=== PATIENT | male | born 1945 | race Caucasian/White ===

== ENCOUNTER 2016-09-23 19:53 | Inpatient (IN) | payer MEDICARE ==
[2016-09-23] MEDS ORDERED: ACETAMINOPHEN TAB 500 MG TAB PO STA (20:22)
[2016-09-23] MEDS ORDERED: IBUPROFEN 600 MG TAB PO STA (20:22)
--- NOTE | 2016-09-23 20:28 | ED ---
General Adult HPI - General Source: patient, family, RN notes reviewed Mode of arrival: wheelchair Limitations: no limitations <Deacon Velazquez - Last Filed: 09/23/16 20:58> <Deacon Gunn - Last Filed: 09/23/16 22:36> - General Chief complaint: Shortness of Breath Stated complaint: Difficulty breathing Time Seen by Provider: 09/23/16 20:00 - History of Present Illness Initial comments: This is a 71-year-old male who presents to the emergency department complaining of shortness of breath and feeling hot. Patient states she has a past medical history significant for COPD. Patient states about 11:00 today started feeling more sleepy took some Tylenol and since that time he's been short of breath and the shortness of breath getting worse. Patient states he is not coughing anymore than normal. Patient denies any chest pain patient denies any palpitations. Patient denies headache patient denies any numbness weakness. Patient denies any sore throat or ear pain. Patient denies any neck stiffness. Patient denies abdominal pain patient denies nausea vomiting or diarrhea. Patient denies any dysuria hematuria urinary frequency. (Deacon Velazquez) - Related Data Home Medications Medication Instructions Recorded Confirmed Albuterol Inhaler [Ventolin Hfa 2 puff INHALATION RT-QID PRN 09/23/16 09/23/16 Inhaler] Budesonide [Pulmicort] 0.5 mg INHALATION RT-BID 09/23/16 09/23/16 Cholecalciferol [Vitamin D3] 400 unit PO DAILY 09/23/16 09/23/16 Ipratropium-Albuterol Nebulize 3 ml INHALATION RT-QID 09/23/16 09/23/16 [Duoneb 0.5 mg-3 mg/3 ml Soln] Losartan [Cozaar] 25 mg PO DAILY 09/23/16 09/23/16 Pravastatin Sodium [Pravachol] 40 mg PO DAILY 09/23/16 09/23/16 Tamsulosin HCl [Flomax] 0.4 mg PO HS 09/23/16 09/23/16 Allergies Allergy/AdvReac Type Severity Reaction Status Date / Time No Known Allergies Allergy Verified 09/23/16 21:07 Review of Systems ROS Other: All systems not noted in ROS Statement are negative. <Deacon Velazquez - Last Filed: 09/23/16 20:58> ROS Other: All systems not noted in ROS Statement are negative. <Deacon Gunn - Last Filed: 09/23/16 22:36> ROS Statement: Those systems with pertinent positive or pertinent negative responses have been documented in the HPI. Past Medical History Past Medical History: COPD, Hypertension History of Any Multi-Drug Resistant Organisms: None Reported Past Surgical History: Hernia Repair Past Psychological History: No Psychological Hx Reported Smoking Status: Former smoker Past Alcohol Use History: None Reported Past Drug Use History: None Reported <Deacon Velazquez - Last Filed: 09/23/16 20:58> General Exam Limitations: no limitations <Deacon Velazquez - Last Filed: 09/23/16 20:58> General appearance: alert, in no apparent distress, anxious, in distress, cachectic Head exam: Present: atraumatic, normocephalic, normal inspection Eye exam: Present: normal appearance, PERRL, EOMI. Absent: scleral icterus, conjunctival injection, periorbital swelling ENT exam: Present: normal exam, mucous membranes moist Neck exam: Present: normal inspection. Absent: tenderness, meningismus, lymphadenopathy Respiratory exam: Present: respiratory distress, wheezes, accessory muscle use, decreased breath sounds, prolonged expiratory. Absent: rales, rhonchi, stridor Cardiovascular Exam: Present: normal rhythm, tachycardia, normal heart sounds. Absent: systolic murmur, diastolic murmur, rubs, gallop, clicks GI/Abdominal exam: Present: soft, normal bowel sounds. Absent: distended, tenderness, guarding, rebound, rigid Extremities exam: Present: normal inspection, full ROM, normal capillary refill. Absent: tenderness, pedal edema, joint swelling, calf tenderness Back exam: Present: normal inspection Neurological exam: Present: alert, oriented X3, CN II-XII intact Psychiatric exam: Present: normal affect, normal mood Skin exam: Present: warm, dry, intact, normal color. Absent: rash <Deacon Gunn - Last Filed: 09/23/16 22:36> - General Exam Comments Initial Comments: GENERAL: Patient is well-developed and well-nourished. Patient is nontoxic and well- hydrated and is in mild distress ENT: Neck is soft and supple. No significant lymphadenopathy is noted. Oropharynx is clear. Moist mucous membranes. Neck has full range of motion without eliciting any pain. EYES: The sclera were anicteric and conjunctiva were pink and moist. Extraocular movements were intact and pupils were equal round and reactive to light. Eyelids were unremarkable. PULMONARY: Unlabored respirations. Good breath sounds bilaterally. Patient has some extra wheezes CARDIOVASCULAR: There is a regular rate and rhythm without any murmurs gallops or rubs. Femoral pulses are equal bilaterally ABDOMEN: Soft and nontender with normal bowel sounds. No palpable organomegaly was noted. There is no palpable pulsatile mass. SKIN: Skin is clear with no lesions or rashes and otherwise unremarkable. NEUROLOGIC: Patient is alert and oriented x3. Cranial nerves II through XII are grossly intact. Motor and sensory are also intact. Normal speech, volume and content. Symmetrical smile. MUSCULOSKELETAL: Normal extremities with adequate strength and full range of motion. No lower extremity swelling or edema. No calf tenderness. LYMPHATICS: No significant lymphadenopathy is noted PSYCHIATRIC: Normal psychiatric evaluation. Normal interpersonal interactions appears functionally intact in deals appropriately with others. No signs of depression. No signs of anxiety. (Deacon Velazquez) Course <Deacon Velazquez - Last Filed: 09/23/16 20:58> <Deacon Gunn - Last Filed: 09/23/16 22:36> Vital Signs 09/23/16 09/23/16 09/23/16 19:58 20:21 20:22 Temperature 98.7 F 101.0 F H Pulse Rate 139 H 141 H Respiratory 26 H 30 H 30 H Rate Blood Pressure 140/88 135/87 O2 Sat by Pulse 89 L 91 L Oximetry 09/23/16 09/23/16 21:06 22:00 Temperature 99.4 F Pulse Rate 121 H Respiratory 28 H 26 H Rate Blood Pressure 125/79 O2 Sat by Pulse 93 L 91 L Oximetry - Reevaluation(s) Reevaluation #1: 09/23/16 22:35 Patient was significant shortness of breath, we put on prolonged breathing treatment (Deacon Gunn) Medical Decision Making - Lab Data Result diagrams: 09/23/16 20:14 09/23/16 20:14 <Deacon Velazquez - Last Filed: 09/23/16 20:58> - Lab Data Result diagrams: 09/23/16 20:14 09/23/16 20:14 - Radiology Data Radiology results: report reviewed (Chest x-ray is positive for pneumonia), image reviewed <Deacon Gunn - Last Filed: 09/23/16 22:36> - Medical Decision Making EKG shows sinus tachycardia with an occasional PAC rates 140 beats a minute AK interval is 120 QRS is 122 QT interval is 298 QTC is 454. There is no ST segment elevation or depression. Dr. Gunn will be taking over the care of this patient at 9 PM (Deacon Velazquez) 71 male the ER for evaluation of severe shortness of breath fever cough and congestion patient suffering from pneumonia, pop, K by COPD exacerbation and hypoxia, patient given for fever control. Treatments and IV antibiotics. ( Deacon Gunn) - Lab Data Lab Results 09/23/16 09/23/16 09/23/16 Range/Units 20:14 20:14 20:14 WBC 26.1 H* (3.8-10.6) k/uL RBC 4.98 (4.30-5.90) m/uL Hgb 15.8 (13.0-17.5) gm/dL Hct 46.2 (39.0-53.0) % MCV 92.8 (80.0-100.0) fL MCH 31.8 (25.0-35.0) pg MCHC 34.3 (31.0-37.0) g/dL RDW 12.2 (11.5-15.5) % Plt Count 289 (150-450) k/uL Neutrophils % 91 % Lymphocytes % 3 % Monocytes % 5 % Eosinophils % 0 % Basophils % 0 % Neutrophils # 23.8 H (1.3-7.7) k/uL Lymphocytes # 0.8 L (1.0-4.8) k/uL Monocytes # 1.2 H (0-1.0) k/uL Eosinophils # 0.0 (0-0.7) k/uL Basophils # 0.1 (0-0.2) k/uL PT (9.0-12.0) sec INR (<1.1) APTT (22.0-30.0) sec Sodium 131 L (137-145) mmol/L Potassium 4.6 (3.5-5.1) mmol/L Chloride 96 L (98-107) mmol/L Carbon Dioxide 23 (22-30) mmol/L Anion Gap 12 mmol/L BUN 15 (9-20) mg/dL Creatinine 0.78 (0.66-1.25) mg/dL Est GFR (MDRD) Af Amer >60 (>60 ml/min/1.73 sqM) Est GFR (MDRD) Non-Af >60 (>60 ml/min/1.73 sqM) Glucose 125 H (74-99) mg/dL Plasma Lactic Acid Radu (0.7-2.0) mmol/L Calcium 10.4 H (8.4-10.2) mg/dL Total Bilirubin 0.9 (0.2-1.3) mg/dL AST 20 (17-59) U/L ALT 23 (21-72) U/L Alkaline Phosphatase 113 (38-126) U/L Total Creatine Kinase 74 (55-170) U/L CK-MB (CK-2) 1.9 (0.0-2.4) ng/mL CK-MB (CK-2) Rel Index 2.6 Troponin I <0.012 (0.000-0.034) ng/mL Total Protein 7.8 (6.3-8.2) g/dL Albumin 4.5 (3.5-5.0) g/dL Cortisol 25 ug/dL Urine Color Urine Appearance (Clear) Urine pH (5.0-8.0) Ur Specific [place] (1.001-1.035) Urine Protein (Negative) Urine Glucose (UA) (Negative) Urine Ketones (Negative) Urine Blood (Negative) Urine Nitrite (Negative) Urine Bilirubin (Negative) Urine Urobilinogen (<2.0) mg/dL Ur Leukocyte Esterase (Negative) 09/23/16 09/23/16 09/23/16 Range/Units 20:14 20:14 21:00 WBC (3.8-10.6) k/uL RBC (4.30-5.90) m/uL Hgb (13.0-17.5) gm/dL Hct (39.0-53.0) % MCV (80.0-100.0) fL MCH (25.0-35.0) pg MCHC (31.0-37.0) g/dL RDW (11.5-15.5) % Plt Count (150-450) k/uL Neutrophils % % Lymphocytes % % Monocytes % % Eosinophils % % Basophils % % Neutrophils # (1.3-7.7) k/uL Lymphocytes # (1.0-4.8) k/uL Monocytes # (0-1.0) k/uL Eosinophils # (0-0.7) k/uL Basophils # (0-0.2) k/uL PT 10.7 (9.0-12.0) sec INR 1.1 (<1.1) APTT 27.0 (22.0-30.0) sec Sodium (137-145) mmol/L Potassium (3.5-5.1) mmol/L Chloride (98-107) mmol/L Carbon Dioxide (22-30) mmol/L Anion Gap mmol/L BUN (9-20) mg/dL Creatinine (0.66-1.25) mg/dL Est GFR (MDRD) Af Amer (>60 ml/min/1.73 sqM) Est GFR (MDRD) Non-Af (>60 ml/min/1.73 sqM) Glucose (74-99) mg/dL Plasma Lactic Acid Radu 1.4 (0.7-2.0) mmol/L Calcium (8.4-10.2) mg/dL Total Bilirubin (0.2-1.3) mg/dL AST (17-59) U/L ALT (21-72) U/L Alkaline Phosphatase (38-126) U/L Total Creatine Kinase (55-170) U/L CK-MB (CK-2) (0.0-2.4) ng/mL CK-MB (CK-2) Rel Index Troponin I (0.000-0.034) ng/mL Total Protein (6.3-8.2) g/dL Albumin (3.5-5.0) g/dL Cortisol ug/dL Urine Color Yellow Urine Appearance Clear (Clear) Urine pH 7.0 (5.0-8.0) Ur Specific [place] 1.015 (1.001-1.035) Urine Protein Trace H (Negative) Urine Glucose (UA) Negative (Negative) Urine Ketones 1+ H (Negative) Urine Blood Negative (Negative) Urine Nitrite Negative (Negative) Urine Bilirubin Negative (Negative) Urine Urobilinogen <2.0 (<2.0) mg/dL Ur Leukocyte Esterase Negative (Negative) Critical Care Time Critical Care Time: Yes Total Critical Care Time: 31 <Deacon Gunn - Last Filed: 09/23/16 22:36> Disposition <Deacon Velazquez - Last Filed: 09/23/16 20:58> <Deacon Gunn - Last Filed: 09/23/16 22:36> Clinical Impression: Community acquired pneumonia, Acute exacerbation of chronic obstructive airways disease, Sepsis, Hypoxia Disposition: ADMITTED IP TO THIS HOSP Condition: Serious Referrals: Ronn Aaron MD [Primary Care Provider] - 1-2 days
[2016-09-23 20:41] LABS: Basophils # (A) 0.1 k/uL (0-0.2); Basophils % (A) 0 %; CHCM 34.6; Eosinophils % (A) 0 %; HCT 46.2 % (39.0-53.0); HDW 2.18; HGB 15.8 gm/dL (13.0-17.5); Luc # (Auto) 0.19; Luc % (Auto) 1; Lymphocytes # (A) 0.8 k/uL (1.0-4.8); Lymphocytes % (A) 3 %; MCH 31.8 pg (25.0-35.0); MCHC 34.3 g/dL (31.0-37.0); MCV 92.8 fL (80.0-100.0); Mean Platelet Volume 6.6; Monocytes # (A) 1.2 k/uL (0-1.0); Monocytes % (A) 5 %; Neutrophils # (A) 23.8 k/uL (1.3-7.7); Neutrophils % (A) 91 %; RBC 4.98 m/uL (4.30-5.90); RDW 12.2 % (11.5-15.5); WBC (Perox) 25.85
[2016-09-23 20:45] LABS: INR 1.1 (<1.1); Prothrombin Time 10.7 sec (9.0-12.0)
[2016-09-23 20:47] LABS: ALT 23 U/L (21-72); AST 20 U/L (17-59); Alkaline Phosphatase 113 U/L (38-126); Anion Gap 12 mmol/L; Blood Urea Nitrogen 15 mg/dL (9-20); Calcium 10.4 mg/dL (8.4-10.2); Carbon Dioxide 23 mmol/L (22-30); Chloride 96 mmol/L (98-107); Glucose 125 mg/dL (74-99); Non-African American GFR(MDRD) >60 (>60 ml/min/1.73 sqM); Potassium 4.6 mmol/L (3.5-5.1); Sodium 131 mmol/L (137-145); Total Bilirubin 0.9 mg/dL (0.2-1.3); Total Protein 7.8 g/dL (6.3-8.2)
[2016-09-23 20:49] LABS: Creatine Kinase 74 U/L (55-170); WBC 26.1 k/uL (3.8-10.6)
[2016-09-23] MEDS: SODIUM CHLORIDE 0.9% 500 ML IV SCH ×2 (20:58→22:15)
[2016-09-23 21:02] LABS: Creatine Kinase MB 1.9 ng/mL (0.0-2.4); Troponin I <0.012 ng/mL (0.000-0.034)
--- NOTE | 2016-09-23 21:04 | XR ---
EXAMINATION TYPE: XR chest 2V DATE OF EXAM: 09/23/2016 8:50 PM COMPARISON: May 19, 2012 HISTORY: Fever TECHNIQUE: Frontal and lateral views of the chest are obtained. FINDINGS: There is redemonstration of prominent hyperinflation and emphysematous changes, with scatt ered ill-defined opacities - some of which appear coalescent. The pattern can correlate with a clinic al diagnosis of developing multifocal bronchopneumonia. There is no pulmonary edema. The pleural spaces are negative. Cardiac silhouette is normal in size. Bones and soft tissues are negative. IMPRESSION: RADIOGRAPHIC FINDINGS SUGGEST DEVELOPING MULTIFOCAL BRONCHOPNEUMONIA.
[2016-09-23 21:15] LABS: Appearance,Urine Clear (Clear); Bilirubin,Urine Negative (Negative); Glucose,Urine (UA) Negative (Negative); Ketones,Urine 1+ (Negative); Leukocyte Esterase,Urine Negative (Negative); Nitrite,Urine Negative (Negative); Protein,Urine Trace (Negative); Specific Gravity,Urine 1.015 (1.001-1.035); UA Billing (MACRO vs. MICRO) CHEM; Urobilinogen,Urine <2.0 mg/dL (<2.0)
[2016-09-23] MEDS ORDERED: LEVOFLOXACIN 750MG-D5W PMX 750 MG in DEXTROSE/WATER 1 150ML.BAG IVPB STA (21:23)
[2016-09-23] MEDS ORDERED: IPRATROPIUM 0.5 MG/2.5 ML NEBU INHALATION STA (22:32)
[2016-09-23] MEDS ORDERED: SODIUM CHLORIDE 0.9% 1,000 ML IV STA (22:32)
[2016-09-23] MEDS ORDERED: SODIUM CHLORIDE 0.9% 2,000 ML IV STA (22:32)
[2016-09-23] MEDS ORDERED: methylPREDNISolone SOD SUCCI 125 MG/2 ML VIAL IV STA (22:32)
[2016-09-23] MEDS ORDERED: KETOROLAC 30 MG/ML 1 ML VIAL IVP STA (22:32)
[2016-09-23] MEDS ORDERED: ACETAMINOPHEN IV (For NPO) 1,000 MG in EMPTY BAG 1 BAG IVPB STA (22:32)
[2016-09-23] MEDS ORDERED: ALBUTEROL NEB (CONC) 2.5 MG/0.5 ML INHALATION STA ×2 (22:32→22:43)
[2016-09-23] MEDS ORDERED: SODIUM CHLORIDE 0.9% 500 ML IV STA (22:32)
[2016-09-23] MEDS ORDERED: MORPHINE SULFATE 4 MG/ML SYRINGE IVP PRN (22:33)
[2016-09-23] MEDS ORDERED: MORPHINE SULFATE 2 MG/ML SYRINGE IVP ONE (22:33)
[2016-09-23] MEDS ORDERED: PNEUMONIA PROTOCOL UTILIZED 1 EACH MISC PO PRN (22:36)
[2016-09-23] MEDS ORDERED: IPRATROPIUM-ALBUTEROL 3 ML NEB INHALATION STA (22:44)
[2016-09-24] MEDS ORDERED: IPRATROPIUM-ALBUTEROL 3 ML NEB INHALATION PRN (00:46)
[2016-09-24 01:05] VITALS: BMI 21.7
[2016-09-24] MEDS: SODIUM CHLORIDE 0.9% 1,000 ML IV SCH ×3 (02:02→18:25)
[2016-09-24] MEDS: ACETAMINOPHEN IV (For NPO) 1,000 MG in EMPTY BAG 1 BAG IVPB SCH ×4 (02:19→18:20)
[2016-09-24] MEDS: ALPRAZolam 0.25 MG TAB PO PRN ×3 (03:11→22:06)
[2016-09-24 03:29] LABS: Creatine Kinase 102 U/L (55-170)
[2016-09-24 03:42] LABS: Troponin I <0.012 ng/mL (0.000-0.034)
[2016-09-24 03:46] LABS: Creatine Kinase MB 3.1 ng/mL (0.0-2.4)
[2016-09-24] MEDS: methylPREDNISolone SOD SUCCI 125 MG/2 ML VIAL IV SCH ×3 (06:01→18:24)
[2016-09-24 08:00] LABS: Glucose,Whole Blood 127 mg/dL (75-99)
[2016-09-24] MEDS: INSULIN LISPRO (humaLOG) 300 UNIT/3 ML VIAL SQ SCH ×4 (08:00→20:55)
[2016-09-24] MEDS: IPRATROPIUM-ALBUTEROL 3 ML NEB INHALATION SCH ×4 (08:31→20:28)
[2016-09-24 08:37] LABS: Troponin I 0.013 ng/mL (0.000-0.034)
[2016-09-24 08:43] LABS: Creatine Kinase MB 5.5 ng/mL (0.0-2.4)
[2016-09-24 08:57] LABS: Hemoglobin A1C 5.5 % (4.2-6.1)
--- NOTE | 2016-09-24 10:11 | P.CNPUL ---
History of Present Illness Consult date: 09/24/16 Requesting physician: Evelio Brown Reason for consult: pneumonia Chief complaint: shortness of breath History of present illness: This is a 71-year-old male patient being evaluated and examined today on the fifth floor. The patient came into the emergency room complaining of shortness of breath, cough, congestion and feeling hot. The patient did have a 101 fever , and was noted to have sinus tachycardia.. This patient is known to have a significant history of COPD. Patient was then admitted for pneumonia, acute exacerbation of COPD, sepsis, and hypoxia. This patient does wear home oxygen, 3 L via nasal cannula. Upon examination the patient is resting up in bed he feels slightly better than yesterday he is currently afebrile, he continues to be short of breath and is bringing up some brown marinelli sputum. Review of Systems A 14 point review of systems was completed and is otherwise unremarkable, noncontributory unless stated in the HPI Past Medical History Past Medical History: COPD, Hyperlipidemia, Hypertension, Pneumonia, Prostate Disorder History of Any Multi-Drug Resistant Organisms: None Reported Past Surgical History: Hernia Repair Additional Past Surgical History / Comment(s): Colonoscopy - clear 2015 Past Anesthesia/Blood Transfusion Reactions: No Reported Reaction Past Psychological History: No Psychological Hx Reported Smoking Status: Former smoker Past Alcohol Use History: None Reported Past Drug Use History: None Reported - Past Family History Mother Family Medical History: Myocardial Infarction ([place]), Supraventricular Tachycardia (SVT) Additional Family Medical History / Comment(s): Lived to Father Family Medical History: Cancer Additional Family Medical History / Comment(s): Lung CA Medications and Allergies Home Medications Medication Instructions Recorded Confirmed Type Albuterol Inhaler [Ventolin Hfa 2 puff INHALATION RT-QID PRN 09/23/16 09/23/16 History Inhaler] Budesonide [Pulmicort] 0.5 mg INHALATION RT-BID 09/23/16 09/23/16 History Cholecalciferol [Vitamin D3] 400 unit PO DAILY 09/23/16 09/23/16 History Ipratropium-Albuterol Nebulize 3 ml INHALATION RT-QID 09/23/16 09/23/16 History [Duoneb 0.5 mg-3 mg/3 ml Soln] Losartan [Cozaar] 25 mg PO DAILY 09/23/16 09/23/16 History Pravastatin Sodium [Pravachol] 40 mg PO DAILY 09/23/16 09/23/16 History Tamsulosin HCl [Flomax] 0.4 mg PO HS 09/23/16 09/23/16 History Allergies Allergy/AdvReac Type Severity Reaction Status Date / Time No Known Allergies Allergy Verified 09/23/16 21:07 Physical Exam Vitals: Vital Signs Temp Pulse Pulse Resp BP BP Pulse Ox 09/24/16 08:44 100 09/24/16 08:31 104 H 09/24/16 08:00 108 H 22 09/24/16 07:45 97.7 F 108 H 22 163/92 93 L 09/24/16 04:01 115 H 20 09/24/16 02:00 117 H 38 H 92 L 09/24/16 01:01 98.1 F 115 H 20 157/94 92 L 09/24/16 00:40 98.1 F 115 H 26 H 157/94 92 L 09/24/16 00:00 99.0 F 116 H 28 H 122/75 91 L 09/23/16 23:00 128 H 09/23/16 22:49 119 H Intake and Output 09/23/16 09/24/16 09/24/16 22:59 06:59 14:59 Intake Total 1000 120 Balance 1000 120 Intake: Amount of Fluid Infused ( 1000 ml) Oral 120 Other: Voiding Method Toilet Urinal # Voids 1 1 # Bowel Movements 1 Weight 61.235 kg 61.235 kg Patient Weight 09/25/16 06:59 Weight 61.235 kg GENERAL EXAM: Alert, active, comfortable in no apparent distress. HEAD: Normocephalic. EYES: Normal reaction of pupils, equal size. NOSE: Clear with pink turbinates. THROAT: No erythema or exudates. NECK: No masses, no JVD. CHEST: No chest wall deformity. LUNGS: Poor air entry bilaterally with no crackles, wheeze, rhonchi or dullness. CVS: S1 and S2 normal with no audible mumurs, regular rhythm. ABDOMEN: No hepatosplenomegaly, normal bowel sounds, no guarding or rigidity. EXTREMITIES: No edema noted, pedal pulses palpable. SKIN: No rashes CENTRAL NERVOUS SYSTEM: No focal deficits, tone is normal in all 4 extremities. Results - Laboratory Findings CBC and BMP: 09/23/16 20:14 03/28/17 20:14 PT/INR, D-dimer PT 10.7 sec (9.0-12.0) 09/23/16 20:14 INR 1.1 (<1.1) 09/23/16 20:14 Abnormal lab findings: Abnormal Labs 09/24/16 09/24/16 09/24/16 02:46 07:36 07:58 POC Glucose (mg/dL) 127 H CK-MB (CK-2) 3.1 H* 5.5 H* - Diagnostic Findings Chest x-ray: report reviewed, image reviewed Assessment and Plan Plan: Assessment Acute exacerbation of COPD Probable community-acquired pneumonia versus mass, as seen on x-ray Sepsis Acute on chronic hypoxic respiratory failure Hypertension Plan Medications have been reviewed and will be continued. We will add budesonide to his nebulizer treatments. We also will order a CT of the chest without contrast, for probable community-acquired pneumonia versus mass. Continue with supportive care, oxygen, and pulmonary hygiene. We will continue monitoring labs and results and adjust treatment as necessary. I performed an examination of the patient and discussed their management with the nurse practitioner. I have reviewed the nurse practitioner's note and agree with the documented findings and plan of care.
[2016-09-24] MEDS: ENOXAPARIN 40 MG/0.4 ML SYRINGE SQ SCH (10:35)
[2016-09-24 12:05] LABS: Glucose,Whole Blood 144 mg/dL (75-99)
[2016-09-24 12:18] LABS: Basophils # (A) 0.1 k/uL (0-0.2); Basophils % (A) 0 %; CH 31.6; Eosinophils % (A) 0 %; HCT 43.7 % (39.0-53.0); HDW 2.14; HGB 14.4 gm/dL (13.0-17.5); Luc # (Auto) 0.11; Luc % (Auto) 0; Lymphocytes # (A) 0.6 k/uL (1.0-4.8); Lymphocytes % (A) 3 %; MCH 31.5 pg (25.0-35.0); MCHC 32.9 g/dL (31.0-37.0); MCV 95.9 fL (80.0-100.0); Mean Platelet Volume 8.1; Monocytes # (A) 0.7 k/uL (0-1.0); Monocytes % (A) 3 %; Neutrophils % (A) 94 %; RBC 4.56 m/uL (4.30-5.90); RDW 12.2 % (11.5-15.5); WBC 24.5 k/uL (3.8-10.6); WBC (Perox) 24.55
--- NOTE | 2016-09-24 12:37 | XR ---
EXAMINATION TYPE: XR chest 2V DATE OF EXAM: 09/24/2016 10:07 AM COMPARISON: 09/23/2016 HISTORY: Shortness of breath TECHNIQUE: Frontal and lateral views of the chest are obtained. FINDINGS: Scattered senescent parenchymal changes noted. Hyperinflation compatible with COPD. Superimposed emph ysematous changes. No evidence for infiltrate. No evidence for atelectasis. Heart size is stable. Mediastinal structures are stable and grossly unremarkable. No evidence for hilar prominence. Degenerative changes dorsal spine. IMPRESSION: 1. No evidence for acute pulmonary disease.
--- NOTE | 2016-09-24 12:58 | CT ---
EXAMINATION TYPE: CT chest wo con DATE OF EXAM: 09/24/2016 10:29 AM COMPARISON: Prior chest CT 19 May 2012, chest x-ray 23 September 2016 and 24 September 2016 HISTORY: Pneumonia, shortness of breath CT DLP: 390 mGycm Automated exposure control for dose reduction was used. FINDINGS: Helical acquisition through the chest. No contrast. There is a hiatal hernia. Lack of contrast could compromise sensitivity. Bronchograms, increased density within the medial aspect of the right middle lobe and lingula is agai n noted and may represent scar rather than airspace disease. Extensive emphysematous changes are agai n noted. No endobronchial lesion, pleural or pericardial effusion. There are coronary artery calcific ations. Bronchial wall thickening is present. IMPRESSION: STABLE AREAS OF CONSOLIDATION ARE PRESENT ANTERIORLY IN THE RIGHT MIDDLE LOBE AND [place] AND MAY REP RESENT SCAR RATHER THAN AIRSPACE DISEASE. CORRELATE FOR CHRONIC BRONCHITIS, THERE ARE EXTENSIVE ADVAN VIVIAN EMPHYSEMATOUS CHANGES. CORONARY ARTERY DISEASE.
[2016-09-24 16:46] LABS: Glucose,Whole Blood 161 mg/dL (75-99)
[2016-09-24] MEDS: TAMSULOSIN 0.4 MG CAP.ER.24H PO SCH (20:12)
[2016-09-24] MEDS: BUDESONIDE 1 MG/2 ML NEBU INHALATION SCH (20:28)
[2016-09-24 20:37] LABS: Glucose,Whole Blood 156 mg/dL (75-99)
[2016-09-24] MEDS ORDERED: LEVOFLOXACIN 750MG-D5W PMX 750 MG in DEXTROSE/WATER 1 150ML.BAG IVPB SCH (23:00)
[2016-09-25] MEDS: methylPREDNISolone SOD SUCCI 125 MG/2 ML VIAL IV SCH ×3 (01:04→11:32)
[2016-09-25] MEDS: IPRATROPIUM-ALBUTEROL 3 ML NEB INHALATION SCH ×4 (07:13→20:25)
[2016-09-25] MEDS: BUDESONIDE 1 MG/2 ML NEBU INHALATION SCH ×2 (07:14→20:25)
[2016-09-25] MEDS: ENOXAPARIN 40 MG/0.4 ML SYRINGE SQ SCH (07:34)
[2016-09-25] MEDS: PRAVASTATIN SODIUM 40 MG TAB PO SCH (07:34)
[2016-09-25] MEDS: FAMOTIDINE 20 MG TAB PO SCH (07:34)
[2016-09-25] MEDS: CHOLECALCIFEROL 400 UNIT TAB PO SCH (07:35)
[2016-09-25] MEDS: LOSARTAN 25 MG TAB PO SCH (07:35)
[2016-09-25] MEDS: ALPRAZolam 0.25 MG TAB PO PRN ×2 (07:41→22:06)
[2016-09-25 07:59] LABS: Glucose,Whole Blood 135 mg/dL (75-99)
[2016-09-25] MEDS: INSULIN LISPRO (humaLOG) 300 UNIT/3 ML VIAL SQ SCH ×4 (08:01→21:23)
[2016-09-25 08:40] LABS: Basophils % (A) 0 %; CH 31.6; CHCM 33.4; Eosinophils % (A) 0 %; HCT 43.6 % (39.0-53.0); HDW 2.23; HGB 14.3 gm/dL (13.0-17.5); Luc # (Auto) 0.09; Luc % (Auto) 1; Lymphocytes # (A) 0.9 k/uL (1.0-4.8); Lymphocytes % (A) 5 %; MCH 31.1 pg (25.0-35.0); MCHC 32.8 g/dL (31.0-37.0); MCV 94.9 fL (80.0-100.0); Mean Platelet Volume 6.7; Monocytes # (A) 0.4 k/uL (0-1.0); Monocytes % (A) 2 %; Neutrophils # (A) 16.5 k/uL (1.3-7.7); Neutrophils % (A) 92 %; RBC 4.59 m/uL (4.30-5.90); RDW 12.2 % (11.5-15.5); WBC 17.9 k/uL (3.8-10.6); WBC (Perox) 17.91
[2016-09-25 08:57] LABS: ALT 24 U/L (21-72); AST 29 U/L (17-59); Alkaline Phosphatase 87 U/L (38-126); Anion Gap 11 mmol/L; Blood Urea Nitrogen 20 mg/dL (9-20); Calcium 9.5 mg/dL (8.4-10.2); Carbon Dioxide 24 mmol/L (22-30); Chloride 102 mmol/L (98-107); Glucose 129 mg/dL (74-99); Non-African American GFR(MDRD) >60 (>60 ml/min/1.73 sqM); Potassium 4.4 mmol/L (3.5-5.1); Sodium 137 mmol/L (137-145); Total Bilirubin 0.6 mg/dL (0.2-1.3)
--- NOTE | 2016-09-25 11:03 | P.PN ---
Subjective this is a 71-year-old male patient being evaluated and examined today on the fifth floor. Patient came into the emergency room complaining of shortness of breath, cough, congestion and feeling hot. The patient did have a 101 fever, and was admitted to have sinus tachycardia. This patient is known to have a significant history of COPD. Patient was then admitted for pneumonia acute exacerbation of COPD, sepsis, and hypoxia. This patient does wear home oxygen, 3 L via nasal cannula. the patient did undergo a CT of the chest yesterday which showed stable areas of consolidation anteriorly and there are right middle lobe and may represent scar rather than airspace disease, also showed chronic bronchitis and extensive advanced emphysema, as well as coronary artery disease. Upon examination the patient is resting up in bed stating he feels slightly better than yesterday. Currently he is afebrile, he does continue to have some shortness of breath with exertion and ambulation. He denies any sputum production today. Objective - Vital Signs Vital signs: Vital Signs Temp 98.0 F 09/24/16 21:30 Pulse 115 H 09/25/16 08:00 Resp 18 09/25/16 08:00 BP 111/81 09/25/16 07:00 Pulse Ox 96 09/25/16 07:00 Intake & Output 09/24/16 09/25/16 09/25/16 18:59 06:59 18:59 Intake Total 120 250 Balance 120 250 Weight 61.235 kg 61.235 kg Intake: IV 150 Levofloxacin 750Mg-D5w 150 Pmx 750 mg In Dextrose/ Water 1 150ml.bag @ 100 mls/hr IVPB Q24H [facility] Rx#: [id number] Oral 120 100 Other: Voiding Method Toilet Toilet Toilet Urinal Urinal Urinal # Voids 2 2 1 # Bowel Movements 1 - Exam GENERAL EXAM: Alert, active, comfortable in no apparent distress. HEAD: Normocephalic. EYES: Normal reaction of pupils, equal size. NOSE: Clear with pink turbinates. THROAT: No erythema or exudates. NECK: No masses, no JVD. CHEST: No chest wall deformity. LUNGS: Poor air entry bilaterally with no crackles wheezes rhonchi or dullness.. CVS: S1 and S2 normal with no audible mumurs, regular rhythm. ABDOMEN: No hepatosplenomegaly, normal bowel sounds, no guarding or rigidity. EXTREMITIES: No edema noted, pedal pulses palpable. SKIN: No rashes CENTRAL NERVOUS SYSTEM: No focal deficits, tone is normal in all 4 extremities. - Labs CBC & Chem 7: 09/25/16 07:45 09/25/16 07:45 Labs: Abnormal Lab Results - Last 24 Hours (Table) 09/24/16 09/24/16 09/24/16 Range/Units 02:46 11:50 16:36 WBC 24.5 H (3.8-10.6) k/uL Neutrophils # 23.0 H (1.3-7.7) k/uL Lymphocytes # 0.6 L (1.0-4.8) k/uL Glucose (74-99) mg/dL POC Glucose (mg/dL) 144 H 161 H (75-99) mg/dL 09/24/16 09/25/16 09/25/16 Range/Units 20:35 07:45 07:45 WBC 17.9 H (3.8-10.6) k/uL Neutrophils # 16.5 H (1.3-7.7) k/uL Lymphocytes # 0.9 L (1.0-4.8) k/uL Glucose 129 H (74-99) mg/dL POC Glucose (mg/dL) 156 H (75-99) mg/dL 09/25/16 Range/Units 07:55 WBC (3.8-10.6) k/uL Neutrophils # (1.3-7.7) k/uL Lymphocytes # (1.0-4.8) k/uL Glucose (74-99) mg/dL POC Glucose (mg/dL) 135 H (75-99) mg/dL Assessment and Plan Plan: Assessment Acute exacerbation of COPD Probable community-acquired pneumonia versus mass, as seen on x-ray Sepsis Acute on chronic hypoxic respiratory failure Hypertension Plan Medications have been reviewed and will be continued. Continue with supportive care, oxygen, and pulmonary hygiene. We will continue monitoring labs and results and adjust treatment as necessary. I performed an examination of the patient and discussed their management with the nurse practitioner. I have reviewed the nurse practitioner's note and agree with the documented findings and plan of care.
[2016-09-25] MEDS ORDERED: guaiFENesin-Coden 100-10MG/5ML 10 ML CUP PO PRN (11:10)
[2016-09-25 11:53] LABS: Glucose,Whole Blood 187 mg/dL (75-99)
[2016-09-25 16:23] VITALS: TEMP 97.5
[2016-09-25 17:34] LABS: Glucose,Whole Blood 130 mg/dL (75-99)
[2016-09-25] MEDS ORDERED: methylPREDNISolone SOD SUCCI 40 MG/ML 1 ML VIAL IV SCH (18:00)
[2016-09-25 20:29] LABS: Glucose,Whole Blood 197 mg/dL (75-99)
[2016-09-25] MEDS: TAMSULOSIN 0.4 MG CAP.ER.24H PO SCH (21:24)
[2016-09-25 22:15] VITALS: RESP 20
[2016-09-25] MEDS ORDERED: LEVOFLOXACIN 750 MG TAB PO SCH (23:00)
[2016-09-26] MEDS: FAMOTIDINE 20 MG TAB PO SCH (07:13)
[2016-09-26] MEDS: ENOXAPARIN 40 MG/0.4 ML SYRINGE SQ SCH (07:13)
[2016-09-26] MEDS: CHOLECALCIFEROL 400 UNIT TAB PO SCH (07:14)
[2016-09-26] MEDS: PRAVASTATIN SODIUM 40 MG TAB PO SCH (07:14)
[2016-09-26] MEDS: LOSARTAN 25 MG TAB PO SCH (07:14)
[2016-09-26 07:26] LABS: Glucose,Whole Blood 108 mg/dL (75-99)
[2016-09-26] MEDS: BUDESONIDE 1 MG/2 ML NEBU INHALATION SCH (07:28)
[2016-09-26] MEDS: IPRATROPIUM-ALBUTEROL 3 ML NEB INHALATION SCH ×2 (07:28→11:18)
[2016-09-26 07:39] VITALS: BP 167/107
[2016-09-26] MEDS: INSULIN LISPRO (humaLOG) 300 UNIT/3 ML VIAL SQ SCH ×2 (07:52→12:39)
[2016-09-26] MEDS ORDERED: predniSONE 20 MG TAB PO SCH (09:00)
[2016-09-26 11:42] VITALS: PULSE 102
[2016-09-26 11:53] LABS: Glucose,Whole Blood 103 mg/dL (75-99)
--- NOTE | 2016-09-26 15:11 | P.HPIM ---
History of Present Illness H&P Date: 09/24/16 Chief Complaint: Acute respiratory failure, COPD exacerbation, multifocal pneumonia, hyperte 71-year-old male one of Dr. Ronn Aaron's patient with past medical history of COPD, hypertension, BPH, recurrent pneumonia who was in the hospital apparently back in 2011 with episode of pneumonia and COPD excessive patient along with respiratory failure was treated and done well has quit smoking since then. Patient was doing well till 48 hours. 2 hospitalization when developed to have fever or chills cough productive duct floor him along with significant shortness of breath tighter wheezy not been able to ambulate and walk become more nauseous has been sick to stomach not feeling well overall. Patient ended up coming to the emergency department at [facility] where was seen and evaluated was hypoxic his temperature was 102 chest x- ray revealed multilobular pneumonia patient was having inspiratory expiratory wheezes was diagnosed with COPD exacerbation respiratory failure and multi low blood pneumonia. Patient was started on gram-negative coverage steroid updraft treatment will consult pulmonary patient was admitted to the hospital for the above problem. Review of Systems Constitutional: Reports anorexia, Reports fatigue, Reports lethargy, Reports night sweats, Reports weakness, Reports weight gain, Denies as per HPI, Denies chills, Denies chronic headaches, Denies chronic pain, Denies daytime sleepiness , Denies fever, Denies malaise, Denies poor appetite, Denies sweats, Denies weight loss Eyes: bilateral as per HPI Ears: bilateral: decreased hearing Ears, nose, mouth and throat: Reports ant. neck pain, Reports nasal congestion, Reports sinus pain, Reports sinus pressure, Denies as per HPI, Denies bleeding gums, Denies dental pain, Denies dysphagia, Denies epistaxis, Denies headache, Denies hoarseness, Denies mouth pain, Denies nasal discharge, Denies neck fullness/pressure, Denies neck lump, Denies nose pain, Denies odynophagia, Denies post-nasal drip, Denies swelling in mouth, Denies swelling in throat, Denies sore throat, Denies vertigo, Denies voice changes Breasts: bilateral: as per HPI Cardiovascular: Reports chest pain, Reports claudication, Reports dyspnea on exertion, Reports edema, Reports high blood pressure, Reports irregular heart beat, Reports leg edema, Reports lightheadedness, Reports orthopnea, Reports paroxysmal nocturnal dyspnea, Reports shortness of breath, Denies as per HPI, Denies decreased exercise tolerance, Denies palpitations, Denies phlebitis, Denies rapid heart beat, Denies syncope Respiratory: Reports congestion, Reports cough, Reports dyspnea, Reports respiratory infections, Denies as per HPI, Denies cough with sputum, Denies excessive sputum, Denies hemoptysis, Denies home oxygen, Denies pain, Denies pain on inspiration, Denies pleurisy, Denies sleep apnea, Denies snoring, Denies wheezing Gastrointestinal: Reports abdominal pain, Reports bloating, Reports dyspepsia, Reports early satiety, Reports indigestion, Reports nausea, Denies as per HPI, Denies belching, Denies BRBPR, Denies change in bowel habits, Denies coffee ground emesis, Denies constipation, Denies diarrhea, Denies excessive gas, Denies heartburn, Denies hematemesis, Denies hematochezia, Denies jaundice, Denies lactose intolerance, Denies loss of appetite, Denies melena, Denies vomiting Genitourinary: Reports nocturia, Reports polyuria, Reports urinary frequency, Denies as per HPI, Denies decreased libido, Denies difficulties fathering child , Denies discharge, Denies dysuria, Denies erectile dysfunction, Denies flank pain, Denies genital pain, Denies genital sores, Denies hematuria, Denies impotence, Denies incontinence, Denies kidney stones, Denies testicular lump, Denies testicular pain, Denies urinary hesitancy, Denies urinary retention Musculoskeletal: Reports arm numbness/tingling, Reports atrophy, Reports low back pain, Reports myalgias, Reports neck pain, Reports neck stiffness, Denies as per HPI, Denies fractures, Denies frequent falls, Denies gait dysfunction, Denies hot joints, Denies leg numbness/tingling, Denies limitation of motion, Denies loss of height, Denies morning stiffness, Denies muscle cramps, Denies muscle weakness, Denies prior amputations, Denies redness of joints, Denies shooting arm pain, Denies shooting leg pain Musculoskeletal: bilateral: ankle pain Integumentary: Reports pruritus, Reports rash, Reports sores, Denies as per HPI , Denies acne, Denies boils, Denies brittle nails, Denies change in hair/nails, Denies color changes, Denies darkening of skin, Denies depigmentation, Denies dryness, Denies foot/leg ulcers, Denies growths, Denies hirsutism, Denies lesions, Denies onychomycosis, Denies striae, Denies unusual bruising, Denies wounds Neurological: Reports gait dysfunction, Reports paresthesias, Denies as per HPI , Denies aphasia, Denies ataxia, Denies balance difficulties, Denies burning pain, Denies change in mentation, Denies change in smell/taste, Denies change in speech, Denies confusion, Denies convulsions, Denies double vision, Denies head injury, Denies headaches, Denies hearing difficulties, Denies lack of coordination, Denies loss of vision, Denies memory loss, Denies migraines, Denies motor disturbance, Denies numbness, Denies paralysis, Denies seizures, Denies sensory deficit, Denies spasticity, Denies syncope, Denies tic, Denies tingling, Denies transient paralysis, Denies tremors, Denies vertigo, Denies weakness, Denies visual changes Psychiatric: Denies as per HPI, Denies anhedonia, Denies anxiety, Denies anxiety attacks, Denies change in appetite, Denies change in libido, Denies change in sleep habits, Denies confusion, Denies depression, Denies difficulty concentrating, Denies disorientation, Denies hallucinations, Denies hopelessness , Denies hypersomnia, Denies insomnia, Denies irritability, Denies memory loss, Denies mood swings, Denies paranoia, Denies sadness/tearfulness, Denies sleep disturbances, Denies suicidal ideation Endocrine: Reports cold intolerance, Reports fatigue, Denies as per HPI, Denies deepening of the voice, Denies excessive sweating, Denies excessive thirst, Denies flushing, Denies heat intolerance, Denies high blood sugars, Denies increase in ring/shoe/hat size, Denies low blood sugars, Denies nocturia, Denies palpitations, Denies polydipsia, Denies polyphagia, Denies polyuria, Denies proptosis, Denies recent glucocorticoid use, Denies thyroid mass, Denies weight change Hematologic/Lymphatic: Reports easy bleeding, Denies as per HPI, Denies easy bruising, Denies lymphadenopathy, Denies lymphedema, Denies thrombophilia Allergic/Immunologic: Denies as per HPI, Denies allergic rhinitis, Denies anaphylaxis, Denies angioedema, Denies gluten intolerance, Denies persistent infections, Denies seasonal allergies, Denies urticaria, Denies wheezing Past Medical History Past Medical History: COPD, Hyperlipidemia, Hypertension, Pneumonia, Prostate Disorder History of Any Multi-Drug Resistant Organisms: None Reported Past Surgical History: Hernia Repair Additional Past Surgical History / Comment(s): Colonoscopy - clear 2016 Past Anesthesia/Blood Transfusion Reactions: No Reported Reaction Past Psychological History: No Psychological Hx Reported Smoking Status: Former smoker Past Alcohol Use History: None Reported Past Drug Use History: None Reported - Past Family History Mother Family Medical History: Myocardial Infarction (ND), Supraventricular Tachycardia (SVT) Additional Family Medical History / Comment(s): Lived to Father Family Medical History: Cancer Additional Family Medical History / Comment(s): Lung CA Medications and Allergies Home Medications Medication Instructions Recorded Confirmed Type Albuterol Inhaler [Ventolin Hfa 2 puff INHALATION RT-QID PRN 09/23/16 09/23/16 History Inhaler] Budesonide [Pulmicort] 0.5 mg INHALATION RT-BID 09/23/16 09/23/16 History Cholecalciferol [Vitamin D3] 400 unit PO DAILY 09/23/16 09/23/16 History Ipratropium-Albuterol Nebulize 3 ml INHALATION RT-QID 09/23/16 09/23/16 History [Duoneb 0.5 mg-3 mg/3 ml Soln] Losartan [Cozaar] 25 mg PO DAILY 09/23/16 09/23/16 History Pravastatin Sodium [Pravachol] 40 mg PO DAILY 09/23/16 09/23/16 History Tamsulosin HCl [Flomax] 0.4 mg PO HS 09/23/16 09/23/16 History Allergies Allergy/AdvReac Type Severity Reaction Status Date / Time No Known Allergies Allergy Verified 09/23/16 21:07 Physical Exam Vitals: Vital Signs Temp Pulse Pulse Resp BP BP Pulse Ox 09/24/16 11:59 108 H 09/24/16 11:49 108 H 09/24/16 08:44 100 09/24/16 08:31 104 H 09/24/16 08:00 108 H 22 09/24/16 07:45 97.7 F 108 H 22 163/92 93 L 09/24/16 04:01 115 H 20 09/24/16 02:00 117 H 38 H 92 L 09/24/16 01:01 98.1 F 115 H 20 157/94 92 L 09/24/16 00:40 98.1 F 115 H 26 H 157/94 92 L 09/24/16 00:00 99.0 F 116 H 28 H 122/75 91 L 09/23/16 23:00 128 H 09/23/16 22:49 119 H Intake and Output 09/23/16 09/24/16 09/24/16 22:59 06:59 14:59 Intake Total 1000 120 Balance 1000 120 Intake: Amount of Fluid Infused ( 1000 ml) Oral 120 Other: Voiding Method Toilet Urinal # Voids 1 1 # Bowel Movements 1 Weight 61.235 kg 61.235 kg Patient Weight 09/25/16 06:59 Weight 61.235 kg - Constitutional General appearance: no average body habitus, cooperative, no disheveled, no mild distress, no morbidly obese, no acute distress, no obese, no severe distress, thin - EENT Eyes: no abnormal pupil, anicteric sclerae, no disc margins sharp, no edentulous , no EOMI, no PERRLA, no fundus normal, no photophobia, no dentition normal, no poor dentition, no ptosis, no scleral icterus, normal appearance ENT: hard of hearing, no hearing grossly normal, no NA/AT, no normal oropharynx , no other, no pharyngeal erythema, no thrush, no tonsillar exudates, no tonsillar swelling Ears: bilateral: normal - Neck Neck: no lymphadenopathy, normal ROM, no other, no rigidity, no stridor, no thyromegaly Carotids: bilateral: upstroke normal Thyroid: bilateral: normal size - Respiratory Respiratory: bilateral: diminished, dullness, rales, rhonchi, wheezing, prolonged expiration, prolonged inspiration - Cardiovascular Rhythm: regular Heart sounds: normal: S1, S2 Abnormal Heart Sounds: systolic murmur, S3 Gallop - Gastrointestinal General gastrointestinal: no absent bowel sounds, decreased bowel sounds, distended, hepatomegaly, no hyperactive bowel sounds, no normal bowel sounds, no organomegaly, no rigid, scaphoid, soft, splenomegaly, no tenderness, no umbilical hernia, no ventral hernia - Integumentary Integumentary: no calor, no cellulitis, no cyanotic, no decreased turgor, no flushed, no jaundiced, normal, no normal turgor, pale, no rash, no ulcer - Neurologic Neurologic: CNII-XII intact - Musculoskeletal Musculoskeletal: gait normal, generalized weakness, strength equal bilaterally, no right sided weakness, no left sided weakness - Psychiatric Psychiatric: A&O x's 3, appropriate affect, no intact judgment & insight Results CBC & Chem 7: 09/25/16 07:45 09/25/16 07:45 Labs: Abnormal Lab Results - Last 24 Hours (Table) 09/24/16 09/24/16 09/24/16 Range/Units 02:46 02:46 07:36 WBC 24.5 H (3.8-10.6) k/uL Neutrophils # 23.0 H (1.3-7.7) k/uL Lymphocytes # 0.6 L (1.0-4.8) k/uL POC Glucose (mg/dL) (75-99) mg/dL CK-MB (CK-2) 3.1 H* 5.5 H* (0.0-2.4) ng/mL 09/24/16 09/24/16 Range/Units 07:58 11:50 WBC (3.8-10.6) k/uL Neutrophils # (1.3-7.7) k/uL Lymphocytes # (1.0-4.8) k/uL POC Glucose (mg/dL) 127 H 144 H (75-99) mg/dL CK-MB (CK-2) (0.0-2.4) ng/mL Thrombosis Risk Factor Assmnt - DVT/VTE Prophylaxis DVT/VTE Prophylaxis: Pharmacologic Prophylaxis ordered, Mechanical Prophylaxis ordered - Choose All That Apply Any of the Below Risk Factors Present?: Yes Each Factor Represents 1 point: Abnormal pulmonary function (COPD) Other Risk Factors: Yes Each Risk Factor Represents 2 Points: Age 61-74 years Other congenital or acquired thrombophilia - If yes, enter type in comment: No Thrombosis Risk Factor Assessment Total Risk Factor Score: 3 Thrombosis Risk Factor Assessment Level: Moderate Risk Assessment and Plan Plan: 1 acute respiratory failure: Combination of COPD exacerbation along with multilobular pneumonia, treated underlying disease continue O2 on consult pulmonary. 2 COPD excessive patient: Patient will be on Solu-Medrol 60 mg IV every 6 hours along with Pulmicort and DuoNeb continue O2 try to keep his pulse ox above 92%. 3 multilobular pneumonia the possibility of atypical is very high consult pulmonary patient was started on Levaquin which will be covered for gram- negative as well. Patient might require to be on azithromycin for better coverage for atypical pneumonitis. 4 hypertension: Patient is on losartan 25 g a day continue medication. 5 hyperlipidemia: Continue patient on Pravachol 40 mg daily. 6 hyperglycemia: Steroid-induced continue patient on Accu-Chek with sliding scales coverage for now. 7 severe leukocytosis: Most likely from the severity of pneumonia and this is an infection related continue antibiotic current treatment repeat CBC in the next 24 hours. 8 GERD/GI prophylaxis: Patient will be on Pepcid 20 mg daily. 9 DVT prophylaxis: Patient will be on Lovenox 40 mg subcutaneous daily. CODE STATUS: Full code. Expectation from this admission: Patient be in the hospital for more than 2 nights.
--- NOTE | 2016-09-26 15:57 | P.PN ---
Subjective 71-year-old male one of Dr. Ronn Aaron's patient with past medical history of COPD, hypertension, BPH, recurrent pneumonia who was in the hospital apparently back in 2011 with episode of pneumonia and COPD excessive patient along with respiratory failure was treated and done well has quit smoking since then. Patient was doing well till 48 hours. 2 hospitalization when developed to have fever or chills cough productive duct floor him along with significant shortness of breath tighter wheezy not been able to ambulate and walk become more nauseous has been sick to stomach not feeling well overall. Patient ended up coming to the emergency department at [facility] where was seen and evaluated was hypoxic his temperature was 102 chest x- ray revealed multilobular pneumonia patient was having inspiratory expiratory wheezes was diagnosed with COPD exacerbation respiratory failure and multi low blood pneumonia. Patient was started on gram-negative coverage steroid updraft treatment will consult pulmonary patient was admitted to the hospital for the above problem. 09/25: Patient is followed by pulmonary medicine, Dr. Koenig. He is currently on Solu-Medrol 60 mg IV every 6 hours which will be decreased to 40 mg every 8 hours and start prednisone tomorrow. Anticipate possible discharge by tomorrow or Thursday. Patient has been seen by Dr. Koenig from pulmonary medicine. Objective - Vital Signs Vital signs: Vital Signs Temp 98.0 F 09/24/16 21:30 Pulse 96 09/25/16 11:44 Resp 18 09/25/16 08:00 BP 111/81 09/25/16 07:00 Pulse Ox 96 09/25/16 07:00 Intake & Output 09/24/16 09/25/16 09/25/16 18:59 06:59 18:59 Intake Total 120 250 Balance 120 250 Weight 61.235 kg 61.235 kg Intake: IV 150 Levofloxacin 750Mg-D5w 150 Pmx 750 mg In Dextrose/ Water 1 150ml.bag @ 100 mls/hr IVPB Q24H [facility] Rx#: [id number] Oral 120 100 Other: Voiding Method Toilet Toilet Toilet Urinal Urinal Urinal # Voids 2 2 1 # Bowel Movements 1 - Exam General appearance: no average body habitus, cooperative, no disheveled, no mild distress, no morbidly obese, no acute distress, no obese, no severe distress, thin - EENT Eyes: no abnormal pupil, anicteric sclerae, no disc margins sharp, no edentulous , no EOMI, no PERRLA, no fundus normal, no photophobia, no dentition normal, no poor dentition, no ptosis, no scleral icterus, normal appearance ENT: hard of hearing, no hearing grossly normal, no NA/AT, no normal oropharynx , no other, no pharyngeal erythema, no thrush, no tonsillar exudates, no tonsillar swelling Ears: bilateral: normal - Neck Neck: no lymphadenopathy, normal ROM, no other, no rigidity, no stridor, no thyromegaly Carotids: bilateral: upstroke normal Thyroid: bilateral: normal size - Respiratory Respiratory: bilateral: diminished, dullness, rales, rhonchi, wheezing, prolonged expiration, prolonged inspiration - Cardiovascular Rhythm: regular Heart sounds: normal: S1, S2 Abnormal Heart Sounds: systolic murmur, S3 Gallop - Gastrointestinal General gastrointestinal: no absent bowel sounds, decreased bowel sounds, distended, hepatomegaly, no hyperactive bowel sounds, no normal bowel sounds, no organomegaly, no rigid, scaphoid, soft, splenomegaly, no tenderness, no umbilical hernia, no ventral hernia - Integumentary Integumentary: no calor, no cellulitis, no cyanotic, no decreased turgor, no flushed, no jaundiced, normal, no normal turgor, pale, no rash, no ulcer - Neurologic Neurologic: CNII-XII intact - Musculoskeletal Musculoskeletal: gait normal, generalized weakness, strength equal bilaterally, no right sided weakness, no left sided weakness - Psychiatric Psychiatric: A&O x's 3, appropriate affect, no intact judgment & insight - Labs CBC & Chem 7: 09/25/16 07:45 09/25/16 07:45 Labs: Abnormal Lab Results - Last 24 Hours (Table) 09/24/16 09/24/16 09/25/16 Range/Units 16:36 20:35 07:45 WBC 17.9 H (3.8-10.6) k/uL Neutrophils # 16.5 H (1.3-7.7) k/uL Lymphocytes # 0.9 L (1.0-4.8) k/uL Glucose (74-99) mg/dL POC Glucose (mg/dL) 161 H 156 H (75-99) mg/dL 09/25/16 09/25/16 09/25/16 Range/Units 07:45 07:55 11:47 WBC (3.8-10.6) k/uL Neutrophils # (1.3-7.7) k/uL Lymphocytes # (1.0-4.8) k/uL Glucose 129 H (74-99) mg/dL POC Glucose (mg/dL) 135 H 187 H (75-99) mg/dL Assessment and Plan Plan: 1 acute hypoxic respiratory failure: Combination of COPD exacerbation along with multilobular pneumonia, treated underlying disease continue O2 on consult pulmonary. 2 COPD exacerbation: Patient will be on Solu-Medrol 40 mg IV every 8 hours and changed to prednisone tomorrow along with Pulmicort and DuoNeb continue O2 try to keep his pulse ox above 92%. 3 multilobular pneumonia the possibility of atypical is very high consult pulmonary patient was started on Levaquin which will be covered for gram- negative as well. Patient might require to be on azithromycin for better coverage for atypical pneumonitis. 4 hypertension: Patient is on losartan 25 g a day continue medication. 5 hyperlipidemia: Continue patient on Pravachol 40 mg daily. 6 hyperglycemia: Steroid-induced continue patient on Accu-Chek with sliding scales coverage for now. 7 severe leukocytosis: Most likely from the severity of pneumonia and this is an infection related continue antibiotic current treatment repeat CBC in the next 24 hours. 8 GERD/GI prophylaxis: Patient will be on Pepcid 20 mg daily. 9 DVT prophylaxis: Patient will be on Lovenox 40 mg subcutaneous daily. 10 chronic hypoxic respiratory failure with home O2 dependence. CODE STATUS: Full code. Discharge plan: Home in the next 24 hours Impression and plan of care have been directed as dictated by the signing physician. Denise Dupont nurse practitioner acting as scribe for signing physician. Time with Patient: Greater than 30
--- NOTE | 2016-09-26 15:59 | P.DS ---
Providers Date of admission: 09/23/16 22:36 Expected date of discharge: 09/26/16 Attending physician: Evelio Brown Primary care physician: Ronn Aaron 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 Patient was doing well till 48 hours. 2 hospitalization when developed to have fever or chills cough productive duct floor him along with significant shortness of breath tighter wheezy not been able to ambulate and walk become more nauseous has been sick to stomach not feeling well overall. Patient ended up coming to the emergency department at [facility] where was seen and evaluated was hypoxic his temperature was 102 chest x- ray revealed multilobular pneumonia patient was having inspiratory expiratory wheezes was diagnosed with COPD exacerbation respiratory failure and multi low blood pneumonia. Patient was started on gram-negative coverage steroid updraft treatment will consult pulmonary patient was admitted to the hospital for the above problem. 09/25: Patient is followed by pulmonary medicine, Dr. Koenig. He is currently on Solu-Medrol 60 mg IV every 6 hours which will be decreased to 40 mg every 8 hours and start prednisone tomorrow. Anticipate possible discharge by tomorrow or Thursday. Patient has been seen by Dr. Koenig from pulmonary medicine. 09/26: Patient's respiratory status continues to improve and he is anxious to be discharged home. Patient denies any chest pain. Patient will be discharged home today in stable condition. Discharge diagnoses: 1 acute hypoxic respiratory failure: Combination of COPD exacerbation along with multilobular possible gram-negative pneumonia 2 COPD exacerbation 3 multilobular pneumonia the possibility of gram-negative pneumonia 4 hypertension 5 hyperlipidemia 6 hyperglycemia 7 severe leukocytosis 8 GERD 9 chronic hypoxic respiratory failure with home O2 dependence. Discharge plan: Home Impression and plan of care have been directed as dictated by the signing physician. Denise Dupont nurse practitioner acting as scribe for signing physician. Cc: Dr. Ronn Aaron Patient Condition at Discharge: Good Plan - Discharge Summary New Discharge Prescriptions: Levofloxacin [Levaquin] 750 mg PO DAILY #7 tab predniSONE 0 mg PO DIRECTED #100 tab Discharge Medication List Albuterol Inhaler [Ventolin Hfa Inhaler] 2 puff INHALATION RT-QID PRN 09/23/16 [ History] Budesonide [Pulmicort] 0.5 mg INHALATION RT-BID 09/23/16 [History] Cholecalciferol [Vitamin D3] 400 unit PO DAILY 09/23/16 [History] Ipratropium-Albuterol Nebulize [Duoneb 0.5 mg-3 mg/3 ml Soln] 3 ml INHALATION RT -QID 09/23/16 [History] Losartan [Cozaar] 25 mg PO DAILY 09/23/16 [History] Pravastatin Sodium [Pravachol] 40 mg PO DAILY 09/23/16 [History] Tamsulosin HCl [Flomax] 0.4 mg PO HS 09/23/16 [History] Levofloxacin [Levaquin] 750 mg PO DAILY #7 tab 09/26/16 [Rx] predniSONE 0 mg PO DIRECTED #100 tab 09/26/16 [Rx] Follow up Appointment(s)/Referral(s): Tevin Koenig MD [STAFF PHYSICIAN] - 10/02/16 10:30 am Ronn Aaron MD [Primary Care Provider] - 10/03/16 1:30 pm Patient Instructions/Handouts: Viral Pneumonia (DC), Tunneled Central Lines in Adult (GEN), COPD (Chronic Obstructive Pulmonary Disease) (DC), Sepsis (GEN), Hypoxia (GEN) Discharge Disposition: HOME SELF-CARE
--- NOTE | 2016-09-29 21:44 | CDI ---
In responding to this query, please exercise your independent professional judgment. The [facility] Coding Staff and Clinical Documentation Specialists appreciate your assistance in clarifying documentation, maintaining compliance with coding guidelines, accurately documenting patients condition and capturing severity of illness. The fact that a question is asked does not imply that any particular answer is desired or expected. Communication forms are a method of clarifying documentation and are not made part of the Legal Health Record. Thank you in advance for your clarification. Last Revision, April 2015 Devang Pal [address] [place] [address] Documentation Clarification Form Date: 09/29/2016 9:35:00 PM From: Janis Alyson Phone: Admit Date: 09/23/2016 10:36:00 PM Patient Name: Sonyn Morley Visit Number: [id number] Discharge Date: Dr. Denise Dupont Diagnosis and location in medical record: Sepsis is documented in the ED note, consult note and consult progress note. Patient history/risk factors: Patient was admitted with pneumonia and exacerbation of COPD. Lab findings: WBC 26.1 on admit, lactic acid 1.4 Vital Signs: T. 101.0 on day of admit, P 139, R 26, BP 140/88 Treatment: IV and PO Levofloxacin Consults: Acute exacerbation of COPD, Probable community acquired pneumonia versus mass as seen on x-ray, Sepsis, Acute on chronic hypoxic respiratory failure, hypertension In your professional opinion, can you please clarify was Sepsis Ruled In or Ruled Out? Other Unable to determine Please document in your progress notes and discharge summary in order to capture severity of illness and risk of mortality. Include clinical findings that support your diagnosis. FYI: Press F11 to launch patient chart. Place X here if this finding has no clinical significance, is not applicable or if you are not able to provide any additional documentation. BUCKD
== END 2016-09-26 13:50 | disposition home or self-care (01) | DRG 871 ==
LOC: EC 19:53 → 5MS5E 22:36
PROVIDERS: ADMIT Internal Medicine Geriatric Medicine; ATTEND Internal Medicine Geriatric Medicine
DX: A41.9 Sepsis, unspecified organism (principal); J15.6 Pneumonia due to other Gram-negative bacteria; J96.21 Acute and chronic respiratory failure with hypoxia; J44.0 Chronic obstructive pulmonary disease with (acute) lower respiratory infection; J44.1 Chronic obstructive pulmonary disease with (acute) exacerbation; E78.5 Hyperlipidemia, unspecified; I10 Essential (primary) hypertension; K21.9 Gastro-esophageal reflux disease without esophagitis; N40.0 Benign prostatic hyperplasia without lower urinary tract symptoms; T38.0X5A Adverse effect of glucocorticoids and synthetic analogues, initial encounter; R73.9 Hyperglycemia, unspecified; Z79.899 Other long term (current) drug therapy; Z87.01 Personal history of pneumonia (recurrent); Z87.891 Personal history of nicotine dependence; Z99.81 Dependence on supplemental oxygen; Z82.49 Family history of ischemic heart disease and other diseases of the circulatory system
CPT/HCPCS: 36415; 71020; 71250; 80053; 81003; 82533; 82550; 82553; 83036; 83605; 84484; 85025; 85610; 85730; 87040; 87070; 87086; 87205; 87502; 93005; 94640; 96361; 96365; 96375; 99291

== ENCOUNTER → 2016-10-21 | Outpatient (CLI) | payer MEDICARE ==
--- NOTE | 2016-10-21 10:45 | XR ---
EXAMINATION TYPE: XR chest 2V DATE OF EXAM: 10/21/2016 10:25 AM COMPARISON: 09/24/2016 TECHNIQUE: PA and lateral views submitted. HISTORY: Follow-up pneumonia FINDINGS: Hyperinflation compatible COPD. Multilevel hypertrophic and degenerative disc disease with mild wedge deformity midthoracic spine. Ectasia of the aorta and diffuse osteopenia noted. Persistent density along the left lung base. Linear changes at the right lung base also noted. IMPRESSION: 1. Persistent basilar consolidation greater on the left. Believe majority of this represents fat atte nuation likely secondary to a prominent pericardial fat pad or diaphragmatic hernia. Linear changes i n the right are most typical of atelectasis or scar.
== END | disposition home or self-care (01) ==
LOC: RADXRMAIN 10:11
PROVIDERS: ATTEND Internal Medicine Sleep Medicine
DX: J18.1 Lobar pneumonia, unspecified organism (principal); R91.8 Other nonspecific abnormal finding of lung field
CPT/HCPCS: 71020

== ENCOUNTER 2016-12-30 10:17 | Inpatient (IN) | payer MEDICARE ==
[2016-12-30] MEDS ORDERED: ALBUTEROL NEBULIZED 2.5 MG/3 ML INHALATION STA (10:35)
[2016-12-30] MEDS ORDERED: methylPREDNISolone SOD SUCCI 125 MG/2 ML VIAL IV STA (10:35)
--- NOTE | 2016-12-30 10:37 | ED ---
General Adult HPI - General Chief complaint: Shortness of Breath Stated complaint: Difficulty Breathing Time Seen by Provider: 12/30/16 10:20 Source: EMS, RN notes reviewed Mode of arrival: EMS Limitations: no limitations - History of Present Illness Initial comments: This is a 71-year-old male who has a past medical history significant for COPD. Patient states he comes in today because his morning he woke up he was having difficulty breathing he took a few breathing treatments it did not improve at all in fact he thought he was getting worse he decided to come the emergency department. Patient denies any recent fever or chills. Patient states he has not had a cough recently. Patient states he still in antibiotic from about a week ago when his doctor diagnosed with bronchitis. Patient denies any chest pain or palpitations. Patient denies any headache patient denies numbness weakness. Patient denies lightheadedness dizziness or nursing blood cell. Patient denies any abdominal pain patient denies nausea vomiting or diarrhea. Patient denies any leg swelling or calf tenderness. - Related Data Home Medications Medication Instructions Recorded Confirmed Albuterol Inhaler [Ventolin Hfa 2 puff INHALATION RT-QID PRN 09/23/16 12/30/16 Inhaler] Budesonide [Pulmicort] 0.5 mg INHALATION RT-BID 09/23/16 12/30/16 Cholecalciferol [Vitamin D3] 400 unit PO DAILY 09/23/16 12/30/16 Ipratropium-Albuterol Nebulize 3 ml INHALATION RT-QID 09/23/16 12/30/16 [Duoneb 0.5 mg-3 mg/3 ml Soln] Losartan [Cozaar] 25 mg PO DAILY 09/23/16 12/30/16 Pravastatin Sodium [Pravachol] 40 mg PO DAILY 09/23/16 12/30/16 Tamsulosin HCl [Flomax] 0.4 mg PO HS 09/23/16 12/30/16 Cefuroxime Axetil [Ceftin] 500 mg PO BID 12/30/16 12/30/16 Allergies Allergy/AdvReac Type Severity Reaction Status Date / Time No Known Allergies Allergy Verified 12/30/16 11:13 Review of Systems ROS Statement: Those systems with pertinent positive or pertinent negative responses have been documented in the HPI. ROS Other: All systems not noted in ROS Statement are negative. Past Medical History Past Medical History: COPD, Hyperlipidemia, Hypertension, Pneumonia, Prostate Disorder History of Any Multi-Drug Resistant Organisms: None Reported Past Surgical History: Hernia Repair Additional Past Surgical History / Comment(s): Colonoscopy - clear 2015 Past Anesthesia/Blood Transfusion Reactions: No Reported Reaction Past Psychological History: No Psychological Hx Reported Smoking Status: Former smoker Past Alcohol Use History: None Reported Past Drug Use History: None Reported - Past Family History Mother Family Medical History: Myocardial Infarction ([place]), Supraventricular Tachycardia (SVT) Additional Family Medical History / Comment(s): Lived to 87 Father Family Medical History: Cancer Additional Family Medical History / Comment(s): Lung [place] General Exam - General Exam Comments Initial Comments: GENERAL: Patient is well-developed and well-nourished. Patient is nontoxic and well- hydrated and is in moderate distress. ENT: Neck is soft and supple. No significant lymphadenopathy is noted. Oropharynx is clear. Moist mucous membranes. Neck has full range of motion without eliciting any pain. EYES: The sclera were anicteric and conjunctiva were pink and moist. Extraocular movements were intact and pupils were equal round and reactive to light. Eyelids were unremarkable. PULMONARY: Patient has diminished breath sounds throughout.. CARDIOVASCULAR: There is a regular rate and rhythm without any murmurs gallops or rubs. ABDOMEN: Soft and nontender with normal bowel sounds. No palpable organomegaly was noted. There is no palpable pulsatile mass. SKIN: Skin is clear with no lesions or rashes and otherwise unremarkable. NEUROLOGIC: Patient is alert and oriented x3. Cranial nerves II through XII are grossly intact. Motor and sensory are also intact. Normal speech, volume and content. Symmetrical smile. MUSCULOSKELETAL: Normal extremities with adequate strength and full range of motion. No lower extremity swelling or edema. No calf tenderness. LYMPHATICS: No significant lymphadenopathy is noted PSYCHIATRIC: Normal psychiatric evaluation. Normal interpersonal interactions appears functionally intact in deals appropriately with others. No signs of depression. No signs of anxiety. Limitations: no limitations Course Vital Signs 12/30/16 12/30/16 12/30/16 10:21 10:45 10:51 Temperature 97.1 F L Pulse Rate 107 H 108 H Respiratory 32 H 32 H Rate Blood Pressure 141/87 O2 Sat by Pulse 96 Oximetry 12/30/16 12/30/16 12/30/16 11:00 11:08 11:33 Temperature Pulse Rate 108 H 112 H 114 H Respiratory 18 Rate Blood Pressure 142/78 O2 Sat by Pulse 98 Oximetry 12/30/16 12/30/16 11:45 12:00 Temperature Pulse Rate 116 H 108 H Respiratory 20 Rate Blood Pressure 106/70 O2 Sat by Pulse 95 Oximetry Medical Decision Making - Medical Decision Making EKG shows sinus tachycardia at 106 bpm FL interval is 152 QRS is 114 QT interval 360 QTC is 476. Patient's EKG shows a right bundle branch block. There is no ST segment elevation or depression noted. Chest x-ray shows no acute abnormality. Patient received 3 continuous breathing treatments and steroids I went in and sent to the patient after which she was moving air a little bit better and didn' t feel a little bit better however he was still very tachycardic and was not moving air well at this time though improved. I admitted the patient I spoke with Dr. Torrez she was in agreement to admit the patient I continue steroids in the front and continued breathing treatments on the floor. - Lab Data Result diagrams: 12/30/16 10:43 12/30/16 10:43 Lab Results 12/30/16 12/30/16 12/30/16 Range/Units 10:43 10:43 10:43 WBC 9.8 (3.8-10.6) k/uL RBC 4.56 (4.30-5.90) m/uL Hgb 15.0 (13.0-17.5) gm/dL Hct 42.5 (39.0-53.0) % MCV 93.2 (80.0-100.0) fL MCH 32.9 (25.0-35.0) pg MCHC 35.3 (31.0-37.0) g/dL RDW 13.5 (11.5-15.5) % Plt Count 325 (150-450) k/uL Neutrophils % 69 % Lymphocytes % 19 % Monocytes % 6 % Eosinophils % 2 % Basophils % 1 % Neutrophils # 6.8 (1.3-7.7) k/uL Lymphocytes # 1.9 (1.0-4.8) k/uL Monocytes # 0.6 (0-1.0) k/uL Eosinophils # 0.2 (0-0.7) k/uL Basophils # 0.0 (0-0.2) k/uL PT (9.0-12.0) sec INR (<1.1) APTT (22.0-30.0) sec Sodium 133 L (137-145) mmol/L Potassium 5.3 H (3.5-5.1) mmol/L Chloride 103 (98-107) mmol/L Carbon Dioxide 21 L (22-30) mmol/L Anion Gap 9 mmol/L BUN 13 (9-20) mg/dL Creatinine 0.63 L (0.66-1.25) mg/dL Est GFR (MDRD) Af Amer >60 (>60 ml/min/1.73 sqM) Est GFR (MDRD) Non-Af >60 (>60 ml/min/1.73 sqM) Glucose 95 (74-99) mg/dL Calcium 8.7 (8.4-10.2) mg/dL Magnesium 1.9 (1.6-2.3) mg/dL Total Bilirubin 0.9 (0.2-1.3) mg/dL AST 27 (17-59) U/L ALT 20 L (21-72) U/L Alkaline Phosphatase 62 (38-126) U/L Total Creatine Kinase 56 (55-170) U/L CK-MB (CK-2) 1.8 (0.0-2.4) ng/mL CK-MB (CK-2) Rel Index 3.2 Troponin I <0.012 (0.000-0.034) ng/mL Total Protein 6.2 L (6.3-8.2) g/dL Albumin 3.6 (3.5-5.0) g/dL 12/30/16 Range/Units 10:43 WBC (3.8-10.6) k/uL RBC (4.30-5.90) m/uL Hgb (13.0-17.5) gm/dL Hct (39.0-53.0) % MCV (80.0-100.0) fL MCH (25.0-35.0) pg MCHC (31.0-37.0) g/dL RDW (11.5-15.5) % Plt Count (150-450) k/uL Neutrophils % % Lymphocytes % % Monocytes % % Eosinophils % % Basophils % % Neutrophils # (1.3-7.7) k/uL Lymphocytes # (1.0-4.8) k/uL Monocytes # (0-1.0) k/uL Eosinophils # (0-0.7) k/uL Basophils # (0-0.2) k/uL PT 11.2 (9.0-12.0) sec INR 1.1 (<1.1) APTT 24.5 (22.0-30.0) sec Sodium (137-145) mmol/L Potassium (3.5-5.1) mmol/L Chloride (98-107) mmol/L Carbon Dioxide (22-30) mmol/L Anion Gap mmol/L BUN (9-20) mg/dL Creatinine (0.66-1.25) mg/dL Est GFR (MDRD) Af Amer (>60 ml/min/1.73 sqM) Est GFR (MDRD) Non-Af (>60 ml/min/1.73 sqM) Glucose (74-99) mg/dL Calcium (8.4-10.2) mg/dL Magnesium (1.6-2.3) mg/dL Total Bilirubin (0.2-1.3) mg/dL AST (17-59) U/L ALT (21-72) U/L Alkaline Phosphatase (38-126) U/L Total Creatine Kinase (55-170) U/L CK-MB (CK-2) (0.0-2.4) ng/mL CK-MB (CK-2) Rel Index Troponin I (0.000-0.034) ng/mL Total Protein (6.3-8.2) g/dL Albumin (3.5-5.0) g/dL Critical Care Time Critical Care Time: Yes Total Critical Care Time: 35 Disposition Clinical Impression: Acute exacerbation of chronic obstructive airways disease Disposition: ADMITTED IP TO THIS HOSP Referrals: Ronn Aaron MD [Primary Care Provider] - 1-2 days Time of Disposition: 12:21
[2016-12-30 10:55] LABS: Basophils % (A) 1 %; CHCM 35.6; Eosinophils # (A) 0.2 k/uL (0-0.7); Eosinophils % (A) 2 %; HCT 42.5 % (39.0-53.0); HDW 2.91; Luc # (Auto) 0.23; Luc % (Auto) 2; Lymphocytes # (A) 1.9 k/uL (1.0-4.8); Lymphocytes % (A) 19 %; MCH 32.9 pg (25.0-35.0); MCHC 35.3 g/dL (31.0-37.0); MCV 93.2 fL (80.0-100.0); Mean Platelet Volume 7.4; Monocytes # (A) 0.6 k/uL (0-1.0); Monocytes % (A) 6 %; Neutrophils # (A) 6.8 k/uL (1.3-7.7); Neutrophils % (A) 69 %; RBC 4.56 m/uL (4.30-5.90); RDW 13.5 % (11.5-15.5); WBC 9.8 k/uL (3.8-10.6); WBC (Perox) 9.32
[2016-12-30 11:04] LABS: INR 1.1 (<1.1); Partial Thromboplastin Time 24.5 sec (22.0-30.0); Prothrombin Time 11.2 sec (9.0-12.0)
[2016-12-30 11:05] LABS: Anion Gap 9 mmol/L; Calcium 8.7 mg/dL (8.4-10.2); Carbon Dioxide 21 mmol/L (22-30); Chloride 103 mmol/L (98-107); Glucose 95 mg/dL (74-99); Non-African American GFR(MDRD) >60 (>60 ml/min/1.73 sqM); Sodium 133 mmol/L (137-145); Total Bilirubin 0.9 mg/dL (0.2-1.3)
[2016-12-30 11:06] LABS: ALT 20 U/L (21-72); AST 27 U/L (17-59); Alkaline Phosphatase 62 U/L (38-126); Blood Urea Nitrogen 13 mg/dL (9-20); Magnesium 1.9 mg/dL (1.6-2.3); Potassium 5.3 mmol/L (3.5-5.1); Total Protein 6.2 g/dL (6.3-8.2)
[2016-12-30 11:23] LABS: Creatine Kinase 56 U/L (55-170)
[2016-12-30 11:35] LABS: Creatine Kinase MB 1.8 ng/mL (0.0-2.4); Troponin I <0.012 ng/mL (0.000-0.034)
--- NOTE | 2016-12-30 12:00 | XR ---
EXAMINATION TYPE: XR chest 2V DATE OF EXAM: 12/30/2016 COMPARISON: 10/21/2016 HISTORY: Short of breath TECHNIQUE: Frontal and lateral views of the chest are obtained. FINDINGS: There is no heart failure nor confluent pneumonic infiltrate. Heart size is normal. There are chest leads. There is mild pulmonary hyperinflation. There is 25% anterior wedging of T7 vertebra . IMPRESSION: COPD. No active cardiopulmonary disease. No change.
[2016-12-30] MEDS ORDERED: ALBUTEROL NEBULIZED 2.5 MG/3 ML INHALATION PRN (14:02)
[2016-12-30] MEDS: IPRATROPIUM-ALBUTEROL 3 ML NEB INHALATION SCH ×3 (15:32→23:10)
[2016-12-30 17:09] LABS: Glucose,Whole Blood 146 mg/dL (75-99)
[2016-12-30] MEDS: methylPREDNISolone SOD SUCCI 125 MG/2 ML VIAL IV SCH ×2 (17:10→23:12)
[2016-12-30] MEDS: INSULIN LISPRO (humaLOG) 300 UNIT/3 ML VIAL SQ SCH ×2 (17:33→21:20)
[2016-12-30] MEDS: BUDESONIDE 0.5 MG/2 ML NEBU INHALATION SCH (19:29)
[2016-12-30 21:19] LABS: Glucose,Whole Blood 161 mg/dL (75-99)
[2016-12-30] MEDS: PRAVASTATIN SODIUM 40 MG TAB PO SCH ×2 (21:19→21:24)
[2016-12-30] MEDS: TAMSULOSIN 0.4 MG CAP.ER.24H PO SCH (21:19)
[2016-12-30] MEDS: CEFUROXIME 250 MG TAB PO SCH (21:19)
[2016-12-30] MEDS: ALPRAZolam 0.25 MG TAB PO PRN (21:22)
[2016-12-31] MEDS: IPRATROPIUM-ALBUTEROL 3 ML NEB INHALATION SCH ×5 (03:03→19:38)
[2016-12-31] MEDS: methylPREDNISolone SOD SUCCI 125 MG/2 ML VIAL IV SCH ×4 (05:45→23:30)
[2016-12-31 06:57] LABS: Glucose,Whole Blood 140 mg/dL (75-99)
[2016-12-31] MEDS: CEFUROXIME 250 MG TAB PO SCH (07:43)
[2016-12-31] MEDS: INSULIN LISPRO (humaLOG) 300 UNIT/3 ML VIAL SQ SCH ×4 (07:43→21:15)
[2016-12-31] MEDS: LOSARTAN 25 MG TAB PO SCH (07:43)
[2016-12-31] MEDS: CHOLECALCIFEROL 400 UNIT TAB PO SCH (07:43)
[2016-12-31] MEDS: PRAVASTATIN SODIUM 40 MG TAB PO SCH (07:44)
[2016-12-31] MEDS: BUDESONIDE 0.5 MG/2 ML NEBU INHALATION SCH ×2 (07:53→19:38)
[2016-12-31] MEDS: ALPRAZolam 0.25 MG TAB PO PRN ×3 (08:57→23:30)
[2016-12-31] MEDS ORDERED: ACETAMINOPHEN TAB 325 MG TAB PO PRN (10:04)
[2016-12-31] MEDS: LEVOFLOXACIN 500 MG TAB PO SCH (11:07)
--- NOTE | 2016-12-31 11:15 | P.CNPUL ---
History of Present Illness Consult date: 12/31/16 Requesting physician: Monika Torrez Reason for consult: COPD Chief complaint: Shortness of breath History of present illness: This is a pleasant 71-year-old male being seen, examined and evaluated today on the fourth floor. This patient is well-known to our services. This patient originally had hernia repair surgery approximately 1-[address] Garduno. After having surgery the patient stated he started to have some shortness of breath with exertion and therefore went to his primary physician. Patient was given a 5 day steroid burst along with antibiotics. Patient states that after the steroids were completed his shortness of breath came back progressively worse therefore he came into the hospital. After being evaluated and treated in the emergency room the patient was subsequently hospitalized for acute exacerbation of COPD. Upon examination the patient's resting up in bed on 3 L of oxygen, the patient does use oxygen at home as well. Home oxygen is for 3LPM at night and PRN. Chest x-ray has been reviewed and shows COPD. Patient states his breathing has improved in the last 24 hours after being put back on steroids and [id number] breathing treatments. Patient has an occasional dry cough. Sputum culture has been obtained. Review of Systems 14 point review of systems was completed and is negative other than what's noted in the HPI. Past Medical History Past Medical History: COPD, Hyperlipidemia, Hypertension, Pneumonia, Prostate Disorder History of Any Multi-Drug Resistant Organisms: None Reported Past Surgical History: Hernia Repair Additional Past Surgical History / Comment(s): Colonoscopy - clear 2015 Past Anesthesia/Blood Transfusion Reactions: No Reported Reaction Past Psychological History: No Psychological Hx Reported Smoking Status: Former smoker Past Alcohol Use History: None Reported Past Drug Use History: None Reported - Past Family History Mother Family Medical History: Myocardial Infarction ([place]), Supraventricular Tachycardia (SVT) Additional Family Medical History / Comment(s): Lived to 87 Father Family Medical History: Cancer Additional Family Medical History / Comment(s): Lung CA Brother(s) Additional Family Medical History / Comment(s): Patient has 1 brother that at age 57 from lung cancer. He has one half brother that has thyroid problems and hepatitis C. Sister(s) Additional Family Medical History / Comment(s): Patient has 2 full sisters and one half-sister with no major medical problems. Patient has 1 son with no major medical problems. Patient has one daughter that is being treated for bone infection. Medications and Allergies Home Medications Medication Instructions Recorded Confirmed Type Albuterol Inhaler [Ventolin Hfa 2 puff INHALATION RT-QID PRN 09/23/16 12/30/16 History Inhaler] Budesonide [Pulmicort] 0.5 mg INHALATION RT-BID 09/23/16 12/30/16 History Cholecalciferol [Vitamin D3] 400 unit PO DAILY 09/23/16 12/30/16 History Ipratropium-Albuterol Nebulize 3 ml INHALATION RT-QID 09/23/16 12/30/16 History [Duoneb 0.5 mg-3 mg/3 ml Soln] Losartan [Cozaar] 25 mg PO DAILY 09/23/16 12/30/16 History Pravastatin Sodium [Pravachol] 40 mg PO DAILY 09/23/16 12/30/16 History Tamsulosin HCl [Flomax] 0.4 mg PO HS 09/23/16 12/30/16 History Cefuroxime Axetil [Ceftin] 500 mg PO BID 12/30/16 12/30/16 History Allergies Allergy/AdvReac Type Severity Reaction Status Date / Time No Known Allergies Allergy Verified 12/30/16 11:13 Physical Exam Vitals: Vital Signs Temp Pulse Pulse Pulse Resp BP BP 12/31/16 08:09 108 H 12/31/16 07:53 104 H 12/31/16 07:00 96.5 F L 103 H 20 116/83 12/30/16 23:19 108 H 12/30/16 23:11 92 12/30/16 23:00 96.0 F L 113 H 19 111/73 12/30/16 19:39 118 H 12/30/16 19:31 112 H 12/30/16 15:30 112 H 12/30/16 15:00 96.9 F L 130 H 20 137/75 12/30/16 12:40 97.1 F L 122 H 18 107/63 12/30/16 12:00 108 H 20 106/70 12/30/16 11:45 116 H 12/30/16 11:33 114 H 12/30/16 11:08 112 H Pulse Ox 12/31/16 08:09 12/31/16 07:53 12/31/16 07:00 96 12/30/16 23:19 12/30/16 23:11 12/30/16 23:00 95 12/30/16 19:39 12/30/16 19:31 91 L 12/30/16 15:30 12/30/16 15:00 90 L 12/30/16 12:40 93 L 12/30/16 12:00 95 12/30/16 11:45 12/30/16 11:33 12/30/16 11:08 Intake and Output 12/30/16 12/31/16 12/31/16 22:59 06:59 14:59 Other: Voiding Method Toilet # Voids 1 1 GENERAL EXAM: Alert, active, comfortable in no apparent distress. HEAD: Normocephalic. EYES: Normal reaction of pupils, equal size. NOSE: Clear with pink turbinates. THROAT: No erythema or exudates. NECK: No masses, no JVD. CHEST: No chest wall deformity. Barrel chested LUNGS: Poor air entry bilaterally with no crackles, wheeze, rhonchi or dullness. CVS: S1 and S2 normal with no audible mumurs, regular rhythm. ABDOMEN: No hepatosplenomegaly, normal bowel sounds, no guarding or rigidity. EXTREMITIES: No edema noted, pedal pulses palpable. SKIN: No rashes CENTRAL NERVOUS SYSTEM: No focal deficits, tone is normal in all 4 extremities. Results - Laboratory Findings CBC and BMP: 12/30/16 10:43 12/30/16 10:43 PT/INR, D-dimer PT 11.2 sec (9.0-12.0) 12/30/16 10:43 INR 1.1 (<1.1) 12/30/16 10:43 Abnormal lab findings: Abnormal Labs 12/30/16 12/30/16 12/30/16 10:43 17:08 20:51 Sodium 133 L Potassium 5.3 H Carbon Dioxide 21 L Creatinine 0.63 L POC Glucose (mg/dL) 146 H 161 H ALT 20 L Total Protein 6.2 L 12/31/16 06:50 Sodium Potassium Carbon Dioxide Creatinine POC Glucose (mg/dL) 140 H ALT Total Protein - Diagnostic Findings Chest x-ray: report reviewed, image reviewed Assessment and Plan Plan: Assessment Acute exacerbation of chronic obstructive pulmonary disease Acute on chronic hypoxic respiratory failure Tracheobronchitis Hypertension Recent hernia repair History of Hyperlipidemia Plan Medications have been reviewed and will be continued as ordered. Continue on steroids and antibiotics. Initiate and encourage incentive spirometer. Obtain a sputum culture. Continue with pulmonary hygiene, coughing and deep breathing exercises, and supportive care. Supplemental oxygen to maintain oxygen saturations of 90% or better. Continue nebulizer treatments. GI and DVT prophylaxis. We will continue to monitor labs/results and adjust treatment as necessary. Further recommendations pending. I performed an examination of the patient and discussed their management with the nurse practitioner. I have reviewed the nurse practitioner's note and agree with the documented findings and plan of care.
[2016-12-31 11:53] LABS: Glucose,Whole Blood 140 mg/dL (75-99)
--- NOTE | 2016-12-31 14:58 | P.HPIM ---
History of Present Illness H&P Date: 12/31/16 Chief Complaint: Shortness of breath This is a 71-year-old male patient of Dr. Ronn Aaron and Dr. Koenig with past medical history of COPD, hypertension, BPH, recurrent pneumonia who was in the hospital apparently back in August 2016 with episode of pneumonia and COPD exacerbation with respiratory failure. Patient states that a week and half ago he was having difficulty breathing and saw Dr. Aaron and he was placed on antibiotics with Ceftin and also prednisone 50 mg daily 5 days which she completed on Thursday. He was doing much improved until Thursday and he became more short of breath again. He states he has had some cough with a little green sputum production. He is complaining of wheezing. He is on home O2 at 3 L nasal cannula at night and as needed during the day. He does use portable oxygen to multiple lawn but this is only occasionally. He denies any recent sick contacts. He came into [facility] emergency center for treatment and received a continuous updraft treatment and was subsequently admitted to the [facility] floor and consult with Dr. oKenig requested. Review of Systems All systems: negative Constitutional: Denies chills, Denies fever Eyes: denies blurred vision, denies pain Ears, nose, mouth and throat: Denies headache, Denies sore throat Cardiovascular: Reports shortness of breath, Denies chest pain, Denies edema, Denies leg edema Respiratory: Reports cough, Reports cough with sputum, Reports dyspnea, Reports home oxygen, Reports wheezing, Denies excessive sputum, Denies hemoptysis Gastrointestinal: Denies abdominal pain, Denies diarrhea, Denies nausea, Denies vomiting Musculoskeletal: Denies myalgias Integumentary: Denies pruritus, Denies rash Neurological: Denies numbness, Denies weakness Psychiatric: Denies anxiety, Denies depression Endocrine: Denies fatigue, Denies weight change Past Medical History Past Medical History: COPD, Hyperlipidemia, Hypertension, Pneumonia, Prostate Disorder History of Any Multi-Drug Resistant Organisms: None Reported Past Surgical History: Appendectomy, Hernia Repair Additional Past Surgical History / Comment(s): Colonoscopy - clear 2015, bilateral inguinal hernia repair Past Anesthesia/Blood Transfusion Reactions: No Reported Reaction Past Psychological History: No Psychological Hx Reported Smoking Status: Former smoker Past Alcohol Use History: None Reported Additional Past Alcohol Use History / Comment(s): Patient was a smoker of 2 packs per day for 35 years and then switched to a pipe and spoke for another 35 years. Patient quit 4-5 years ago. He denies any street drug use or alcohol use. Past Drug Use History: None Reported - Past Family History Mother Family Medical History: Myocardial Infarction (NM) Additional Family Medical History / Comment(s): mother at age 87 from myocardial infarction. Father Family Medical History: Cancer Additional Family Medical History / Comment(s): Father at age 64 from lung cancer. Brother(s) Additional Family Medical History / Comment(s): Patient has 1 brother that at age 57 from lung cancer. He has one half brother that has thyroid problems and hepatitis C. Sister(s) Additional Family Medical History / Comment(s): Patient has 2 full sisters and one half-sister with no major medical problems. Patient has 1 son with no major medical problems. Patient has one daughter that is being treated for bone infection. Medications and Allergies Home Medications Medication Instructions Recorded Confirmed Type Albuterol Inhaler [Ventolin Hfa 2 puff INHALATION RT-QID PRN 09/23/16 12/30/16 History Inhaler] Budesonide [Pulmicort] 0.5 mg INHALATION RT-BID 09/23/16 12/30/16 History Cholecalciferol [Vitamin D3] 400 unit PO DAILY 09/23/16 12/30/16 History Ipratropium-Albuterol Nebulize 3 ml INHALATION RT-QID 09/23/16 12/30/16 History [Duoneb 0.5 mg-3 mg/3 ml Soln] Losartan [Cozaar] 25 mg PO DAILY 09/23/16 12/30/16 History Pravastatin Sodium [Pravachol] 40 mg PO DAILY 09/23/16 12/30/16 History Tamsulosin HCl [Flomax] 0.4 mg PO HS 09/23/16 12/30/16 History Cefuroxime Axetil [Ceftin] 500 mg PO BID 12/30/16 12/30/16 History Allergies Allergy/AdvReac Type Severity Reaction Status Date / Time No Known Allergies Allergy Verified 12/30/16 11:13 Physical Exam Vitals: Vital Signs Temp Pulse Pulse Pulse Resp BP BP 12/31/16 08:09 108 H 12/31/16 07:53 104 H 12/31/16 07:00 96.5 F L 103 H 20 116/83 12/30/16 23:19 108 H 12/30/16 23:11 92 12/30/16 23:00 96.0 F L 113 H 19 111/73 12/30/16 19:39 118 H 12/30/16 19:31 112 H 12/30/16 15:30 112 H 12/30/16 15:00 96.9 F L 130 H 20 137/75 12/30/16 12:40 97.1 F L 122 H 18 107/63 12/30/16 12:00 108 H 20 106/70 12/30/16 11:45 116 H 12/30/16 11:33 114 H 12/30/16 11:08 112 H 12/30/16 11:00 108 H 18 142/78 12/30/16 10:51 108 H 12/30/16 10:45 32 H 12/30/16 10:40 12/30/16 10:21 97.1 F L 107 H 32 H 141/87 Pulse Ox 12/31/16 08:09 12/31/16 07:53 12/31/16 07:00 96 12/30/16 23:19 12/30/16 23:11 12/30/16 23:00 95 12/30/16 19:39 12/30/16 19:31 91 L 12/30/16 15:30 12/30/16 15:00 90 L 12/30/16 12:40 93 L 12/30/16 12:00 95 12/30/16 11:45 12/30/16 11:33 12/30/16 11:08 12/30/16 11:00 98 12/30/16 10:51 12/30/16 10:45 12/30/16 10:40 93 L 12/30/16 10:21 96 Intake and Output 12/30/16 12/31/16 12/31/16 22:59 06:59 14:59 Other: Voiding Method Toilet # Voids 1 1 General appearance: no average body habitus, cooperative, no disheveled, no mild distress, no morbidly obese, no acute distress, no obese, no severe distress, thin - EENT Eyes: no abnormal pupil, anicteric sclerae, no disc margins sharp, no edentulous , no EOMI, no PERRLA, no fundus normal, no photophobia, no dentition normal, no poor dentition, no ptosis, no scleral icterus, normal appearance ENT: hard of hearing, no hearing grossly normal, no NA/AT, no normal oropharynx , no other, no pharyngeal erythema, no thrush, no tonsillar exudates, no tonsillar swelling Ears: bilateral: normal - Neck Neck: no lymphadenopathy, normal ROM, no other, no rigidity, no stridor, no thyromegaly Carotids: bilateral: upstroke normal Thyroid: bilateral: normal size - Respiratory Respiratory: bilateral: diminished, dullness, rales, rhonchi, wheezing, prolonged expiration, prolonged inspiration - Cardiovascular Rhythm: regular Heart sounds: normal: S1, S2 Abnormal Heart Sounds: systolic murmur, S3 Gallop - Gastrointestinal General gastrointestinal: no absent bowel sounds, decreased bowel sounds, distended, hepatomegaly, no hyperactive bowel sounds, no normal bowel sounds, no organomegaly, no rigid, scaphoid, soft, splenomegaly, no tenderness, no umbilical hernia, no ventral hernia - Integumentary Integumentary: no calor, no cellulitis, no cyanotic, no decreased turgor, no flushed, no jaundiced, normal, no normal turgor, pale, no rash, no ulcer - Neurologic Neurologic: CNII-XII intact - Musculoskeletal Musculoskeletal: gait normal, generalized weakness, strength equal bilaterally, no right sided weakness, no left sided weakness - Psychiatric Psychiatric: A&O x's 3, appropriate affect, no intact judgment & insight Results CBC & Chem 7: 12/30/16 10:43 12/30/16 10:43 Labs: Abnormal Lab Results - Last 24 Hours (Table) 12/30/16 12/30/16 12/30/16 Range/Units 10:43 17:08 20:51 Sodium 133 L (137-145) mmol/L Potassium 5.3 H (3.5-5.1) mmol/L Carbon Dioxide 21 L (22-30) mmol/L Creatinine 0.63 L (0.66-1.25) mg/dL POC Glucose (mg/dL) 146 H 161 H (75-99) mg/dL ALT 20 L (21-72) U/L Total Protein 6.2 L (6.3-8.2) g/dL 12/31/16 Range/Units 06:50 Sodium (137-145) mmol/L Potassium (3.5-5.1) mmol/L Carbon Dioxide (22-30) mmol/L Creatinine (0.66-1.25) mg/dL POC Glucose (mg/dL) 140 H (75-99) mg/dL ALT (21-72) U/L Total Protein (6.3-8.2) g/dL Thrombosis Risk Factor Assmnt - DVT/VTE Prophylaxis DVT/VTE Prophylaxis: Pharmacologic Prophylaxis ordered - Choose All That Apply Any of the Below Risk Factors Present?: Yes Each Factor Represents 1 point: Abnormal pulmonary function (COPD) Other Risk Factors: Yes Each Risk Factor Represents 2 Points: Age 61-74 years Thrombosis Risk Factor Assessment Total Risk Factor Score: 3 Thrombosis Risk Factor Assessment Level: Moderate Risk Assessment and Plan Plan: 1. Acute respiratory insufficiency secondary to probable gram-negative pneumonia and exacerbation of COPD, failed outpatient treatment. Continue DuoNeb treatments every 4 hours, albuterol 4 times daily as needed, Pulmicort 0.5 milligrams twice daily, Levaquin 500 mg daily, Solu-Medrol 60 mg IV every [address] Koenig. 2. Hypertension. Continue Cozaar 25 mg daily. 3. Hyperlipidemia. Continue pravastatin 40 mg daily. 4. Benign prostatic hypertrophy. Continue Flomax or 0.4 mg at bedtime. 5. Vitamin D deficiency. Continue supplement. 6. Gastric intestinal prophylaxis. Pepcid. 7. DVT prophylaxis. Lovenox subcu. 8. CODE STATUS: No code. Patient will be admitted to the hospital for a minimum of 2 night stay. Discharge plan: Return home Impression and plan of care have been directed as dictated by the signing physician. Denise Dupont nurse practitioner acting as scribe for signing physician.
[2016-12-31 17:06] LABS: Glucose,Whole Blood 110 mg/dL (75-99)
[2016-12-31] MEDS: TAMSULOSIN 0.4 MG CAP.ER.24H PO SCH (20:22)
[2016-12-31 20:54] LABS: Glucose,Whole Blood 134 mg/dL (75-99)
[2016-12-31 23:02] VITALS: RESP 16
[2017-01-01] MEDS: IPRATROPIUM-ALBUTEROL 3 ML NEB INHALATION SCH ×3 (00:15→07:04)
[2017-01-01] MEDS: methylPREDNISolone SOD SUCCI 125 MG/2 ML VIAL IV SCH (06:24)
[2017-01-01] MEDS: BUDESONIDE 0.5 MG/2 ML NEBU INHALATION SCH (07:04)
[2017-01-01 07:11] LABS: Glucose,Whole Blood 136 mg/dL (75-99)
[2017-01-01 07:20] VITALS: BP 110/71; TEMP 96.9
[2017-01-01] MEDS: INSULIN LISPRO (humaLOG) 300 UNIT/3 ML VIAL SQ SCH (07:51)
[2017-01-01] MEDS: CHOLECALCIFEROL 400 UNIT TAB PO SCH (07:53)
[2017-01-01] MEDS: LEVOFLOXACIN 500 MG TAB PO SCH (07:54)
[2017-01-01] MEDS: LOSARTAN 25 MG TAB PO SCH (07:54)
[2017-01-01] MEDS: ALPRAZolam 0.25 MG TAB PO PRN (08:47)
[2017-01-01 08:52] VITALS: PULSE 113
[2017-01-01] MEDS ORDERED: FAMOTIDINE 20 MG TAB PO SCH (09:00)
[2017-01-01] MEDS ORDERED: ENOXAPARIN 40 MG/0.4 ML SYRINGE SQ SCH (09:00)
--- NOTE | 2017-01-01 09:49 | P.PN ---
Subjective This is a pleasant 71-year-old male being seen, examined and evaluated today on the fourth floor. This patient is well-known to our services. This patient originally had hernia repair surgery approximately 1-[address] Garduno. After having surgery the patient stated he started to have some shortness of breath with exertion and therefore went to his primary physician. Patient was given a 5 day steroid burst along with antibiotics. Patient states that after the steroids were completed his shortness of breath came back progressively worse therefore he came into the hospital. After being evaluated and treated in the emergency room the patient was subsequently hospitalized for acute exacerbation of COPD. 01/01/17- Upon examination the patient's resting up in bed on 3 L of oxygen, the patient does use oxygen at home as well. Home oxygen is for 3LPM at night and PRN. Chest x-ray has been reviewed and shows COPD. Patient states his breathing has improved in the last 24 hours after being put back on steroids and [id number] breathing treatments. Patient has an occasional dry cough. Sputum culture has been obtained. 01/02/17-upon examination patient's resting up in bed on 3 L of oxygen. The patient states he is feeling much better today and can breathe easier. Patient states that some of his shortness of breath may extend from underlying anxiety as well. He feels that if he gets his anxiety under control his breathing is much more controlled as well. Patient is ambulating in the room more frequently. Continues to have a dry occasional cough. Sputum cultures pending. Patient states he feels well enough to go home and would like to do so if possible. Objective - Vital Signs Vital signs: Vital Signs Temp 96.9 F L 01/01/17 07:00 Pulse 113 H 01/01/17 08:00 Resp 16 01/01/17 08:00 BP 110/71 01/01/17 07:00 Pulse Ox 91 L 01/01/17 07:07 Intake & Output 12/31/16 01/01/17 01/01/17 18:59 06:59 18:59 Intake Total 600 Balance 600 Intake: Oral 600 Other: Voiding Method Toilet Toilet Toilet # Voids 2 1 # Bowel Movements 1 - Exam GENERAL EXAM: Alert, active, comfortable in no apparent distress. HEAD: Normocephalic. EYES: Normal reaction of pupils, equal size. NOSE: Clear with pink turbinates. THROAT: No erythema or exudates. NECK: No masses, no JVD. CHEST: No chest wall deformity. Barrel chested LUNGS: Poor air entry bilaterally with no crackles, wheeze, rhonchi or dullness. CVS: S1 and S2 normal with no audible mumurs, regular rhythm. ABDOMEN: No hepatosplenomegaly, normal bowel sounds, no guarding or rigidity. EXTREMITIES: No edema noted, pedal pulses palpable. SKIN: No rashes CENTRAL NERVOUS SYSTEM: No focal deficits, tone is normal in all 4 extremities. - Labs CBC & Chem 7: 12/30/16 10:43 12/30/16 10:43 Labs: Abnormal Lab Results - Last 24 Hours (Table) 12/31/16 12/31/16 12/31/16 Range/Units 11:48 16:54 20:52 POC Glucose (mg/dL) 140 H 110 H 134 H (75-99) mg/dL 01/01/17 Range/Units 06:50 POC Glucose (mg/dL) 136 H (75-99) mg/dL Microbiology - Last 24 Hours (Table) 12/31/16 16:50 Gram Stain - Preliminary Sputum 12/30/16 10:43 Blood Culture - Preliminary Blood No Growth after 24 hours Assessment and Plan Plan: Assessment Acute exacerbation of chronic obstructive pulmonary disease Acute on chronic hypoxic respiratory failure Tracheobronchitis Hypertension Recent hernia repair History of Hyperlipidemia Plan Patient could be discharged in the near future from a pulmonary standpoint, patient will follow-up in the outpatient setting upon discharge. Steroids are being tapered down. Medications have been reviewed and will be continued as ordered. Continue on steroids and antibiotics. Continue with Xanax for anxiety. Initiate and encourage incentive spirometer. Obtain a sputum culture. Continue with pulmonary hygiene, coughing and deep breathing exercises , and supportive care. Supplemental oxygen to maintain oxygen saturations of 90 % or better. Continue nebulizer treatments. GI and DVT prophylaxis. We will continue to monitor labs/results and adjust treatment as necessary. Further recommendations pending. I performed an examination of the patient and discussed their management with the nurse practitioner. I have reviewed the nurse practitioner's note and agree with the documented findings and plan of care.
[2017-01-01] MEDS ORDERED: methylPREDNISolone SOD SUCCI 125 MG/2 ML VIAL IV SCH (16:00)
== END 2017-01-01 10:56 | disposition home or self-care (01) | DRG 190 ==
LOC: EC 10:17 → 4MS4W 12:25
PROVIDERS: ADMIT Family Medicine; ATTEND Family Medicine
DX: J44.0 Chronic obstructive pulmonary disease with (acute) lower respiratory infection (principal); J96.21 Acute and chronic respiratory failure with hypoxia; Z99.81 Dependence on supplemental oxygen; J40 Bronchitis, not specified as acute or chronic; J44.1 Chronic obstructive pulmonary disease with (acute) exacerbation; I10 Essential (primary) hypertension; E78.5 Hyperlipidemia, unspecified; E55.9 Vitamin D deficiency, unspecified; N40.0 Benign prostatic hyperplasia without lower urinary tract symptoms; F41.9 Anxiety disorder, unspecified; Z87.891 Personal history of nicotine dependence; Z87.01 Personal history of pneumonia (recurrent); Z79.51 Long term (current) use of inhaled steroids; Z79.899 Other long term (current) drug therapy
CPT/HCPCS: 36415; 71020; 80053; 82550; 82553; 83735; 84484; 85025; 85610; 85730; 87040; 87070; 87205; 93005; 94640; 94644; 94760; 99291

== ENCOUNTER 2017-01-07 13:15 | Inpatient (IN) | payer MEDICARE ==
[2017-01-07] MEDS ORDERED: methylPREDNISolone SOD SUCCI 125 MG/2 ML VIAL IV STA (13:17)
[2017-01-07] MEDS ORDERED: MAGNESIUM SULFATE-D5W PMX 1 GM in DEXTROSE/WATER 1 100ML.BAG IVPB STA (13:17)
[2017-01-07] MEDS ORDERED: SODIUM CHLORIDE 0.9% 1,000 ML IV STA (13:17)
[2017-01-07] MEDS ORDERED: IPRATROPIUM-ALBUTEROL 3 ML NEB INHALATION STA ×3 (13:17→15:29)
--- NOTE | 2017-01-07 13:36 | ED ---
SOB HPI - General Stated Complaint: TIESHA Time Seen by Provider: 01/07/17 13:15 Source: patient, EMS, RN notes reviewed, old records reviewed Mode of arrival: EMS - History of Present Illness Initial Comments: This is a 71-year-old male with a history of known COPD who does use 3 L of oxygen at home at night who started developing shortness of breath yesterday. He states he got really bad this morning he did call EMS and was brought in by EMS for evaluation. He did get an updraft in route with minimal improvement. Denies any chest pain fevers chills sweats or other symptoms. He was recently admitted for the same. He was discharged about a week ago cc and she felt fine until last evening. MD Complaint: shortness of breath - Related Data Home Medications Medication Instructions Recorded Confirmed Albuterol Inhaler [Ventolin Hfa 2 puff INHALATION RT-QID PRN 09/23/16 01/07/17 Inhaler] Budesonide [Pulmicort] 0.5 mg INHALATION RT-BID 09/23/16 01/07/17 Cholecalciferol [Vitamin D3] 400 unit PO DAILY 09/23/16 01/07/17 Ipratropium-Albuterol Nebulize 3 ml INHALATION RT-QID 09/23/16 01/07/17 [Duoneb 0.5 mg-3 mg/3 ml Soln] Losartan [Cozaar] 25 mg PO DAILY 09/23/16 01/07/17 Pravastatin Sodium [Pravachol] 40 mg PO DAILY 09/23/16 01/07/17 Tamsulosin HCl [Flomax] 0.4 mg PO HS 09/23/16 01/07/17 predniSONE See Taper PO DIRECTED 01/07/17 01/07/17 Previous Rx's Medication Instructions Recorded ALPRAZolam [Xanax] 0.25 mg PO BID PRN #30 tab 01/01/17 Levofloxacin [Levaquin] 500 mg PO DAILY #7 tab 01/01/17 Allergies Allergy/AdvReac Type Severity Reaction Status Date / Time No Known Allergies Allergy Verified 12/30/16 11:13 Review of Systems ROS Statement: Those systems with pertinent positive or pertinent negative responses have been documented in the HPI. ROS Other: All systems not noted in ROS Statement are negative. Past Medical History Past Medical History: COPD, Hyperlipidemia, Hypertension, Pneumonia, Prostate Disorder History of Any Multi-Drug Resistant Organisms: None Reported Past Surgical History: Hernia Repair Additional Past Surgical History / Comment(s): Colonoscopy - clear 2016 Past Anesthesia/Blood Transfusion Reactions: No Reported Reaction Past Psychological History: No Psychological Hx Reported Smoking Status: Former smoker Past Alcohol Use History: None Reported Past Drug Use History: None Reported - Past Family History Mother Family Medical History: Myocardial Infarction (SD), Supraventricular Tachycardia (SVT) Additional Family Medical History / Comment(s): Lived to Father Family Medical History: Cancer Additional Family Medical History / Comment(s): Lung CA Brother(s) Additional Family Medical History / Comment(s): Patient has 1 brother that at age 57 from lung cancer. He has one half brother that has thyroid problems and hepatitis C. Sister(s) Additional Family Medical History / Comment(s): Patient has 2 full sisters and one half-sister with no major medical problems. Patient has 1 son with no major medical problems. Patient has one daughter that is being treated for bone infection. General Exam - General Exam Comments Initial Comments: This is a well-developed well-nourished awake alert oriented times 3 male General appearance: alert, anxious, in distress Head exam: Present: atraumatic, normocephalic, normal inspection Eye exam: Present: normal appearance, PERRL, EOMI. Absent: scleral icterus, conjunctival injection, periorbital swelling ENT exam: Present: normal exam, mucous membranes moist Neck exam: Present: normal inspection. Absent: tenderness, meningismus, lymphadenopathy Respiratory exam: Present: wheezes, decreased breath sounds. Absent: respiratory distress, rales, rhonchi, stridor Cardiovascular Exam: Present: normal rhythm, tachycardia, normal heart sounds. Absent: systolic murmur, diastolic murmur, rubs, gallop, clicks GI/Abdominal exam: Present: soft, normal bowel sounds. Absent: distended, tenderness, guarding, rebound, rigid Extremities exam: Present: normal inspection, full ROM, normal capillary refill. Absent: tenderness, pedal edema, joint swelling, calf tenderness Back exam: Present: normal inspection Neurological exam: Present: alert, oriented X3, CN II-XII intact Psychiatric exam: Present: normal affect, normal mood Skin exam: Present: warm, dry, intact, normal color. Absent: rash Course Vital Signs 01/07/17 01/07/17 01/07/17 13:25 13:42 13:47 Temperature 97.3 F L Pulse Rate 111 H 111 H 111 H Respiratory 30 H 30 H Rate Blood Pressure 139/88 144/90 O2 Sat by Pulse 96 99 Oximetry 01/07/17 01/07/17 01/07/17 13:50 15:08 15:19 Temperature Pulse Rate 116 H 112 H 106 H Respiratory 25 H Rate Blood Pressure O2 Sat by Pulse 95 Oximetry 01/07/17 01/07/17 01/07/17 15:28 15:33 15:45 Temperature Pulse Rate 115 H 108 H 105 H Respiratory Rate Blood Pressure O2 Sat by Pulse Oximetry - Reevaluation(s) Reevaluation #1: 01/07/17 15:05 Reevaluation the patient initially was getting improvement but over last 10 or 15 minutes he's gotten more short of breath again. He states he feels about as bad as he did this morning. He repeat DuoNeb has been ordered. Reevaluation #2: 01/07/17 15:55 Patient is feeling some improvement after repeat treatment though he still dyspneic. Medical Decision Making - Medical Decision Making I did discuss the findings with the patient family patient will be admitted he does see Dr. Koenig for pulmonary medicine. - Lab Data Result diagrams: 01/07/17 13:15 01/07/17 13:15 Lab Results 01/07/17 01/07/17 01/07/17 Range/Units 13:15 13:15 13:15 WBC (3.8-10.6) k/uL RBC (4.30-5.90) m/uL Hgb (13.0-17.5) gm/dL Hct (39.0-53.0) % MCV (80.0-100.0) fL MCH (25.0-35.0) pg MCHC (31.0-37.0) g/dL RDW (11.5-15.5) % Plt Count (150-450) k/uL Neutrophils % % Lymphocytes % % Monocytes % % Eosinophils % % Basophils % % Neutrophils # (1.3-7.7) k/uL Lymphocytes # (1.0-4.8) k/uL Monocytes # (0-1.0) k/uL Eosinophils # (0-0.7) k/uL Basophils # (0-0.2) k/uL PT (9.0-12.0) sec INR (<1.1) APTT (22.0-30.0) sec Sodium 132 L (137-145) mmol/L Potassium 5.0 (3.5-5.1) mmol/L Chloride 98 (98-107) mmol/L Carbon Dioxide 24 (22-30) mmol/L Anion Gap 10 mmol/L BUN 19 (9-20) mg/dL Creatinine 0.71 (0.66-1.25) mg/dL Est GFR (MDRD) Af Amer >60 (>60 ml/min/1.73 sqM) Est GFR (MDRD) Non-Af >60 (>60 ml/min/1.73 sqM) Glucose 141 H (74-99) mg/dL Calcium 9.4 (8.4-10.2) mg/dL Magnesium 2.2 (1.6-2.3) mg/dL Total Bilirubin 0.8 (0.2-1.3) mg/dL AST 17 (17-59) U/L ALT 31 (21-72) U/L Alkaline Phosphatase 73 (38-126) U/L Total Creatine Kinase 24 L (55-170) U/L CK-MB (CK-2) 1.5 (0.0-2.4) ng/mL CK-MB (CK-2) Rel Index 6.3 Troponin I <0.012 (0.000-0.034) ng/mL NT-Pro-B Natriuret Pep 50 pg/mL Total Protein 6.5 (6.3-8.2) g/dL Albumin 4.0 (3.5-5.0) g/dL 01/07/17 01/07/17 Range/Units 13:15 13:15 WBC 16.0 H (3.8-10.6) k/uL RBC 4.83 (4.30-5.90) m/uL Hgb 15.9 (13.0-17.5) gm/dL Hct 46.0 (39.0-53.0) % MCV 95.3 (80.0-100.0) fL MCH 33.0 (25.0-35.0) pg MCHC 34.6 (31.0-37.0) g/dL RDW 12.8 (11.5-15.5) % Plt Count 360 (150-450) k/uL Neutrophils % 91 % Lymphocytes % 5 % Monocytes % 3 % Eosinophils % 0 % Basophils % 0 % Neutrophils # 14.5 H (1.3-7.7) k/uL Lymphocytes # 0.9 L (1.0-4.8) k/uL Monocytes # 0.4 (0-1.0) k/uL Eosinophils # 0.1 (0-0.7) k/uL Basophils # 0.0 (0-0.2) k/uL PT 11.1 (9.0-12.0) sec INR 1.1 (<1.1) APTT 24.3 (22.0-30.0) sec Sodium (137-145) mmol/L Potassium (3.5-5.1) mmol/L Chloride (98-107) mmol/L Carbon Dioxide (22-30) mmol/L Anion Gap mmol/L BUN (9-20) mg/dL Creatinine (0.66-1.25) mg/dL Est GFR (MDRD) Af Amer (>60 ml/min/1.73 sqM) Est GFR (MDRD) Non-Af (>60 ml/min/1.73 sqM) Glucose (74-99) mg/dL Calcium (8.4-10.2) mg/dL Magnesium (1.6-2.3) mg/dL Total Bilirubin (0.2-1.3) mg/dL AST (17-59) U/L ALT (21-72) U/L Alkaline Phosphatase (38-126) U/L Total Creatine Kinase (55-170) U/L CK-MB (CK-2) (0.0-2.4) ng/mL CK-MB (CK-2) Rel Index Troponin I (0.000-0.034) ng/mL NT-Pro-B Natriuret Pep pg/mL Total Protein (6.3-8.2) g/dL Albumin (3.5-5.0) g/dL - EKG Data -: EKG Interpreted by Sd EKG shows normal: sinus rhythm (Sinus tachycardia rate of 114 WV interval 146 QRS 122 daily since QTC of 348/479) Librax block) - Radiology Data Radiology results: report reviewed (I did review the imaging and reports no acute findings.), image reviewed Critical Care Time Critical Care Time: Yes Critical Care Time: 33 minutes of critical care time which includes initial presentation with history physical and did also monitoring the EMS run and discussed the case with the paramedics at did bring in the patient initially responded to the call. Review of old charting repeated evaluations the patient response to therapy. Review of labs and x-rays. Discussed with patient family regarding findings admission orders and documentation of the above. Disposition Clinical Impression: Acute exacerbation of chronic obstructive airways disease, Adult respiratory distress syndrome, Failure of outpatient treatment Disposition: ADMITTED IP TO THIS HOSP Condition: Stable Referrals: Ronn Aaron MD [Primary Care Provider] - 1-2 days
[2017-01-07 13:47] LABS: Basophils % (A) 0 %; CH 32.6; CHCM 34.4; Eosinophils # (A) 0.1 k/uL (0-0.7); Eosinophils % (A) 0 %; HDW 2.38; HGB 15.9 gm/dL (13.0-17.5); Luc # (Auto) 0.09; Luc % (Auto) 1; Lymphocytes # (A) 0.9 k/uL (1.0-4.8); Lymphocytes % (A) 5 %; MCHC 34.6 g/dL (31.0-37.0); MCV 95.3 fL (80.0-100.0); Mean Platelet Volume 6.5; Monocytes # (A) 0.4 k/uL (0-1.0); Monocytes % (A) 3 %; Neutrophils # (A) 14.5 k/uL (1.3-7.7); Neutrophils % (A) 91 %; RBC 4.83 m/uL (4.30-5.90); RDW 12.8 % (11.5-15.5); WBC (Perox) 15.83
[2017-01-07 13:52] LABS: INR 1.1 (<1.1); Partial Thromboplastin Time 24.3 sec (22.0-30.0); Prothrombin Time 11.1 sec (9.0-12.0)
[2017-01-07 14:09] LABS: ALT 31 U/L (21-72); AST 17 U/L (17-59); Alkaline Phosphatase 73 U/L (38-126); Anion Gap 10 mmol/L; Blood Urea Nitrogen 19 mg/dL (9-20); Calcium 9.4 mg/dL (8.4-10.2); Carbon Dioxide 24 mmol/L (22-30); Chloride 98 mmol/L (98-107); Glucose 141 mg/dL (74-99); Magnesium 2.2 mg/dL (1.6-2.3); Non-African American GFR(MDRD) >60 (>60 ml/min/1.73 sqM); Sodium 132 mmol/L (137-145); Total Bilirubin 0.8 mg/dL (0.2-1.3); Total Protein 6.5 g/dL (6.3-8.2)
--- NOTE | 2017-01-07 14:11 | XR ---
EXAMINATION TYPE: XR chest 2V DATE OF EXAM: 01/07/2017 COMPARISON: 12/30/2016 TECHNIQUE: PA and lateral views submitted. HISTORY: Shortness of breath FINDINGS: The lungs are clear and there is no pneumothorax, pleural effusion, or focal pneumonia. Use osteope david. Degenerative change spine. Mild endplate deformity midthoracic region. Hyperinflation suggests C OPD IMPRESSION: 1. No acute process. Correlate for diffuse COPD. 2. Prominence of the ascending aorta stable dating back to multiple exams compatible with aneurysmal dilation.
[2017-01-07 14:23] LABS: Creatine Kinase 24 U/L (55-170)
[2017-01-07 14:36] LABS: Creatine Kinase MB 1.5 ng/mL (0.0-2.4); Troponin I <0.012 ng/mL (0.000-0.034)
[2017-01-07] MEDS ORDERED: ALBUTEROL NEBULIZED 2.5 MG/3 ML INHALATION STA (15:29)
[2017-01-07] MEDS: IPRATROPIUM-ALBUTEROL 3 ML NEB INHALATION SCH ×3 (19:30→23:26)
[2017-01-07] MEDS: BUDESONIDE 0.5 MG/2 ML NEBU INHALATION SCH (19:30)
[2017-01-07] MEDS: methylPREDNISolone SOD SUCCI 125 MG/2 ML VIAL IV SCH (20:41)
[2017-01-07 20:50] LABS: Glucose,Whole Blood 134 mg/dL (75-99)
[2017-01-07] MEDS: HEPARIN SODIUM,PORCINE 5,000 UNIT/ML 1 ML VIAL SQ SCH (21:48)
[2017-01-07] MEDS: MONTELUKAST 10 MG TAB PO SCH (21:49)
[2017-01-07] MEDS: TAMSULOSIN 0.4 MG CAP.ER.24H PO SCH (21:49)
[2017-01-07] MEDS: INSULIN LISPRO (humaLOG) 300 UNIT/3 ML VIAL SQ SCH (21:49)
[2017-01-07] MEDS: ALPRAZolam 0.25 MG TAB PO PRN (21:51)
[2017-01-07] MEDS ORDERED: IPRATROPIUM-ALBUTEROL 3 ML NEB INHALATION PRN (23:29)
[2017-01-08] MEDS: methylPREDNISolone SOD SUCCI 125 MG/2 ML VIAL IV SCH ×5 (00:58→23:36)
[2017-01-08] MEDS: BUDESONIDE 0.5 MG/2 ML NEBU INHALATION SCH ×2 (06:44→19:42)
[2017-01-08] MEDS: IPRATROPIUM-ALBUTEROL 3 ML NEB INHALATION SCH ×4 (06:44→19:42)
[2017-01-08] MEDS: INSULIN LISPRO (humaLOG) 300 UNIT/3 ML VIAL SQ SCH ×4 (07:34→21:28)
--- NOTE | 2017-01-08 07:36 | P.HPIM ---
History of Present Illness H&P Date: 01/07/17 Chief Complaint: Acute respiratory failure, COPD exacerbation, severe purulent tracheo 71-year-old male one of Dr. Ronn Aaron's patient was seen Dr. Liberty quesada was known to have history of advanced COPD on home O2 and recurrent pneumonia who was hospitalized recently on 12/30/2016 for COPD exacerbation and significant dyspnea and shortness of breath was placed on steroid updraft treatment along with Pulmicort and treated with IV antibiotic initially and then oral antibiotics has done very well with home on O2 on updraft still on tapering dose of steroid. Patient was feeling well until today when he developed to have severe dyspnea and shortness of breath with cough wheezes and worsening hypoxia symptoms become much worse family ended up calling 911 and brought to the emergency department at [facility] on via EMS he was hypoxic initially finally be coming corrected with 3 L of O2 along with several rounds of updraft treatment. Patient was loaded with Solu- Medrol started back on Levaquin IV his chest x-ray failed to show any infiltrate at the time still showing sign of COPD but shows findings consistent with thoracic aneurysm as well. Review of Systems Constitutional: Reports anorexia, Reports fatigue, Reports lethargy, Reports malaise, Denies as per HPI, Denies chills, Denies chronic headaches, Denies chronic pain, Denies daytime sleepiness, Denies fever, Denies night sweats, Denies poor appetite, Denies sweats, Denies weakness, Denies weight gain Eyes: bilateral as per HPI Ears: bilateral: decreased hearing Ears, nose, mouth and throat: Reports nasal congestion, Reports sinus pressure, Denies as per HPI, Denies ant. neck pain, Denies bleeding gums, Denies dental pain, Denies dysphagia, Denies epistaxis, Denies headache, Denies hoarseness, Denies mouth pain, Denies nasal discharge, Denies neck fullness/pressure, Denies neck lump, Denies nose pain, Denies odynophagia, Denies post-nasal drip, Denies sinus pain, Denies swelling in mouth, Denies swelling in throat, Denies sore throat, Denies vertigo, Denies voice changes Cardiovascular: Reports chest pain, Reports claudication, Reports decreased exercise tolerance, Reports dyspnea on exertion, Reports edema, Reports high blood pressure, Reports irregular heart beat, Reports leg edema, Reports lightheadedness, Reports orthopnea, Reports paroxysmal nocturnal dyspnea, Reports rapid heart beat, Reports shortness of breath, Denies as per HPI, Denies palpitations, Denies phlebitis, Denies syncope Respiratory: Reports congestion, Reports cough, Reports dyspnea, Reports pain, Reports pain on inspiration, Reports wheezing, Denies as per HPI, Denies cough with sputum, Denies excessive sputum, Denies hemoptysis, Denies home oxygen, Denies pleurisy, Denies respiratory infections, Denies sleep apnea, Denies snoring Gastrointestinal: Reports abdominal pain, Reports belching, Reports bloating, Reports dyspepsia, Reports early satiety, Reports heartburn, Reports indigestion , Reports nausea, Denies as per HPI, Denies BRBPR, Denies change in bowel habits , Denies coffee ground emesis, Denies constipation, Denies diarrhea, Denies excessive gas, Denies hematemesis, Denies hematochezia, Denies jaundice, Denies lactose intolerance, Denies loss of appetite, Denies melena, Denies vomiting Genitourinary: Reports dysuria, Reports polyuria, Reports urinary hesitancy, Denies as per HPI, Denies decreased libido, Denies difficulties fathering child , Denies discharge, Denies erectile dysfunction, Denies flank pain, Denies genital pain, Denies genital sores, Denies hematuria, Denies impotence, Denies incontinence, Denies kidney stones, Denies nocturia, Denies testicular lump, Denies testicular pain, Denies urinary frequency, Denies urinary retention Musculoskeletal: Reports loss of height, Reports low back pain, Reports myalgias , Reports neck pain, Reports neck stiffness, Denies as per HPI, Denies arm numbness/tingling, Denies atrophy, Denies fractures, Denies frequent falls, Denies gait dysfunction, Denies hot joints, Denies leg numbness/tingling, Denies limitation of motion, Denies morning stiffness, Denies muscle cramps, Denies muscle weakness, Denies prior amputations, Denies redness of joints, Denies shooting arm pain, Denies shooting leg pain Integumentary: Reports pruritus, Reports rash, Denies as per HPI, Denies acne, Denies boils, Denies brittle nails, Denies change in hair/nails, Denies color changes, Denies darkening of skin, Denies depigmentation, Denies dryness, Denies foot/leg ulcers, Denies growths, Denies hirsutism, Denies lesions, Denies onychomycosis, Denies sores, Denies striae, Denies unusual bruising, Denies wounds Neurological: Reports numbness, Reports paresthesias, Reports tingling, Reports tremors, Reports weakness, Denies as per HPI, Denies aphasia, Denies ataxia, Denies balance difficulties, Denies burning pain, Denies change in mentation, Denies change in smell/taste, Denies change in speech, Denies confusion, Denies convulsions, Denies double vision, Denies gait dysfunction, Denies head injury, Denies headaches, Denies hearing difficulties, Denies lack of coordination, Denies loss of vision, Denies memory loss, Denies migraines, Denies motor disturbance, Denies paralysis, Denies seizures, Denies sensory deficit, Denies spasticity, Denies syncope, Denies tic, Denies transient paralysis, Denies vertigo, Denies visual changes Psychiatric: Reports anhedonia, Reports anxiety, Reports anxiety attacks, Reports depression, Reports difficulty concentrating, Reports mood swings, Denies as per HPI, Denies change in appetite, Denies change in libido, Denies change in sleep habits, Denies confusion, Denies disorientation, Denies hallucinations, Denies hopelessness, Denies hypersomnia, Denies insomnia, Denies irritability, Denies memory loss, Denies paranoia, Denies sadness/ tearfulness, Denies sleep disturbances, Denies suicidal ideation Endocrine: Reports fatigue, Reports nocturia, Reports polyuria, Denies as per HPI, Denies cold intolerance, Denies deepening of the voice, Denies excessive sweating, Denies excessive thirst, Denies flushing, Denies heat intolerance, Denies high blood sugars, Denies increase in ring/shoe/hat size, Denies low blood sugars, Denies palpitations, Denies polydipsia, Denies polyphagia, Denies proptosis, Denies recent glucocorticoid use, Denies thyroid mass, Denies weight change Hematologic/Lymphatic: Reports easy bruising, Denies as per HPI, Denies easy bleeding, Denies lymphadenopathy, Denies lymphedema, Denies thrombophilia Allergic/Immunologic: Denies as per HPI, Denies allergic rhinitis, Denies anaphylaxis, Denies angioedema, Denies gluten intolerance, Denies persistent infections, Denies seasonal allergies, Denies urticaria, Denies wheezing Past Medical History Past Medical History: COPD, Hyperlipidemia, Hypertension, Pneumonia, Prostate Disorder History of Any Multi-Drug Resistant Organisms: None Reported Past Surgical History: Hernia Repair Additional Past Surgical History / Comment(s): Colonoscopy - clear 2015 Past Anesthesia/Blood Transfusion Reactions: No Reported Reaction Past Psychological History: No Psychological Hx Reported Smoking Status: Former smoker Past Alcohol Use History: None Reported Past Drug Use History: None Reported - Past Family History Mother Family Medical History: Myocardial Infarction (OK), Supraventricular Tachycardia (SVT) Additional Family Medical History / Comment(s): Lived to Father Family Medical History: Cancer Additional Family Medical History / Comment(s): Lung CA Brother(s) Additional Family Medical History / Comment(s): Patient has 1 brother that at age 57 from lung cancer. He has one half brother that has thyroid problems and hepatitis C. Sister(s) Additional Family Medical History / Comment(s): Patient has 2 full sisters and one half-sister with no major medical problems. Patient has 1 son with no major medical problems. Patient has one daughter that is being treated for bone infection. Medications and Allergies Home Medications Medication Instructions Recorded Confirmed Type Albuterol Inhaler [Ventolin Hfa 2 puff INHALATION RT-QID PRN 09/23/16 01/07/17 History Inhaler] Budesonide [Pulmicort] 0.5 mg INHALATION RT-BID 09/23/16 01/07/17 History Cholecalciferol [Vitamin D3] 400 unit PO DAILY 09/23/16 01/07/17 History Ipratropium-Albuterol Nebulize 3 ml INHALATION RT-QID 09/23/16 01/07/17 History [Duoneb 0.5 mg-3 mg/3 ml Soln] Losartan [Cozaar] 25 mg PO DAILY 09/23/16 01/07/17 History Pravastatin Sodium [Pravachol] 40 mg PO DAILY 09/23/16 01/07/17 History Tamsulosin HCl [Flomax] 0.4 mg PO HS 09/23/16 01/07/17 History predniSONE See Taper PO DIRECTED 01/07/17 01/07/17 History Allergies Allergy/AdvReac Type Severity Reaction Status Date / Time No Known Allergies Allergy Verified 12/30/16 11:13 Physical Exam Vitals: Vital Signs Temp Pulse Resp BP Pulse Ox 01/07/17 17:36 97 F L 108 H 20 115/84 97 01/07/17 16:27 110 H 22 107/66 94 L 01/07/17 16:00 108 H 20 151/85 96 01/07/17 15:45 105 H 01/07/17 15:33 108 H 01/07/17 15:28 115 H 01/07/17 15:19 106 H 01/07/17 15:08 112 H 25 H 95 01/07/17 14:15 114 H 24 102/65 94 L 01/07/17 13:50 116 H 01/07/17 13:47 111 H 30 H 144/90 99 01/07/17 13:42 111 H 01/07/17 13:25 97.3 F L 111 H 30 H 139/88 96 Intake and Output 01/07/17 01/07/17 01/07/17 06:59 14:59 22:59 Other: Voiding Method Toilet Weight 58.967 kg Patient Weight 01/08/17 06:59 Weight 58.967 kg - Constitutional General appearance: no average body habitus, no cooperative, disheveled, mild distress, no morbidly obese, no no acute distress, no obese, no severe distress , no thin - EENT Eyes: abnormal pupil, no anicteric sclerae, no disc margins sharp, no edentulous , no EOMI, no PERRLA, no fundus normal, no photophobia, no dentition normal, no poor dentition, no ptosis, no scleral icterus, normal appearance ENT: hard of hearing, no hearing grossly normal, no NA/AT, normal oropharynx, no other, no pharyngeal erythema, no thrush, no tonsillar exudates, no tonsillar swelling Ears: bilateral: normal - Neck Neck: normal ROM Carotids: bilateral: upstroke normal Thyroid: bilateral: normal size - Respiratory Respiratory: bilateral: diminished, dullness, rales, rhonchi, wheezing, prolonged expiration, prolonged inspiration - Cardiovascular Rhythm: regular Heart sounds: normal: S1, S2 Abnormal Heart Sounds: systolic murmur, S3 Gallop - Gastrointestinal General gastrointestinal: no absent bowel sounds, no decreased bowel sounds, distended, no hepatomegaly, no hyperactive bowel sounds, normal bowel sounds, no organomegaly, no rigid, no scaphoid, soft, no splenomegaly, no tenderness, no umbilical hernia, no ventral hernia - Integumentary Integumentary: no calor, no cellulitis, no cyanotic, no decreased turgor, no flushed, no jaundiced, normal, no normal turgor, pale, rash, no ulcer - Neurologic Neurologic: CNII-XII intact - Musculoskeletal Musculoskeletal: gait normal, generalized weakness, no strength equal bilaterally, no right sided weakness, no left sided weakness - Psychiatric Psychiatric: A&O x's 3 Results CBC & Chem 7: 01/07/17 13:15 01/07/17 13:15 Labs: Abnormal Lab Results - Last 24 Hours (Table) 01/07/17 01/07/17 01/07/17 Range/Units 13:15 13:15 13:15 WBC 16.0 H (3.8-10.6) k/uL Neutrophils # 14.5 H (1.3-7.7) k/uL Lymphocytes # 0.9 L (1.0-4.8) k/uL Sodium 132 L (137-145) mmol/L Glucose 141 H (74-99) mg/dL Total Creatine Kinase 24 L (55-170) U/L Thrombosis Risk Factor Assmnt - DVT/VTE Prophylaxis DVT/VTE Prophylaxis: Pharmacologic Prophylaxis ordered, Mechanical Prophylaxis ordered - Choose All That Apply Each Risk Factor Represents 2 Points: Age 61-74 years Thrombosis Risk Factor Assessment Total Risk Factor Score: 2 Thrombosis Risk Factor Assessment Level: Low Risk Assessment and Plan Plan: 1 acute respiratory failure: Secondary to COPD exacerbation and severe bronchitis with treat underlying disease continue to watch his O2 level continue to watch patient with chronic status will consult pulmonary. 2 COPD exacerbation: Back on larger dose Solu-Medrol at 60 mg every 6 along with DuoNeb and Pulmicort will add Singulair for now consult Dr. Koenig who is known patient very well. 3 severe purulent tracheal bronchitis: Patient be back on Levaquin 500 mg daily for the next 5-7 days. 4 hypertension: Much better on losartan 25 mg a day. 5 hyperlipidemia: Has been on Pravachol 40 mg daily. 6 BPH: Continue patient on Flomax 0.4 mg daily watch for any urinary retention. 7 thoracic aneurysm: Finding on x-ray might be consistent with aneurysm further testing including echo or chest CT would be recommended. 8 DVT prophylaxis: Patient be on heparin 5000 units subcutaneous twice a day. 9 GERD/GI prophylaxis: Patient will be on pantoprazole 40 mg daily. 10 mild steroid-induced hyperglycemia: Continue patient on Accu-Chek sliding skills coverage. CODE STATUS: Full code. Next Expectation from this admission: Patient in the hospital for more than 2 nights.
[2017-01-08] MEDS: HEPARIN SODIUM,PORCINE 5,000 UNIT/ML 1 ML VIAL SQ SCH ×2 (07:39→21:31)
[2017-01-08 07:40] LABS: Glucose,Whole Blood 114 mg/dL (75-99)
[2017-01-08] MEDS: FAMOTIDINE 20 MG TAB PO SCH (07:40)
[2017-01-08] MEDS: LOSARTAN 25 MG TAB PO SCH (07:40)
[2017-01-08] MEDS: PRAVASTATIN SODIUM 40 MG TAB PO SCH (07:40)
[2017-01-08] MEDS: ALPRAZolam 0.25 MG TAB PO PRN ×2 (08:26→21:30)
[2017-01-08 08:46] LABS: Basophils % (A) 0 %; CH 32.5; CHCM 34.4; Eosinophils % (A) 0 %; HCT 42.7 % (39.0-53.0); HDW 2.35; HGB 14.9 gm/dL (13.0-17.5); Luc # (Auto) 0.03; Luc % (Auto) 0; Lymphocytes # (A) 0.7 k/uL (1.0-4.8); Lymphocytes % (A) 5 %; MCH 33.1 pg (25.0-35.0); MCHC 34.9 g/dL (31.0-37.0); MCV 94.8 fL (80.0-100.0); Mean Platelet Volume 6.7; Monocytes # (A) 0.3 k/uL (0-1.0); Monocytes % (A) 2 %; Neutrophils # (A) 13.2 k/uL (1.3-7.7); Neutrophils % (A) 92 %; RDW 13.2 % (11.5-15.5); WBC 14.4 k/uL (3.8-10.6); WBC (Perox) 13.68
[2017-01-08 08:59] LABS: ALT 21 U/L (21-72); AST 19 U/L (17-59); Alkaline Phosphatase 59 U/L (38-126); Anion Gap 14 mmol/L; Blood Urea Nitrogen 19 mg/dL (9-20); Calcium 9.1 mg/dL (8.4-10.2); Carbon Dioxide 20 mmol/L (22-30); Chloride 99 mmol/L (98-107); Glucose 276 mg/dL (74-99); Non-African American GFR(MDRD) >60 (>60 ml/min/1.73 sqM); Potassium 4.3 mmol/L (3.5-5.1); Sodium 133 mmol/L (137-145); Total Bilirubin 0.7 mg/dL (0.2-1.3); Total Protein 6.3 g/dL (6.3-8.2)
[2017-01-08] MEDS ORDERED: LEVOFLOXACIN 500 MG TAB PO SCH (09:00)
[2017-01-08] MEDS ORDERED: RX INFO: IV CONTRAST WAS GIVEN 1 EACH MISC MISCELLANE PRN (09:02)
[2017-01-08] MEDS: AZITHROMYCIN 500 MG TAB PO SCH (09:21)
--- NOTE | 2017-01-08 10:39 | ECHOF ---
Referral Reason:lvfunction MEASUREMENTS -------- HEIGHT: 165.1 cm WEIGHT: 59.0 kg BP: 141/86 IVSd: 1.0 cm (0.6 - 1.1) LVIDd: 2.8 cm (3.9 - 5.3) LVPWd: 1.0 cm (0.6 - 1.1) IVSs: 1.4 cm LVIDs: 1.1 cm LVPWs: 1.2 cm LAESV Index (A-L): 3.68 ml/m Ao Diam: 3.4 cm (2.0 - 3.7) AV Cusp: 2.2 cm (1.5 - 2.6) MV E Kalpesh: 1.21 m/s MV DecT: 140 ms MV A Kalpesh: 0.00 m/s MV E/A Ratio: 303.56 RAP: 5.00 mmHg RVSP: 8.86 mmHg FINDINGS -------- Sinus rhythm. Resting tachycardia (HR>100bpm). This was a technically adequate study. This was a technically difficult study with suboptimal parasternal views. Patient very short of breath, test was performed in the upright position. Left ventricular wall thickness is normal. Overall left ventricular systolic function is normal with, an EF between 60 - 65 %. The right ventricle is normal in size and function. Normal LA size by volume 22+/-6 ml/m2. The right atrium is normal in size. Aortic valve is trileaflet and is mildly thickened. There is no evidence of aortic regurgitation. There is no evidence of aortic stenosis. The mitral valve leaflets are mildly thickened. There is trace mitral regurgitation. Trace tricuspid regurgitation present. There is no evidence of pulmonary hypertension. The right ventricular systolic pressure, as measured by Doppler, is 8.86mmHg. The pulmonic valve was not well visualized. The aortic root size is normal. Normal inferior vena cava with normal inspiratory collapse consistent with estimated right atrial pressure of 5 mmHg. There is no pericardial effusion. CONCLUSIONS -------- 1. Sinus rhythm. 2. The mitral valve leaflets are mildly thickened. 3. There is trace mitral regurgitation. 4. Trace tricuspid regurgitation present. 5. There is no evidence of pulmonary hypertension. 6. The pulmonic valve was not well visualized. 7. The aortic root size is normal. 8. There is no pericardial effusion. 9. Resting tachycardia (HR>100bpm). 10. This was a technically adequate study. 11. This was a technically difficult study with suboptimal parasternal views. 12. Patient very short of breath, test was performed in the upright position. 13. Left ventricular wall thickness is normal. 14. Overall left ventricular systolic function is normal with, an EF between 60 - 65 %. 15. Normal LA size by volume 22+/-6 ml/m2. 16. Aortic valve is trileaflet and is mildly thickened. MANU[employer]URING [employer]AVER: Salvador Acosta RDCS
--- NOTE | 2017-01-08 10:47 | CT ---
EXAMINATION TYPE: CT chest angio for PE DATE OF EXAM: 01/08/2017 COMPARISON: 09/24/2016 HISTORY: 71-year-old male complains of severe difficulty breathing. TECHNIQUE: Contiguous axial scanning of the chest performed with IV Contrast, patient injected with 1 00 mL of Omnipaque 350. Coronal/sagittal MIP reconstructions performed. CT DLP: 187 mGycm Automated exposure control for dose reduction was used. FINDINGS: The heart is normal size without pericardial effusion. Extensive coronary vessel calcifications are p resent in remarkable for coronary artery disease. There is tortuosity of the thoracic aorta with ectasia of the ascending aorta at 3.7 cm. Mild atheros clerotic arch calcifications with conventional arch vessel branching anatomy. Scattered nonenlarged mediastinal lymph nodes measure up to 8 mm in the left tracheobronchial angle r egion. Diffuse patient breathing motion artifact throughout the lungs this secondarily limits assessment for pulmonary embolus. No convincing pulmonary embolus within the upper and midlungs. Many of the distal lobar, segmental and subsegmental branches of the lower lungs are nondiagnostic due to the degree of motion artifact. Pulmonary emboli here cannot be excluded Moderately advanced centrilobular emphysema. Mild diffuse bronchial wall thickening. No consolidation or pleural effusion. Small hiatal hernia. Bones: Endplate spondylosis mid to lower thoracic spine. Multiple ribs show step offs in the lower th orax. Given the breathing motion, this is felt to be secondary to motion artifact rather than fractur es. Chronic mild anterior wedging midthoracic vertebral body with superior endplate Schmorl's node. IMPRESSION: 1. DEGRADED EXAM THE PATIENT WAS BREATHING THROUGHOUT THE SCAN. NO CONVINCING EVIDENCE FOR PULMONA RY EMBOLUS WITHIN THE UPPER TO MID LUNGS. THE LOWER LUNGS ARE NONDIAGNOSTIC AND PULMONARY EMBOLI IN T HE LOWER LUNGS CANNOT BE EXCLUDED ON THE BASIS OF THIS EXAM. 2. CAD. 3. COPD WITH MODERATE TO ADVANCED EMPHYSEMA.
[2017-01-08] MEDS: CHOLECALCIFEROL 400 UNIT TAB PO SCH (12:00)
[2017-01-08 12:26] LABS: Glucose,Whole Blood 83 mg/dL (75-99)
--- NOTE | 2017-01-08 14:11 | P.PN ---
Subjective 71-year-old male one of Dr. Ronn Aaron's patient was seen Dr. Liberty quesada was known to have history of advanced COPD on home O2 and recurrent pneumonia who was hospitalized recently on 12/30/2016 for COPD exacerbation and significant dyspnea and shortness of breath was placed on steroid updraft treatment along with Pulmicort and treated with IV antibiotic initially and then oral antibiotics has done very well with home on O2 on updraft still on tapering dose of steroid. Patient was feeling well until today when he developed to have severe dyspnea and shortness of breath with cough wheezes and worsening hypoxia symptoms become much worse family ended up calling 911 and brought to the emergency department at [facility] on via EMS he was hypoxic initially finally be coming corrected with 3 L of O2 along with several rounds of updraft treatment. Patient was loaded with Solu- Medrol started back on Levaquin IV his chest x-ray failed to show any infiltrate at the time still showing sign of COPD but shows findings consistent with thoracic aneurysm as well. 01/08: The patient was seen and evaluated today. He still complains of some shortness of breath, wheezing and tightness. CTA was ordered, showed thoracic aortia with ectasia of the ascending aortic at 3.7cm. No evidence for pulmonary emboli for upper to mid lungs, lower lungs could not be excluded based on patient was breathing during the exam. Echocardiogram showed mild mitral and tricuspid regurgitation and an ejection fraction of 60-65%. There was no pulmonary hypertension. His antibiotics were changed from Levaquin to Azithromycin. His WBC improved from 16.0 to 14.4. Will continue with IV Solumedrol and scheduled updrafts. Objective - Vital Signs Vital signs: Vital Signs Temp 96.9 F L 01/08/17 07:00 Pulse 92 01/08/17 11:02 Resp 21 01/08/17 07:00 BP 141/86 01/08/17 07:00 Pulse Ox 95 01/08/17 07:00 Intake & Output 01/07/17 01/08/17 01/08/17 18:59 06:59 18:59 Intake Total 240 Balance 240 Weight 58.967 kg Intake: Oral 240 Other: Voiding Method Toilet Toilet Urinal # Voids 1 # Bowel Movements 0 - Exam - Constitutional General appearance: no average body habitus, no cooperative, disheveled, mild distress, no morbidly obese, no no acute distress, no obese, no severe distress , no thin - EENT Eyes: abnormal pupil, no anicteric sclerae, no disc margins sharp, no edentulous , no EOMI, no PERRLA, no fundus normal, no photophobia, no dentition normal, no poor dentition, no ptosis, no scleral icterus, normal appearance ENT: hard of hearing, no hearing grossly normal, no NA/AT, normal oropharynx, no other, no pharyngeal erythema, no thrush, no tonsillar exudates, no tonsillar swelling Ears: bilateral: normal - Neck Neck: normal ROM Carotids: bilateral: upstroke normal Thyroid: bilateral: normal size - Respiratory Respiratory: bilateral: diminished, dullness, rales, rhonchi, wheezing, prolonged expiration, prolonged inspiration - Cardiovascular Rhythm: regular Heart sounds: normal: S1, S2 Abnormal Heart Sounds: systolic murmur, S3 Gallop - Gastrointestinal General gastrointestinal: no absent bowel sounds, no decreased bowel sounds, distended, no hepatomegaly, no hyperactive bowel sounds, normal bowel sounds, no organomegaly, no rigid, no scaphoid, soft, no splenomegaly, no tenderness, no umbilical hernia, no ventral hernia - Integumentary Integumentary: no calor, no cellulitis, no cyanotic, no decreased turgor, no flushed, no jaundiced, normal, no normal turgor, pale, rash, no ulcer - Neurologic Neurologic: CNII-XII intact - Musculoskeletal Musculoskeletal: gait normal, generalized weakness, no strength equal bilaterally, no right sided weakness, no left sided weakness - Psychiatric Psychiatric: A&O x's 3 - Labs CBC & Chem 7: 01/08/17 08:21 01/08/17 08:21 Labs: Abnormal Lab Results - Last 24 Hours (Table) 01/07/17 01/07/17 01/07/17 Range/Units 13:15 13:15 13:15 WBC 16.0 H (3.8-10.6) k/uL Neutrophils # 14.5 H (1.3-7.7) k/uL Lymphocytes # 0.9 L (1.0-4.8) k/uL Sodium 132 L (137-145) mmol/L Carbon Dioxide (22-30) mmol/L Creatinine (0.66-1.25) mg/dL Glucose 141 H (74-99) mg/dL POC Glucose (mg/dL) (75-99) mg/dL Total Creatine Kinase 24 L (55-170) U/L 01/07/17 01/08/17 01/08/17 Range/Units 20:46 07:17 08:21 WBC 14.4 H (3.8-10.6) k/uL Neutrophils # 13.2 H (1.3-7.7) k/uL Lymphocytes # 0.7 L (1.0-4.8) k/uL Sodium (137-145) mmol/L Carbon Dioxide (22-30) mmol/L Creatinine (0.66-1.25) mg/dL Glucose (74-99) mg/dL POC Glucose (mg/dL) 134 H 114 H (75-99) mg/dL Total Creatine Kinase (55-170) U/L 01/08/17 Range/Units 08:21 WBC (3.8-10.6) k/uL Neutrophils # (1.3-7.7) k/uL Lymphocytes # (1.0-4.8) k/uL Sodium 133 L (137-145) mmol/L Carbon Dioxide 20 L (22-30) mmol/L Creatinine 0.64 L (0.66-1.25) mg/dL Glucose 276 H (74-99) mg/dL POC Glucose (mg/dL) (75-99) mg/dL Total Creatine Kinase (55-170) U/L Assessment and Plan Plan: 1 acute respiratory failure: Secondary to COPD exacerbation and severe bronchitis with treat underlying disease continue to watch his O2 level continue to watch patient with chronic status will consult pulmonary. 2 COPD exacerbation: Back on larger dose Solu-Medrol at 60 mg every 6 along with DuoNeb and Pulmicort will add Singulair for now consult Dr. Koenig who is known patient very well. 3 severe purulent tracheal bronchitis: Switched Levaquin to Azithromycin. 4 hypertension: Much better on losartan 25 mg a day. 5 hyperlipidemia: Has been on Pravachol 40 mg daily. 6 BPH: Continue patient on Flomax 0.4 mg daily watch for any urinary retention. 7 thoracic aneurysm: Finding on x-ray might be consistent with aneurysm further testing including echo or chest CTA, CTA completed, 3.7cm aneurysm noted, Echocardiogram also completed EF 60-65%, no pulmonary hypertension noted. 8 DVT prophylaxis: Patient be on heparin 5000 units subcutaneous twice a day. 9 GERD/GI prophylaxis: Patient will be on pantoprazole 40 mg daily. 10 mild steroid-induced hyperglycemia: Continue patient on Accu-Chek sliding skills coverage. CODE STATUS: Full code. Next The above impression and plan of care have been discussed and directed by signing physician. Cheyenne Chappell nurse practitioner acting as scribe for signing physician.
[2017-01-08 17:29] LABS: Glucose,Whole Blood 120 mg/dL (75-99)
--- NOTE | 2017-01-08 17:38 | P.CNPUL ---
History of Present Illness Consult date: 01/08/17 Requesting physician: Evelio Brown Reason for consult: COPD History of present illness: 71-year-old male patient being seen, exaimend and evauluated today. He is well known to our services. Has an extensive history of advanced COPD on home O2 and recurrent pneumonia who was hospitalized recently on 12/30/2016 for COPD exacerbation and significant dyspnea and shortness of breath was placed on steroid updraft treatment along with Pulmicort and treated with IV antibiotic initially and then oral antibiotics has done very well with home on O2 on updraft still on tapering dose of steroid. Patient was feeling well until yesterday when he developed to have severe dyspnea and shortness of breath with cough wheezes and worsening hypoxia symptoms become much worse family ended up calling 911 and brought to the emergency department at [facility]. Patient was given Solu-Medrol and Levaquin via IV. Chest x-ray failed to show any infiltrate at the time still showing sign of COPD but shows findings consistent with thoracic aneurysm as well. CTA fails to show any PE, however cant exculde lower lobe PE, which is felt unlikely, thoracic aortia with ectasia of the ascending aortic at 3.7cm Echocardiogram showed mild mitral and tricuspid regurgitation and an ejection fraction of 60-65%. Patient has also had a productive cough with white/ yellow sputum. SOB with exertion or extensive conversation. Patient is known to be a slow recovery in regards to pulmonary illness. Review of Systems 14 point review of system was completed and is negative unless stated in HPI Past Medical History Past Medical History: COPD, Hyperlipidemia, Hypertension, Pneumonia, Prostate Disorder Additional Past Medical History / Comment(s): HOME O2 3 LITERS N/C AT NIGHT AND NEEDED. History of Any Multi-Drug Resistant Organisms: None Reported Past Surgical History: Hernia Repair Additional Past Surgical History / Comment(s): Colonoscopy - clear 2016 Past Anesthesia/Blood Transfusion Reactions: No Reported Reaction Past Psychological History: No Psychological Hx Reported Smoking Status: Former smoker Past Alcohol Use History: None Reported Past Drug Use History: None Reported - Past Family History Mother Family Medical History: Myocardial Infarction (NC), Supraventricular Tachycardia (SVT) Additional Family Medical History / Comment(s): Lived to 87 Father Family Medical History: Cancer Additional Family Medical History / Comment(s): Lung CA Brother(s) Additional Family Medical History / Comment(s): Patient has 1 brother that at age 57 from lung cancer. He has one half brother that has thyroid problems and hepatitis C. Sister(s) Additional Family Medical History / Comment(s): Patient has 2 full sisters and one half-sister with no major medical problems. Patient has 1 son with no major medical problems. Patient has one daughter that is being treated for bone infection. Medications and Allergies Home Medications Medication Instructions Recorded Confirmed Type Albuterol Inhaler [Ventolin Hfa 2 puff INHALATION RT-QID PRN 09/23/16 01/07/17 History Inhaler] Budesonide [Pulmicort] 0.5 mg INHALATION RT-BID 09/23/16 01/07/17 History Cholecalciferol [Vitamin D3] 400 unit PO DAILY 09/23/16 01/07/17 History Ipratropium-Albuterol Nebulize 3 ml INHALATION RT-QID 09/23/16 01/07/17 History [Duoneb 0.5 mg-3 mg/3 ml Soln] Losartan [Cozaar] 25 mg PO DAILY 09/23/16 01/07/17 History Pravastatin Sodium [Pravachol] 40 mg PO DAILY 09/23/16 01/07/17 History Tamsulosin HCl [Flomax] 0.4 mg PO HS 09/23/16 01/07/17 History predniSONE See Taper PO DIRECTED 01/07/17 01/07/17 History Allergies Allergy/AdvReac Type Severity Reaction Status Date / Time No Known Allergies Allergy Verified 12/30/16 11:13 Physical Exam Vitals: Vital Signs Temp Pulse Pulse Resp BP BP Pulse Ox 01/08/17 16:09 86 01/08/17 15:57 88 01/08/17 15:00 96.9 F L 110 H 20 126/79 96 01/08/17 11:02 92 01/08/17 10:51 88 01/08/17 07:05 94 01/08/17 07:00 96.9 F L 107 H 21 141/86 95 01/08/17 06:44 92 01/07/17 23:34 88 01/07/17 23:28 84 01/07/17 22:42 97.0 F L 102 H 18 113/75 94 L 01/07/17 19:50 106 H 07/12/17 19:33 106 H 01/07/17 18:21 97.4 F L 109 H 22 129/78 95 01/07/17 17:36 97 F L 108 H 20 115/84 97 Intake and Output 01/08/17 01/08/17 01/08/17 06:59 14:59 22:59 Intake Total 240 Balance 240 Intake: Oral 240 Other: # Voids 1 3 Results - Laboratory Findings CBC and BMP: 01/08/17 08:21 01/08/17 08:21 PT/INR, D-dimer PT 11.1 sec (9.0-12.0) 01/07/17 13:15 INR 1.1 (<1.1) 01/07/17 13:15 Abnormal lab findings: Abnormal Labs 01/07/17 01/07/17 01/07/17 13:15 13:15 13:15 WBC 16.0 H Neutrophils # 14.5 H Lymphocytes # 0.9 L Sodium 132 L Carbon Dioxide Creatinine Glucose 141 H POC Glucose (mg/dL) Total Creatine Kinase 24 L 01/07/17 01/08/17 01/08/17 20:46 07:17 08:21 WBC 14.4 H Neutrophils # 13.2 H Lymphocytes # 0.7 L Sodium Carbon Dioxide Creatinine Glucose POC Glucose (mg/dL) 134 H 114 H Total Creatine Kinase 01/08/17 08:21 WBC Neutrophils # Lymphocytes # Sodium 133 L Carbon Dioxide 20 L Creatinine 0.64 L Glucose 276 H POC Glucose (mg/dL) Total Creatine Kinase - Diagnostic Findings Chest x-ray: report reviewed, image reviewed Assessment and Plan Plan: Assessment Acute on Chronic respiratory failure Acute exacerbation of COPD Purulent tracheal bronchitis Thoracic aneurysm Hypertension Hyperlipidemia BPH GERD Plan Medications have been reviewed and will be continued as ordered. Steroids and ABT as ordered. Continue with nebulizers. We will add mucinex to help with secretions. Initiate and encourage incentive spiromentry. Obtain sputum culture. Supplemental oxygen to maintain oxygen saturations greater than 90%. Continue with pulmonary hygiene, coughing and deep breathing exercises, and supportive care. GI and DVT prophylaxis. We will continue to monitor labs/ results and adjust treatment as necessary. Further recommendations pending. I performed an examination of the patient and discussed their management with the nurse practitioner. I have reviewed the nurse practitioner's note and agree with the documented findings and plan of care.
[2017-01-08] MEDS: MONTELUKAST 10 MG TAB PO SCH (21:30)
[2017-01-08] MEDS: TAMSULOSIN 0.4 MG CAP.ER.24H PO SCH (21:30)
[2017-01-08 21:35] LABS: Glucose,Whole Blood 122 mg/dL (75-99)
[2017-01-08] MEDS: guaiFENesin 600 MG TABLET.ER PO SCH (22:21)
[2017-01-09] MEDS: IPRATROPIUM-ALBUTEROL 3 ML NEB INHALATION SCH ×7 (00:03→23:24)
[2017-01-09] MEDS: methylPREDNISolone SOD SUCCI 125 MG/2 ML VIAL IV SCH ×4 (05:47→23:41)
[2017-01-09] MEDS: BUDESONIDE 0.5 MG/2 ML NEBU INHALATION SCH ×2 (07:11→19:38)
[2017-01-09] MEDS: INSULIN LISPRO (humaLOG) 300 UNIT/3 ML VIAL SQ SCH ×4 (07:28→21:14)
[2017-01-09 07:37] LABS: Glucose,Whole Blood 113 mg/dL (75-99)
[2017-01-09] MEDS: HEPARIN SODIUM,PORCINE 5,000 UNIT/ML 1 ML VIAL SQ SCH ×2 (07:42→21:15)
[2017-01-09] MEDS: AZITHROMYCIN 500 MG TAB PO SCH (07:42)
[2017-01-09] MEDS: guaiFENesin 600 MG TABLET.ER PO SCH ×2 (07:42→21:15)
[2017-01-09] MEDS: FAMOTIDINE 20 MG TAB PO SCH (07:42)
[2017-01-09] MEDS: PRAVASTATIN SODIUM 40 MG TAB PO SCH (07:43)
[2017-01-09] MEDS: LOSARTAN 25 MG TAB PO SCH (07:43)
[2017-01-09 08:04] LABS: Basophils % (A) 0 %; CH 32.3; CHCM 33.9; Eosinophils % (A) 0 %; HCT 47.3 % (39.0-53.0); HDW 2.34; HGB 15.8 gm/dL (13.0-17.5); Luc # (Auto) 0.12; Luc % (Auto) 1; Lymphocytes # (A) 0.9 k/uL (1.0-4.8); Lymphocytes % (A) 4 %; MCH 31.9 pg (25.0-35.0); MCHC 33.4 g/dL (31.0-37.0); MCV 95.6 fL (80.0-100.0); Mean Platelet Volume 6.7; Monocytes # (A) 0.9 k/uL (0-1.0); Monocytes % (A) 4 %; Neutrophils # (A) 18.8 k/uL (1.3-7.7); Neutrophils % (A) 91 %; RBC 4.94 m/uL (4.30-5.90); RDW 12.8 % (11.5-15.5); WBC 20.7 k/uL (3.8-10.6); WBC (Perox) 20.66
[2017-01-09 08:14] LABS: ALT 25 U/L (21-72); AST 23 U/L (17-59); Alkaline Phosphatase 62 U/L (38-126); Anion Gap 12 mmol/L; Blood Urea Nitrogen 25 mg/dL (9-20); Calcium 9.4 mg/dL (8.4-10.2); Carbon Dioxide 26 mmol/L (22-30); Chloride 96 mmol/L (98-107); Glucose 111 mg/dL (74-99); Non-African American GFR(MDRD) >60 (>60 ml/min/1.73 sqM); Potassium 4.8 mmol/L (3.5-5.1); Sodium 134 mmol/L (137-145); Total Bilirubin 0.6 mg/dL (0.2-1.3); Total Protein 6.5 g/dL (6.3-8.2)
[2017-01-09] MEDS: ALPRAZolam 0.25 MG TAB PO PRN ×2 (08:59→21:18)
--- NOTE | 2017-01-09 11:12 | P.PN ---
Subjective 01/08/17- This is a 71-year-old male patient being seen, exaimend and evauluated today. He is well known to our services. Has an extensive history of advanced COPD on home O2 and recurrent pneumonia who was hospitalized recently on 12/30/2016 for COPD exacerbation and significant dyspnea and shortness of breath was placed on steroid updraft treatment along with Pulmicort and treated with IV antibiotic initially and then oral antibiotics has done very well with home on O2 on updraft still on tapering dose of steroid. Patient was feeling well until yesterday when he developed to have severe dyspnea and shortness of breath with cough wheezes and worsening hypoxia symptoms become much worse family ended up calling 911 and brought to the emergency department at [facility]. Patient was given Solu-Medrol and Levaquin via IV. Chest x-ray failed to show any infiltrate at the time still showing sign of COPD but shows findings consistent with thoracic aneurysm as well. CTA fails to show any PE, however cant exculde lower lobe PE, which is felt unlikely, thoracic aortia with ectasia of the ascending aortic at 3.7cm Echocardiogram showed mild mitral and tricuspid regurgitation and an ejection fraction of 60-65%. Patient has also had a productive cough with white/ yellow sputum. SOB with exertion or extensive conversation. Patient is known to be a slow recovery in regards to pulmonary illness. 01/09/17- upon examination today the patient is resting up in bed on 3 L of supplemental oxygen. Patient continues to have a cough that is productive and bringing up yellow sputum. Sputum collection container at bedside and patient is trying to obtain specimen. Patient states he feels his congestion is "breaking up finally". Labs were reviewed and does show an increase in his white count to 20.7. Is currently on Zithromax and ceftriaxone as well as steroids and breathing treatments Mucinex and Singulair. Patient is encouraged to increase activity. Objective - Vital Signs Vital signs: Vital Signs Temp 96.4 F L 01/09/17 07:00 Pulse 108 H 01/09/17 07:26 Resp 18 01/09/17 07:00 BP 133/88 01/09/17 07:00 Pulse Ox 96 01/09/17 07:00 Intake & Output 01/08/17 01/09/17 01/09/17 18:59 06:59 18:59 Other: Voiding Method Toilet Urinal # Voids 3 1 - Exam GENERAL EXAM: Alert, active, comfortable in no apparent distress. HEAD: Normocephalic. EYES: Normal reaction of pupils, equal size. NOSE: Clear with pink turbinates. THROAT: No erythema or exudates. NECK: No masses, no JVD. CHEST: No chest wall deformity. LUNGS: Lungs noted to be tight, with rhonchi and wheezes scattered throughout. bases diminished. CVS: S1 and S2 normal with no audible mumurs, regular rhythm. ABDOMEN: No hepatosplenomegaly, normal bowel sounds, no guarding or rigidity. EXTREMITIES: No edema noted, pedal pulses palpable. SKIN: No rashes CENTRAL NERVOUS SYSTEM: No focal deficits, tone is normal in all 4 extremities. - Labs CBC & Chem 7: 01/09/17 07:35 01/09/17 07:35 Labs: Abnormal Lab Results - Last 24 Hours (Table) 01/08/17 01/08/17 01/09/17 Range/Units 17:02 21:17 07:27 WBC (3.8-10.6) k/uL Neutrophils # (1.3-7.7) k/uL Lymphocytes # (1.0-4.8) k/uL Sodium (137-145) mmol/L Chloride (98-107) mmol/L BUN (9-20) mg/dL Glucose (74-99) mg/dL POC Glucose (mg/dL) 120 H 122 H 113 H (75-99) mg/dL 01/09/17 01/09/17 Range/Units 07:35 07:35 WBC 20.7 H (3.8-10.6) k/uL Neutrophils # 18.8 H (1.3-7.7) k/uL Lymphocytes # 0.9 L (1.0-4.8) k/uL Sodium 134 L (137-145) mmol/L Chloride 96 L (98-107) mmol/L BUN 25 H (9-20) mg/dL Glucose 111 H (74-99) mg/dL POC Glucose (mg/dL) (75-99) mg/dL Assessment and Plan Plan: Assessment Acute on Chronic respiratory failure Acute exacerbation of COPD Purulent tracheal bronchitis Thoracic aneurysm Hypertension Hyperlipidemia BPH GERD Plan Medications have been reviewed and will be continued as ordered. Patient is known to be a slow recovery in regards to pulmonary illness. He will need a longer duration of his Steroids and ABT. Continue with nebulizers. Continue with mucinex to help with secretions. Initiate and encourage incentive spiromentry. Obtain sputum culture. Supplemental oxygen to maintain oxygen saturations greater than 90%. Increase activity as tolerated. Continue with pulmonary hygiene, coughing and deep breathing exercises, and supportive care. GI and DVT prophylaxis. We will continue to monitor labs/results and adjust treatment as necessary. Further recommendations pending. I performed an examination of the patient and discussed their management with the nurse practitioner. I have reviewed the nurse practitioner's note and agree with the documented findings and plan of care.
[2017-01-09 11:20] LABS: Glucose,Whole Blood 89 mg/dL (75-99)
[2017-01-09] MEDS: CHOLECALCIFEROL 400 UNIT TAB PO SCH (12:04)
--- NOTE | 2017-01-09 12:06 | P.PN ---
Subjective 71-year-old male one of Dr. Ronn Aaron's patient was seen Dr. Liberty quesada was known to have history of advanced COPD on home O2 and recurrent pneumonia who was hospitalized recently on 12/30/2016 for COPD exacerbation and significant dyspnea and shortness of breath was placed on steroid updraft treatment along with Pulmicort and treated with IV antibiotic initially and then oral antibiotics has done very well with home on O2 on updraft still on tapering dose of steroid. Patient was feeling well until today when he developed to have severe dyspnea and shortness of breath with cough wheezes and worsening hypoxia symptoms become much worse family ended up calling 911 and brought to the emergency department at [facility] on via EMS he was hypoxic initially finally be coming corrected with 3 L of O2 along with several rounds of updraft treatment. Patient was loaded with Solu- Medrol started back on Levaquin IV his chest x-ray failed to show any infiltrate at the time still showing sign of COPD but shows findings consistent with thoracic aneurysm as well. 01/08: The patient was seen and evaluated today. He still complains of some shortness of breath, wheezing and tightness. CTA was ordered, showed thoracic aortia with ectasia of the ascending aortic at 3.7cm. No evidence for pulmonary emboli for upper to mid lungs, lower lungs could not be excluded based on patient was breathing during the exam. Echocardiogram showed mild mitral and tricuspid regurgitation and an ejection fraction of 60-65%. There was no pulmonary hypertension. His antibiotics were changed from Levaquin to Azithromycin. His WBC improved from 16.0 to 14.4. Will continue with IV Solumedrol and scheduled updrafts. 01/09: Today the patient was evaluated, he was sitting at the bedside with family. He reports his breathing has improved a little since yesterday. His white count is 20.7 today, leukocytosis secondary to his IV steroids. He continues with IV azithromycin and ceftriaxone. Pulmonology consult appreciated. Will continue with IV steroids and schedule updraft treatments. Objective - Vital Signs Vital signs: Vital Signs Temp 96.4 F L 01/09/17 07:00 Pulse 108 H 01/09/17 11:21 Resp 18 01/09/17 07:00 BP 133/88 01/09/17 07:00 Pulse Ox 96 01/09/17 07:00 Intake & Output 01/08/17 01/09/17 01/09/17 18:59 06:59 18:59 Other: Voiding Method Toilet Urinal # Voids 3 1 - Exam - Constitutional General appearance: no average body habitus, no cooperative, disheveled, mild distress, no morbidly obese, no no acute distress, no obese, no severe distress , no thin - EENT Eyes: abnormal pupil, no anicteric sclerae, no disc margins sharp, no edentulous , no EOMI, no PERRLA, no fundus normal, no photophobia, no dentition normal, no poor dentition, no ptosis, no scleral icterus, normal appearance ENT: hard of hearing, no hearing grossly normal, no NA/AT, normal oropharynx, no other, no pharyngeal erythema, no thrush, no tonsillar exudates, no tonsillar swelling Ears: bilateral: normal - Neck Neck: normal ROM Carotids: bilateral: upstroke normal Thyroid: bilateral: normal size - Respiratory Respiratory: bilateral: diminished, dullness, rales, rhonchi, wheezing, prolonged expiration, prolonged inspiration - Cardiovascular Rhythm: regular Heart sounds: normal: S1, S2 Abnormal Heart Sounds: systolic murmur, S3 Gallop - Gastrointestinal General gastrointestinal: no absent bowel sounds, no decreased bowel sounds, distended, no hepatomegaly, no hyperactive bowel sounds, normal bowel sounds, no organomegaly, no rigid, no scaphoid, soft, no splenomegaly, no tenderness, no umbilical hernia, no ventral hernia - Integumentary Integumentary: no calor, no cellulitis, no cyanotic, no decreased turgor, no flushed, no jaundiced, normal, no normal turgor, pale, rash, no ulcer - Neurologic Neurologic: CNII-XII intact - Musculoskeletal Musculoskeletal: gait normal, generalized weakness, no strength equal bilaterally, no right sided weakness, no left sided weakness - Psychiatric Psychiatric: A&O x's 3 - Labs CBC & Chem 7: 01/09/17 07:35 01/09/17 07:35 Labs: Abnormal Lab Results - Last 24 Hours (Table) 01/08/17 01/08/17 01/09/17 Range/Units 17:02 21:17 07:27 WBC (3.8-10.6) k/uL Neutrophils # (1.3-7.7) k/uL Lymphocytes # (1.0-4.8) k/uL Sodium (137-145) mmol/L Chloride (98-107) mmol/L BUN (9-20) mg/dL Glucose (74-99) mg/dL POC Glucose (mg/dL) 120 H 122 H 113 H (75-99) mg/dL 01/09/17 01/09/17 Range/Units 07:35 07:35 WBC 20.7 H (3.8-10.6) k/uL Neutrophils # 18.8 H (1.3-7.7) k/uL Lymphocytes # 0.9 L (1.0-4.8) k/uL Sodium 134 L (137-145) mmol/L Chloride 96 L (98-107) mmol/L BUN 25 H (9-20) mg/dL Glucose 111 H (74-99) mg/dL POC Glucose (mg/dL) (75-99) mg/dL Assessment and Plan Plan: 1 acute respiratory failure: Secondary to COPD exacerbation and severe bronchitis with treat underlying disease continue to watch his O2 level continue to watch patient with chronic status will consult pulmonary. 2 COPD exacerbation: Back on larger dose Solu-Medrol at 60 mg every 6 along with DuoNeb and Pulmicort will add Singulair for now consult Dr. Koenig who is known patient very well. 3 severe purulent tracheal bronchitis: Switched Levaquin to Azithromycin. 4 hypertension: Much better on losartan 25 mg a day. 5 hyperlipidemia: Has been on Pravachol 40 mg daily. 6 BPH: Continue patient on Flomax 0.4 mg daily watch for any urinary retention. 7 thoracic aneurysm: Finding on x-ray might be consistent with aneurysm further testing including echo or chest CTA, CTA completed, 3.7cm aneurysm noted, Echocardiogram also completed EF 60-65%, no pulmonary hypertension noted. 8 DVT prophylaxis: Patient be on heparin 5000 units subcutaneous twice a day. 9 GERD/GI prophylaxis: Patient will be on pantoprazole 40 mg daily. 10 mild steroid-induced hyperglycemia: Continue patient on Accu-Chek sliding skills coverage. CODE STATUS: Full code. Next The above impression and plan of care have been discussed and directed by signing physician. Cheyenne Chappell nurse practitioner acting as scribe for signing physician.
[2017-01-09] MEDS: ACETAMINOPHEN TAB 500 MG TAB PO PRN (16:39)
[2017-01-09 17:25] LABS: Glucose,Whole Blood 91 mg/dL (75-99)
[2017-01-09 20:40] LABS: Glucose,Whole Blood 113 mg/dL (75-99)
[2017-01-09] MEDS: MONTELUKAST 10 MG TAB PO SCH (21:16)
[2017-01-09] MEDS: TAMSULOSIN 0.4 MG CAP.ER.24H PO SCH (21:16)
[2017-01-10] MEDS: IPRATROPIUM-ALBUTEROL 3 ML NEB INHALATION SCH ×6 (03:55→23:32)
[2017-01-10] MEDS: ACETAMINOPHEN TAB 500 MG TAB PO PRN (06:04)
[2017-01-10] MEDS: methylPREDNISolone SOD SUCCI 125 MG/2 ML VIAL IV SCH (06:05)
[2017-01-10 07:22] LABS: Glucose,Whole Blood 110 mg/dL (75-99)
[2017-01-10] MEDS: BUDESONIDE 0.5 MG/2 ML NEBU INHALATION SCH ×2 (07:56→19:52)
[2017-01-10] MEDS: AZITHROMYCIN 500 MG TAB PO SCH (09:13)
[2017-01-10] MEDS: guaiFENesin 600 MG TABLET.ER PO SCH ×2 (09:13→20:57)
[2017-01-10] MEDS: HEPARIN SODIUM,PORCINE 5,000 UNIT/ML 1 ML VIAL SQ SCH ×2 (09:13→20:57)
[2017-01-10] MEDS: ALPRAZolam 0.25 MG TAB PO PRN ×2 (09:13→21:00)
[2017-01-10] MEDS: FAMOTIDINE 20 MG TAB PO SCH (09:14)
[2017-01-10] MEDS: PRAVASTATIN SODIUM 40 MG TAB PO SCH (09:14)
[2017-01-10] MEDS: INSULIN LISPRO (humaLOG) 300 UNIT/3 ML VIAL SQ SCH ×4 (09:14→20:57)
[2017-01-10] MEDS: LOSARTAN 25 MG TAB PO SCH (09:14)
[2017-01-10 12:30] LABS: Glucose,Whole Blood 91 mg/dL (75-99)
[2017-01-10] MEDS: predniSONE 20 MG TAB PO SCH (12:41)
[2017-01-10] MEDS: CHOLECALCIFEROL 400 UNIT TAB PO SCH (13:15)
--- NOTE | 2017-01-10 14:23 | P.PN ---
Subjective Principal diagnosis: Acute respiratory failure, COPD exacerbation, severe bronchitis, hypertension, mild hyperglycemia 71-year-old male one of Dr. Ronn Aaron's patient was seen Dr. Liberty quesada was known to have history of advanced COPD on home O2 and recurrent pneumonia who was hospitalized recently on 12/30/2016 for COPD exacerbation and significant dyspnea and shortness of breath was placed on steroid updraft treatment along with Pulmicort and treated with IV antibiotic initially and then oral antibiotics has done very well with home on O2 on updraft still on tapering dose of steroid. Patient was feeling well until today when he developed to have severe dyspnea and shortness of breath with cough wheezes and worsening hypoxia symptoms become much worse family ended up calling 911 and brought to the emergency department at [facility] on via EMS he was hypoxic initially finally be coming corrected with 3 L of O2 along with several rounds of updraft treatment. Patient was loaded with Solu- Medrol started back on Levaquin IV his chest x-ray failed to show any infiltrate at the time still showing sign of COPD but shows findings consistent with thoracic aneurysm as well. 01/08: The patient was seen and evaluated today. He still complains of some shortness of breath, wheezing and tightness. CTA was ordered, showed thoracic aortia with ectasia of the ascending aortic at 3.7cm. No evidence for pulmonary emboli for upper to mid lungs, lower lungs could not be excluded based on patient was breathing during the exam. Echocardiogram showed mild mitral and tricuspid regurgitation and an ejection fraction of 60-65%. There was no pulmonary hypertension. His antibiotics were changed from Levaquin to Azithromycin. His WBC improved from 16.0 to 14.4. Will continue with IV Solumedrol and scheduled updrafts. 01/09: Today the patient was evaluated, he was sitting at the bedside with family. He reports his breathing has improved a little since yesterday. His white count is 20.7 today, leukocytosis secondary to his IV steroids. He continues with IV azithromycin and ceftriaxone. Pulmonology consult appreciated. Will continue with IV steroids and schedule updraft treatments. 01/10/2017: Patient is feeling much better with switch steroid to oral prednisone started at 60 mg on slower tapering dose. Also patient would have 1 last dose of IV antibiotic which is Rocephin by tomorrow. Objective - Vital Signs Vital signs: Vital Signs Temp 96.1 F L 01/10/17 07:00 Pulse 86 01/10/17 12:47 Resp 20 01/10/17 07:59 BP 136/84 01/10/17 07:00 Pulse Ox 95 01/10/17 07:00 Intake & Output 01/09/17 01/10/17 01/10/17 18:59 06:59 18:59 Other: Voiding Method Toilet Toilet Urinal Urinal # Voids 3 1 - Constitutional General appearance: Present: cooperative, disheveled, no acute distress. Absent : average body habitus, mild distress, morbidly obese, obese, severe distress, thin - EENT Eyes: Present: normal appearance. Absent: abnormal pupil, anicteric sclerae, disc margins sharp, edentulous, EOMI, PERRLA, fundus normal, photophobia, dentition normal, poor dentition, ptosis, scleral icterus ENT: Present: normal oropharynx. Absent: hard of hearing, hearing grossly normal, NA/AT, other, pharyngeal erythema, thrush, tonsillar exudates, tonsillar swelling Ears: bilateral: normal - Neck Neck: Present: normal ROM. Absent: lymphadenopathy, other, rigidity, stridor, thyromegaly Carotids: bilateral: upstroke normal Thyroid: bilateral: normal size - Respiratory Respiratory: bilateral: diminished, dullness, rales, rhonchi, wheezing, prolonged expiration - Cardiovascular Rhythm: regular Heart sounds: normal: S1, S2 Abnormal Heart Sounds: Present: systolic murmur, S3 Gallop - Gastrointestinal General gastrointestinal: Present: decreased bowel sounds, soft. Absent: absent bowel sounds, distended, hepatomegaly, hyperactive bowel sounds, normal bowel sounds, organomegaly, rigid, scaphoid, splenomegaly, tenderness, umbilical hernia, ventral hernia - Integumentary Integumentary: Present: normal, pale, rash. Absent: calor, cellulitis, cyanotic , decreased turgor, flushed, jaundiced, normal turgor, ulcer - Neurologic Neurologic: Present: CNII-XII intact. Absent: focal deficits - Musculoskeletal Musculoskeletal: Present: gait normal, generalized weakness, strength equal bilaterally. Absent: right sided weakness, left sided weakness - Psychiatric Psychiatric: Present: A&O x's 3, appropriate affect. Absent: intact judgment & insight - Labs CBC & Chem 7: 07/14/17 07:35 01/09/17 07:35 Labs: Abnormal Lab Results - Last 24 Hours (Table) 01/09/17 01/10/17 Range/Units 20:38 07:06 POC Glucose (mg/dL) 113 H 110 H (75-99) mg/dL Assessment and Plan Plan: 1 acute respiratory failure: Secondary to COPD exacerbation and severe bronchitis is better so far continue current treatment management patient medication will be changed to oral and prepare of before home tomorrow day after tomorrow. 2 COPD exacerbation: Solu-Medrol will be switched to oral prednisone will continue with DuoNeb and Pulmicort will add Singulair for now consult Dr. Koenig who is known patient very well. 3 severe purulent tracheal bronchitis: Patient be back on Levaquin 500 mg daily for the next 5-7 days. 4 hypertension: Much better on losartan 25 mg a day. 5 hyperlipidemia: Has been on Pravachol 40 mg daily. 6 BPH: Continue patient on Flomax 0.4 mg daily watch for any urinary retention. 7 thoracic aneurysm: Finding on x-ray might be consistent with aneurysm further testing including echo or chest CT would be recommended. 8 DVT prophylaxis: Patient be on heparin 5000 units subcutaneous twice a day. 9 GERD/GI prophylaxis: Patient will be on pantoprazole 40 mg daily. 10 mild steroid-induced hyperglycemia: Continue patient on Accu-Chek sliding skills coverage.
[2017-01-10 17:41] LABS: Glucose,Whole Blood 113 mg/dL (75-99)
--- NOTE | 2017-01-10 18:26 | PN ---
DATE OF SERVICE: 01/10/17 He has been hemodynamically stable. He continues to have shortness of breath but is doing better overall. On physical examination, blood pressure 126/68. Respiratory rate 21. Pulse rate 119. Temperature 96.5. O2 sat on 3 L nasal cannula is 96%. HEENT: Unremarkable. Chest reveals prolonged expiration. No wheeze. Cardiovascular system reveals an S1, S2. Abdomen is soft. There is no pedal edema. Impression at this time is: 1. Asthma with acute exacerbation. 2. Baseline chronic obstructive pulmonary disease. Continue albuterol, ipratropium, budesonide, Pepcid, subcu heparin. Add Singulair to his regimen. Continue him on antibiotics. Prognosis at this time is fair. MTDD
[2017-01-10 20:20] LABS: Glucose,Whole Blood 132 mg/dL (75-99)
[2017-01-10] MEDS: MONTELUKAST 10 MG TAB PO SCH (20:57)
[2017-01-10] MEDS: TAMSULOSIN 0.4 MG CAP.ER.24H PO SCH (20:57)
[2017-01-11] MEDS: IPRATROPIUM-ALBUTEROL 3 ML NEB INHALATION SCH ×6 (04:16→23:20)
--- NOTE | 2017-01-11 07:19 | XR ---
EXAMINATION TYPE: XR chest 1V portable DATE OF EXAM: 01/11/2017 CLINICAL HISTORY: COPD with shortness of breath TECHNIQUE: Single AP portable upright view of the chest is obtained. COMPARISON: Chest x-ray from 4 days earlier. CTA chest from 3 days earlier. FINDINGS: There is background moderate chronic emphysematous change and scattered fibrosis. There is no suspicious new focal airspace opacity, pleural effusion, or pneumothorax seen bilaterally. Cardia c silhouette size is stable and within normal limits with atherosclerotic and slightly ectatic thorac ic aorta. Osseous structures are demineralized. IMPRESSION: Overall stable findings, chronic emphysematous change and fibrosis without suspicious a cute infiltrate seen.
[2017-01-11 07:27] LABS: Glucose,Whole Blood 86 mg/dL (75-99)
[2017-01-11] MEDS: HEPARIN SODIUM,PORCINE 5,000 UNIT/ML 1 ML VIAL SQ SCH ×2 (07:34→20:46)
[2017-01-11] MEDS: INSULIN LISPRO (humaLOG) 300 UNIT/3 ML VIAL SQ SCH ×4 (07:34→21:49)
[2017-01-11] MEDS: guaiFENesin 600 MG TABLET.ER PO SCH ×2 (07:34→20:46)
[2017-01-11] MEDS: predniSONE 20 MG TAB PO SCH (07:35)
[2017-01-11] MEDS: FAMOTIDINE 20 MG TAB PO SCH (07:35)
[2017-01-11] MEDS: LOSARTAN 25 MG TAB PO SCH (07:35)
[2017-01-11] MEDS: PRAVASTATIN SODIUM 40 MG TAB PO SCH (07:35)
[2017-01-11] MEDS: AZITHROMYCIN 500 MG TAB PO SCH (07:36)
[2017-01-11] MEDS: BUDESONIDE 0.5 MG/2 ML NEBU INHALATION SCH ×2 (08:23→19:37)
[2017-01-11] MEDS: ALPRAZolam 0.25 MG TAB PO PRN (09:32)
[2017-01-11 11:40] LABS: Basophils % (A) 0 %; CH 32.9; CHCM 33.8; Eosinophils % (A) 0 %; HCT 48.1 % (39.0-53.0); HDW 2.25; HGB 15.8 gm/dL (13.0-17.5); Luc # (Auto) 0.21; Luc % (Auto) 1; Lymphocytes # (A) 0.8 k/uL (1.0-4.8); Lymphocytes % (A) 3 %; MCHC 32.7 g/dL (31.0-37.0); MCV 97.7 fL (80.0-100.0); Mean Platelet Volume 6.6; Monocytes # (A) 1.7 k/uL (0-1.0); Monocytes % (A) 7 %; Neutrophils # (A) 20.4 k/uL (1.3-7.7); Neutrophils % (A) 88 %; RBC 4.93 m/uL (4.30-5.90); RDW 13.2 % (11.5-15.5); WBC 23.1 k/uL (3.8-10.6)
[2017-01-11 11:53] LABS: ALT 40 U/L (21-72); AST 25 U/L (17-59); Alkaline Phosphatase 66 U/L (38-126); Anion Gap 9 mmol/L; Blood Urea Nitrogen 24 mg/dL (9-20); Calcium 9.2 mg/dL (8.4-10.2); Carbon Dioxide 26 mmol/L (22-30); Chloride 95 mmol/L (98-107); Glucose 80 mg/dL (74-99); Non-African American GFR(MDRD) >60 (>60 ml/min/1.73 sqM); Potassium 5.3 mmol/L (3.5-5.1); Sodium 130 mmol/L (137-145); Total Bilirubin 0.4 mg/dL (0.2-1.3)
[2017-01-11 11:58] LABS: Glucose,Whole Blood 86 mg/dL (75-99)
[2017-01-11 12:05] LABS: Total Protein 6.1 g/dL (6.3-8.2)
[2017-01-11] MEDS: CHOLECALCIFEROL 400 UNIT TAB PO SCH (12:05)
--- NOTE | 2017-01-11 14:15 | P.PN ---
Subjective Principal diagnosis: Acute respiratory failure, COPD exacerbation, severe bronchitis, hypertension, mild hyperglycemia 71-year-old male one of Dr. Ronn Aaron's patient was seen Dr. Liberty quesada was known to have history of advanced COPD on home O2 and recurrent pneumonia who was hospitalized recently on 12/30/2016 for COPD exacerbation and significant dyspnea and shortness of breath was placed on steroid updraft treatment along with Pulmicort and treated with IV antibiotic initially and then oral antibiotics has done very well with home on O2 on updraft still on tapering dose of steroid. Patient was feeling well until today when he developed to have severe dyspnea and shortness of breath with cough wheezes and worsening hypoxia symptoms become much worse family ended up calling 911 and brought to the emergency department at [facility] on via EMS he was hypoxic initially finally be coming corrected with 3 L of O2 along with several rounds of updraft treatment. Patient was loaded with Solu- Medrol started back on Levaquin IV his chest x-ray failed to show any infiltrate at the time still showing sign of COPD but shows findings consistent with thoracic aneurysm as well. 01/08: The patient was seen and evaluated today. He still complains of some shortness of breath, wheezing and tightness. CTA was ordered, showed thoracic aortia with ectasia of the ascending aortic at 3.7cm. No evidence for pulmonary emboli for upper to mid lungs, lower lungs could not be excluded based on patient was breathing during the exam. Echocardiogram showed mild mitral and tricuspid regurgitation and an ejection fraction of 60-65%. There was no pulmonary hypertension. His antibiotics were changed from Levaquin to Azithromycin. His WBC improved from 16.0 to 14.4. Will continue with IV Solumedrol and scheduled updrafts. 01/09: Today the patient was evaluated, he was sitting at the bedside with family. He reports his breathing has improved a little since yesterday. His white count is 20.7 today, leukocytosis secondary to his IV steroids. He continues with IV azithromycin and ceftriaxone. Pulmonology consult appreciated. Will continue with IV steroids and schedule updraft treatments. 01/10/2017: Patient is feeling much better with switch steroid to oral prednisone started at 60 mg on slower tapering dose. Also patient would have 1 last dose of IV antibiotic which is Rocephin by tomorrow. 01/11/2017: Patient is feeling better he is off IV steroid on oral 60 mg prednisone daily he feels little bit tight compared to yesterday still on Rocephin is off IV fluid able to ambulate better. He is agreeable to be discharged tomorrow which will be run by Dr. Koenig finalize medication and prepare for home hopefully. Objective - Vital Signs Vital signs: Vital Signs Temp 96.9 F L 01/11/17 07:00 Pulse 96 01/11/17 12:14 Resp 20 01/11/17 07:00 BP 136/87 01/11/17 07:00 Pulse Ox 96 01/11/17 07:00 Intake & Output 01/10/17 01/11/17 01/11/17 18:59 06:59 18:59 Intake Total 160 Balance 160 Intake: Oral 160 Other: Voiding Method Toilet Toilet Toilet Urinal Urinal Urinal # Voids 3 4 3 - Constitutional General appearance: Present: cooperative, no acute distress. Absent: average body habitus, disheveled, mild distress, morbidly obese, obese, severe distress , thin - EENT Eyes: Present: normal appearance. Absent: abnormal pupil, anicteric sclerae, disc margins sharp, edentulous, EOMI, PERRLA, fundus normal, photophobia, dentition normal, poor dentition, ptosis, scleral icterus ENT: Present: normal oropharynx. Absent: hard of hearing, hearing grossly normal, NA/AT, other, pharyngeal erythema, thrush, tonsillar exudates, tonsillar swelling Ears: bilateral: normal - Neck Neck: Present: normal ROM. Absent: lymphadenopathy, other, rigidity, stridor, thyromegaly Carotids: bilateral: upstroke normal Thyroid: bilateral: normal size - Respiratory Respiratory: bilateral: CTA, diminished - Cardiovascular Rhythm: regular Heart sounds: normal: S1, S2 Abnormal Heart Sounds: Present: systolic murmur, S3 Gallop - Gastrointestinal General gastrointestinal: Present: normal bowel sounds, soft. Absent: absent bowel sounds, decreased bowel sounds, distended, hepatomegaly, hyperactive bowel sounds, organomegaly, rigid, scaphoid, splenomegaly, tenderness, umbilical hernia, ventral hernia - Integumentary Integumentary: Present: normal, pale. Absent: calor, cellulitis, cyanotic, decreased turgor, flushed, jaundiced, normal turgor, rash, ulcer - Neurologic Neurologic: Present: CNII-XII intact - Musculoskeletal Musculoskeletal: Present: gait normal, generalized weakness, strength equal bilaterally - Psychiatric Psychiatric: Present: A&O x's 3, appropriate affect. Absent: intact judgment & insight - Labs CBC & Chem 7: 01/11/17 11:13 01/11/17 11:13 Labs: Abnormal Lab Results - Last 24 Hours (Table) 01/10/17 01/10/17 01/11/17 Range/Units 17:08 20:19 11:13 WBC 23.1 H (3.8-10.6) k/uL Neutrophils # 20.4 H (1.3-7.7) k/uL Lymphocytes # 0.8 L (1.0-4.8) k/uL Monocytes # 1.7 H (0-1.0) k/uL Sodium (137-145) mmol/L Potassium (3.5-5.1) mmol/L Chloride (98-107) mmol/L BUN (9-20) mg/dL Creatinine (0.66-1.25) mg/dL POC Glucose (mg/dL) 113 H 132 H (75-99) mg/dL Total Protein (6.3-8.2) g/dL 01/11/17 Range/Units 11:13 WBC (3.8-10.6) k/uL Neutrophils # (1.3-7.7) k/uL Lymphocytes # (1.0-4.8) k/uL Monocytes # (0-1.0) k/uL Sodium 130 L (137-145) mmol/L Potassium 5.3 H (3.5-5.1) mmol/L Chloride 95 L (98-107) mmol/L BUN 24 H (9-20) mg/dL Creatinine 0.59 L (0.66-1.25) mg/dL POC Glucose (mg/dL) (75-99) mg/dL Total Protein 6.1 L (6.3-8.2) g/dL Assessment and Plan Plan: 1 acute respiratory failure: Secondary to COPD exacerbation and severe bronchitis is better so far continue current treatment management patient medication will be changed to oral meds still on 60 mg daily and prepare for home tomorrow. 2 COPD exacerbation: Solu-Medrol will be switched to oral prednisone will continue with DuoNeb and Pulmicort will add Singulair for now consult Dr. Koenig who is known patient very well. All meds will be run by pulmonary plan still to keep patient on prednisone 20 mg for total of 6 weeks after he is down on his taper dose. 3 severe purulent tracheal bronchitis: Patient was switched to Zithromax 500 mg daily to treated as an atypical keep him on it for total of 5 days after his discharge. 4 hypertension: Much better on losartan 25 mg a day. 5 hyperlipidemia: Has been on Pravachol 40 mg daily. 6 BPH: Continue patient on Flomax 0.4 mg daily watch for any urinary retention. 7 thoracic aneurysm: Finding on x-ray might be consistent with aneurysm further testing including echo or chest CT would be recommended. 8 DVT prophylaxis: Patient be on heparin 5000 units subcutaneous twice a day. 9 GERD/GI prophylaxis: Patient will be on pantoprazole 40 mg daily. 10 mild steroid-induced hyperglycemia: Continue patient on Accu-Chek sliding skills coverage. Discharge planning: Patient hopefully will be going home tomorrow.
--- NOTE | 2017-01-11 16:22 | PN ---
DATE OF SERVICE: 01/11/17 The patient was seen again on 01/11/17. He is less short of breath. On physical examination, blood pressure 136/87, respiratory rate is 20. Pulse rate 107. Temperature 96.9. O2 sat on 3 L by nasal cannula is 96%. HEENT is unremarkable. Chest reveals decreased breath sounds at the bases. Prolonged expiration but no clear wheeze. Cardiovascular system reveals an S1 , S2. Abdomen is soft. There is no pedal edema. IMPRESSION: Asthma with chronic obstructive pulmonary disease with acute exacerbation. Increase his activity level. Continue bronchodilators and steroids. He was counselled regarding his condition and the need to check peak flows. MTDD
[2017-01-11] MEDS ORDERED: ALPRAZolam 0.25 MG TAB PO STA (16:41)
[2017-01-11 17:04] LABS: Glucose,Whole Blood 104 mg/dL (75-99)
[2017-01-11] MEDS: MONTELUKAST 10 MG TAB PO SCH (20:46)
[2017-01-11] MEDS: TAMSULOSIN 0.4 MG CAP.ER.24H PO SCH (20:46)
[2017-01-11 20:59] LABS: Glucose,Whole Blood 88 mg/dL (75-99)
[2017-01-11 22:54] VITALS: RESP 16
[2017-01-12] MEDS: IPRATROPIUM-ALBUTEROL 3 ML NEB INHALATION SCH ×3 (03:10→10:54)
[2017-01-12] MEDS: ALPRAZolam 0.25 MG TAB PO PRN (03:25)
[2017-01-12] MEDS: BUDESONIDE 0.5 MG/2 ML NEBU INHALATION SCH (06:49)
[2017-01-12 07:36] LABS: Glucose,Whole Blood 87 mg/dL (75-99)
[2017-01-12 07:43] VITALS: BP 109/81; TEMP 96.9
[2017-01-12] MEDS: HEPARIN SODIUM,PORCINE 5,000 UNIT/ML 1 ML VIAL SQ SCH (07:54)
[2017-01-12] MEDS: FAMOTIDINE 20 MG TAB PO SCH (07:55)
[2017-01-12] MEDS: guaiFENesin 600 MG TABLET.ER PO SCH (07:55)
[2017-01-12] MEDS: PRAVASTATIN SODIUM 40 MG TAB PO SCH (07:55)
[2017-01-12] MEDS: predniSONE 20 MG TAB PO SCH (07:55)
[2017-01-12] MEDS: AZITHROMYCIN 500 MG TAB PO SCH (07:55)
[2017-01-12] MEDS: LOSARTAN 25 MG TAB PO SCH (07:56)
[2017-01-12] MEDS: INSULIN LISPRO (humaLOG) 300 UNIT/3 ML VIAL SQ SCH (07:56)
--- NOTE | 2017-01-12 10:51 | P.PN ---
Subjective 01/08/17- This is a 71-year-old male patient being seen, exaimend and evauluated today. He is well known to our services. Has an extensive history of advanced COPD on home O2 and recurrent pneumonia who was hospitalized recently on 12/30/2016 for COPD exacerbation and significant dyspnea and shortness of breath was placed on steroid updraft treatment along with Pulmicort and treated with IV antibiotic initially and then oral antibiotics has done very well with home on O2 on updraft still on tapering dose of steroid. Patient was feeling well until yesterday when he developed to have severe dyspnea and shortness of breath with cough wheezes and worsening hypoxia symptoms become much worse family ended up calling 911 and brought to the emergency department at [facility]. Patient was given Solu-Medrol and Levaquin via IV. Chest x-ray failed to show any infiltrate at the time still showing sign of COPD but shows findings consistent with thoracic aneurysm as well. CTA fails to show any PE, however cant exculde lower lobe PE, which is felt unlikely, thoracic aortia with ectasia of the ascending aortic at 3.7cm Echocardiogram showed mild mitral and tricuspid regurgitation and an ejection fraction of 60-65%. Patient has also had a productive cough with white/ yellow sputum. SOB with exertion or extensive conversation. Patient is known to be a slow recovery in regards to pulmonary illness. 01/09/17- upon examination today the patient is resting up in bed on 3 L of supplemental oxygen. Patient continues to have a cough that is productive and bringing up yellow sputum. Sputum collection container at bedside and patient is trying to obtain specimen. Patient states he feels his congestion is "breaking up finally". Labs were reviewed and does show an increase in his white count to 20.7. Is currently on Zithromax and ceftriaxone as well as steroids and breathing treatments Mucinex and Singulair. Patient is encouraged to increase activity. 01/10/17 and 01/11/17, Please refer to Dr. AFSHIN Roy's note as he covered these days. 01/12/17- upon examination today the patient is resting up in bed on 3 L of supplemental oxygen. In use with shortness of breath intermittently with exertion however it has improved. Patient has been switched to oral prednisone and he states he's a little more anxious today. Patient states he feels ready for discharge. He has been ambulating up in the hallway. Patient has been educated that he will need a longer slower tapering dose of steroid than previous exacerbations in the past. Objective - Vital Signs Vital signs: Vital Signs Temp 96.9 F L 01/12/17 07:00 Pulse 106 H 01/12/17 07:00 Resp 16 01/12/17 07:00 BP 109/81 01/12/17 07:00 Pulse Ox 95 01/12/17 07:00 Intake & Output 01/11/17 01/12/17 01/12/17 18:59 06:59 18:59 Other: Voiding Method Toilet Toilet Urinal Urinal # Voids 3 1 - Exam GENERAL EXAM: Alert, active, comfortable in no apparent distress. HEAD: Normocephalic. EYES: Normal reaction of pupils, equal size. NOSE: Clear with pink turbinates. THROAT: No erythema or exudates. NECK: No masses, no JVD. CHEST: No chest wall deformity. LUNGS: Lungs noted to be tight, faint few wheezes noted, bases diminished. CVS: S1 and S2 normal with no audible mumurs, regular rhythm. ABDOMEN: No hepatosplenomegaly, normal bowel sounds, no guarding or rigidity. EXTREMITIES: No edema noted, pedal pulses palpable. SKIN: No rashes CENTRAL NERVOUS SYSTEM: No focal deficits, tone is normal in all 4 extremities. - Labs CBC & Chem 7: 01/11/17 11:13 01/11/17 11:13 Labs: Abnormal Lab Results - Last 24 Hours (Table) 01/11/17 01/11/17 01/11/17 Range/Units 11:13 11:13 16:57 WBC 23.1 H (3.8-10.6) k/uL Neutrophils # 20.4 H (1.3-7.7) k/uL Lymphocytes # 0.8 L (1.0-4.8) k/uL Monocytes # 1.7 H (0-1.0) k/uL Sodium 130 L (137-145) mmol/L Potassium 5.3 H (3.5-5.1) mmol/L Chloride 95 L (98-107) mmol/L BUN 24 H (9-20) mg/dL Creatinine 0.59 L (0.66-1.25) mg/dL POC Glucose (mg/dL) 104 H (75-99) mg/dL Total Protein 6.1 L (6.3-8.2) g/dL Microbiology - Last 24 Hours (Table) 01/10/17 23:40 Gram Stain - Preliminary Sputum Assessment and Plan Plan: Assessment Acute on Chronic respiratory failure Acute exacerbation of COPD Purulent tracheal bronchitis Thoracic aneurysm Hypertension Hyperlipidemia BPH GERD Plan Medications have been reviewed and will be continued as ordered. Patient is known to be a slow recovery in regards to pulmonary illness. He will need a longer duration of his Steroids and ABT. Continue with nebulizers 4 times a day , schedule. Continue with mucinex to help with secretions. Initiate and encourage incentive spiromentry. Obtain sputum culture. Supplemental oxygen to maintain oxygen saturations greater than 90%. Increase activity as tolerated. Continue with pulmonary hygiene, coughing and deep breathing exercises, and supportive care. GI and DVT prophylaxis. We will continue to monitor labs/ results and adjust treatment as necessary. Further recommendations pending. I performed an examination of the patient and discussed their management with the nurse practitioner. I have reviewed the nurse practitioner's note and agree with the documented findings and plan of care.
[2017-01-12 11:07] VITALS: PULSE 100
== END 2017-01-12 11:57 | disposition home health service (06) | DRG 190 ==
LOC: EC 13:15 → 4MS4W 15:58
PROVIDERS: ADMIT Internal Medicine Geriatric Medicine; ATTEND Internal Medicine Geriatric Medicine
DX: J44.1 Chronic obstructive pulmonary disease with (acute) exacerbation (principal); J96.20 Acute and chronic respiratory failure, unspecified whether with hypoxia or hypercapnia; J45.901 Unspecified asthma with (acute) exacerbation; I71.2 Thoracic aortic aneurysm, without rupture; I08.1 Rheumatic disorders of both mitral and tricuspid valves; Z99.81 Dependence on supplemental oxygen; I10 Essential (primary) hypertension; E78.5 Hyperlipidemia, unspecified; D72.829 Elevated white blood cell count, unspecified; K21.9 Gastro-esophageal reflux disease without esophagitis; N40.0 Benign prostatic hyperplasia without lower urinary tract symptoms; T38.0X5A Adverse effect of glucocorticoids and synthetic analogues, initial encounter; R73.9 Hyperglycemia, unspecified; Z79.899 Other long term (current) drug therapy; Z87.891 Personal history of nicotine dependence; Z82.49 Family history of ischemic heart disease and other diseases of the circulatory system
CPT/HCPCS: 36415; 71010; 71020; 71275; 80053; 82550; 82553; 83735; 83880; 84484; 85025; 85610; 85730; 87070; 87077; 87186; 87205; 93005; 93306; 94640; 96361; 96365; 96375

== ENCOUNTER 2017-01-19 12:39 | Inpatient (IN) | payer MEDICARE ==
[2017-01-19] MEDS ORDERED: IPRATROPIUM-ALBUTEROL 3 ML NEB INHALATION STA (12:56)
[2017-01-19] MEDS ORDERED: methylPREDNISolone SOD SUCCI 125 MG/2 ML VIAL IV STA (12:56)
--- NOTE | 2017-01-19 12:59 | ED ---
General Adult HPI - General Chief complaint: Shortness of Breath Stated complaint: SOB Time Seen by Provider: 01/19/17 12:49 Source: patient, RN notes reviewed Mode of arrival: wheelchair Limitations: no limitations - History of Present Illness Initial comments: Patient is a pleasant 71-year-old male presenting to the emergency department complaining of difficulty in breathing. Symptoms started several days ago. Patient has an occasional cough without productive sputum. No chest pain. Patient does feel somewhat fatigued. Symptoms are similar to previous COPD. No fever. - Related Data Home Medications Medication Instructions Recorded Confirmed Albuterol Inhaler [Ventolin Hfa 2 puff INHALATION RT-QID PRN 09/23/16 01/19/17 Inhaler] Budesonide [Pulmicort] 0.5 mg INHALATION RT-BID 09/23/16 01/19/17 Cholecalciferol [Vitamin D3] 400 unit PO DAILY 09/23/16 01/19/17 Ipratropium-Albuterol Nebulize 3 ml INHALATION RT-QID 09/23/16 01/19/17 [Duoneb 0.5 mg-3 mg/3 ml Soln] Losartan [Cozaar] 25 mg PO DAILY 09/23/16 01/19/17 Pravastatin Sodium [Pravachol] 40 mg PO HS 09/23/16 01/19/17 Tamsulosin HCl [Flomax] 0.4 mg PO HS 09/23/16 01/19/17 predniSONE See Taper PO DIRECTED 01/19/17 01/19/17 Previous Rx's Medication Instructions Recorded ALPRAZolam [Xanax] 0.25 mg PO BID PRN #30 tab 01/01/17 Azithromycin [Zithromax] 500 mg PO DAILY #5 tab 01/12/17 Montelukast [Singulair] 10 mg PO HS #30 tab 01/12/17 guaiFENesin [Mucinex] 1,200 mg PO Q12HR tab 01/12/17 Allergies Allergy/AdvReac Type Severity Reaction Status Date / Time No Known Allergies Allergy Verified 12/30/16 11:13 Review of Systems ROS Statement: Those systems with pertinent positive or pertinent negative responses have been documented in the HPI. ROS Other: All systems not noted in ROS Statement are negative. Constitutional: Denies: fever Eyes: Denies: eye pain ENT: Denies: ear pain Respiratory: Reports: cough (Minimal), dyspnea Cardiovascular: Denies: chest pain Endocrine: Reports: fatigue Gastrointestinal: Denies: abdominal pain Genitourinary: Denies: dysuria Musculoskeletal: Denies: back pain Skin: Denies: rash Neurological: Denies: headache Past Medical History Past Medical History: COPD, Hyperlipidemia, Hypertension, Pneumonia, Prostate Disorder Additional Past Medical History / Comment(s): HOME O2 3 LITERS N/C AT NIGHT AND NEEDED. History of Any Multi-Drug Resistant Organisms: None Reported Past Surgical History: Hernia Repair Additional Past Surgical History / Comment(s): Colonoscopy - clear 2016 Past Anesthesia/Blood Transfusion Reactions: No Reported Reaction Past Psychological History: No Psychological Hx Reported Smoking Status: Former smoker Past Alcohol Use History: None Reported Past Drug Use History: None Reported - Past Family History Mother Family Medical History: Myocardial Infarction ([place]), Supraventricular Tachycardia (SVT) Additional Family Medical History / Comment(s): Lived to Father Family Medical History: Cancer Additional Family Medical History / Comment(s): Lung CA Brother(s) Additional Family Medical History / Comment(s): Patient has 1 brother that at age 57 from lung cancer. He has one half brother that has thyroid problems and hepatitis C. Sister(s) Additional Family Medical History / Comment(s): Patient has 2 full sisters and one half-sister with no major medical problems. Patient has 1 son with no major medical problems. Patient has one daughter that is being treated for bone infection. General Exam Limitations: no limitations General appearance: alert, in distress Head exam: Present: atraumatic Eye exam: Present: normal appearance, PERRL ENT exam: Present: normal oropharynx Respiratory exam: Present: respiratory distress, wheezes, accessory muscle use, decreased breath sounds Cardiovascular Exam: Present: tachycardia GI/Abdominal exam: Present: soft. Absent: tenderness Extremities exam: Present: normal inspection. Absent: pedal edema, calf tenderness Neurological exam: Present: alert Psychiatric exam: Present: normal affect, normal mood Skin exam: Present: normal color Course Vital Signs 01/19/17 01/19/17 01/19/17 12:41 13:04 13:14 Temperature Pulse Rate 71 125 H 77 Respiratory 28 H 28 H Rate Blood Pressure 92/56 87/54 O2 Sat by Pulse 86 L 95 Oximetry 01/19/17 01/19/17 13:15 14:04 Temperature 97.3 F L Pulse Rate 128 H Respiratory Rate Blood Pressure O2 Sat by Pulse Oximetry - Reevaluation(s) Reevaluation #1: 01/19/17 14:31 Dr. Koenig has been paged EKG Findings - EKG Comments: EKG Findings:: Sinus tachycardia 1:30. MD 136. QRS 104. QT 300. QTc 441. Left axis. Incomplete right bundle-branch block. No acute ST change. Medical Decision Making - Medical Decision Making Patient reevaluated and does appear more relaxed on BiPAP however Meints tachycardic. Patient and family updated on results and plan. Case was discussed in detail with Dr. Torrez, who will admit for Dr. Aaron, time. She does recommend [address] Koenig will be consulted who has previously seen this patient. Dr. Carballo will also be consult. - Lab Data Result diagrams: 01/19/17 13:15 01/19/17 13:15 Lab Results 01/19/17 01/19/17 01/19/17 Range/Units 13:15 13:15 14:13 WBC 31.5 H* (3.8-10.6) k/uL RBC 2.30 L (4.30-5.90) m/uL Hgb 7.7 L D (13.0-17.5) gm/dL Hct 22.7 L (39.0-53.0) % MCV 98.8 (80.0-100.0) fL MCH 33.5 (25.0-35.0) pg MCHC 33.9 (31.0-37.0) g/dL RDW 15.2 (11.5-15.5) % Plt Count 386 (150-450) k/uL Sodium 134 L (137-145) mmol/L Potassium 4.9 (3.5-5.1) mmol/L Chloride 103 (98-107) mmol/L Carbon Dioxide 23 (22-30) mmol/L Anion Gap 8 mmol/L BUN 54 H (9-20) mg/dL Creatinine 0.64 L (0.66-1.25) mg/dL Est GFR (MDRD) Af Amer >60 (>60 ml/min/1.73 sqM) Est GFR (MDRD) Non-Af >60 (>60 ml/min/1.73 sqM) Glucose 125 H (74-99) mg/dL Calcium 9.2 (8.4-10.2) mg/dL Total Bilirubin 0.3 (0.2-1.3) mg/dL AST 18 (17-59) U/L ALT 29 (21-72) U/L Alkaline Phosphatase 37 L (38-126) U/L Total Protein 5.0 L (6.3-8.2) g/dL Albumin 3.1 L (3.5-5.0) g/dL Stool Occult Blood Positive (Negative) - Radiology Data Radiology results: image reviewed (Chest x-ray shows hyperinflation) Critical Care Time Critical Care Time: Yes Total Critical Care Time: 35 Disposition Clinical Impression: GI hemorrhage, Acute respiratory failure Disposition: ADMITTED IP TO THIS [facility] Condition: Critical Referrals: Ronn Aaron MD [Primary Care Provider] - 1-2 days Decision Time: 14:31
[2017-01-19 13:46] LABS: INR 1.1 (<1.2); Prothrombin Time 10.8 sec (9.0-12.0)
[2017-01-19 13:48] LABS: ALT 29 U/L (21-72); AST 18 U/L (17-59); Alkaline Phosphatase 37 U/L (38-126); Anion Gap 8 mmol/L; Blood Urea Nitrogen 54 mg/dL (9-20); Calcium 9.2 mg/dL (8.4-10.2); Carbon Dioxide 23 mmol/L (22-30); Chloride 103 mmol/L (98-107); Glucose 125 mg/dL (74-99); Non-African American GFR(MDRD) >60 (>60 ml/min/1.73 sqM); Potassium 4.9 mmol/L (3.5-5.1); Sodium 134 mmol/L (137-145); Total Bilirubin 0.3 mg/dL (0.2-1.3)
[2017-01-19 13:49] LABS: CH 33.4; HCT 22.7 % (39.0-53.0); HDW 2.43; HGB 7.7 gm/dL (13.0-17.5); MCH 33.5 pg (25.0-35.0); MCHC 33.9 g/dL (31.0-37.0); MCV 98.8 fL (80.0-100.0); Mean Platelet Volume 7.5; RDW 15.2 % (11.5-15.5); WBC (Perox) 31.06
--- NOTE | 2017-01-19 13:52 | XR ---
EXAMINATION TYPE: XR chest 1V portable DATE OF EXAM: 01/19/2017 COMPARISON: Chest x-ray January 11, 2017. CTA chest January 08, 2017. HISTORY: Dyspnea. TECHNIQUE: Single AP portable frontal upright view of the chest is obtained. FINDINGS: There is background chronic emphysematous change redemonstrated. There is no suspicious ne w focal airspace opacity, pleural effusion, or pneumothorax seen. The cardiac silhouette size is wit hin normal limits. Prominent left pericardial fat pad is redemonstrated. There is slightly ectatic an d atherosclerotic thoracic aorta redemonstrated. The osseous structures are demineralized. IMPRESSION: Chronic emphysematous change without acute pulmonary process.
[2017-01-19 13:57] LABS: WBC 31.5 k/uL (3.8-10.6)
[2017-01-19] MEDS ORDERED: ESOMEPRAZOLE 20 MG in SODIUM CHLORIDE 0.9% 50 ML IVPB STA (14:10)
[2017-01-19] MEDS ORDERED: SODIUM CHLORIDE 0.9% 500 ML IV STA (14:12)
[2017-01-19 14:23] LABS: Creatine Kinase 21 U/L (55-170)
[2017-01-19] MEDS ORDERED: NALOXONE 0.4 MG/ML 1 ML VIAL IV PRN (14:32)
[2017-01-19 14:33] LABS: Partial Thromboplastin Time 19.3 sec (22.0-30.0)
[2017-01-19] MEDS: SODIUM CHLORIDE 0.9% 1,000 ML IV SCH ×2 (14:35→21:23)
[2017-01-19 14:36] LABS: Add Differential Manual Differential; Troponin I <0.012 ng/mL (0.000-0.034)
[2017-01-19 14:37] LABS: Manual Review Performed; Nucleated Red Blood Cells 0 /100 WBC (0-0); Total Cells Counted 200
[2017-01-19 14:38] LABS: Toxic Granulation Present
[2017-01-19 15:02] LABS: Creatine Kinase MB 2.6 ng/mL (0.0-2.4)
--- NOTE | 2017-01-19 17:12 | P.HPIM ---
History of Present Illness H&P Date: 01/19/17 Chief Complaint: shortness of breath anemia This is a 71-year-old male patient of Dr. Ronn Aaron and Dr. Koenig with past medical history of COPD, hypertension, BPH, recurrent pneumonia thoracic aneurysm who was in the hospital apparently multiple admissions back in August 2016 and again 12/31/2016, 01/07/2017 with episode of pneumonia and COPD exacerbation with respiratory failure. He was discharged 01/07/2017 secondary to COPD exacerbation, and was given oral prednisone on discharge as well as oral antibiotic. Patient will by visiting nurses and was noted to be weak and pale, he has this woman exertion, patient was not actively wheezing then however he was noted to have decreased difficulty of breathing and diminished air sounds, he is chronically hypoxemic using 3 L of O2 nasal cannula 24 7, along with nebulized treatments at home. Those admissions he was negative for pulmonary emboli echocardiogram done at that time shows mild mitral and tricuspid regurgitation ejection fraction of 60-65% no pulmonary hypertension. in the emergency room he had a chest x-ray that shows chronic findings similar to his changes without acute pulmonary process no pleural effusion no pneumothorax he was saturating on 99% BiPAP 40%, and hemoglobin on admission was 7.7 from a previous off 15.8 January 11 which is a drop off 8 g in 8 days. He was transfused 2 units of packed red blood cell in the emergency room his Hemoccult positive and has epigastric tenderness. Patient took the oral prednisone along with 3doses Motrin the day prior to admission were made Dr. Herrera from gastroenterology patient did admit done under the service admitted to ICU, Dr. 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 neck pain, Denies bleeding gums, Denies dental pain, Denies dysphagia, Denies epistaxis, Denies headache, Denies hoarseness, Denies mouth pain, Denies nasal congestion, Denies nasal discharge, Denies neck fullness/pressure, Denies neck lump, Denies nose pain, Denies odynophagia, Denies post-nasal drip, Denies sinus pain, Denies sinus pressure, Denies swelling in mouth, Denies swelling in throat, Denies sore throat, Denies vertigo, Denies voice changes Cardiovascular: Reports as per HPI, Reports lightheadedness, Reports shortness of breath, Denies chest pain, Denies claudication, Denies decreased exercise tolerance, Denies dyspnea on exertion, Denies edema, Denies high blood pressure , Denies irregular heart beat, Denies leg edema, Denies orthopnea, Denies palpitations, Denies paroxysmal nocturnal dyspnea, Denies phlebitis, Denies rapid heart beat, Denies syncope Respiratory: Denies as per HPI, Denies congestion, Denies cough, Denies cough with sputum, Denies dyspnea, Denies excessive sputum, Denies hemoptysis, Denies home oxygen, Denies pain, Denies pain on inspiration, Denies pleurisy, Denies respiratory infections, Denies sleep apnea, Denies snoring, Denies wheezing Gastrointestinal: Reports as per HPI, Reports abdominal pain, Denies belching, Denies bloating, Denies BRBPR, Denies change in bowel habits, Denies coffee ground emesis, Denies constipation, Denies diarrhea, Denies dyspepsia, Denies early satiety, Denies excessive gas, Denies heartburn, Denies hematemesis, Denies hematochezia, Denies indigestion, Denies jaundice, Denies lactose intolerance, Denies loss of appetite, Denies melena, Denies nausea, Denies vomiting Genitourinary: Reports as per HPI, Denies decreased libido, Denies difficulties fathering child, Denies discharge, Denies dysuria, Denies erectile dysfunction, Denies flank pain, Denies genital pain, Denies genital sores, Denies hematuria, Denies impotence, Denies incontinence, Denies kidney stones, Denies nocturia, Denies polyuria, Denies testicular lump, Denies testicular pain, Denies urinary frequency, Denies urinary hesitancy, Denies urinary retention Musculoskeletal: Reports as per HPI, Denies arm numbness/tingling, Denies atrophy, Denies fractures, Denies frequent falls, Denies gait dysfunction, Denies hot joints, Denies leg numbness/tingling, Denies limitation of motion, Denies loss of height, Denies low back pain, Denies morning stiffness, Denies muscle cramps, Denies muscle weakness, Denies myalgias, Denies neck pain, Denies neck stiffness, Denies prior amputations, Denies redness of joints, Denies shooting arm pain, Denies shooting leg pain Integumentary: Reports as per HPI, Denies acne, Denies boils, Denies brittle nails, Denies change in hair/nails, Denies color changes, Denies darkening of skin, Denies depigmentation, Denies dryness, Denies foot/leg ulcers, Denies growths, Denies hirsutism, Denies lesions, Denies onychomycosis, Denies pruritus , Denies rash, Denies sores, Denies striae, Denies unusual bruising, Denies wounds Neurological: Reports as per HPI, Denies aphasia, Denies ataxia, Denies balance difficulties, Denies burning pain, Denies change in mentation, Denies change in smell/taste, Denies change in speech, Denies confusion, Denies convulsions, Denies double vision, Denies gait dysfunction, Denies head injury, Denies headaches, Denies hearing difficulties, Denies lack of coordination, Denies loss of vision, Denies memory loss, Denies migraines, Denies motor disturbance, Denies numbness, Denies paralysis, Denies paresthesias, Denies seizures, Denies sensory deficit, Denies spasticity, Denies syncope, Denies tic, Denies tingling , Denies transient paralysis, Denies tremors, Denies vertigo, Denies weakness, Denies visual changes Psychiatric: Reports as per HPI, Denies anhedonia, Denies anxiety, Denies anxiety attacks, Denies change in appetite, Denies change in libido, Denies change in sleep habits, Denies confusion, Denies depression, Denies difficulty concentrating, Denies disorientation, Denies hallucinations, Denies hopelessness , Denies hypersomnia, Denies insomnia, Denies irritability, Denies memory loss, Denies mood swings, Denies paranoia, Denies sadness/tearfulness, Denies sleep disturbances, Denies suicidal ideation Endocrine: Reports as per HPI, Denies cold intolerance, Denies deepening of the voice, Denies excessive sweating, Denies excessive thirst, Denies fatigue, Denies flushing, Denies heat intolerance, Denies high blood sugars, Denies increase in ring/shoe/hat size, Denies low blood sugars, Denies nocturia, Denies palpitations, Denies polydipsia, Denies polyphagia, Denies polyuria, Denies proptosis, Denies recent glucocorticoid use, Denies thyroid mass, Denies weight change Hematologic/Lymphatic: Reports as per HPI, Denies easy bleeding, Denies easy bruising, Denies lymphadenopathy, Denies lymphedema, Denies thrombophilia Allergic/Immunologic: Denies as per HPI, Denies allergic rhinitis, Denies anaphylaxis, Denies angioedema, Denies gluten intolerance, Denies persistent infections, Denies seasonal allergies, Denies urticaria, Denies wheezing Past Medical History Past Medical History: COPD, Hyperlipidemia, Hypertension, Pneumonia, Prostate Disorder Additional Past Medical History / Comment(s): HOME O2 3 LITERS N/C AT NIGHT AND NEEDED. History of Any Multi-Drug Resistant Organisms: None Reported Past Surgical History: Hernia Repair Additional Past Surgical History / Comment(s): Colonoscopy - clear 2016 Past Anesthesia/Blood Transfusion Reactions: No Reported Reaction Past Psychological History: No Psychological Hx Reported Smoking Status: Former smoker Past Alcohol Use History: None Reported Past Drug Use History: None Reported - Past Family History Mother Family Medical History: Myocardial Infarction ([place]), Supraventricular Tachycardia (SVT) Additional Family Medical History / Comment(s): Lived to Father Family Medical History: Cancer Additional Family Medical History / Comment(s): Lung CA Brother(s) Additional Family Medical History / Comment(s): Patient has 1 brother that at age 57 from lung cancer. He has one half brother that has thyroid problems and hepatitis C. Sister(s) Additional Family Medical History / Comment(s): Patient has 2 full sisters and one half-sister with no major medical problems. Patient has 1 son with no major medical problems. Patient has one daughter that is being treated for bone infection. Medications and Allergies Home Medications Medication Instructions Recorded Confirmed Type Albuterol Inhaler [Ventolin Hfa 2 puff INHALATION RT-QID PRN 09/23/16 01/19/17 History Inhaler] Budesonide [Pulmicort] 0.5 mg INHALATION RT-BID 09/23/16 01/19/17 History Cholecalciferol [Vitamin D3] 400 unit PO DAILY 09/23/16 01/19/17 History Ipratropium-Albuterol Nebulize 3 ml INHALATION RT-QID 09/23/16 01/19/17 History [Duoneb 0.5 mg-3 mg/3 ml Soln] Losartan [Cozaar] 25 mg PO DAILY 09/23/16 01/19/17 History Pravastatin Sodium [Pravachol] 40 mg PO HS 09/23/16 01/19/17 History Tamsulosin HCl [Flomax] 0.4 mg PO HS 09/23/16 01/19/17 History predniSONE See Taper PO DIRECTED 01/19/17 01/19/17 History Allergies Allergy/AdvReac Type Severity Reaction Status Date / Time No Known Allergies Allergy Verified 12/30/16 11:13 Physical Exam Vitals: Vital Signs Temp Pulse Resp BP Pulse Ox 01/19/17 16:28 97.6 F 112 H 24 108/62 01/19/17 16:18 97.6 F 118 H 24 103/66 01/19/17 16:00 97.5 F L 104 H 28 H 103/66 97 01/19/17 15:28 108 H 19 109/74 99 01/19/17 14:40 97.2 F L 118 H 28 H 103/63 100 01/19/17 14:04 97.3 F L 01/19/17 13:15 128 H 01/19/17 13:14 77 28 H 87/54 95 01/19/17 13:04 125 H 01/19/17 12:41 71 28 H 92/56 86 L Intake and Output 01/19/17 01/19/17 01/19/17 06:59 14:59 22:59 Intake Total 0 Balance 0 Intake: Blood Product 0 Rc Pheresis 2 As3 Unit 0 [id number] Other: Weight 54.431 kg Patient Weight 01/20/17 06:59 Weight 54.431 kg - Constitutional General appearance: cooperative, mild distress, thin - EENT Eyes: anicteric sclerae, EOMI, PERRLA, dentition normal, normal appearance ENT: hearing grossly normal, NA/AT, normal oropharynx - Neck Neck: no lymphadenopathy, normal ROM, no other, no rigidity, no stridor, no thyromegaly - Respiratory Respiratory: bilateral: CTA, negative: diminished, dullness, rales, rhonchi, wheezing - Cardiovascular Rhythm: regular Heart sounds: normal: S1, S2 Abnormal Heart Sounds: no systolic murmur, no diastolic murmur, no rub, no S3 Gallop, no S4 Gallop, no click, no other - Gastrointestinal General gastrointestinal: normal bowel sounds, soft - Integumentary Integumentary: decreased turgor, normal - Neurologic Neurologic: CNII-XII intact - Musculoskeletal Musculoskeletal: gait normal - Psychiatric Psychiatric: A&O x's 3, appropriate affect Results CBC & Chem 7: 01/19/17 13:15 01/19/17 13:15 Labs: Abnormal Lab Results - Last 24 Hours (Table) 01/19/17 01/19/17 01/19/17 Range/Units 13:10 13:15 13:15 WBC 31.5 H* (3.8-10.6) k/uL RBC 2.30 L (4.30-5.90) m/uL Hgb 7.7 L D (13.0-17.5) gm/dL Hct 22.7 L (39.0-53.0) % Neutrophils # (Manual) 29.0 H (1.3-7.7) k/uL Lymphocytes # (Manual) 0.9 L (1.0-4.8) k/uL APTT (22.0-30.0) sec Sodium (137-145) mmol/L BUN (9-20) mg/dL Creatinine (0.66-1.25) mg/dL Glucose (74-99) mg/dL Alkaline Phosphatase (38-126) U/L Total Creatine Kinase 21 L (55-170) U/L CK-MB (CK-2) 2.6 H* (0.0-2.4) ng/mL Total Protein (6.3-8.2) g/dL Albumin (3.5-5.0) g/dL Crossmatch See Detail 01/19/17 01/19/17 Range/Units 13:15 13:15 WBC (3.8-10.6) k/uL RBC (4.30-5.90) m/uL Hgb (13.0-17.5) gm/dL Hct (39.0-53.0) % Neutrophils # (Manual) (1.3-7.7) k/uL Lymphocytes # (Manual) (1.0-4.8) k/uL APTT 19.3 L (22.0-30.0) sec Sodium 134 L (137-145) mmol/L BUN 54 H (9-20) mg/dL Creatinine 0.64 L (0.66-1.25) mg/dL Glucose 125 H (74-99) mg/dL Alkaline Phosphatase 37 L (38-126) U/L Total Creatine Kinase (55-170) U/L CK-MB (CK-2) (0.0-2.4) ng/mL Total Protein 5.0 L (6.3-8.2) g/dL Albumin 3.1 L (3.5-5.0) g/dL Crossmatch Laboratory Results WBC 31.5 k/uL (3.8-10.6) H* 01/19/17 13:15 RBC 2.30 m/uL (4.30-5.90) L 01/19/17 13:15 Hgb 7.7 gm/dL (13.0-17.5) L D 01/19/17 13:15 Hct 22.7 % (39.0-53.0) L 01/19/17 13:15 MCV 98.8 fL (80.0-100.0) 01/19/17 13:15 MCH 33.5 pg (25.0-35.0) 01/19/17 13:15 MCHC 33.9 g/dL (31.0-37.0) 01/19/17 13:15 RDW 15.2 % (11.5-15.5) 01/19/17 13:15 Plt Count 386 k/uL (150-450) 01/19/17 13:15 Neutrophils % Not Reportable 01/19/17 13:15 Neutrophils % (Manual) 92.0 % 01/19/17 13:15 Lymphocytes % Not Reportable 01/19/17 13:15 Lymphocytes % (Manual) 3.0 % 01/19/17 13:15 Monocytes % Not Reportable 01/19/17 13:15 Monocytes % (Manual) 2.0 % 01/19/17 13:15 Eosinophils % Not Reportable 01/19/17 13:15 Basophils % Not Reportable 01/19/17 13:15 Metamyelocytes % 1.0 % 01/19/17 13:15 Myelocytes % 2.0 % 01/19/17 13:15 Neutrophils # Not Reportable 01/19/17 13:15 Neutrophils # (Manual) 29.0 k/uL (1.3-7.7) H 01/19/17 13:15 Lymphocytes # Not Reportable 01/19/17 13:15 Lymphocytes # (Manual) 0.9 k/uL (1.0-4.8) L 01/19/17 13:15 Monocytes # Not Reportable 01/19/17 13:15 Monocytes # (Manual) 0.6 k/uL (0-1.0) 01/19/17 13:15 Eosinophils # Not Reportable 01/19/17 13:15 Basophils # Not Reportable 01/19/17 13:15 Nucleated RBCs 0 /100 WBC (0-0) 01/19/17 13:15 Manual Slide Review Performed 01/19/17 13:15 Toxic Granulation Present 01/19/17 13:15 Poikilocytosis (manual Present 01/19/17 13:15 PT 10.8 sec (9.0-12.0) 01/19/17 13:15 INR 1.1 (<1.2) 01/19/17 13:15 APTT 19.3 sec (22.0-30.0) L 01/19/17 13:15 Sodium 134 mmol/L (137-145) L 01/19/17 13:15 Potassium 4.9 mmol/L (3.5-5.1) 01/19/17 13:15 Chloride 103 mmol/L (98-107) 01/19/17 13:15 Carbon Dioxide 23 mmol/L (22-30) 01/19/17 13:15 Anion Gap 8 mmol/L 01/19/17 13:15 BUN 54 mg/dL (9-20) H 01/19/17 13:15 Creatinine 0.64 mg/dL (0.66-1.25) L 01/19/17 13:15 Est GFR (MDRD) Af Amer >60 (>60 ml/min/1.73 sqM) 01/19/17 13:15 Est GFR (MDRD) Non-Af >60 (>60 ml/min/1.73 sqM) 01/19/17 13:15 Glucose 125 mg/dL (74-99) H 01/19/17 13:15 Calcium 9.2 mg/dL (8.4-10.2) 01/19/17 13:15 Total Bilirubin 0.3 mg/dL (0.2-1.3) 01/19/17 13:15 AST 18 U/L (17-59) 01/19/17 13:15 ALT 29 U/L (21-72) 01/19/17 13:15 Alkaline Phosphatase 37 U/L (38-126) L 01/19/17 13:15 Total Creatine Kinase 21 U/L (55-170) L 01/19/17 13:15 CK-MB (CK-2) 2.6 ng/mL (0.0-2.4) H* 01/19/17 13:15 CK-MB (CK-2) Rel Index 12.4 01/19/17 13:15 Troponin I <0.012 ng/mL (0.000-0.034) 01/19/17 13:15 NT-Pro-B Natriuret Pep 146 pg/mL 01/19/17 13:15 Total Protein 5.0 g/dL (6.3-8.2) L 01/19/17 13:15 Albumin 3.1 g/dL (3.5-5.0) L 01/19/17 13:15 Stool Occult Blood Positive (Negative) 01/19/17 14:13 Blood Type O Positive 01/19/17 13:10 Blood Type Recheck No 01/19/17 13:10 Antibody Screen NEGATIVE 01/19/17 13:10 Crossmatch See Detail 01/19/17 13:10 Spec Expiration Date 01/22/2017 - 230901/19/17 13:10 Thrombosis Risk Factor Assmnt - DVT/VTE Prophylaxis DVT/VTE Prophylaxis: Contraindicated - See note (GI bleed upper) Assessment and Plan Plan: 1. Blood loss anemia with critical hemoglobin, steroid gastropathy suspected patient will be admitted to ICU and would be monitored closely for hemoglobin drop, patient was started on IV Protonix 40 mg every 12 hours with consults to Dr. Herrera for EGD, he is Hemoccult positive black stools he is receiving 2 units of packed red blood cell on admission, with hemoglobin to be titrated upwards over 8, 2 Acute respiratory insufficiency chronic hypoxemic respiratory failure with decompensation related to significant anemia, BiPAP treatments provided in the emergency room and would be continued for ventilatory support until stabilized in ICU Dr. Koenig is on consult H&H every 6 hours Continue DuoNeb treatments every 4 hours, albuterol 4 times daily as needed, Pulmicort 0.5 milligrams twice daily, albuterol and Atrovent nebulized solution Court nebulized solution 3. End-stage COPD with chronic hypoxemic respiratory failure on maintenance nebulized solution and 3 L test cannula O2, patient will be given a burst off Solu-Medrol, with no plans for tapering prednisone increase Pulmicort to 1 mg twice a day possible theophylline 4. Leukocytosis possibly related to prednisone, patient is without any typical symptoms except for the respiratory decompensation no evidence of pneumonia at this time continue to monitor no oral antibiotics or IV antibiotics started at this tim5 5. Hypertension. Continue Cozaar 25 mg daily. 6. Hyperlipidemia. Continue pravastatin 40 mg daily. 7. Benign prostatic hypertrophy. Continue Flomax or 0.4 mg at bedtime. 8. Vitamin D deficiency. Continue supplement. 8. Gastric intestinal prophylaxis. Pepcid. 9. DVT prophylaxis. Mechanical prophylaxis only, contraindicated to use pharmacological prophylaxis secondary to acute GI bleed 10. CODE STATUS: No code.
[2017-01-19 19:20] LABS: Glucose,Whole Blood 143 mg/dL (75-99)
[2017-01-19] MEDS: IPRATROPIUM-ALBUTEROL 3 ML NEB INHALATION SCH (19:28)
[2017-01-19] MEDS: BUDESONIDE 1 MG/2 ML NEBU INHALATION SCH (19:28)
[2017-01-19] MEDS ORDERED: IPRATROPIUM-ALBUTEROL 3 ML NEB INHALATION SCH (20:00)
[2017-01-19] MEDS ORDERED: BUDESONIDE 0.5 MG/2 ML NEBU INHALATION SCH (20:00)
[2017-01-19] MEDS ORDERED: ACETAMINOPHEN TAB 325 MG TAB PO PRN (21:08)
[2017-01-19] MEDS: CHOLECALCIFEROL 400 UNIT TAB PO SCH (21:17)
[2017-01-19] MEDS: methylPREDNISolone SOD SUCCI 40 MG/ML 1 ML VIAL IV SCH (21:18)
[2017-01-19] MEDS: guaiFENesin 600 MG TABLET.ER PO SCH (21:21)
[2017-01-19] MEDS: TAMSULOSIN 0.4 MG CAP.ER.24H PO SCH (21:22)
[2017-01-19] MEDS: PRAVASTATIN SODIUM 40 MG TAB PO SCH (21:22)
[2017-01-19] MEDS: MONTELUKAST 10 MG TAB PO SCH (21:22)
[2017-01-19 23:56] LABS: Anisocytosis Slight; CH 31.8; CHCM 33.6; HCT 26.3 % (39.0-53.0); HDW 2.59; HGB 8.8 gm/dL (13.0-17.5); MCH 31.9 pg (25.0-35.0); MCHC 33.6 g/dL (31.0-37.0); RBC 2.76 m/uL (4.30-5.90); RDW 17.2 % (11.5-15.5); WBC 16.1 k/uL (3.8-10.6)
[2017-01-20 00:06] LABS: ALT 33 U/L (21-72); AST 14 U/L (17-59); Alkaline Phosphatase 35 U/L (38-126); Anion Gap 6 mmol/L; Blood Urea Nitrogen 49 mg/dL (9-20); Calcium 8.3 mg/dL (8.4-10.2); Carbon Dioxide 23 mmol/L (22-30); Chloride 106 mmol/L (98-107); Glucose 119 mg/dL (74-99); Non-African American GFR(MDRD) >60 (>60 ml/min/1.73 sqM); Potassium 4.8 mmol/L (3.5-5.1); Sodium 135 mmol/L (137-145); Total Bilirubin 0.4 mg/dL (0.2-1.3); Total Protein 4.4 g/dL (6.3-8.2)
[2017-01-20 00:24] LABS: Appearance,Urine Clear (Clear); Bilirubin,Urine Negative (Negative); Glucose,Urine (UA) Negative (Negative); Ketones,Urine Negative (Negative); Leukocyte Esterase,Urine Small (Negative); Mucus,Urine Rare /hpf; Nitrite,Urine Negative (Negative); Particle Count 1286; Protein,Urine Negative (Negative); RBC,Urine 1 /hpf (0-5); Specific Gravity,Urine 1.022 (1.001-1.035); UA Billing (MACRO vs. MICRO) MICRO; Urobilinogen,Urine <2.0 mg/dL (<2.0); WBC,Urine 16 /hpf (0-5)
[2017-01-20] MEDS: methylPREDNISolone SOD SUCCI 40 MG/ML 1 ML VIAL IV SCH ×5 (01:21→23:47)
[2017-01-20] MEDS: IPRATROPIUM-ALBUTEROL 3 ML NEB INHALATION PRN (02:52)
[2017-01-20 04:28] LABS: Anisocytosis Slight; Basophils % (A) 0 %; CH 31.4; CHCM 33.7; Eosinophils % (A) 0 %; HCT 24.8 % (39.0-53.0); HDW 2.63; HGB 8.3 gm/dL (13.0-17.5); Luc # (Auto) 0.07; Luc % (Auto) 0; Lymphocytes # (A) 0.8 k/uL (1.0-4.8); Lymphocytes % (A) 5 %; MCH 31.5 pg (25.0-35.0); MCHC 33.6 g/dL (31.0-37.0); MCV 93.7 fL (80.0-100.0); Mean Platelet Volume 6.6; Monocytes # (A) 0.4 k/uL (0-1.0); Monocytes % (A) 3 %; Neutrophils # (A) 14.2 k/uL (1.3-7.7); Neutrophils % (A) 91 %; RBC 2.65 m/uL (4.30-5.90); RDW 16.6 % (11.5-15.5); WBC 15.6 k/uL (3.8-10.6); WBC (Perox) 15.82
[2017-01-20 04:45] LABS: ALT 34 U/L (21-72); AST 14 U/L (17-59); Alkaline Phosphatase 32 U/L (38-126); Anion Gap 4 mmol/L; Blood Urea Nitrogen 46 mg/dL (9-20); Calcium 7.9 mg/dL (8.4-10.2); Carbon Dioxide 24 mmol/L (22-30); Chloride 106 mmol/L (98-107); Glucose 123 mg/dL (74-99); Magnesium 2.3 mg/dL (1.6-2.3); Non-African American GFR(MDRD) >60 (>60 ml/min/1.73 sqM); Phosphorous 3.7 mg/dL (2.5-4.5); Potassium 4.5 mmol/L (3.5-5.1); Sodium 134 mmol/L (137-145); Total Bilirubin 0.4 mg/dL (0.2-1.3); Total Protein 4.3 g/dL (6.3-8.2)
[2017-01-20] MEDS: INSULIN LISPRO (humaLOG) 300 UNIT/3 ML VIAL SQ SCH ×4 (06:32→20:14)
[2017-01-20 06:33] LABS: Glucose,Whole Blood 128 mg/dL (75-99)
[2017-01-20] MEDS: SODIUM CHLORIDE 0.9% 1,000 ML IV SCH ×2 (06:47→20:13)
[2017-01-20] MEDS: IPRATROPIUM-ALBUTEROL 3 ML NEB INHALATION SCH ×4 (07:42→20:20)
[2017-01-20] MEDS: BUDESONIDE 1 MG/2 ML NEBU INHALATION SCH ×2 (07:42→20:20)
[2017-01-20 07:46] LABS: Glucose,Whole Blood 128 mg/dL (75-99)
[2017-01-20] MEDS: LOSARTAN 25 MG TAB PO SCH (08:33)
[2017-01-20] MEDS: guaiFENesin 600 MG TABLET.ER PO SCH ×2 (08:33→20:13)
[2017-01-20] MEDS: ESOMEPRAZOLE 40 MG in SODIUM CHLORIDE 0.9% 50 ML IVPB SCH ×2 (08:36→12:37)
[2017-01-20] MEDS: CHOLECALCIFEROL 400 UNIT TAB PO SCH (08:36)
[2017-01-20] MEDS: ALPRAZolam 0.25 MG TAB PO PRN (08:51)
[2017-01-20] MEDS ORDERED: ESOMEPRAZOLE 20 MG in SODIUM CHLORIDE 0.9% 50 ML IVPB SCH ×4 (09:00)
--- NOTE | 2017-01-20 10:26 | P.CONS ---
History of Present Illness - Reason for Consult Consult date: 01/20/17 GI bleed melena Requesting physician: Monika Torrez - History of Present Illness 71-year-old gentleman with a history of GERD and COPD, O2 dependent, pneumonia, hypertension, hyperlipidemia presents with shortness of breath and black colored bowel movements for the last 4-5 days. Consultation requested for GI bleed. Denies excessive usage of aspirin NSAIDs or alcohol. Home medications include prednisone. Took a few tablets of Motrin last week but only for a few days. No history of GI bleed. Colonoscopy a year ago performed by Dr. Valadez reported as normal. No history of EGD. Admission hemoglobin 7.7 received 2 units of blood and presently 8.3. MCV 98. Platelet 386. White count 31.5 presently 15.6. INR 1.1. BUN 54. Creatinine 0.6. Hemoccult stool positive. Previous hemoglobin 01/11/2017 was 15.8. 10 pound weight loss over last month due to exhaustion from breathing. Unable to finish his meals without increased shortness of breath. Denies reflux or epigastric pain. Review of Systems Constitutional: Denies fever, chills, sweats, weight gain, or loss. HEENT: Negative for migraines, blurred vision or loss, earaches, drainage, tinnitus, oral mucosal lesions, dysphagia, or odynophagia. Cardiac: Negative for chest pain, arrhythmias, or palpitation. Respiratory: End-stage COPD O2 dependent. Chronic shortness of breath, denies hemoptysis, cough, or sputum production. Gastrointestinal: See HPI for pertinent findings. Genitourinary: Negative for hematuria, urgency, frequency, polyuria, dysuria, or penile discharge. Musculoskeletal: Negative for muscle aches, swelling, arthritis, and arthralgias. Neurologic: Negative for stroke or TIA. Endocrine: Negative for thyroid problems. Skin: Negative for rash or itching. Psychiatric: Negative history for depression and anxiety All systems: negative (See HPI) Past Medical History Past Medical History: COPD, Hyperlipidemia, Hypertension, Pneumonia, Prostate Disorder Additional Past Medical History / Comment(s): HOME O2 3 LITERS N/C AT NIGHT AND NEEDED. History of Any Multi-Drug Resistant Organisms: None Reported Past Surgical History: Hernia Repair Additional Past Surgical History / Comment(s): Colonoscopy - clear 2016 Past Anesthesia/Blood Transfusion Reactions: No Reported Reaction Past Psychological History: Anxiety Additional Psychological History / Comment(s): PT LIVES WITH HIS BROOKE IN A SINGLE L[place]EL [place] THAT HAS 3 [address] STEPS. NO HOME CARE SERVICE. HAS NEBULIZER AND HOME 02 . NO SERVICE IN BACKGROUND. WORKED IN A [employer]. Smoking Status: Former smoker Past Alcohol Use History: None Reported Additional Past Alcohol Use History / Comment(s): STARTED SMOKING IN 1961. SMOKED 1-2 PPD FOR 20 YEARS THEN SWITHCED TO SMOKING A PIPE(OUNCE OF TOBACCO PER DAY-SMOKED PIPE FOR 35 YEARS QUIT 2011 Past Drug Use History: None Reported - Past Family History Mother Family Medical History: Myocardial Infarction (DC), Supraventricular Tachycardia (SVT) Additional Family Medical History / Comment(s): Lived to Father Family Medical History: Cancer Additional Family Medical History / Comment(s): Lung CA Brother(s) Additional Family Medical History / Comment(s): Patient has 1 brother that at age 57 from lung cancer. He has one half brother that has thyroid problems and hepatitis C. Sister(s) Additional Family Medical History / Comment(s): Patient has 2 full sisters and one half-sister with no major medical problems. Patient has 1 son with no major medical problems. Patient has one daughter that is being treated for bone infection. Medications and Allergies Home Medications Medication Instructions Recorded Confirmed Type Albuterol Inhaler [Ventolin Hfa 2 puff INHALATION RT-QID PRN 09/23/16 01/19/17 History Inhaler] Budesonide [Pulmicort] 0.5 mg INHALATION RT-BID 09/23/16 01/19/17 History Cholecalciferol [Vitamin D3] 400 unit PO DAILY 09/23/16 01/19/17 History Ipratropium-Albuterol Nebulize 3 ml INHALATION RT-QID 09/23/16 01/19/17 History [Duoneb 0.5 mg-3 mg/3 ml Soln] Losartan [Cozaar] 25 mg PO DAILY 09/23/16 01/19/17 History Pravastatin Sodium [Pravachol] 40 mg PO HS 09/23/16 01/19/17 History Tamsulosin HCl [Flomax] 0.4 mg PO HS 09/23/16 01/19/17 History predniSONE See Taper PO DIRECTED 01/19/17 01/19/17 History Allergies Allergy/AdvReac Type Severity Reaction Status Date / Time No Known Allergies Allergy Verified 01/19/17 22:42 Physical Exam Vitals: Vital Signs Temp Pulse Resp BP Pulse Ox 01/20/17 08:30 117 H 32 H 151/83 98 01/20/17 08:04 118 H 01/20/17 08:00 96.9 F L 97 30 H 129/77 98 01/20/17 07:42 107 H 01/20/17 07:30 103 H 17 117/74 01/20/17 07:00 106 H 20 122/80 96 01/20/17 06:30 99 19 102/76 99 01/20/17 06:00 105 H 19 100/61 94 L 01/20/17 05:30 105 H 17 95/67 97 01/20/17 05:00 106 H 11 L 96/63 99 01/20/17 04:30 106 H 8 L 82/62 96 01/20/17 04:00 98 F 112 H 17 98/60 94 L 01/20/17 03:30 106 H 20 116/74 92 L 01/20/17 03:05 110 H 01/20/17 03:00 84 22 100/66 98 01/20/17 02:52 107 H 01/20/17 02:30 107 H 32 H 115/77 97 01/20/17 02:00 96 21 95/63 97 01/20/17 01:30 104 H 21 99/70 97 01/20/17 01:00 104 H 19 93/64 100 01/20/17 00:30 103 H 19 101/64 100 01/20/17 00:00 98.5 F 108 H 19 92/65 98 01/19/17 23:30 105 H 19 99/67 92 L 01/19/17 23:00 107 H 22 99/67 92 L 01/19/17 22:30 104 H 22 87/67 92 L 01/19/17 22:00 87 25 H 106/71 97 01/19/17 21:30 106 H 30 H 107/70 96 01/19/17 21:03 97.9 F 104 H 35 H 101/76 94 L 01/19/17 21:00 77 28 H 117/72 97 01/19/17 20:30 106 H 30 H 116/79 97 01/19/17 20:19 97.9 F 97 35 H 116/79 01/19/17 20:17 97.9 F 110 H 33 H 102/72 01/19/17 20:00 97.9 F 112 H 31 H 103/75 98 01/19/17 19:45 120 H 01/19/17 19:30 111 H 33 H 100/66 94 L 01/19/17 19:28 97.9 F 110 H 33 H 102/70 92 L 01/19/17 19:20 99.1 F 114 H 32 H 100/66 96 01/19/17 18:58 99.0 F 113 H 31 H 100/69 98 01/19/17 18:48 97.5 F L 111 H 25 H 108/75 99 01/19/17 18:46 97.6 F 114 H 25 H 113/71 99 01/19/17 18:19 97.6 F 103 H 26 H 113/71 98 01/19/17 16:58 97.5 F L 108 H 28 H 102/62 98 01/19/17 16:28 97.6 F 112 H 24 108/62 01/19/17 16:18 97.6 F 118 H 24 103/66 01/19/17 16:00 97.5 F L 104 H 28 H 103/66 97 01/19/17 15:28 108 H 19 109/74 99 01/19/17 14:40 97.2 F L 118 H 28 H 103/63 100 01/19/17 14:04 97.3 F L 01/19/17 13:15 128 H 01/19/17 13:14 77 28 H 87/54 95 01/19/17 13:04 125 H 01/19/17 12:41 71 28 H 92/56 86 L Intake and Output 01/19/17 01/20/17 01/20/17 22:59 06:59 14:59 Intake Total 1490 800 100 Output Total 650 488 45 Balance 840 312 55 Intake: IV 200 800 100 Sodium Chloride 0.9% 1, 200 800 100 000 ml @ 100 mls/hr IV . Q10H [facility] Rx#:[id number] Oral 360 Blood Product 930 Rc Pheresis 2 As3 Unit 310 [id number] Rc Pheresis 2 As3 Unit 310 [id number] Output: Urine 650 488 45 Other: Voiding Method Indwelling Catheter Indwelling Catheter Weight 54.431 kg 53 kg 53 kg Patient Weight 01/21/17 06:59 Weight 53 kg General appearance: The patient is alert, oriented, short of breath during conversation difficulty speaking. HET: Head is normocephalic and atraumatic. Pupils are equal and reactive. Oropharynx is clear without lesions. Neck: Supple without lymphadenopathy. Trachea midline. Heart: S1 S2. Regular rate and rhythm. Lungs: Diminished bilaterally. Abdomen: Soft, nontender, nondistended with bowel sounds. No peritoneal signs. No palpable organomegaly or masses. Extremities: Normal skin color and turgor. No cyanosis, rash, ulceration, clubbing, or edema. Radial and pedal pulses are 2/4 bilaterally. Neurological: No focal deficits. Strength and sensation are grossly intact. Results CBC & Chem 7: 01/20/17 03:57 01/20/17 03:57 Labs: Abnormal Lab Results - Last 24 Hours (Table) 01/19/17 01/19/17 01/19/17 Range/Units 13:10 13:15 13:15 WBC 31.5 H* (3.8-10.6) k/uL RBC 2.30 L (4.30-5.90) m/uL Hgb 7.7 L D (13.0-17.5) gm/dL Hct 22.7 L (39.0-53.0) % RDW (11.5-15.5) % Neutrophils # (1.3-7.7) k/uL Neutrophils # (Manual) 29.0 H (1.3-7.7) k/uL Lymphocytes # (1.0-4.8) k/uL Lymphocytes # (Manual) 0.9 L (1.0-4.8) k/uL APTT (22.0-30.0) sec Sodium (137-145) mmol/L BUN (9-20) mg/dL Creatinine (0.66-1.25) mg/dL Glucose (74-99) mg/dL POC Glucose (mg/dL) (75-99) mg/dL Calcium (8.4-10.2) mg/dL AST (17-59) U/L Alkaline Phosphatase (38-126) U/L Total Creatine Kinase 21 L (55-170) U/L CK-MB (CK-2) 2.6 H* (0.0-2.4) ng/mL Total Protein (6.3-8.2) g/dL Albumin (3.5-5.0) g/dL Ur Leukocyte Esterase (Negative) Urine WBC (0-5) /hpf Urine Mucus (None) /hpf Crossmatch See Detail 01/19/17 01/19/17 01/19/17 Range/Units 13:15 13:15 19:17 WBC (3.8-10.6) k/uL RBC (4.30-5.90) m/uL Hgb (13.0-17.5) gm/dL Hct (39.0-53.0) % RDW (11.5-15.5) % Neutrophils # (1.3-7.7) k/uL Neutrophils # (Manual) (1.3-7.7) k/uL Lymphocytes # (1.0-4.8) k/uL Lymphocytes # (Manual) (1.0-4.8) k/uL APTT 19.3 L (22.0-30.0) sec Sodium 134 L (137-145) mmol/L BUN 54 H (9-20) mg/dL Creatinine 0.64 L (0.66-1.25) mg/dL Glucose 125 H (74-99) mg/dL POC Glucose (mg/dL) 143 H (75-99) mg/dL Calcium (8.4-10.2) mg/dL AST (17-59) U/L Alkaline Phosphatase 37 L (38-126) U/L Total Creatine Kinase (55-170) U/L CK-MB (CK-2) (0.0-2.4) ng/mL Total Protein 5.0 L (6.3-8.2) g/dL Albumin 3.1 L (3.5-5.0) g/dL Ur Leukocyte Esterase (Negative) Urine WBC (0-5) /hpf Urine Mucus (None) /hpf Crossmatch 01/19/17 01/19/17 01/20/17 Range/Units 23:40 23:40 00:02 WBC 16.1 H (3.8-10.6) k/uL RBC 2.76 L (4.30-5.90) m/uL Hgb 8.8 L (13.0-17.5) gm/dL Hct 26.3 L (39.0-53.0) % RDW 17.2 H (11.5-15.5) % Neutrophils # (1.3-7.7) k/uL Neutrophils # (Manual) (1.3-7.7) k/uL Lymphocytes # (1.0-4.8) k/uL Lymphocytes # (Manual) (1.0-4.8) k/uL APTT (22.0-30.0) sec Sodium 135 L (137-145) mmol/L BUN 49 H (9-20) mg/dL Creatinine 0.60 L (0.66-1.25) mg/dL Glucose 119 H (74-99) mg/dL POC Glucose (mg/dL) (75-99) mg/dL Calcium 8.3 L (8.4-10.2) mg/dL AST 14 L (17-59) U/L Alkaline Phosphatase 35 L (38-126) U/L Total Creatine Kinase (55-170) U/L CK-MB (CK-2) (0.0-2.4) ng/mL Total Protein 4.4 L (6.3-8.2) g/dL Albumin 2.7 L (3.5-5.0) g/dL Ur Leukocyte Esterase Small H (Negative) Urine WBC 16 H (0-5) /hpf Urine Mucus Rare H (None) /hpf Crossmatch 01/20/17 01/20/17 01/20/17 Range/Units 03:57 03:57 06:30 WBC 15.6 H (3.8-10.6) k/uL RBC 2.65 L (4.30-5.90) m/uL Hgb 8.3 L (13.0-17.5) gm/dL Hct 24.8 L (39.0-53.0) % RDW 16.6 H (11.5-15.5) % Neutrophils # 14.2 H (1.3-7.7) k/uL Neutrophils # (Manual) (1.3-7.7) k/uL Lymphocytes # 0.8 L (1.0-4.8) k/uL Lymphocytes # (Manual) (1.0-4.8) k/uL APTT (22.0-30.0) sec Sodium 134 L (137-145) mmol/L BUN 46 H (9-20) mg/dL Creatinine 0.60 L (0.66-1.25) mg/dL Glucose 123 H (74-99) mg/dL POC Glucose (mg/dL) 128 H (75-99) mg/dL Calcium 7.9 L (8.4-10.2) mg/dL AST 14 L (17-59) U/L Alkaline Phosphatase 32 L (38-126) U/L Total Creatine Kinase (55-170) U/L CK-MB (CK-2) (0.0-2.4) ng/mL Total Protein 4.3 L (6.3-8.2) g/dL Albumin 2.4 L (3.5-5.0) g/dL Ur Leukocyte Esterase (Negative) Urine WBC (0-5) /hpf Urine Mucus (None) /hpf Crossmatch 01/20/17 Range/Units 07:45 WBC (3.8-10.6) k/uL RBC (4.30-5.90) m/uL Hgb (13.0-17.5) gm/dL Hct (39.0-53.0) % RDW (11.5-15.5) % Neutrophils # (1.3-7.7) k/uL Neutrophils # (Manual) (1.3-7.7) k/uL Lymphocytes # (1.0-4.8) k/uL Lymphocytes # (Manual) (1.0-4.8) k/uL APTT (22.0-30.0) sec Sodium (137-145) mmol/L BUN (9-20) mg/dL Creatinine (0.66-1.25) mg/dL Glucose (74-99) mg/dL POC Glucose (mg/dL) 128 H (75-99) mg/dL Calcium (8.4-10.2) mg/dL AST (17-59) U/L Alkaline Phosphatase (38-126) U/L Total Creatine Kinase (55-170) U/L CK-MB (CK-2) (0.0-2.4) ng/mL Total Protein (6.3-8.2) g/dL Albumin (3.5-5.0) g/dL Ur Leukocyte Esterase (Negative) Urine WBC (0-5) /hpf Urine Mucus (None) /hpf Crossmatch Assessment and Plan (1) GI hemorrhage Narrative/Plan: 71-year-old male presents with symptomatic acute blood loss anemia worsening shortness of breath with underlying advanced COPD O2 dependent for black colored bowel movements a last 4-5 days suggestive of acute GI bleed possible peptic ulcer disease. Status: Acute (2) Melena Status: Acute (3) Acute blood loss anemia Status: Acute (4) Advanced COPD Status: Acute Plan: 1. EGD evaluation 24-48 hours once his respiratory status is optimized/ shortness of breath improves. Will require pulmonary clearance prior to EGD. 2. Clear liquid diet. CBC monitoring. Esomeprazole 40 mg IV daily. The snuff drier has discussed the risks, benefits and alternative therapies for the above-mentioned procedure and for both sedation/analgesia as well as necessary blood product administration, if indicated, as they pertain to this patient. The patient has indicated understanding and acceptance of the risks and procedures discussed. Thank you for this kind referral and the opportunity to participate in the care of your patient. This consultation was discussed with Dr. Herrera. The impression and plan of care have been directed as dictated.
--- NOTE | 2017-01-20 11:23 | P.CNPUL ---
History of Present Illness Consult date: 01/20/17 Requesting physician: Monika Torrez Reason for consult: other Chief complaint: ICU management History of present illness: This is a 71-year-old pleasant male being seen examined and evaluated today in the intensive care unit. This patient is well-known to us services. This patient has had multiple admissions due to COPD exacerbations, respiratory failure and recurrent pneumonia. He was recently discharged on 01/07/2017 for COPD exacerbation. He was visited by home health care nurses and they noted him to be weak and pale with severe shortness of breath on exertion. The patient chronically uses home oxygen 3 L via nasal cannula at all times. His home health care nurse suggested he come into the emergency room. While he was in the emergency room his workup included a chest x-ray that showed chronic emphysema changes without any acute pulmonary process. The patient did note to be short of breath and was placed on BiPAP with an FiO2 of 40%. His lab workup revealed a hemoglobin of 7.7 which is a decrease from 15.5 on January 11. Patient received 2 units of packed red blood cells in the emergency room and was found to be occult positive patient also was continuing his discharge medications of prednisone as well as antibiotics from previous admission. Upon examination the patient's resting up in bed on 4 L of supplemental oxygen via nasal cannula , he is noted to have severe shortness of breath with exertion or extensive conversation. Patient has had a congested cough however difficulty with bringing up secretions. Of note the patient states that he did have a dark black bowel movement 5 days ago, and he has not had one since. Currently the patient is hemodynamically stable, current hemoglobin is 8.3. Patient is tolerating his clear liquid diet. Patient is also being seen by GI and possibly will undergo a scope in the next 48 hours, once respiratory status improved. Review of Systems 14 point review of systems was completed and is negative unless noted above in the HPI Past Medical History Past Medical History: COPD, Hyperlipidemia, Hypertension, Pneumonia, Prostate Disorder Additional Past Medical History / Comment(s): HOME O2 3 LITERS N/C AT NIGHT AND NEEDED. History of Any Multi-Drug Resistant Organisms: None Reported Past Surgical History: Hernia Repair Additional Past Surgical History / Comment(s): Colonoscopy - clear 2015 Past Anesthesia/Blood Transfusion Reactions: No Reported Reaction Past Psychological History: Anxiety Additional Psychological History / Comment(s): PT LIVES WITH HIS BROOKE IN A SINGLE L[place]EL [place] THAT HAS 3 [address] STEPS. NO HOME CARE SERVICE. HAS NEBULIZER AND HOME 02 . NO SERVICE IN BACKGROUND. WORKED IN A [employer] T[employer] ASS[employer]. Smoking Status: Former smoker Past Alcohol Use History: None Reported Additional Past Alcohol Use History / Comment(s): STARTED SMOKING IN 1961. SMOKED 1-2 PPD FOR 20 YEARS THEN SWITHCED TO SMOKING A PIPE(OUNCE OF TOBACCO PER DAY-SMOKED PIPE FOR 35 YEARS QUIT 2011 Past Drug Use History: None Reported - Past Family History Mother Family Medical History: Myocardial Infarction (AL), Supraventricular Tachycardia (SVT) Additional Family Medical History / Comment(s): Lived to Father Family Medical History: Cancer Additional Family Medical History / Comment(s): Lung CA Brother(s) Additional Family Medical History / Comment(s): Patient has 1 brother that at age 57 from lung cancer. He has one half brother that has thyroid problems and hepatitis C. Sister(s) Additional Family Medical History / Comment(s): Patient has 2 full sisters and one half-sister with no major medical problems. Patient has 1 son with no major medical problems. Patient has one daughter that is being treated for bone infection. Medications and Allergies Home Medications Medication Instructions Recorded Confirmed Type Albuterol Inhaler [Ventolin Hfa 2 puff INHALATION RT-QID PRN 09/23/16 01/19/17 History Inhaler] Budesonide [Pulmicort] 0.5 mg INHALATION RT-BID 09/23/16 01/19/17 History Cholecalciferol [Vitamin D3] 400 unit PO DAILY 09/23/16 01/19/17 History Ipratropium-Albuterol Nebulize 3 ml INHALATION RT-QID 09/23/16 01/19/17 History [Duoneb 0.5 mg-3 mg/3 ml Soln] Losartan [Cozaar] 25 mg PO DAILY 09/23/16 01/19/17 History Pravastatin Sodium [Pravachol] 40 mg PO HS 09/23/16 01/19/17 History Tamsulosin HCl [Flomax] 0.4 mg PO HS 09/23/16 01/19/17 History predniSONE See Taper PO DIRECTED 01/19/17 01/19/17 History Allergies Allergy/AdvReac Type Severity Reaction Status Date / Time No Known Allergies Allergy Verified 01/19/17 22:42 Physical Exam Vitals: Vital Signs Temp Pulse Resp BP Pulse Ox 01/20/17 11:00 112 H 31 H 105/81 97 01/20/17 10:30 107 H 38 H 130/86 98 01/20/17 10:00 101 H 31 H 106/72 96 01/20/17 09:30 111 H 38 H 106/74 98 01/20/17 09:00 105 H 30 H 122/80 98 01/20/17 08:30 117 H 32 H 151/83 98 01/20/17 08:04 118 H 01/20/17 08:00 96.9 F L 97 30 H 129/77 98 01/20/17 07:42 107 H 01/20/17 07:30 103 H 17 117/74 01/20/17 07:00 106 H 20 122/80 96 01/20/17 06:30 99 19 102/76 99 01/20/17 06:00 105 H 19 100/61 94 L 01/20/17 05:30 105 H 17 95/67 97 01/20/17 05:00 106 H 11 L 96/63 99 01/20/17 04:30 106 H 8 L 82/62 96 01/20/17 04:00 98 F 112 H 17 98/60 94 L 01/20/17 03:30 106 H 20 116/74 92 L 01/20/17 03:05 110 H 01/20/17 03:00 84 22 100/66 98 01/20/17 02:52 107 H 01/20/17 02:30 107 H 32 H 115/77 97 01/20/17 02:00 96 21 95/63 97 01/20/17 01:30 104 H 21 99/70 97 01/20/17 01:00 104 H 19 93/64 100 01/20/17 00:30 103 H 19 101/64 100 01/20/17 00:00 98.5 F 108 H 19 92/65 98 01/19/17 23:30 105 H 19 99/67 92 L 01/19/17 23:00 107 H 22 99/67 92 L 01/19/17 22:30 104 H 22 87/67 92 L 01/19/17 22:00 87 25 H 106/71 97 01/19/17 21:30 106 H 30 H 107/70 96 01/19/17 21:03 97.9 F 104 H 35 H 101/76 94 L 01/19/17 21:00 77 28 H 117/72 97 01/19/17 20:30 106 H 30 H 116/79 97 01/19/17 20:19 97.9 F 97 35 H 116/79 01/19/17 20:17 97.9 F 110 H 33 H 102/72 01/19/17 20:00 97.9 F 112 H 31 H 103/75 98 01/19/17 19:45 120 H 01/19/17 19:30 111 H 33 H 100/66 94 L 01/19/17 19:28 97.9 F 110 H 33 H 102/70 92 L 01/19/17 19:20 99.1 F 114 H 32 H 100/66 96 01/19/17 18:58 99.0 F 113 H 31 H 100/69 98 01/19/17 18:48 97.5 F L 111 H 25 H 108/75 99 01/19/17 18:46 97.6 F 114 H 25 H 113/71 99 01/19/17 18:19 97.6 F 103 H 26 H 113/71 98 01/19/17 16:58 97.5 F L 108 H 28 H 102/62 98 01/19/17 16:28 97.6 F 112 H 24 108/62 01/19/17 16:18 97.6 F 118 H 24 103/66 01/19/17 16:00 97.5 F L 104 H 28 H 103/66 97 01/19/17 15:28 108 H 19 109/74 99 01/19/17 14:40 97.2 F L 118 H 28 H 103/63 100 01/19/17 14:04 97.3 F L 01/19/17 13:15 128 H 01/19/17 13:14 77 28 H 87/54 95 01/19/17 13:04 125 H 01/19/17 12:41 71 28 H 92/56 86 L Intake and Output 01/19/17 01/20/17 01/20/17 22:59 06:59 14:59 Intake Total 1490 800 500 Output Total 650 488 245 Balance 840 312 255 Intake: IV 200 800 500 Sodium Chloride 0.9% 1, 200 800 500 000 ml @ 100 mls/hr IV . Q10H [facility] Rx#:[id number] Oral 360 Blood Product 930 Rc Pheresis 2 As3 Unit 310 [id number] Rc Pheresis 2 As3 Unit 310 [id number] Output: Urine 650 488 245 Other: Voiding Method Indwelling Catheter Indwelling Catheter Indwelling Catheter Weight 54.431 kg 53 kg 53 kg Patient Weight 01/21/17 06:59 Weight 53 kg GENERAL EXAM: Alert, pale, comfortable in no apparent distress. HEAD: Normocephalic. EYES: Normal reaction of pupils, equal size. NOSE: Clear with pink turbinates. THROAT: No erythema or exudates. NECK: No masses, no JVD. CHEST: No chest wall deformity. LUNGS: Poor air entry bilaterally with fine expiratory rhonchi scattered. Bases diminished CVS: S1 and S2 normal with no audible mumurs, regular rhythm. ABDOMEN: No hepatosplenomegaly, normal bowel sounds, no guarding or rigidity. EXTREMITIES: No edema noted, pedal pulses palpable. SKIN: No rashes CENTRAL NERVOUS SYSTEM: No focal deficits, tone is normal in all 4 extremities. Results - Laboratory Findings CBC and BMP: 01/20/17 03:57 01/20/17 03:57 PT/INR, D-dimer PT 10.8 sec (9.0-12.0) 01/19/17 13:15 INR 1.1 (<1.2) 01/19/17 13:15 Abnormal lab findings: Abnormal Labs 01/19/17 01/19/17 01/19/17 13:10 13:15 13:15 WBC 31.5 H* RBC 2.30 L Hgb 7.7 L D Hct 22.7 L RDW Neutrophils # Neutrophils # (Manual) 29.0 H Lymphocytes # Lymphocytes # (Manual) 0.9 L APTT Sodium BUN Creatinine Glucose POC Glucose (mg/dL) Calcium AST Alkaline Phosphatase Total Creatine Kinase 21 L CK-MB (CK-2) 2.6 H* Total Protein Albumin Ur Leukocyte Esterase Urine WBC Urine Mucus Crossmatch See Detail 01/19/17 01/19/17 01/19/17 13:15 13:15 19:17 WBC RBC Hgb Hct RDW Neutrophils # Neutrophils # (Manual) Lymphocytes # Lymphocytes # (Manual) APTT 19.3 L Sodium 134 L BUN 54 H Creatinine 0.64 L Glucose 125 H POC Glucose (mg/dL) 143 H Calcium AST Alkaline Phosphatase 37 L Total Creatine Kinase CK-MB (CK-2) Total Protein 5.0 L Albumin 3.1 L Ur Leukocyte Esterase Urine WBC Urine Mucus Crossmatch 01/19/17 01/19/17 01/20/17 23:40 23:40 00:02 WBC 16.1 H RBC 2.76 L Hgb 8.8 L Hct 26.3 L RDW 17.2 H Neutrophils # Neutrophils # (Manual) Lymphocytes # Lymphocytes # (Manual) APTT Sodium 135 L BUN 49 H Creatinine 0.60 L Glucose 119 H POC Glucose (mg/dL) Calcium 8.3 L AST 14 L Alkaline Phosphatase 35 L Total Creatine Kinase CK-MB (CK-2) Total Protein 4.4 L Albumin 2.7 L Ur Leukocyte Esterase Small H Urine WBC 16 H Urine Mucus Rare H Crossmatch 01/20/17 01/20/17 01/20/17 03:57 03:57 06:30 WBC 15.6 H RBC 2.65 L Hgb 8.3 L Hct 24.8 L RDW 16.6 H Neutrophils # 14.2 H Neutrophils # (Manual) Lymphocytes # 0.8 L Lymphocytes # (Manual) APTT Sodium 134 L BUN 46 H Creatinine 0.60 L Glucose 123 H POC Glucose (mg/dL) 128 H Calcium 7.9 L AST 14 L Alkaline Phosphatase 32 L Total Creatine Kinase CK-MB (CK-2) Total Protein 4.3 L Albumin 2.4 L Ur Leukocyte Esterase Urine WBC Urine Mucus Crossmatch 01/20/17 07:45 WBC RBC Hgb Hct RDW Neutrophils # Neutrophils # (Manual) Lymphocytes # Lymphocytes # (Manual) APTT Sodium BUN Creatinine Glucose POC Glucose (mg/dL) 128 H Calcium AST Alkaline Phosphatase Total Creatine Kinase CK-MB (CK-2) Total Protein Albumin Ur Leukocyte Esterase Urine WBC Urine Mucus Crossmatch - Diagnostic Findings Chest x-ray: report reviewed, image reviewed Assessment and Plan Plan: Assessment End-stage COPD with acute exacerbation Acute on chronic hypoxic respiratory failure GI hemorrhage Acute blood loss anemia Leukocytosis related to prolonged prednisone use Hypertension Hyperlipidemia BPH Plan Patient will remain in the intensive care unit today. Patient will possibly undergo a scope with GI in the next 48 hours plan is to continue watching his hemoglobin in the meantime as well as improve his respiratory status as much as possible before the procedure. We will transfuse use packed red blood cells as needed. Medications have been reviewed and will be continued as ordered. Continue with pulmonary hygiene, coughing and deep breathing exercises, and supportive care. Supplemental oxygen and/or BiPAP to maintain oxygen saturations of 92% or better. Continue nebulizer treatments. GI and DVT prophylaxis. We will continue to monitor labs/results and adjust treatment as necessary. Further recommendations pending. I performed an examination of the patient and discussed their management with the nurse practitioner. I have reviewed the nurse practitioner's note and agree with the documented findings and plan of care.
[2017-01-20] MEDS ORDERED: SODIUM FERRIC GLUCONAT-SUCROSE 125 MG in SODIUM CHLORIDE 0.9% 100 ML IVPB ONE (12:00)
[2017-01-20 12:21] LABS: Glucose,Whole Blood 155 mg/dL (75-99)
--- NOTE | 2017-01-20 12:46 | XR ---
EXAMINATION TYPE: XR chest 1V DATE OF EXAM: 01/20/2017 COMPARISON: Prior chest x-ray 01/19/2017 HISTORY: Shortness of breath TECHNIQUE: Single frontal view of the chest is obtained. FINDINGS: There is no significant interval change. There are prominent lung volumes. Overlying cardi ac leads are noted. No pneumothorax or pleural effusion. Heart size is stable. IMPRESSION: Emphysema
[2017-01-20 13:27] LABS: Anisocytosis Slight; CH 31.7; CHCM 33.2; HCT 24.1 % (39.0-53.0); HDW 2.73; HGB 7.9 gm/dL (13.0-17.5); MCH 31.6 pg (25.0-35.0); MCHC 32.8 g/dL (31.0-37.0); MCV 96.2 fL (80.0-100.0); Macrocytosis Slight; Mean Platelet Volume 7.3; RDW 18.2 % (11.5-15.5); WBC 23.7 k/uL (3.8-10.6)
--- NOTE | 2017-01-20 14:39 | P.PN ---
Subjective This is a 71-year-old male patient of Dr. Ronn Aaron and Dr. Koenig with past medical history of COPD, hypertension, BPH, recurrent pneumonia thoracic aneurysm who was in the hospital apparently multiple admissions back in August 2016 and again 12/31/2016, 01/07/2017 with episode of pneumonia and COPD exacerbation with respiratory failure. He was discharged 01/07/2017 secondary to COPD exacerbation, and was given oral prednisone on discharge as well as oral antibiotic. Patient will by visiting nurses and was noted to be weak and pale, he has this woman exertion, patient was not actively wheezing then however he was noted to have decreased difficulty of breathing and diminished air sounds, he is chronically hypoxemic using 3 L of O2 nasal cannula 24 7, along with nebulized treatments at home. Those admissions he was negative for pulmonary emboli echocardiogram done at that time shows mild mitral and tricuspid regurgitation ejection fraction of 60-65% no pulmonary hypertension. in the emergency room he had a chest x-ray that shows chronic findings similar to his changes without acute pulmonary process no pleural effusion no pneumothorax he was saturating on 99% BiPAP 40%, and hemoglobin on admission was 7.7 from a previous off 15.8 January 11 which is a drop off 8 g in 8 days. He was transfused 2 units of packed red blood cell in the emergency room his Hemoccult positive and has epigastric tenderness. Patient took the oral prednisone along with 3doses Motrin the day prior to admission were made Dr. 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 Iron studies ordered and Ferrlecit 1 dose to be given today. White count has improved from 31-15.6. Patient has been evaluated by Dr. Carballo and started on a clear liquid diet. Dr. Koenig is on for critical care management. He is currently on Solu-Medrol 40 mg every 6 hours. Objective - Vital Signs Vital signs: Vital Signs Temp 96.9 F L 01/20/17 08:00 Pulse 117 H 01/20/17 08:30 Resp 32 H 01/20/17 08:30 BP 151/83 01/20/17 08:30 Pulse Ox 98 01/20/17 08:30 Intake & Output 01/19/17 01/20/17 01/20/17 18:59 06:59 18:59 Intake Total 310 1980 100 Output Total 1138 45 Balance 310 842 55 Weight 54.431 kg 53 kg Intake: IV 1000 100 Sodium Chloride 0.9% 1, 1000 100 000 ml @ 100 mls/hr IV . Q10H [facility] Rx#:[id number] Oral 360 Blood Product 310 620 Rc Pheresis 2 As3 Unit 0 310 [id number] Rc Pheresis 2 As3 Unit 310 [id number] Output: Urine 1138 45 Other: Voiding Method Indwelling Catheter - Exam General appearance: cooperative, mild distress, thin - EENT Eyes: anicteric sclerae, EOMI, PERRLA, dentition normal, normal appearance ENT: hearing grossly normal, NA/AT, normal oropharynx - Neck Neck: no lymphadenopathy, normal ROM, no other, no rigidity, no stridor, no thyromegaly - Respiratory Respiratory: bilateral: CTA, negative: diminished, dullness, rales, rhonchi, wheezing - Cardiovascular Rhythm: regular Heart sounds: normal: S1, S2 Abnormal Heart Sounds: no systolic murmur, no diastolic murmur, no rub, no S3 Gallop, no S4 Gallop, no click, no other - Gastrointestinal General gastrointestinal: normal bowel sounds, soft - Integumentary Integumentary: decreased turgor, normal - Neurologic Neurologic: CNII-XII intact - Musculoskeletal Musculoskeletal: gait normal - Psychiatric Psychiatric: A&O x's 3, appropriate affect - Labs CBC & Chem 7: 01/20/17 13:06 01/20/17 03:57 Labs: Abnormal Lab Results - Last 24 Hours (Table) 01/19/17 01/19/17 01/19/17 Range/Units 13:10 13:15 13:15 WBC 31.5 H* (3.8-10.6) k/uL RBC 2.30 L (4.30-5.90) m/uL Hgb 7.7 L D (13.0-17.5) gm/dL Hct 22.7 L (39.0-53.0) % RDW (11.5-15.5) % Neutrophils # (1.3-7.7) k/uL Neutrophils # (Manual) 29.0 H (1.3-7.7) k/uL Lymphocytes # (1.0-4.8) k/uL Lymphocytes # (Manual) 0.9 L (1.0-4.8) k/uL APTT (22.0-30.0) sec Sodium (137-145) mmol/L BUN (9-20) mg/dL Creatinine (0.66-1.25) mg/dL Glucose (74-99) mg/dL POC Glucose (mg/dL) (75-99) mg/dL Calcium (8.4-10.2) mg/dL AST (17-59) U/L Alkaline Phosphatase (38-126) U/L Total Creatine Kinase 21 L (55-170) U/L CK-MB (CK-2) 2.6 H* (0.0-2.4) ng/mL Total Protein (6.3-8.2) g/dL Albumin (3.5-5.0) g/dL Ur Leukocyte Esterase (Negative) Urine WBC (0-5) /hpf Urine Mucus (None) /hpf Crossmatch See Detail 01/19/17 01/19/17 01/19/17 Range/Units 13:15 13:15 19:17 WBC (3.8-10.6) k/uL RBC (4.30-5.90) m/uL Hgb (13.0-17.5) gm/dL Hct (39.0-53.0) % RDW (11.5-15.5) % Neutrophils # (1.3-7.7) k/uL Neutrophils # (Manual) (1.3-7.7) k/uL Lymphocytes # (1.0-4.8) k/uL Lymphocytes # (Manual) (1.0-4.8) k/uL APTT 19.3 L (22.0-30.0) sec Sodium 134 L (137-145) mmol/L BUN 54 H (9-20) mg/dL Creatinine 0.64 L (0.66-1.25) mg/dL Glucose 125 H (74-99) mg/dL POC Glucose (mg/dL) 143 H (75-99) mg/dL Calcium (8.4-10.2) mg/dL AST (17-59) U/L Alkaline Phosphatase 37 L (38-126) U/L Total Creatine Kinase (55-170) U/L CK-MB (CK-2) (0.0-2.4) ng/mL Total Protein 5.0 L (6.3-8.2) g/dL Albumin 3.1 L (3.5-5.0) g/dL Ur Leukocyte Esterase (Negative) Urine WBC (0-5) /hpf Urine Mucus (None) /hpf Crossmatch 01/19/17 01/19/17 01/20/17 Range/Units 23:40 23:40 00:02 WBC 16.1 H (3.8-10.6) k/uL RBC 2.76 L (4.30-5.90) m/uL Hgb 8.8 L (13.0-17.5) gm/dL Hct 26.3 L (39.0-53.0) % RDW 17.2 H (11.5-15.5) % Neutrophils # (1.3-7.7) k/uL Neutrophils # (Manual) (1.3-7.7) k/uL Lymphocytes # (1.0-4.8) k/uL Lymphocytes # (Manual) (1.0-4.8) k/uL APTT (22.0-30.0) sec Sodium 135 L (137-145) mmol/L BUN 49 H (9-20) mg/dL Creatinine 0.60 L (0.66-1.25) mg/dL Glucose 119 H (74-99) mg/dL POC Glucose (mg/dL) (75-99) mg/dL Calcium 8.3 L (8.4-10.2) mg/dL AST 14 L (17-59) U/L Alkaline Phosphatase 35 L (38-126) U/L Total Creatine Kinase (55-170) U/L CK-MB (CK-2) (0.0-2.4) ng/mL Total Protein 4.4 L (6.3-8.2) g/dL Albumin 2.7 L (3.5-5.0) g/dL Ur Leukocyte Esterase Small H (Negative) Urine WBC 16 H (0-5) /hpf Urine Mucus Rare H (None) /hpf Crossmatch 01/20/17 01/20/17 01/20/17 Range/Units 03:57 03:57 06:30 WBC 15.6 H (3.8-10.6) k/uL RBC 2.65 L (4.30-5.90) m/uL Hgb 8.3 L (13.0-17.5) gm/dL Hct 24.8 L (39.0-53.0) % RDW 16.6 H (11.5-15.5) % Neutrophils # 14.2 H (1.3-7.7) k/uL Neutrophils # (Manual) (1.3-7.7) k/uL Lymphocytes # 0.8 L (1.0-4.8) k/uL Lymphocytes # (Manual) (1.0-4.8) k/uL APTT (22.0-30.0) sec Sodium 134 L (137-145) mmol/L BUN 46 H (9-20) mg/dL Creatinine 0.60 L (0.66-1.25) mg/dL Glucose 123 H (74-99) mg/dL POC Glucose (mg/dL) 128 H (75-99) mg/dL Calcium 7.9 L (8.4-10.2) mg/dL AST 14 L (17-59) U/L Alkaline Phosphatase 32 L (38-126) U/L Total Creatine Kinase (55-170) U/L CK-MB (CK-2) (0.0-2.4) ng/mL Total Protein 4.3 L (6.3-8.2) g/dL Albumin 2.4 L (3.5-5.0) g/dL Ur Leukocyte Esterase (Negative) Urine WBC (0-5) /hpf Urine Mucus (None) /hpf Crossmatch 01/20/17 Range/Units 07:45 WBC (3.8-10.6) k/uL RBC (4.30-5.90) m/uL Hgb (13.0-17.5) gm/dL Hct (39.0-53.0) % RDW (11.5-15.5) % Neutrophils # (1.3-7.7) k/uL Neutrophils # (Manual) (1.3-7.7) k/uL Lymphocytes # (1.0-4.8) k/uL Lymphocytes # (Manual) (1.0-4.8) k/uL APTT (22.0-30.0) sec Sodium (137-145) mmol/L BUN (9-20) mg/dL Creatinine (0.66-1.25) mg/dL Glucose (74-99) mg/dL POC Glucose (mg/dL) 128 H (75-99) mg/dL Calcium (8.4-10.2) mg/dL AST (17-59) U/L Alkaline Phosphatase (38-126) U/L Total Creatine Kinase (55-170) U/L CK-MB (CK-2) (0.0-2.4) ng/mL Total Protein (6.3-8.2) g/dL Albumin (3.5-5.0) g/dL Ur Leukocyte Esterase (Negative) Urine WBC (0-5) /hpf Urine Mucus (None) /hpf Crossmatch Assessment and Plan Plan: 1. Acute blood loss anemia with critical hemoglobin, steroid gastropathy suspected patient will be admitted to ICU and would be monitored closely for hemoglobin drop, patient was started on IV Nexium 20 mg daily with consults to Dr. Herrera for EGD, he is Hemoccult positive black stools he is receiving 2 units of packed red blood cell on admission, with hemoglobin to be titrated upwards over 8, Ferrlecit 2 Acute hypoxic respiratory failure with chronic hypoxemic respiratory failure with decompensation related to significant anemia, BiPAP treatments provided in the emergency room and would be continued for ventilatory support until stabilized in ICU Dr. Koenig is on consult H&H every 6 hours Continue DuoNeb treatments every 4 hours, albuterol 4 times daily as needed, Pulmicort 0.5 milligrams twice daily, albuterol and Atrovent nebulized solution Court nebulized solution 3. End-stage COPD with chronic hypoxemic respiratory failure on maintenance nebulized solution and 3 L test cannula O2, patient will be given a burst off Solu-Medrol, with no plans for tapering prednisone increase Pulmicort to 1 mg twice a day possible theophylline 4. Leukocytosis possibly related to prednisone, patient is without any typical symptoms except for the respiratory decompensation no evidence of pneumonia at this time continue to monitor no oral antibiotics or IV antibiotics started at this tim5 5. Hypertension. Continue Cozaar 25 mg daily. 6. Hyperlipidemia. Continue pravastatin 40 mg daily. 7. Benign prostatic hypertrophy. Continue Flomax or 0.4 mg at bedtime. 8. Vitamin D deficiency. Continue supplement. 8. Gastric intestinal prophylaxis. Nexium 9. DVT prophylaxis. Mechanical prophylaxis only, contraindicated to use pharmacological prophylaxis secondary to acute GI bleed 10. CODE STATUS: No code. Discharge plan: To be determined Impression and plan of care have been directed as dictated by the signing physician. Denise Dupont nurse practitioner acting as scribe for signing physician.
[2017-01-20 15:20] LABS: Hemoglobin A1C 5.7 % (4.2-6.1)
[2017-01-20 15:51] LABS: % Iron Saturation 121.1 % (20-50)
--- NOTE | 2017-01-20 16:28 | XR ---
Abdomen 2 view HISTORY: Pain and constipation 2 views of the abdomen No comparisons Lung bases are clear. No pneumoperitoneum or bowel obstruction evident. There are overlying cardiac l henri. Postop changes are noted, clips are present over the pelvis. Bone mineralization is reduced. Va scular calcifications present within the pelvis. IMPRESSION: No acute abnormalities evident. Follow-up as indicated.
[2017-01-20 17:55] LABS: Glucose,Whole Blood 130 mg/dL (75-99)
[2017-01-20 20:14] LABS: Glucose,Whole Blood 185 mg/dL (75-99)
[2017-01-20] MEDS: TAMSULOSIN 0.4 MG CAP.ER.24H PO SCH (20:14)
[2017-01-20] MEDS: MONTELUKAST 10 MG TAB PO SCH (20:14)
[2017-01-20] MEDS: PRAVASTATIN SODIUM 40 MG TAB PO SCH (20:14)
[2017-01-20 21:56] LABS: Anisocytosis Slight; Basophils % (A) 0 %; CH 31.1; CHCM 33.4; Eosinophils % (A) 0 %; HCT 27.2 % (39.0-53.0); HDW 2.78; HGB 9.2 gm/dL (13.0-17.5); Luc # (Auto) 0.18; Luc % (Auto) 1; Lymphocytes # (A) 0.6 k/uL (1.0-4.8); Lymphocytes % (A) 3 %; MCH 31.7 pg (25.0-35.0); MCHC 33.8 g/dL (31.0-37.0); MCV 93.7 fL (80.0-100.0); Mean Platelet Volume 6.9; Monocytes % (A) 5 %; Neutrophils # (A) 19.6 k/uL (1.3-7.7); Neutrophils % (A) 91 %; RDW 17.3 % (11.5-15.5); WBC 21.5 k/uL (3.8-10.6); WBC (Perox) 20.89
[2017-01-21] MEDS: ALPRAZolam 0.25 MG TAB PO PRN ×4 (00:46→23:30)
[2017-01-21] MEDS: IPRATROPIUM-ALBUTEROL 3 ML NEB INHALATION PRN (03:52)
[2017-01-21 05:23] LABS: Anisocytosis Slight; Basophils % (A) 0 %; CH 31.4; CHCM 32.9; Eosinophils % (A) 0 %; HCT 27.4 % (39.0-53.0); HDW 2.82; HGB 9.1 gm/dL (13.0-17.5); Luc % (Auto) 1; Lymphocytes # (A) 0.7 k/uL (1.0-4.8); Lymphocytes % (A) 3 %; MCHC 33.2 g/dL (31.0-37.0); MCV 96.3 fL (80.0-100.0); Macrocytosis Slight; Mean Platelet Volume 7.3; Monocytes # (A) 0.7 k/uL (0-1.0); Monocytes % (A) 3 %; Neutrophils # (A) 20.6 k/uL (1.3-7.7); Neutrophils % (A) 93 %; RBC 2.84 m/uL (4.30-5.90); RDW 18.4 % (11.5-15.5); WBC 22.1 k/uL (3.8-10.6); WBC (Perox) 21.65
[2017-01-21 05:34] LABS: Anion Gap 7 mmol/L; Blood Urea Nitrogen 35 mg/dL (9-20); Calcium 7.7 mg/dL (8.4-10.2); Carbon Dioxide 24 mmol/L (22-30); Chloride 108 mmol/L (98-107); Glucose 111 mg/dL (74-99); Magnesium 2.4 mg/dL (1.6-2.3); Non-African American GFR(MDRD) >60 (>60 ml/min/1.73 sqM); Phosphorous 2.8 mg/dL (2.5-4.5); Potassium 4.1 mmol/L (3.5-5.1); Sodium 139 mmol/L (137-145)
[2017-01-21] MEDS: SODIUM CHLORIDE 0.9% 1,000 ML IV SCH ×2 (06:10→18:29)
[2017-01-21] MEDS: methylPREDNISolone SOD SUCCI 40 MG/ML 1 ML VIAL IV SCH ×4 (06:10→23:30)
--- NOTE | 2017-01-21 07:27 | XR ---
EXAMINATION TYPE: XR chest 1V DATE OF EXAM: 01/21/2017 HISTORY: SOB. REFERENCE: Previous study dated 01/20/2017. FINDINGS: Lung volumes are prominent. There is atelectatic change at the left lung base. Lungs otherw ise clear. Pleural spaces are clear. The heart is not enlarged. IMPRESSION: 1. COPD. 2. ATELECTASIS OR CONSOLIDATION, LEFT LUNG BASE.
[2017-01-21 08:03] LABS: Glucose,Whole Blood 151 mg/dL (75-99)
[2017-01-21] MEDS: BUDESONIDE 1 MG/2 ML NEBU INHALATION SCH ×2 (08:50→20:23)
[2017-01-21] MEDS: IPRATROPIUM-ALBUTEROL 3 ML NEB INHALATION SCH ×4 (08:50→20:23)
[2017-01-21] MEDS: INSULIN LISPRO (humaLOG) 300 UNIT/3 ML VIAL SQ SCH ×4 (09:00→22:01)
[2017-01-21] MEDS: guaiFENesin 600 MG TABLET.ER PO SCH ×2 (09:02→20:36)
[2017-01-21] MEDS: LOSARTAN 25 MG TAB PO SCH (09:03)
[2017-01-21] MEDS: ESOMEPRAZOLE 40 MG in SODIUM CHLORIDE 0.9% 50 ML IVPB SCH (09:03)
--- NOTE | 2017-01-21 10:40 | P.PN ---
Subjective Principal diagnosis: GI bleed epigastric pain 71-year-old male with advanced COPD presents with acute blood loss anemia GI bleed with melena. Patient had severe epigastric pain last night. Abdominal x- rays ordered no evidence of perforation. Epigastric abdominal pain improved however still passing black-colored stools last one was earlier this morning. Hemoglobin 7.9 yesterday received 1 unit of blood for a total of 3 units since admission present hemoglobin is 9.1. Respiratory status slightly improved from yesterday not as short of breath with conversation. Objective - Vital Signs Vital signs: Vital Signs Temp 97.9 F 01/21/17 04:00 Pulse 108 H 01/21/17 09:08 Resp 25 H 01/21/17 07:00 BP 124/81 01/21/17 07:00 Pulse Ox 97 01/21/17 07:00 Intake & Output 01/20/17 01/21/17 01/21/17 18:59 06:59 18:59 Intake Total 1250 1650 100 Output Total 625 675 100 Balance 625 975 0 Weight 53 kg 51.3 kg Intake: IV 1000 1010 100 Sodium Chloride 0.9% 1, 1000 1010 100 000 ml @ 100 mls/hr IV . Q10H [facility] Rx#:[id number] Oral 240 Blood Product 250 400 Rc Pheresis As-3 Unit 0 310 [id number] Output: Urine 625 675 100 Other: Voiding Method Indwelling Catheter Indwelling Catheter - Exam General appearance: The patient is alert, oriented, in no acute distress. HET: Head is normocephalic and atraumatic. Pupils are equal and reactive. Oropharynx is clear without lesions. Neck: Supple without lymphadenopathy. Trachea midline. Heart: S1 S2. Regular rate and rhythm. Lungs: No diminished throughout. Abdomen: Soft, epigastric tenderness, nondistended with bowel sounds. No peritoneal signs. No palpable organomegaly or masses. Extremities: Normal skin color and turgor. No cyanosis, rash, ulceration, clubbing, or edema. Radial and pedal pulses are 2/4 bilaterally. Neurological: No focal deficits. Strength and sensation are grossly intact. - Labs CBC & Chem 7: 01/21/17 04:47 01/21/17 04:47 Labs: Abnormal Lab Results - Last 24 Hours (Table) 01/19/17 01/20/17 01/20/17 Range/Units 13:10 12:20 13:06 WBC 23.7 H (3.8-10.6) k/uL RBC 2.50 L (4.30-5.90) m/uL Hgb 7.9 L (13.0-17.5) gm/dL Hct 24.1 L (39.0-53.0) % RDW 18.2 H (11.5-15.5) % Neutrophils # (1.3-7.7) k/uL Lymphocytes # (1.0-4.8) k/uL Chloride (98-107) mmol/L BUN (9-20) mg/dL Creatinine (0.66-1.25) mg/dL Glucose (74-99) mg/dL POC Glucose (mg/dL) 155 H (75-99) mg/dL Calcium (8.4-10.2) mg/dL Magnesium (1.6-2.3) mg/dL Iron (49-181) ug/dL % Saturation (20-50) % Crossmatch See Detail 01/20/17 01/20/17 01/20/17 Range/Units 13:07 17:54 20:12 WBC (3.8-10.6) k/uL RBC (4.30-5.90) m/uL Hgb (13.0-17.5) gm/dL Hct (39.0-53.0) % RDW (11.5-15.5) % Neutrophils # (1.3-7.7) k/uL Lymphocytes # (1.0-4.8) k/uL Chloride (98-107) mmol/L BUN (9-20) mg/dL Creatinine (0.66-1.25) mg/dL Glucose (74-99) mg/dL POC Glucose (mg/dL) 130 H 185 H (75-99) mg/dL Calcium (8.4-10.2) mg/dL Magnesium (1.6-2.3) mg/dL Iron 316 H (49-181) ug/dL % Saturation 121.1 H (20-50) % Crossmatch 01/20/17 01/21/17 01/21/17 Range/Units 21:41 04:47 04:47 WBC 21.5 H 22.1 H (3.8-10.6) k/uL RBC 2.90 L 2.84 L (4.30-5.90) m/uL Hgb 9.2 L 9.1 L (13.0-17.5) gm/dL Hct 27.2 L 27.4 L (39.0-53.0) % RDW 17.3 H 18.4 H (11.5-15.5) % Neutrophils # 19.6 H 20.6 H (1.3-7.7) k/uL Lymphocytes # 0.6 L 0.7 L (1.0-4.8) k/uL Chloride 108 H (98-107) mmol/L BUN 35 H (9-20) mg/dL Creatinine 0.50 L (0.66-1.25) mg/dL Glucose 111 H (74-99) mg/dL POC Glucose (mg/dL) (75-99) mg/dL Calcium 7.7 L (8.4-10.2) mg/dL Magnesium 2.4 H (1.6-2.3) mg/dL Iron (49-181) ug/dL % Saturation (20-50) % Crossmatch 01/21/17 Range/Units 08:02 WBC (3.8-10.6) k/uL RBC (4.30-5.90) m/uL Hgb (13.0-17.5) gm/dL Hct (39.0-53.0) % RDW (11.5-15.5) % Neutrophils # (1.3-7.7) k/uL Lymphocytes # (1.0-4.8) k/uL Chloride (98-107) mmol/L BUN (9-20) mg/dL Creatinine (0.66-1.25) mg/dL Glucose (74-99) mg/dL POC Glucose (mg/dL) 151 H (75-99) mg/dL Calcium (8.4-10.2) mg/dL Magnesium (1.6-2.3) mg/dL Iron (49-181) ug/dL % Saturation (20-50) % Crossmatch Microbiology - Last 24 Hours (Table) 01/20/17 00:02 Urine Culture - Preliminary Urine,Catheterized Assessment and Plan (1) GI hemorrhage Narrative/Plan: 71-year-old male presents with symptomatic acute blood loss anemia worsening shortness of breath with underlying advanced COPD O2 dependent for black colored bowel movements a last 4-5 days suggestive of acute GI bleed possible peptic ulcer disease. Status: Acute (2) Melena Status: Acute (3) Acute blood loss anemia Status: Acute (4) Advanced COPD Status: Acute Plan: 1. EGD evaluation today pulmonary clearance was obtained by Dr. Liberty marx per his TOLL BOOTH OPERATOR Renuka Alegria. 2. CBC monitoring. Esomeprazole 40 mg IV daily. The ranger aide has discussed the risks, benefits and alternative therapies for the above-mentioned procedure and for both sedation/analgesia as well as necessary blood product administration, if indicated, as they pertain to this patient. The patient has indicated understanding and acceptance of the risks and procedures discussed. Assessment and plan a care discussed with Dr. Herrera
--- NOTE | 2017-01-21 12:13 | P.PN ---
Subjective 01/20/17- This is a 71-year-old pleasant male being seen examined and evaluated today in the intensive care unit. This patient is well-known to us services. This patient has had multiple admissions due to COPD exacerbations, respiratory failure and recurrent pneumonia. He was recently discharged on 01/07/2017 for COPD exacerbation. He was visited by home health care nurses and they noted him to be weak and pale with severe shortness of breath on exertion. The patient chronically uses home oxygen 3 L via nasal cannula at all times. His home health care nurse suggested he come into the emergency room. While he was in the emergency room his workup included a chest x-ray that showed chronic emphysema changes without any acute pulmonary process. The patient did note to be short of breath and was placed on BiPAP with an FiO2 of 40%. His lab workup revealed a hemoglobin of 7.7 which is a decrease from 15.5 on January 11. Patient received 2 units of packed red blood cells in the emergency room and was found to be occult positive patient also was continuing his discharge medications of prednisone as well as antibiotics from previous admission. Upon examination the patient's resting up in bed on 4 L of supplemental oxygen via nasal cannula , he is noted to have severe shortness of breath with exertion or extensive conversation. Patient has had a congested cough however difficulty with bringing up secretions. Of note the patient states that he did have a dark black bowel movement 5 days ago, and he has not had one since. Currently the patient is hemodynamically stable, current hemoglobin is 8.3. Patient is tolerating his clear liquid diet. Patient is also being seen by GI and possibly will undergo a scope in the next 48 hours, once respiratory status improved. 01/21/17 this patient is seen and examined today on rounds. The patient is currently in the ICU. Apparently overnight the patient had some increase in abdominal pain and a hemoglobin that went down to 7.9. GI was updated and ordered a chest x-ray which showed no acute process. Patient did receive 1 unit of packed red blood cells and is now at a hemoglobin of 9.1. Patient did have another black-colored stool this morning. We have consulted with GI and determined to go ahead with the patient's EGD. Patient continues to be short of breath with exertion or extensive conversation, however has improved slightly compared to yesterday's.. Patient continues to complain of a mild cough however it is nonproductive at this time. Objective - Vital Signs Vital signs: Vital Signs Temp 98.4 F 01/21/17 08:00 Pulse 115 H 01/21/17 10:00 Resp 25 H 01/21/17 10:00 BP 119/78 01/21/17 10:00 Pulse Ox 92 L 01/21/17 10:00 Intake & Output 01/20/17 01/21/17 01/21/17 18:59 06:59 18:59 Intake Total 1250 1650 400 Output Total 625 675 250 Balance 625 975 150 Weight 53 kg 51.3 kg Intake: IV 1000 1010 400 Sodium Chloride 0.9% 1, 1000 1010 400 000 ml @ 100 mls/hr IV . Q10H [facility] Rx#:[id number] Oral 240 Blood Product 250 400 Rc Pheresis As-3 Unit 0 310 [id number] Output: Urine 625 675 250 Other: Voiding Method Indwelling Catheter Indwelling Catheter Indwelling Catheter - Exam GENERAL EXAM: Alert, pale, comfortable in no apparent distress. HEAD: Normocephalic. EYES: Normal reaction of pupils, equal size. NOSE: Clear with pink turbinates. THROAT: No erythema or exudates. NECK: No masses, no JVD. CHEST: No chest wall deformity. LUNGS: Poor air entry bilaterally with fine expiratory rhonchi scattered. Bases diminished CVS: S1 and S2 normal with no audible mumurs, regular rhythm. ABDOMEN: No hepatosplenomegaly, normal bowel sounds, no guarding or rigidity. EXTREMITIES: No edema noted, pedal pulses palpable. SKIN: No rashes CENTRAL NERVOUS SYSTEM: No focal deficits, tone is normal in all 4 extremities. - Labs CBC & Chem 7: 01/21/17 04:47 01/21/17 04:47 Labs: Abnormal Lab Results - Last 24 Hours (Table) 01/19/17 01/20/17 01/20/17 Range/Units 13:10 12:20 13:06 WBC 23.7 H (3.8-10.6) k/uL RBC 2.50 L (4.30-5.90) m/uL Hgb 7.9 L (13.0-17.5) gm/dL Hct 24.1 L (39.0-53.0) % RDW 18.2 H (11.5-15.5) % Neutrophils # (1.3-7.7) k/uL Lymphocytes # (1.0-4.8) k/uL Chloride (98-107) mmol/L BUN (9-20) mg/dL Creatinine (0.66-1.25) mg/dL Glucose (74-99) mg/dL POC Glucose (mg/dL) 155 H (75-99) mg/dL Calcium (8.4-10.2) mg/dL Magnesium (1.6-2.3) mg/dL Iron (49-181) ug/dL % Saturation (20-50) % Crossmatch See Detail 01/20/17 01/20/17 01/20/17 Range/Units 13:07 17:54 20:12 WBC (3.8-10.6) k/uL RBC (4.30-5.90) m/uL Hgb (13.0-17.5) gm/dL Hct (39.0-53.0) % RDW (11.5-15.5) % Neutrophils # (1.3-7.7) k/uL Lymphocytes # (1.0-4.8) k/uL Chloride (98-107) mmol/L BUN (9-20) mg/dL Creatinine (0.66-1.25) mg/dL Glucose (74-99) mg/dL POC Glucose (mg/dL) 130 H 185 H (75-99) mg/dL Calcium (8.4-10.2) mg/dL Magnesium (1.6-2.3) mg/dL Iron 316 H (49-181) ug/dL % Saturation 121.1 H (20-50) % Crossmatch 01/20/17 01/21/17 01/21/17 Range/Units 21:41 04:47 04:47 WBC 21.5 H 22.1 H (3.8-10.6) k/uL RBC 2.90 L 2.84 L (4.30-5.90) m/uL Hgb 9.2 L 9.1 L (13.0-17.5) gm/dL Hct 27.2 L 27.4 L (39.0-53.0) % RDW 17.3 H 18.4 H (11.5-15.5) % Neutrophils # 19.6 H 20.6 H (1.3-7.7) k/uL Lymphocytes # 0.6 L 0.7 L (1.0-4.8) k/uL Chloride 108 H (98-107) mmol/L BUN 35 H (9-20) mg/dL Creatinine 0.50 L (0.66-1.25) mg/dL Glucose 111 H (74-99) mg/dL POC Glucose (mg/dL) (75-99) mg/dL Calcium 7.7 L (8.4-10.2) mg/dL Magnesium 2.4 H (1.6-2.3) mg/dL Iron (49-181) ug/dL % Saturation (20-50) % Crossmatch 01/21/17 Range/Units 08:02 WBC (3.8-10.6) k/uL RBC (4.30-5.90) m/uL Hgb (13.0-17.5) gm/dL Hct (39.0-53.0) % RDW (11.5-15.5) % Neutrophils # (1.3-7.7) k/uL Lymphocytes # (1.0-4.8) k/uL Chloride (98-107) mmol/L BUN (9-20) mg/dL Creatinine (0.66-1.25) mg/dL Glucose (74-99) mg/dL POC Glucose (mg/dL) 151 H (75-99) mg/dL Calcium (8.4-10.2) mg/dL Magnesium (1.6-2.3) mg/dL Iron (49-181) ug/dL % Saturation (20-50) % Crossmatch Microbiology - Last 24 Hours (Table) 01/20/17 00:02 Urine Culture - Preliminary Urine,Catheterized Assessment and Plan Plan: Assessment End-stage COPD with acute exacerbation Acute on chronic hypoxic respiratory failure GI hemorrhage Acute blood loss anemia Leukocytosis related to prolonged prednisone use Hypertension Hyperlipidemia BPH Plan Patient will remain in the intensive care unit today. Patient will go ahead with EGD today. We will transfuse use packed red blood cells as needed. Medications have been reviewed and will be continued as ordered. Continue with pulmonary hygiene, coughing and deep breathing exercises, and supportive care. Supplemental oxygen and/or BiPAP to maintain oxygen saturations of 92% or better. Continue nebulizer treatments. Initiate and encourage incentive spirometer. GI and DVT prophylaxis. We will continue to monitor labs/results and adjust treatment as necessary. Further recommendations pending. I performed an examination of the patient and discussed their management with the nurse practitioner. I have reviewed the nurse practitioner's note and agree with the documented findings and plan of care.
[2017-01-21] MEDS: metroNIDAZOLE-NS PMX 500 MG in SALINE 1 100ML.BAG IVPB SCH ×3 (12:19→23:30)
[2017-01-21] MEDS: CHOLECALCIFEROL 400 UNIT TAB PO SCH (12:19)
[2017-01-21 12:32] LABS: Glucose,Whole Blood 114 mg/dL (75-99)
[2017-01-21] MEDS ORDERED: ALPRAZolam 0.25 MG TAB PO SCH (13:00)
[2017-01-21] MEDS ORDERED: IV FLUID CONTINUATION 1,000 ML IV ONE (13:51)
[2017-01-21] MEDS ORDERED: PHENYLEPHRINE-0.9% NACL SYG 1 MG/10 ML SYRINGE ONE (13:55)
[2017-01-21] MEDS ORDERED: PROPOFOL 10 MG/ML 20 ML VIAL IV ONE (13:55)
[2017-01-21] MEDS ORDERED: LIDOCAINE 1% INJ 10MG/ML (20 ML MDV) ONE (13:55)
--- NOTE | 2017-01-21 14:04 | P.PCN ---
Date of Procedure: 01/21/17 Preoperative Diagnosis: Postoperative Diagnosis: Procedure(s) Performed: BRIEF HISTORY: Patient is a 71-year-old, pleasant, white male, admitted to the hospital with epigastric pain and black tarry stools of 2 days' duration.. He is hence scheduled for an upper endoscopy to evaluate further. PROCEDURE PERFORMED: Esophagogastroduodenoscopy with biopsy. PREOPERATIVE DIAGNOSIS: Epigastric pain and black tarry stools of 3 days' duration. IV sedation per anesthesia. PROCEDURE: After informed consent was obtained, the patient was brought into the endoscopy unit. IV sedation was administered by Anesthesia under continuous monitoring. Initially the Olympus GIF-140 video endoscope was inserted into the mouth. Esophagus intubated without any difficulty. It was gradually advanced into the stomach and duodenum and carefully examined. The bulb and the second part of the duodenum appeared normal. The scope at this time was withdrawn to the stomach, adequately insufflated with air, and upon careful examination, mucosa of the antrum, body, cardia and the fundus appeared normal. The scope was then withdrawn into the esophagus. The GE junction was located at 40 cm from the incisors. Moderate sized hiatal hernia seen. There is a long segment of Hill's esophagus etc. from 34-40 cm from the incisors in the distal segment of Hill's esophagus there were 2 superficial ulcerations measuring 1 cm in size with no active bleeding. Biopsies were done from the esophageal ulcerations and Hill's esophagus. The rest of the esophagus appeared normal. There were no erosions or ulcerations seen and the patient tolerated the procedure well. IMPRESSION: 1. 2 superficial ulcerations in the distal esophagus in the segment of Hill' s esophagus status post biopsy. 2. Moderate size hiatal hernia 3. Long segment Hill's esophagus. RECOMMENDATIONS: The findings of this examination were discussed with the patient area to he will be continued on Protonix 40 mg twice daily and at this time await the biopsy results. Diet will be advanced as tolerated. Implants: Indications for Procedure: Operative Findings: Description of Procedure:
[2017-01-21] MEDS ORDERED: SODIUM CHLORIDE 0.9% 1,000 ML IV ONE (14:07)
--- NOTE | 2017-01-21 14:21 | P.PN ---
Subjective This is a 71-year-old male patient of Dr. Ronn Aaron and Dr. Koenig with past medical history of COPD, hypertension, BPH, recurrent pneumonia thoracic aneurysm who was in the hospital apparently multiple admissions back in August 2016 and again 12/31/2016, 01/07/2017 with episode of pneumonia and COPD exacerbation with respiratory failure. He was discharged 01/07/2017 secondary to COPD exacerbation, and was given oral prednisone on discharge as well as oral antibiotic. Patient will by visiting nurses and was noted to be weak and pale, he has this woman exertion, patient was not actively wheezing then however he was noted to have decreased difficulty of breathing and diminished air sounds, he is chronically hypoxemic using 3 L of O2 nasal cannula 24 7, along with nebulized treatments at home. Those admissions he was negative for pulmonary emboli echocardiogram done at that time shows mild mitral and tricuspid regurgitation ejection fraction of 60-65% no pulmonary hypertension. in the emergency room he had a chest x-ray that shows chronic findings similar to his changes without acute pulmonary process no pleural effusion no pneumothorax he was saturating on 99% BiPAP 40%, and hemoglobin on admission was 7.7 from a previous off 15.8 January 11 which is a drop off 8 g in 8 days. He was transfused 2 units of packed red blood cell in the emergency room his Hemoccult positive and has epigastric tenderness. Patient took the oral prednisone along with 3doses Motrin the day prior to admission were made Dr. Herrera from gastroenterology patient did admit done under the service admitted to ICU, Dr. 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 Iron studies ordered and Ferrlecit 1 dose to be given today. White count has improved from 31-15.6. Patient has been evaluated by Dr. Carballo and started on a clear liquid diet. Dr. Koenig is on for critical care management. He is currently on Solu-Medrol 40 mg every 6 hours. 01/21: Hemoglobin is at 9.1. White count is staying at 22.1. She remains in intensive care unit but most likely will be transferred out after he has his EGD scheduled for later today. Patient is currently nothing by mouth except for ice chips. Patient does complain of loose stools and left lower quadrant pain with concern for C. difficile colitis. According to his nurse, he has had only smears of stool. If patient has diarrhea, stool for C. difficile toxin to be checked. Patient started on Flagyl. Objective - Vital Signs Vital signs: Vital Signs Temp 97.9 F 01/21/17 04:00 Pulse 113 H 01/21/17 07:00 Resp 25 H 01/21/17 07:00 BP 124/81 01/21/17 07:00 Pulse Ox 97 01/21/17 07:00 Intake & Output 01/20/17 01/21/17 01/21/17 18:59 06:59 18:59 Intake Total 1250 1650 100 Output Total 625 675 100 Balance 625 975 0 Weight 53 kg 51.3 kg Intake: IV 1000 1010 100 Sodium Chloride 0.9% 1, 1000 1010 100 000 ml @ 100 mls/hr IV . Q10H [facility] Rx#:[id number] Oral 240 Blood Product 250 400 Rc Pheresis As-3 Unit 0 310 [id number] Output: Urine 625 675 100 Other: Voiding Method Indwelling Catheter Indwelling Catheter - Exam General appearance: cooperative, mild distress, thin - EENT Eyes: anicteric sclerae, EOMI, PERRLA, dentition normal, normal appearance ENT: hearing grossly normal, NA/AT, normal oropharynx - Neck Neck: no lymphadenopathy, normal ROM, no other, no rigidity, no stridor, no thyromegaly - Respiratory Respiratory: bilateral: CTA, negative: diminished, dullness, rales, rhonchi, wheezing - Cardiovascular Rhythm: regular Heart sounds: normal: S1, S2 Abnormal Heart Sounds: no systolic murmur, no diastolic murmur, no rub, no S3 Gallop, no S4 Gallop, no click, no other - Gastrointestinal General gastrointestinal: normal bowel sounds, soft - Integumentary Integumentary: decreased turgor, normal - Neurologic Neurologic: CNII-XII intact - Musculoskeletal Musculoskeletal: gait normal - Psychiatric Psychiatric: A&O x's 3, appropriate affect - Labs CBC & Chem 7: 01/21/17 04:47 01/21/17 04:47 Labs: Abnormal Lab Results - Last 24 Hours (Table) 01/19/17 01/20/17 01/20/17 Range/Units 13:10 12:20 13:06 WBC 23.7 H (3.8-10.6) k/uL RBC 2.50 L (4.30-5.90) m/uL Hgb 7.9 L (13.0-17.5) gm/dL Hct 24.1 L (39.0-53.0) % RDW 18.2 H (11.5-15.5) % Neutrophils # (1.3-7.7) k/uL Lymphocytes # (1.0-4.8) k/uL Chloride (98-107) mmol/L BUN (9-20) mg/dL Creatinine (0.66-1.25) mg/dL Glucose (74-99) mg/dL POC Glucose (mg/dL) 155 H (75-99) mg/dL Calcium (8.4-10.2) mg/dL Magnesium (1.6-2.3) mg/dL Iron (49-181) ug/dL % Saturation (20-50) % Crossmatch See Detail 01/20/17 01/20/17 01/20/17 Range/Units 13:07 17:54 20:12 WBC (3.8-10.6) k/uL RBC (4.30-5.90) m/uL Hgb (13.0-17.5) gm/dL Hct (39.0-53.0) % RDW (11.5-15.5) % Neutrophils # (1.3-7.7) k/uL Lymphocytes # (1.0-4.8) k/uL Chloride (98-107) mmol/L BUN (9-20) mg/dL Creatinine (0.66-1.25) mg/dL Glucose (74-99) mg/dL POC Glucose (mg/dL) 130 H 185 H (75-99) mg/dL Calcium (8.4-10.2) mg/dL Magnesium (1.6-2.3) mg/dL Iron 316 H (49-181) ug/dL % Saturation 121.1 H (20-50) % Crossmatch 01/20/17 01/21/17 01/21/17 Range/Units 21:41 04:47 04:47 WBC 21.5 H 22.1 H (3.8-10.6) k/uL RBC 2.90 L 2.84 L (4.30-5.90) m/uL Hgb 9.2 L 9.1 L (13.0-17.5) gm/dL Hct 27.2 L 27.4 L (39.0-53.0) % RDW 17.3 H 18.4 H (11.5-15.5) % Neutrophils # 19.6 H 20.6 H (1.3-7.7) k/uL Lymphocytes # 0.6 L 0.7 L (1.0-4.8) k/uL Chloride 108 H (98-107) mmol/L BUN 35 H (9-20) mg/dL Creatinine 0.50 L (0.66-1.25) mg/dL Glucose 111 H (74-99) mg/dL POC Glucose (mg/dL) (75-99) mg/dL Calcium 7.7 L (8.4-10.2) mg/dL Magnesium 2.4 H (1.6-2.3) mg/dL Iron (49-181) ug/dL % Saturation (20-50) % Crossmatch Microbiology - Last 24 Hours (Table) 01/20/17 00:02 Urine Culture - Preliminary Urine,Catheterized Assessment and Plan Plan: 1. Acute blood loss anemia with critical hemoglobin, steroid gastropathy suspected patient will be admitted to ICU and would be monitored closely for hemoglobin drop, patient was started on IV Nexium 20 mg daily with consults to Dr. Herrera for EGD, he is Hemoccult positive black stools he is receiving 2 units of packed red blood cell on admission, with hemoglobin to be titrated upwards over 8, Ferrlecit 2 Acute hypoxic respiratory failure with chronic hypoxemic respiratory failure with decompensation related to significant anemia, BiPAP treatments provided in the emergency room and would be continued for ventilatory support until stabilized in ICU Dr. Koenig is on consult H&H every 6 hours Continue DuoNeb treatments every 4 hours, albuterol 4 times daily as needed, Pulmicort 0.5 milligrams twice daily, albuterol and Atrovent nebulized solution Court nebulized solution 3. End-stage COPD with chronic hypoxemic respiratory failure on maintenance nebulized solution and 3 L test cannula O2, patient will be given a burst off Solu-Medrol, with no plans for tapering prednisone increase Pulmicort to 1 mg twice a day possible theophylline 4. Leukocytosis possibly related to prednisone, patient is without any typical symptoms except for the respiratory decompensation no evidence of pneumonia at this time continue to monitor no oral antibiotics or IV antibiotics started at this tim5 5. Hypertension. Continue Cozaar 25 mg daily. 6. Hyperlipidemia. Continue pravastatin 40 mg daily. 7. Benign prostatic hypertrophy. Continue Flomax or 0.4 mg at bedtime. 8. Vitamin D deficiency. Continue supplement. 8. Gastric intestinal prophylaxis. Nexium 9. DVT prophylaxis. Mechanical prophylaxis only, contraindicated to use pharmacological prophylaxis secondary to acute GI bleed 10. CODE STATUS: No code. 11. Patient reported loose stools, rule out C. difficile colitis. Patient started on Flagyl. Discharge plan: To be determined Impression and plan of care have been directed as dictated by the signing physician. Denise Dupont nurse practitioner acting as scribe for signing physician.
[2017-01-21 15:35] LABS: Anisocytosis Slight; CH 31.3; CHCM 32.9; HCT 25.2 % (39.0-53.0); HDW 2.94; HGB 8.4 gm/dL (13.0-17.5); MCH 31.7 pg (25.0-35.0); MCHC 33.1 g/dL (31.0-37.0); MCV 95.9 fL (80.0-100.0); Macrocytosis Slight; Mean Platelet Volume 7.5; RBC 2.63 m/uL (4.30-5.90); RDW 19.1 % (11.5-15.5); WBC (Perox) 25.53
[2017-01-21 15:36] LABS: WBC 25.2 k/uL (3.8-10.6)
[2017-01-21 15:52] LABS: Add Differential Manual Differential
[2017-01-21 15:55] LABS: Band Neutrophils % 3.5 %; Manual Review Performed; Myelocytes % 0.5 %; Nucleated Red Blood Cells 0 /100 WBC (0-0); Total Cells Counted 200; Toxic Granulation Present
[2017-01-21 18:32] LABS: Glucose,Whole Blood 143 mg/dL (75-99)
[2017-01-21] MEDS: MONTELUKAST 10 MG TAB PO SCH (20:36)
[2017-01-21] MEDS: TAMSULOSIN 0.4 MG CAP.ER.24H PO SCH (20:37)
[2017-01-21] MEDS: PRAVASTATIN SODIUM 40 MG TAB PO SCH (20:37)
[2017-01-21 21:24] LABS: Glucose,Whole Blood 145 mg/dL (75-99)
[2017-01-22] MEDS: IPRATROPIUM-ALBUTEROL 3 ML NEB INHALATION PRN ×2 (00:03→03:58)
[2017-01-22 02:31] LABS: Glucose,Whole Blood 123 mg/dL (75-99)
[2017-01-22] MEDS: ALPRAZolam 0.25 MG TAB PO PRN ×4 (05:19→23:25)
[2017-01-22] MEDS: methylPREDNISolone SOD SUCCI 40 MG/ML 1 ML VIAL IV SCH ×4 (05:19→23:25)
[2017-01-22] MEDS: SODIUM CHLORIDE 0.9% 1,000 ML IV SCH ×3 (05:20→23:26)
[2017-01-22 07:02] LABS: Glucose,Whole Blood 127 mg/dL (75-99)
[2017-01-22] MEDS: INSULIN LISPRO (humaLOG) 300 UNIT/3 ML VIAL SQ SCH ×4 (07:51→21:10)
[2017-01-22] MEDS: IPRATROPIUM-ALBUTEROL 3 ML NEB INHALATION SCH ×4 (08:06→20:36)
[2017-01-22] MEDS: BUDESONIDE 1 MG/2 ML NEBU INHALATION SCH ×2 (08:06→20:36)
[2017-01-22] MEDS: guaiFENesin 600 MG TABLET.ER PO SCH ×2 (08:29→21:10)
[2017-01-22] MEDS: metroNIDAZOLE-NS PMX 500 MG in SALINE 1 100ML.BAG IVPB SCH ×2 (08:29→17:29)
[2017-01-22] MEDS: LOSARTAN 25 MG TAB PO SCH (08:30)
[2017-01-22 08:53] LABS: Anion Gap 3 mmol/L; Blood Urea Nitrogen 33 mg/dL (9-20); Calcium 7.4 mg/dL (8.4-10.2); Carbon Dioxide 25 mmol/L (22-30); Chloride 110 mmol/L (98-107); Glucose 127 mg/dL (74-99); Magnesium 2.5 mg/dL (1.6-2.3); Non-African American GFR(MDRD) >60 (>60 ml/min/1.73 sqM); Potassium 4.2 mmol/L (3.5-5.1); Sodium 138 mmol/L (137-145)
[2017-01-22 08:58] LABS: Anisocytosis Slight; Basophils % (A) 0 %; CH 31.4; CHCM 32.7; Eosinophils % (A) 0 %; HCT 24.1 % (39.0-53.0); HGB 8.1 gm/dL (13.0-17.5); Luc # (Auto) 0.07; Luc % (Auto) 0; Lymphocytes # (A) 0.5 k/uL (1.0-4.8); Lymphocytes % (A) 2 %; MCH 32.5 pg (25.0-35.0); MCHC 33.5 g/dL (31.0-37.0); Macrocytosis Slight; Mean Platelet Volume 7.2; Monocytes # (A) 0.8 k/uL (0-1.0); Monocytes % (A) 3 %; Neutrophils % (A) 94 %; RBC 2.48 m/uL (4.30-5.90); RDW 19.6 % (11.5-15.5); WBC (Perox) 27.53
[2017-01-22 09:01] LABS: WBC 26.5 k/uL (3.8-10.6)
--- NOTE | 2017-01-22 10:47 | P.PN ---
Subjective Principal diagnosis: GI bleed epigastric pain 71-year-old male with advanced COPD presents with acute blood loss anemia GI bleed with melena. Status post EGD evaluation yesterday with findings of 2 superficial ulcerations in the distal esophagus long segment of Hill's status post biopsies. Moderate size hiatal hernia. Abdominal pain improved. No melena 24 hours. Hemoglobin 8.1. Objective - Vital Signs Vital signs: Vital Signs Temp 96.1 F L 01/22/17 07:00 Pulse 116 H 01/22/17 08:26 Resp 20 01/22/17 07:00 BP 111/69 01/22/17 07:00 Pulse Ox 96 01/22/17 08:09 Intake & Output 01/21/17 01/22/17 01/22/17 18:59 06:59 18:59 Intake Total 1500 Output Total 505 650 Balance 995 -650 Intake: IV 1400 Sodium Chloride 0.9% 1, 1000 000 ml @ 100 mls/hr IV . Q10H ISABELA Rx#:[id number] Intake, IV Titration 100 Amount metroNIDAZOLE-NS PMX 500 100 mg In Saline 1 100ml.bag @ 100 mls/hr IVPB Q8HR ISABELA Rx#:[id number] Output: Urine 505 525 Post Void Residual 125 Other: Voiding Method Indwelling Catheter Urinal Urinal # Voids 1 1 - Exam General appearance: The patient is alert, oriented, in no acute distress. HET: Head is normocephalic and atraumatic. Pupils are equal and reactive. Oropharynx is clear without lesions. Neck: Supple without lymphadenopathy. Trachea midline. Heart: S1 S2. Regular rate and rhythm. Lungs: No diminished throughout. Abdomen: Soft, very mild epigastric tenderness, nondistended with bowel sounds. No peritoneal signs. No palpable organomegaly or masses. Extremities: Normal skin color and turgor. No cyanosis, rash, ulceration, clubbing, or edema. Radial and pedal pulses are 2/4 bilaterally. Neurological: No focal deficits. Strength and sensation are grossly intact. - Labs CBC & Chem 7: 01/22/17 08:18 01/22/17 08:18 Labs: Abnormal Lab Results - Last 24 Hours (Table) 01/21/17 01/21/17 01/21/17 Range/Units 12:30 15:17 18:30 WBC 25.2 H* (3.8-10.6) k/uL RBC 2.63 L (4.30-5.90) m/uL Hgb 8.4 L (13.0-17.5) gm/dL Hct 25.2 L (39.0-53.0) % RDW 19.1 H (11.5-15.5) % Neutrophils # (1.3-7.7) k/uL Neutrophils # (Manual) 22.9 H (1.3-7.7) k/uL Lymphocytes # (1.0-4.8) k/uL Lymphocytes # (Manual) 0.5 L (1.0-4.8) k/uL Monocytes # (Manual) 1.1 H (0-1.0) k/uL Chloride (98-107) mmol/L BUN (9-20) mg/dL Creatinine (0.66-1.25) mg/dL Glucose (74-99) mg/dL POC Glucose (mg/dL) 114 H 143 H (75-99) mg/dL Calcium (8.4-10.2) mg/dL Phosphorus (2.5-4.5) mg/dL Magnesium (1.6-2.3) mg/dL 01/21/17 01/22/17 01/22/17 Range/Units 21:19 02:28 07:00 WBC (3.8-10.6) k/uL RBC (4.30-5.90) m/uL Hgb (13.0-17.5) gm/dL Hct (39.0-53.0) % RDW (11.5-15.5) % Neutrophils # (1.3-7.7) k/uL Neutrophils # (Manual) (1.3-7.7) k/uL Lymphocytes # (1.0-4.8) k/uL Lymphocytes # (Manual) (1.0-4.8) k/uL Monocytes # (Manual) (0-1.0) k/uL Chloride (98-107) mmol/L BUN (9-20) mg/dL Creatinine (0.66-1.25) mg/dL Glucose (74-99) mg/dL POC Glucose (mg/dL) 145 H 123 H 127 H (75-99) mg/dL Calcium (8.4-10.2) mg/dL Phosphorus (2.5-4.5) mg/dL Magnesium (1.6-2.3) mg/dL 01/22/17 01/22/17 Range/Units 08:18 08:18 WBC 26.5 H* (3.8-10.6) k/uL RBC 2.48 L (4.30-5.90) m/uL Hgb 8.1 L (13.0-17.5) gm/dL Hct 24.1 L (39.0-53.0) % RDW 19.6 H (11.5-15.5) % Neutrophils # 25.0 H (1.3-7.7) k/uL Neutrophils # (Manual) (1.3-7.7) k/uL Lymphocytes # 0.5 L (1.0-4.8) k/uL Lymphocytes # (Manual) (1.0-4.8) k/uL Monocytes # (Manual) (0-1.0) k/uL Chloride 110 H (98-107) mmol/L BUN 33 H (9-20) mg/dL Creatinine 0.54 L (0.66-1.25) mg/dL Glucose 127 H (74-99) mg/dL POC Glucose (mg/dL) (75-99) mg/dL Calcium 7.4 L (8.4-10.2) mg/dL Phosphorus 2.0 L (2.5-4.5) mg/dL Magnesium 2.5 H (1.6-2.3) mg/dL Microbiology - Last 24 Hours (Table) 01/20/17 00:02 Urine Culture - Final Urine,Catheterized Assessment and Plan (1) GI hemorrhage Narrative/Plan: Upper GI bleed secondary to esophageal ulcerations. Status: Acute (2) Melena Status: Acute (3) Acute blood loss anemia Status: Acute (4) Advanced COPD Status: Acute (5) Hill's esophagus Status: Acute Plan: 1. Diet as tolerated. Protonix 40 mg daily and discharged. Return to office in 1-2 weeks to discuss biopsy results. CBC monitoring. We'll follow as needed. Assessment and plan a care discussed with Dr. Herrera.
[2017-01-22] MEDS: ESOMEPRAZOLE 40 MG in SODIUM CHLORIDE 0.9% 50 ML IVPB SCH (11:31)
[2017-01-22] MEDS: CHOLECALCIFEROL 400 UNIT TAB PO SCH (11:36)
[2017-01-22 12:34] LABS: Glucose,Whole Blood 151 mg/dL (75-99)
--- NOTE | 2017-01-22 12:41 | XR ---
EXAMINATION TYPE: XR chest 1V DATE OF EXAM: 01/22/2017 HISTORY: SOB. REFERENCE: Previous study dated 01/21/2017. FINDINGS: Lung volumes are prominent. The lungs are clear. Pleural spaces are clear. Heart size is no rmal. IMPRESSION: COPD.
--- NOTE | 2017-01-22 13:13 | P.PN ---
Subjective This is a 71-year-old male patient of Dr. Ronn Aaron and Dr. Koenig with past medical history of COPD, hypertension, BPH, recurrent pneumonia thoracic aneurysm who was in the hospital apparently multiple admissions back in August 2016 and again 12/31/2016, 01/07/2017 with episode of pneumonia and COPD exacerbation with respiratory failure. He was discharged 01/07/2017 secondary to COPD exacerbation, and was given oral prednisone on discharge as well as oral antibiotic. Patient will by visiting nurses and was noted to be weak and pale, he has this woman exertion, patient was not actively wheezing then however he was noted to have decreased difficulty of breathing and diminished air sounds, he is chronically hypoxemic using 3 L of O2 nasal cannula 24 7, along with nebulized treatments at home. Those admissions he was negative for pulmonary emboli echocardiogram done at that time shows mild mitral and tricuspid regurgitation ejection fraction of 60-65% no pulmonary hypertension. in the emergency room he had a chest x-ray that shows chronic findings similar to his changes without acute pulmonary process no pleural effusion no pneumothorax he was saturating on 99% BiPAP 40%, and hemoglobin on admission was 7.7 from a previous off 15.8 January 11 which is a drop off 8 g in 8 days. He was transfused 2 units of packed red blood cell in the emergency room his Hemoccult positive and has epigastric tenderness. Patient took the oral prednisone along with 3doses Motrin the day prior to admission were made Dr. 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 Iron studies ordered and Ferrlecit 1 dose to be given today. White count has improved from 31-15.6. Patient has been evaluated by Dr. Carballo and started on a clear liquid diet. Dr. Koenig is on for critical care management. He is currently on Solu-Medrol 40 mg every 6 hours. 01/21: Hemoglobin is at 9.1. White count is staying at 22.1. She remains in intensive care unit but most likely will be transferred out after he has his EGD scheduled for later today. Patient is currently nothing by mouth except for ice chips. Patient does complain of loose stools and left lower quadrant pain with concern for C. difficile colitis. According to his nurse, he has had only smears of stool. If patient has diarrhea, stool for C. difficile toxin to be checked. Patient started on Flagyl. 01/22: EGD was done showing 2 superficial ulcerations in the distal esophagus and the segment of Hill's esophagus status post biopsy, moderate size hiatal hernia, long segment of Hill's esophagus. Dr. Jeanne Carballo has recommended Protonix 40 mg twice daily. Biopsy reports are pending. Diet is to be advanced as tolerated. He is on Solu-Medrol 40 mg every 6 hours which will remain the same. Chest x-ray shows COPD. Patient complains of weakness. He continues to have a cough that is nonproductive. Zosyn added. Stools are black but solid. Transfusion of 1 unit packed RBCs ordered. Patient is planning for discharge to [facility] for subacute rehab once stabilized. Objective - Vital Signs Vital signs: Vital Signs Temp 97.8 F 01/21/17 12:00 Pulse 110 H 01/21/17 13:00 Resp 28 H 01/21/17 13:00 BP 92/64 01/21/17 13:00 Pulse Ox 93 L 01/21/17 13:00 Intake & Output 01/20/17 01/21/17 01/21/17 18:59 06:59 18:59 Intake Total 1250 1650 1200 Output Total 625 675 405 Balance 625 975 795 Weight 53 kg 51.3 kg Intake: IV 1000 1010 1100 Sodium Chloride 0.9% 1, 1000 1010 700 000 ml @ 100 mls/hr IV . Q10H ISABELA Rx#:[id number] Intake, IV Titration 100 Amount metroNIDAZOLE-NS PMX 500 100 mg In Saline 1 100ml.bag @ 100 mls/hr IVPB Q8HR ISABELA Rx#:[id number] Oral 240 Blood Product 250 400 Rc Pheresis As-3 Unit 0 310 [id number] Output: Urine 625 675 405 Other: Voiding Method Indwelling Catheter Indwelling Catheter Indwelling Catheter - Exam General appearance: cooperative, mild distress, thin - EENT Eyes: anicteric sclerae, EOMI, PERRLA, dentition normal, normal appearance ENT: hearing grossly normal, NA/AT, normal oropharynx - Neck Neck: no lymphadenopathy, normal ROM, no other, no rigidity, no stridor, no thyromegaly - Respiratory Respiratory: bilateral: CTA, negative: diminished, dullness, rales, rhonchi, wheezing - Cardiovascular Rhythm: regular Heart sounds: normal: S1, S2 Abnormal Heart Sounds: no systolic murmur, no diastolic murmur, no rub, no S3 Gallop, no S4 Gallop, no click, no other - Gastrointestinal General gastrointestinal: normal bowel sounds, soft - Integumentary Integumentary: decreased turgor, normal - Neurologic Neurologic: CNII-XII intact - Musculoskeletal Musculoskeletal: gait normal - Psychiatric Psychiatric: A&O x's 3, appropriate affect - Labs CBC & Chem 7: 01/22/17 08:18 01/22/17 08:18 Labs: Abnormal Lab Results - Last 24 Hours (Table) 01/19/17 01/20/17 01/20/17 Range/Units 13:10 13:07 17:54 WBC (3.8-10.6) k/uL RBC (4.30-5.90) m/uL Hgb (13.0-17.5) gm/dL Hct (39.0-53.0) % RDW (11.5-15.5) % Neutrophils # (1.3-7.7) k/uL Lymphocytes # (1.0-4.8) k/uL Chloride (98-107) mmol/L BUN (9-20) mg/dL Creatinine (0.66-1.25) mg/dL Glucose (74-99) mg/dL POC Glucose (mg/dL) 130 H (75-99) mg/dL Calcium (8.4-10.2) mg/dL Magnesium (1.6-2.3) mg/dL Iron 316 H (49-181) ug/dL % Saturation 121.1 H (20-50) % Crossmatch See Detail 01/20/17 01/20/17 01/21/17 Range/Units 20:12 21:41 04:47 WBC 21.5 H 22.1 H (3.8-10.6) k/uL RBC 2.90 L 2.84 L (4.30-5.90) m/uL Hgb 9.2 L 9.1 L (13.0-17.5) gm/dL Hct 27.2 L 27.4 L (39.0-53.0) % RDW 17.3 H 18.4 H (11.5-15.5) % Neutrophils # 19.6 H 20.6 H (1.3-7.7) k/uL Lymphocytes # 0.6 L 0.7 L (1.0-4.8) k/uL Chloride (98-107) mmol/L BUN (9-20) mg/dL Creatinine (0.66-1.25) mg/dL Glucose (74-99) mg/dL POC Glucose (mg/dL) 185 H (75-99) mg/dL Calcium (8.4-10.2) mg/dL Magnesium (1.6-2.3) mg/dL Iron (49-181) ug/dL % Saturation (20-50) % Crossmatch 01/21/17 01/21/17 01/21/17 Range/Units 04:47 08:02 12:30 WBC (3.8-10.6) k/uL RBC (4.30-5.90) m/uL Hgb (13.0-17.5) gm/dL Hct (39.0-53.0) % RDW (11.5-15.5) % Neutrophils # (1.3-7.7) k/uL Lymphocytes # (1.0-4.8) k/uL Chloride 108 H (98-107) mmol/L BUN 35 H (9-20) mg/dL Creatinine 0.50 L (0.66-1.25) mg/dL Glucose 111 H (74-99) mg/dL POC Glucose (mg/dL) 151 H 114 H (75-99) mg/dL Calcium 7.7 L (8.4-10.2) mg/dL Magnesium 2.4 H (1.6-2.3) mg/dL Iron (49-181) ug/dL % Saturation (20-50) % Crossmatch Microbiology - Last 24 Hours (Table) 01/20/17 00:02 Urine Culture - Final Urine,Catheterized Assessment and Plan Plan: 1. Acute blood loss anemia secondary to ulcerations in the distal esophagus and the segment of Hill's esophagus. Nexium 20 mg daily with consults to Dr. Herrera status post EGD as above, status post transfusion of packed red blood cell, with hemoglobin to be titrated upwards over 8, Ferrlecit 2 Acute hypoxic respiratory failure with chronic hypoxemic respiratory failure with decompensation related to significant anemia with possible pneumonia. Zosyn started. Ali is on consult, Continue DuoNeb treatments every 4 hours, albuterol 4 times daily as needed, Pulmicort 0.5 milligrams twice daily, albuterol and Atrovent nebulized solution Pulmicort nebulized solution 3. End-stage COPD with chronic hypoxemic respiratory failure on maintenance nebulized solution and 3 L test cannula O2, patient will be given a burst off Solu-Medrol, with no plans for tapering prednisone increase Pulmicort to 1 mg twice a day possible theophylline 4. Leukocytosis possibly related to prednisone, patient is without any typical symptoms except for the respiratory decompensation no evidence of pneumonia at this time continue to monitor no oral antibiotics or IV antibiotics started at this tim5 5. Hypertension. Continue Cozaar 25 mg daily. 6. Hyperlipidemia. Continue pravastatin 40 mg daily. 7. Benign prostatic hypertrophy. Continue Flomax or 0.4 mg at bedtime. 8. Vitamin D deficiency. Continue supplement. 8. Gastric intestinal prophylaxis. Nexium 9. DVT prophylaxis. Mechanical prophylaxis only, contraindicated to use pharmacological prophylaxis secondary to acute GI bleed 10. CODE STATUS: No code. 11. Patient reported loose stools, rule out C. difficile colitis. Patient started on Flagyl. Discharge plan: [facility] Impression and plan of care have been directed as dictated by the signing physician. Denise Dupont nurse practitioner acting as scribe for signing physician.
--- NOTE | 2017-01-22 13:58 | P.PN ---
Subjective 01/20/17- This is a 71-year-old pleasant male being seen examined and evaluated today in the intensive care unit. This patient is well-known to [facility]. This patient has had multiple admissions due to COPD exacerbations, respiratory failure and recurrent pneumonia. He was recently discharged on 01/07/2017 for COPD exacerbation. He was visited by home health care nurses and they noted him to be weak and pale with severe shortness of breath on exertion. The patient chronically uses home oxygen 3 L via nasal cannula at all times. His home health care nurse suggested he come into the emergency room. While he was in the emergency room his workup included a chest x-ray that showed chronic emphysema changes without any acute pulmonary process. The patient did note to be short of breath and was placed on BiPAP with an FiO2 of 40%. His lab workup revealed a hemoglobin of 7.7 which is a decrease from 15.5 on January 11. Patient received 2 units of packed red blood cells in the emergency room and was found to be occult positive patient also was continuing his discharge medications of prednisone as well as antibiotics from previous admission. Upon examination the patient's resting up in bed on 4 L of supplemental oxygen via nasal cannula , he is noted to have severe shortness of breath with exertion or extensive conversation. Patient has had a congested cough however difficulty with bringing up secretions. Of note the patient states that he did have a dark black bowel movement 5 days ago, and he has not had one since. Currently the patient is hemodynamically stable, current hemoglobin is 8.3. Patient is tolerating his clear liquid diet. Patient is also being seen by GI and possibly will undergo a scope in the next 48 hours, once respiratory status improved. 01/21/17 this patient is seen and examined today on rounds. The patient is currently in the ICU. Apparently overnight the patient had some increase in abdominal pain and a hemoglobin that went down to 7.9. GI was updated and ordered a chest x-ray which showed no acute process. Patient did receive 1 unit of packed red blood cells and is now at a hemoglobin of 9.1. Patient did have another black-colored stool this morning. We have consulted with GI and determined to go ahead with the patient's EGD. Patient continues to be short of breath with exertion or extensive conversation, however has improved slightly compared to yesterday's.. Patient continues to complain of a mild cough however it is nonproductive at this time. 01/22/17- The patient has been downgraded from the ICU. He is currenlty being examined on the med/surg unit. Continues on 3LPM of supplemental oxygen. Status post EGD evaluation yesterday with findings of 2 superficial ulcerations in the distal esophagus long segment of Hill's status post biopsies. long segment of Hill's esophagus. Moderate size hiatal hernia. Hgb today 8.1, patient will have one unit of PRBCs. Patient remains short of breath. Abdominal pain improved. Patient had a formed black stool this morning. Patient is being set up for discharge to a rehab facility, once stable. Objective - Vital Signs Vital signs: Vital Signs Temp 96.1 F L 01/22/17 07:00 Pulse 118 H 01/22/17 12:09 Resp 20 01/22/17 07:00 BP 111/69 01/22/17 07:00 Pulse Ox 96 01/22/17 08:09 Intake & Output 01/21/17 01/22/17 01/22/17 18:59 06:59 18:59 Intake Total 1500 Output Total 505 650 Balance 995 -650 Intake: IV 1400 Sodium Chloride 0.9% 1, 1000 000 ml @ 100 mls/hr IV . Q10H ISABELA Rx#:[id number] Intake, IV Titration 100 Amount metroNIDAZOLE-NS PMX 500 100 mg In Saline 1 100ml.bag @ 100 mls/hr IVPB Q8HR ISABELA Rx#:[id number] Output: Urine 505 525 Post Void Residual 125 Other: Voiding Method Indwelling Catheter Urinal Urinal # Voids 1 2 # Bowel Movements 1 - Exam GENERAL EXAM: Alert, pale, comfortable in no apparent distress. HEAD: Normocephalic. EYES: Normal reaction of pupils, equal size. NOSE: Clear with pink turbinates. THROAT: No erythema or exudates. NECK: No masses, no JVD. CHEST: No chest wall deformity. LUNGS: Poor air entry bilaterally with fine expiratory rhonchi scattered. Bases diminished CVS: S1 and S2 normal with no audible mumurs, regular rhythm. ABDOMEN: No hepatosplenomegaly, normal bowel sounds, no guarding or rigidity. EXTREMITIES: No edema noted, pedal pulses palpable. SKIN: No rashes CENTRAL NERVOUS SYSTEM: No focal deficits, tone is normal in all 4 extremities. - Labs CBC & Chem 7: 07/27/17 08:18 01/22/17 08:18 Labs: Abnormal Lab Results - Last 24 Hours (Table) 01/19/17 01/21/17 01/21/17 Range/Units 13:10 15:17 18:30 WBC 25.2 H* (3.8-10.6) k/uL RBC 2.63 L (4.30-5.90) m/uL Hgb 8.4 L (13.0-17.5) gm/dL Hct 25.2 L (39.0-53.0) % RDW 19.1 H (11.5-15.5) % Neutrophils # (1.3-7.7) k/uL Neutrophils # (Manual) 22.9 H (1.3-7.7) k/uL Lymphocytes # (1.0-4.8) k/uL Lymphocytes # (Manual) 0.5 L (1.0-4.8) k/uL Monocytes # (Manual) 1.1 H (0-1.0) k/uL Chloride (98-107) mmol/L BUN (9-20) mg/dL Creatinine (0.66-1.25) mg/dL Glucose (74-99) mg/dL POC Glucose (mg/dL) 143 H (75-99) mg/dL Calcium (8.4-10.2) mg/dL Phosphorus (2.5-4.5) mg/dL Magnesium (1.6-2.3) mg/dL Crossmatch See Detail 01/21/17 01/22/17 01/22/17 Range/Units 21:19 02:28 07:00 WBC (3.8-10.6) k/uL RBC (4.30-5.90) m/uL Hgb (13.0-17.5) gm/dL Hct (39.0-53.0) % RDW (11.5-15.5) % Neutrophils # (1.3-7.7) k/uL Neutrophils # (Manual) (1.3-7.7) k/uL Lymphocytes # (1.0-4.8) k/uL Lymphocytes # (Manual) (1.0-4.8) k/uL Monocytes # (Manual) (0-1.0) k/uL Chloride (98-107) mmol/L BUN (9-20) mg/dL Creatinine (0.66-1.25) mg/dL Glucose (74-99) mg/dL POC Glucose (mg/dL) 145 H 123 H 127 H (75-99) mg/dL Calcium (8.4-10.2) mg/dL Phosphorus (2.5-4.5) mg/dL Magnesium (1.6-2.3) mg/dL Crossmatch 01/22/17 01/22/17 01/22/17 Range/Units 08:18 08:18 12:29 WBC 26.5 H* (3.8-10.6) k/uL RBC 2.48 L (4.30-5.90) m/uL Hgb 8.1 L (13.0-17.5) gm/dL Hct 24.1 L (39.0-53.0) % RDW 19.6 H (11.5-15.5) % Neutrophils # 25.0 H (1.3-7.7) k/uL Neutrophils # (Manual) (1.3-7.7) k/uL Lymphocytes # 0.5 L (1.0-4.8) k/uL Lymphocytes # (Manual) (1.0-4.8) k/uL Monocytes # (Manual) (0-1.0) k/uL Chloride 110 H (98-107) mmol/L BUN 33 H (9-20) mg/dL Creatinine 0.54 L (0.66-1.25) mg/dL Glucose 127 H (74-99) mg/dL POC Glucose (mg/dL) 151 H (75-99) mg/dL Calcium 7.4 L (8.4-10.2) mg/dL Phosphorus 2.0 L (2.5-4.5) mg/dL Magnesium 2.5 H (1.6-2.3) mg/dL Crossmatch Microbiology - Last 24 Hours (Table) 01/20/17 00:02 Urine Culture - Final Urine,Catheterized Assessment and Plan Plan: Assessment End-stage COPD with acute exacerbation Acute on chronic hypoxic respiratory failure GI hemorrhage Acute blood loss anemia Leukocytosis related to prolonged prednisone use Hypertension Hyperlipidemia BPH Plan Medications have been reviewed and will be continued as ordered. Patient will be getting 1 unit of PRBCs. Continue with pulmonary hygiene, coughing and deep breathing exercises, and supportive care. Supplemental oxygen and/or BiPAP to maintain oxygen saturations of 92% or better. Continue nebulizer treatments. Initiate and encourage incentive spirometer. GI and DVT prophylaxis. Repeat labs in the morning. We will continue to monitor labs/results and adjust treatment as necessary. Further recommendations pending. I performed an examination of the patient and discussed their management with the nurse practitioner. I have reviewed the nurse practitioner's note and agree with the documented findings and plan of care.
[2017-01-22 17:00] LABS: Glucose,Whole Blood 111 mg/dL (75-99)
[2017-01-22] MEDS: PIPERACILLIN-TAZOBACTAM 3.375 GM in DEXTROSE/WATER 1 50ML.BAG IVPB SCH ×2 (17:29→23:25)
[2017-01-22] MEDS: TAMSULOSIN 0.4 MG CAP.ER.24H PO SCH (21:10)
[2017-01-22] MEDS: MONTELUKAST 10 MG TAB PO SCH (21:10)
[2017-01-22] MEDS: metroNIDAZOLE 500 MG TAB PO SCH (21:10)
[2017-01-22] MEDS: MELATONIN 3 MG TABLET PO SCH (21:10)
[2017-01-22] MEDS: PRAVASTATIN SODIUM 40 MG TAB PO SCH (21:10)
[2017-01-22 21:26] LABS: Glucose,Whole Blood 122 mg/dL (75-99)
[2017-01-23] MEDS: ALPRAZolam 0.25 MG TAB PO PRN ×4 (06:24→21:42)
[2017-01-23] MEDS: methylPREDNISolone SOD SUCCI 40 MG/ML 1 ML VIAL IV SCH ×4 (06:24→22:49)
[2017-01-23 07:21] LABS: Glucose,Whole Blood 118 mg/dL (75-99)
[2017-01-23] MEDS: SODIUM CHLORIDE 0.9% 1,000 ML IV SCH ×2 (08:27→17:52)
[2017-01-23] MEDS: ESOMEPRAZOLE 40 MG in SODIUM CHLORIDE 0.9% 50 ML IVPB SCH (08:27)
[2017-01-23] MEDS: PIPERACILLIN-TAZOBACTAM 3.375 GM in DEXTROSE/WATER 1 50ML.BAG IVPB SCH ×3 (08:27→23:29)
[2017-01-23] MEDS: LOSARTAN 25 MG TAB PO SCH (08:28)
[2017-01-23] MEDS: guaiFENesin 600 MG TABLET.ER PO SCH ×2 (08:28→20:27)
[2017-01-23] MEDS: metroNIDAZOLE 500 MG TAB PO SCH ×3 (08:28→20:30)
[2017-01-23] MEDS: INSULIN LISPRO (humaLOG) 300 UNIT/3 ML VIAL SQ SCH ×4 (08:29→21:34)
[2017-01-23] MEDS: BUDESONIDE 1 MG/2 ML NEBU INHALATION SCH ×2 (08:31→19:37)
[2017-01-23] MEDS: IPRATROPIUM-ALBUTEROL 3 ML NEB INHALATION SCH ×4 (08:31→19:37)
--- NOTE | 2017-01-23 11:02 | P.PN ---
<Cheyenne Chappell - Last Filed: 01/23/17 10:53> Subjective This is a 71-year-old male patient of Dr. Ronn Aaron and Dr. Koenig with past medical history of COPD, hypertension, BPH, recurrent pneumonia thoracic aneurysm who was in the hospital apparently multiple admissions back in August 2016 and again 12/31/2016, 01/07/2017 with episode of pneumonia and COPD exacerbation with respiratory failure. He was discharged 01/07/2017 secondary to COPD exacerbation, and was given oral prednisone on discharge as well as oral antibiotic. Patient will by visiting nurses and was noted to be weak and pale, he has this woman exertion, patient was not actively wheezing then however he was noted to have decreased difficulty of breathing and diminished air sounds, he is chronically hypoxemic using 3 L of O2 nasal cannula 24 7, along with nebulized treatments at home. Those admissions he was negative for pulmonary emboli echocardiogram done at that time shows mild mitral and tricuspid regurgitation ejection fraction of 60-65% no pulmonary hypertension. in the emergency room he had a chest x-ray that shows chronic findings similar to his changes without acute pulmonary process no pleural effusion no pneumothorax he was saturating on 99% BiPAP 40%, and hemoglobin on admission was 7.7 from a previous off 15.8 January 11 which is a drop off 8 g in 8 days. He was transfused 2 units of packed red blood cell in the emergency room his Hemoccult positive and has epigastric tenderness. Patient took the oral prednisone along with 3doses Motrin the day prior to admission were made Dr. Herrera from gastroenterology patient did admit done under the service admitted to ICU, Dr. Koenig and his systems administrator patient was receiving BiPAP treatments in the emergency room on 01/20: Hemoglobin this morning is at 8.3 after 2 units of packed RBCs. Iron studies ordered and Ferrlecit 1 dose to be given today. White count has improved from 31-15.6. Patient has been evaluated by Dr. Carballo and started on a clear liquid diet. Dr. Koenig is on for critical care management. He is currently on Solu-Medrol 40 mg every 6 hours. 01/21: Hemoglobin is at 9.1. White count is staying at 22.1. She remains in intensive care unit but most likely will be transferred out after he has his EGD scheduled for later today. Patient is currently nothing by mouth except for ice chips. Patient does complain of loose stools and left lower quadrant pain with concern for C. difficile colitis. According to his nurse, he has had only smears of stool. If patient has diarrhea, stool for C. difficile toxin to be checked. Patient started on Flagyl. 01/22: EGD was done showing 2 superficial ulcerations in the distal esophagus and the segment of Hill's esophagus status post biopsy, moderate size hiatal hernia, long segment of Hill's esophagus. Dr. Jeanne Herrera has recommended Protonix 40 mg twice daily. Biopsy reports are pending. Diet is to be advanced as tolerated. He is on Solu-Medrol 40 mg every 6 hours which will remain the same. Chest x-ray shows COPD. Patient complains of weakness. He continues to have a cough that is nonproductive. Zosyn added. Stools are black but solid. Transfusion of 1 unit packed RBCs ordered. Patient is planning for discharge to [facility] for subacute rehab once stabilized. 01/23: The patient was seen and evaluated today. The patient denies any nausea or vomiting. He is tolerating food and fluids, denies any abdominal pain nausea vomiting, stools continue to be dark but are formed. Patient did receive 1 unit of packed red blood cells last night, CBC is still pending. He continues to have cough and wheeze with some shortness of breath. He remains on supplemental oxygen at 3 L nasal cannula. Objective - Vital Signs Vital signs: Vital Signs Temp 97.1 F L 01/23/17 07:00 Pulse 122 H 01/23/17 08:46 Resp 24 01/23/17 07:00 BP 92/58 01/23/17 07:00 Pulse Ox 97 01/23/17 08:31 Intake & Output 01/22/17 01/23/17 01/23/17 18:59 06:59 18:59 Intake Total 310 Balance 310 Intake: Blood Product 310 Rc Pheresis As-3 Unit 310 [id number] Other: Voiding Method Urinal # Voids 1 1 # Bowel Movements 1 - Exam - Exam General appearance: cooperative, mild distress, thin - EENT Eyes: anicteric sclerae, EOMI, PERRLA, dentition normal, normal appearance ENT: hearing grossly normal, NA/AT, normal oropharynx - Neck Neck: no lymphadenopathy, normal ROM, no other, no rigidity, no stridor, no thyromegaly - Respiratory Respiratory: bilateral: CTA, negative: diminished, dullness, rales, rhonchi, wheezing - Cardiovascular Rhythm: regular Heart sounds: normal: S1, S2 Abnormal Heart Sounds: no systolic murmur, no diastolic murmur, no rub, no S3 Gallop, no S4 Gallop, no click, no other - Gastrointestinal General gastrointestinal: normal bowel sounds, soft - Integumentary Integumentary: decreased turgor, normal - Neurologic Neurologic: CNII-XII intact - Musculoskeletal Musculoskeletal: gait normal - Psychiatric Psychiatric: A&O x's 3, appropriate affect - Labs CBC & Chem 7: 01/22/17 08:18 01/22/17 08:18 Labs: Abnormal Lab Results - Last 24 Hours (Table) 01/19/17 01/22/17 01/22/17 Range/Units 13:10 12:29 16:57 POC Glucose (mg/dL) 151 H 111 H (75-99) mg/dL Crossmatch See Detail 01/22/17 01/23/17 Range/Units 20:56 07:19 POC Glucose (mg/dL) 122 H 118 H (75-99) mg/dL Crossmatch Assessment and Plan Plan: 1. Acute blood loss anemia secondary to ulcerations in the distal esophagus and the segment of Hill's esophagus. Nexium 20 mg daily with consults to Dr. Herrera status post EGD as above, status post transfusion of packed red blood cell, with hemoglobin to be titrated upwards over 8. 2 Acute hypoxic respiratory failure with chronic hypoxemic respiratory failure with decompensation related to significant anemia with possible pneumonia. Zosyn started. Ali is on consult, Continue DuoNeb treatments every 4 hours, albuterol 4 times daily as needed, Pulmicort 0.5 milligrams twice daily, albuterol and Atrovent nebulized solution Pulmicort nebulized solution 3. 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 Leukocytosis possibly related to prednisone, patient is without any typical symptoms except for the respiratory decompensation no evidence of pneumonia at this time continue to monitor 5. Hypertension. Continue Cozaar 25 mg daily. 6. Hyperlipidemia. Continue pravastatin 40 mg daily. 7. Benign prostatic hypertrophy. Continue Flomax or 0.4 mg at bedtime. 8. Vitamin D deficiency. Continue supplement. 8. Gastric intestinal prophylaxis. Nexium 9. DVT prophylaxis. Mechanical prophylaxis only, contraindicated to use pharmacological prophylaxis secondary to acute GI bleed 10. CODE STATUS: No code. 11. Patient reported loose stools, rule out C. difficile colitis. Patient started on Flagyl. Discharge plan: [facility] The above impression and plan of care have been discussed and directed by signing physician. Cheyenne Chappell nurse practitioner acting as scribe for signing physician. <Monika Torrez - Last Filed: 01/23/17 16:10> Subjective Patient is worse today with regards to his pulmonary status compared to yesterday, he seems to be more fatigued, 2 units of packed red blood cell would be given for hemoglobin of 7.3, he had esophageal candidiasis noted on EGD biopsy along with Hill's no active bleeding noted, patient remains on IV Zosyn and Flagyl, previous microbiology was reviewed on his last admission January 10, Dr. Schilling was consulted, patient remains on IV Solu-Medrol and most likely can benefit from another BiPAP treatments today. Dr. Koenig will be notified regarding this with the nursing staff communicated with plan Objective - Vital Signs Vital signs: Vital Signs Temp 97.0 F L 01/23/17 15:00 Pulse 120 H 01/23/17 15:23 Resp 16 01/23/17 15:00 BP 98/65 01/23/17 15:00 Pulse Ox 98 01/23/17 15:23 Intake & Output 01/22/17 01/23/17 01/23/17 18:59 06:59 18:59 Intake Total 310 Balance 310 Weight 51.3 kg Intake: Blood Product 310 Rc Pheresis As-3 Unit 310 [id number] Other: Voiding Method Urinal # Voids 1 1 1 # Bowel Movements 1 - Labs CBC & Chem 7: 01/23/17 11:42 01/23/17 11:42 Labs: Abnormal Lab Results - Last 24 Hours (Table) 01/19/17 01/22/17 01/22/17 Range/Units 13:10 16:57 20:56 WBC (3.8-10.6) k/uL RBC (4.30-5.90) m/uL Hgb (13.0-17.5) gm/dL Hct (39.0-53.0) % RDW (11.5-15.5) % Neutrophils # (1.3-7.7) k/uL Lymphocytes # (1.0-4.8) k/uL BUN (9-20) mg/dL Creatinine (0.66-1.25) mg/dL Glucose (74-99) mg/dL POC Glucose (mg/dL) 111 H 122 H (75-99) mg/dL Calcium (8.4-10.2) mg/dL Alkaline Phosphatase (38-126) U/L Total Protein (6.3-8.2) g/dL Albumin (3.5-5.0) g/dL Crossmatch See Detail 01/23/17 01/23/17 01/23/17 Range/Units 07:19 11:42 11:42 WBC 23.7 H (3.8-10.6) k/uL RBC 2.28 L (4.30-5.90) m/uL Hgb 7.4 L (13.0-17.5) gm/dL Hct 22.2 L (39.0-53.0) % RDW 19.5 H (11.5-15.5) % Neutrophils # 22.0 H (1.3-7.7) k/uL Lymphocytes # 0.5 L (1.0-4.8) k/uL BUN 36 H (9-20) mg/dL Creatinine 0.57 L (0.66-1.25) mg/dL Glucose 140 H (74-99) mg/dL POC Glucose (mg/dL) 118 H (75-99) mg/dL Calcium 7.5 L (8.4-10.2) mg/dL Alkaline Phosphatase 31 L (38-126) U/L Total Protein 3.5 L (6.3-8.2) g/dL Albumin 2.0 L (3.5-5.0) g/dL Crossmatch 01/23/17 Range/Units 12:04 WBC (3.8-10.6) k/uL RBC (4.30-5.90) m/uL Hgb (13.0-17.5) gm/dL Hct (39.0-53.0) % RDW (11.5-15.5) % Neutrophils # (1.3-7.7) k/uL Lymphocytes # (1.0-4.8) k/uL BUN (9-20) mg/dL Creatinine (0.66-1.25) mg/dL Glucose (74-99) mg/dL POC Glucose (mg/dL) 168 H (75-99) mg/dL Calcium (8.4-10.2) mg/dL Alkaline Phosphatase (38-126) U/L Total Protein (6.3-8.2) g/dL Albumin (3.5-5.0) g/dL Crossmatch Assessment and Plan Plan: Patient is worse today with regards to his pulmonary status compared to yesterday, he seems to be more fatigued, 2 units of packed red blood cell would be given for hemoglobin of 7.3, he had esophageal candidiasis noted on EGD biopsy along with Hill's no active bleeding noted, patient remains on IV Zosyn and Flagyl, previous microbiology was reviewed on his last admission January 10, Dr. Schilling was consulted, patient remains on IV Solu-Medrol and most likely can benefit from another BiPAP treatments today. Dr. Koenig will be notified regarding this with the nursing staff communicated with plan
[2017-01-23] MEDS: CHOLECALCIFEROL 400 UNIT TAB PO SCH (11:25)
[2017-01-23 12:09] LABS: Anisocytosis Slight; Basophils % (A) 0 %; CH 31.7; CHCM 32.8; Eosinophils % (A) 0 %; HCT 22.2 % (39.0-53.0); HDW 3.17; HGB 7.4 gm/dL (13.0-17.5); Luc # (Auto) 0.14; Luc % (Auto) 1; Lymphocytes # (A) 0.5 k/uL (1.0-4.8); Lymphocytes % (A) 2 %; MCH 32.4 pg (25.0-35.0); MCHC 33.1 g/dL (31.0-37.0); MCV 97.6 fL (80.0-100.0); Macrocytosis Slight; Mean Platelet Volume 6.9; Monocytes % (A) 4 %; Neutrophils % (A) 93 %; RBC 2.28 m/uL (4.30-5.90); RDW 19.5 % (11.5-15.5); WBC 23.7 k/uL (3.8-10.6); WBC (Perox) 23.27
[2017-01-23 12:09] LABS: Glucose,Whole Blood 168 mg/dL (75-99)
[2017-01-23 12:18] LABS: ALT 59 U/L (21-72); AST 28 U/L (17-59); Alkaline Phosphatase 31 U/L (38-126); Anion Gap 4 mmol/L; Blood Urea Nitrogen 36 mg/dL (9-20); Calcium 7.5 mg/dL (8.4-10.2); Carbon Dioxide 28 mmol/L (22-30); Chloride 107 mmol/L (98-107); Glucose 140 mg/dL (74-99); Non-African American GFR(MDRD) >60 (>60 ml/min/1.73 sqM); Potassium 3.7 mmol/L (3.5-5.1); Sodium 139 mmol/L (137-145); Total Bilirubin 0.2 mg/dL (0.2-1.3); Total Protein 3.5 g/dL (6.3-8.2)
--- NOTE | 2017-01-23 12:57 | P.PN ---
Subjective 01/20/17- This is a 71-year-old pleasant male being seen examined and evaluated today in the intensive care unit. This patient is well-known to us services. This patient has had multiple admissions due to COPD exacerbations, respiratory failure and recurrent pneumonia. He was recently discharged on 01/07/2017 for COPD exacerbation. He was visited by home health care nurses and they noted him to be weak and pale with severe shortness of breath on exertion. The patient chronically uses home oxygen 3 L via nasal cannula at all times. His home health care nurse suggested he come into the emergency room. While he was in the emergency room his workup included a chest x-ray that showed chronic emphysema changes without any acute pulmonary process. The patient did note to be short of breath and was placed on BiPAP with an FiO2 of 40%. His lab workup revealed a hemoglobin of 7.7 which is a decrease from 15.5 on January 11. Patient received 2 units of packed red blood cells in the emergency room and was found to be occult positive patient also was continuing his discharge medications of prednisone as well as antibiotics from previous admission. Upon examination the patient's resting up in bed on 4 L of supplemental oxygen via nasal cannula , he is noted to have severe shortness of breath with exertion or extensive conversation. Patient has had a congested cough however difficulty with bringing up secretions. Of note the patient states that he did have a dark black bowel movement 5 days ago, and he has not had one since. Currently the patient is hemodynamically stable, current hemoglobin is 8.3. Patient is tolerating his clear liquid diet. Patient is also being seen by GI and possibly will undergo a scope in the next 48 hours, once respiratory status improved. 01/21/17 this patient is seen and examined today on rounds. The patient is currently in the ICU. Apparently overnight the patient had some increase in abdominal pain and a hemoglobin that went down to 7.9. GI was updated and ordered a chest x-ray which showed no acute process. Patient did receive 1 unit of packed red blood cells and is now at a hemoglobin of 9.1. Patient did have another black-colored stool this morning. We have consulted with GI and determined to go ahead with the patient's EGD. Patient continues to be short of breath with exertion or extensive conversation, however has improved slightly compared to yesterday's.. Patient continues to complain of a mild cough however it is nonproductive at this time. 01/22/17- The patient has been downgraded from the ICU. He is currenlty being examined on the med/surg unit. Continues on 3LPM of supplemental oxygen. Status post EGD evaluation yesterday with findings of 2 superficial ulcerations in the distal esophagus long segment of Hill's status post biopsies. long segment of Hill's esophagus. Moderate size hiatal hernia. Hgb today 8.1, patient will have one unit of PRBCs. Patient remains short of breath. Abdominal pain improved. Patient had a formed black stool this morning. Patient is being set up for discharge to a rehab facility, once stable. 01/23/17- patient is being seen and examined today on the medical surgical unit. Patient did receive 1 unit of packed red blood cells yesterday and his repeat CBC this morning shows a hemoglobin of 7.4. He has received a total of 4 infusions of packed red blood cells, this admission. Shortness of breath has remained persistent with minimal exertion and extensive conversation. 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 Patient did complain of some diarrhea overnight currently he is being worked up for possible C. diff awaiting those results. Objective - Vital Signs Vital signs: Vital Signs Temp 97.1 F L 01/23/17 07:00 Pulse 118 H 01/23/17 11:53 Resp 24 01/23/17 08:00 BP 92/58 01/23/17 07:00 Pulse Ox 97 01/23/17 08:31 Intake & Output 01/22/17 01/23/17 01/23/17 18:59 06:59 18:59 Intake Total 310 Balance 310 Intake: Blood Product 310 Rc Pheresis As-3 Unit 310 [id number] Other: Voiding Method Urinal # Voids 1 1 1 # Bowel Movements 1 - Exam GENERAL EXAM: Alert, pale, comfortable in no apparent distress. HEAD: Normocephalic. EYES: Normal reaction of pupils, equal size. NOSE: Clear with pink turbinates. THROAT: No erythema or exudates. NECK: No masses, no JVD. CHEST: No chest wall deformity. LUNGS: Poor air entry bilaterally with fine expiratory rhonchi scattered. Bases diminished CVS: S1 and S2 normal with no audible mumurs, regular rhythm. ABDOMEN: No hepatosplenomegaly, normal bowel sounds, no guarding or rigidity. EXTREMITIES: No edema noted, pedal pulses palpable. SKIN: No rashes CENTRAL NERVOUS SYSTEM: No focal deficits, tone is normal in all 4 extremities. - Labs CBC & Chem 7: 01/23/17 11:42 01/23/17 11:42 Labs: Abnormal Lab Results - Last 24 Hours (Table) 01/19/17 01/22/17 01/22/17 Range/Units 13:10 16:57 20:56 WBC (3.8-10.6) k/uL RBC (4.30-5.90) m/uL Hgb (13.0-17.5) gm/dL Hct (39.0-53.0) % RDW (11.5-15.5) % Neutrophils # (1.3-7.7) k/uL Lymphocytes # (1.0-4.8) k/uL BUN (9-20) mg/dL Creatinine (0.66-1.25) mg/dL Glucose (74-99) mg/dL POC Glucose (mg/dL) 111 H 122 H (75-99) mg/dL Calcium (8.4-10.2) mg/dL Alkaline Phosphatase (38-126) U/L Total Protein (6.3-8.2) g/dL Albumin (3.5-5.0) g/dL Crossmatch See Detail 01/23/17 01/23/17 01/23/17 Range/Units 07:19 11:42 11:42 WBC 23.7 H (3.8-10.6) k/uL RBC 2.28 L (4.30-5.90) m/uL Hgb 7.4 L (13.0-17.5) gm/dL Hct 22.2 L (39.0-53.0) % RDW 19.5 H (11.5-15.5) % Neutrophils # 22.0 H (1.3-7.7) k/uL Lymphocytes # 0.5 L (1.0-4.8) k/uL BUN 36 H (9-20) mg/dL Creatinine 0.57 L (0.66-1.25) mg/dL Glucose 140 H (74-99) mg/dL POC Glucose (mg/dL) 118 H (75-99) mg/dL Calcium 7.5 L (8.4-10.2) mg/dL Alkaline Phosphatase 31 L (38-126) U/L Total Protein 3.5 L (6.3-8.2) g/dL Albumin 2.0 L (3.5-5.0) g/dL Crossmatch 01/23/17 Range/Units 12:04 WBC (3.8-10.6) k/uL RBC (4.30-5.90) m/uL Hgb (13.0-17.5) gm/dL Hct (39.0-53.0) % RDW (11.5-15.5) % Neutrophils # (1.3-7.7) k/uL Lymphocytes # (1.0-4.8) k/uL BUN (9-20) mg/dL Creatinine (0.66-1.25) mg/dL Glucose (74-99) mg/dL POC Glucose (mg/dL) 168 H (75-99) mg/dL Calcium (8.4-10.2) mg/dL Alkaline Phosphatase (38-126) U/L Total Protein (6.3-8.2) g/dL Albumin (3.5-5.0) g/dL Crossmatch Assessment and Plan Plan: Assessment End-stage COPD with acute exacerbation Acute on chronic hypoxic respiratory failure GI hemorrhage Acute blood loss anemia Leukocytosis related to prolonged prednisone use Hypertension Hyperlipidemia BPH Plan Patient could be discharged to a rehab facility from a pulmonary standpoint in the near future. This patient has end-stage COPD and persistent shortness of breath is chronic. Medications have been reviewed and will be continued as ordered. Into new to monitor for any bleeding as well as hemoglobin. Continue with pulmonary hygiene, coughing and deep breathing exercises, and supportive care. Supplemental oxygen and/or BiPAP to maintain oxygen saturations of 92% or better. Continue nebulizer treatments. Initiate and encourage incentive spirometer. GI and DVT prophylaxis. Repeat labs in the morning. We will continue to monitor labs/results and adjust treatment as necessary. Further recommendations pending. I performed an examination of the patient and discussed their management with the nurse practitioner. I have reviewed the nurse practitioner's note and agree with the documented findings and plan of care.
[2017-01-23 14:15] VITALS: BMI 18.8
[2017-01-23] MEDS ORDERED: RX INFO: IV CONTRAST WAS GIVEN 1 EACH MISC MISCELLANE PRN (15:52)
[2017-01-23] MEDS: FLUCONAZOLE 100 MG TAB PO SCH (16:36)
[2017-01-23 16:49] LABS: Glucose,Whole Blood 243 mg/dL (75-99)
[2017-01-23] MEDS ORDERED: FUROSEMIDE 10 MG/ML 2 ML VIAL IV ONE (17:00)
--- NOTE | 2017-01-23 18:28 | CT ---
EXAMINATION TYPE: CT angio chest DATE OF EXAM: 01/23/2017 6:16 PM COMPARISON: 01/08/2017 HISTORY: Dyspnea. CT DLP: 357.80 mGycm Automated exposure control for dose reduction was used. CONTRAST: CTA scan of the thorax is performed with IV Contrast, patient injected with 62 mL of Omnipaque 350, p ulmonary embolism protocol. There are 3-D post processed images.. FINDINGS: There is pulmonary diffuse emphysema. Thoracic aorta is atheromatous. Ascending aorta measures 3.7 cm . There are no hilar masses. I see no filling defects in the pulmonary arteries. There is no evidence of aortic dissection. There is no sign of a pulmonary mass. There is no pleural effusion. IMPRESSION: NO EVIDENCE OF PULMONARY EMBOLISM. EMPHYSEMA. MILD 15% COMPRESSION DEFORMITY OF L2 VERTEBRA. THERE IS 20% ANTERIOR WEDGING OF T9 AND T7 AND T6. T9 FRACTURE HAS PROGRESSED COMPARED TO LAST EXAM.
[2017-01-23] MEDS: TAMSULOSIN 0.4 MG CAP.ER.24H PO SCH (20:27)
[2017-01-23] MEDS: MONTELUKAST 10 MG TAB PO SCH (20:28)
[2017-01-23] MEDS: PRAVASTATIN SODIUM 40 MG TAB PO SCH (20:28)
[2017-01-23] MEDS: MELATONIN 3 MG TABLET PO SCH (20:30)
[2017-01-23 20:50] LABS: Glucose,Whole Blood 85 mg/dL (75-99)
[2017-01-24] MEDS: IPRATROPIUM-ALBUTEROL 3 ML NEB INHALATION PRN ×3 (00:31→23:39)
[2017-01-24] MEDS: ALPRAZolam 0.25 MG TAB PO PRN ×2 (03:14→20:47)
[2017-01-24] MEDS: methylPREDNISolone SOD SUCCI 40 MG/ML 1 ML VIAL IV SCH ×4 (05:46→23:34)
[2017-01-24] MEDS: SODIUM CHLORIDE 0.9% 1,000 ML IV SCH ×3 (05:48→23:35)
[2017-01-24 06:15] LABS: Glucose,Whole Blood 177 mg/dL (75-99)
[2017-01-24 06:49] LABS: Anisocytosis Moderate; CH 30.8; CHCM 31.3; HCT 31.6 % (39.0-53.0); HDW 3.26; Hypochromasia Moderate; MCH 31.4 pg (25.0-35.0); MCHC 31.6 g/dL (31.0-37.0); MCV 99.6 fL (80.0-100.0); Macrocytosis Slight; RBC 3.17 m/uL (4.30-5.90); RDW 20.5 % (11.5-15.5)
[2017-01-24 06:58] LABS: WBC 41.5 k/uL (3.8-10.6)
[2017-01-24 07:00] LABS: Anion Gap 10 mmol/L; Blood Urea Nitrogen 55 mg/dL (9-20); Calcium 7.4 mg/dL (8.4-10.2); Carbon Dioxide 21 mmol/L (22-30); Chloride 108 mmol/L (98-107); Glucose 168 mg/dL (74-99); Non-African American GFR(MDRD) >60 (>60 ml/min/1.73 sqM); Potassium 4.1 mmol/L (3.5-5.1); Sodium 139 mmol/L (137-145)
[2017-01-24] MEDS: INSULIN LISPRO (humaLOG) 300 UNIT/3 ML VIAL SQ SCH ×4 (07:36→20:38)
[2017-01-24] MEDS: BUDESONIDE 1 MG/2 ML NEBU INHALATION SCH ×2 (07:55→19:43)
[2017-01-24] MEDS: IPRATROPIUM-ALBUTEROL 3 ML NEB INHALATION SCH ×4 (07:55→19:43)
[2017-01-24 08:28] LABS: Anisocytosis Moderate; CHCM 33.2; HCT 32.9 % (39.0-53.0); HDW 3.39; HGB 11.1 gm/dL (13.0-17.5); Immature Gran Flag Slight; MCH 31.7 pg (25.0-35.0); MCHC 33.6 g/dL (31.0-37.0); Macrocytosis Slight; Mean Platelet Volume 7.6; RBC 3.49 m/uL (4.30-5.90); RDW 20.3 % (11.5-15.5); WBC (Perox) 55.35
[2017-01-24 08:29] LABS: MCV 94.4 fL (80.0-100.0)
[2017-01-24] MEDS: FLUCONAZOLE 100 MG TAB PO SCH (08:30)
[2017-01-24] MEDS: guaiFENesin 600 MG TABLET.ER PO SCH ×2 (08:30→20:37)
[2017-01-24] MEDS: LOSARTAN 25 MG TAB PO SCH (08:30)
[2017-01-24] MEDS: metroNIDAZOLE 500 MG TAB PO SCH ×3 (08:30→20:37)
[2017-01-24] MEDS: CHOLECALCIFEROL 400 UNIT TAB PO SCH (08:30)
[2017-01-24] MEDS: PIPERACILLIN-TAZOBACTAM 3.375 GM in DEXTROSE/WATER 1 50ML.BAG IVPB SCH ×3 (08:35→23:37)
[2017-01-24 09:08] LABS: Add Differential Manual Differential
[2017-01-24 09:10] LABS: Polychromasia Present
[2017-01-24 09:11] LABS: Band Neutrophils % 6.5 %; Metamyelocytes % 3.5 %; Myelocytes % 0.5 %; Nucleated Red Blood Cells 4 /100 WBC (0-0); Total Cells Counted 200
[2017-01-24 09:12] LABS: WBC 47.8 k/uL (3.8-10.6)
[2017-01-24 11:21] LABS: Glucose,Whole Blood 231 mg/dL (75-99)
--- NOTE | 2017-01-24 12:03 | P.PN ---
Subjective Principal diagnosis: 01/20/17- This is a 71-year-old pleasant male being seen examined and evaluated today in the intensive care unit. This patient is well-known to us services. This patient has had multiple admissions due to COPD exacerbations, respiratory failure and recurrent pneumonia. He was recently discharged on 01/07/2017 for COPD exacerbation. He was visited by home health care nurses and they noted him to be weak and pale with severe shortness of breath on exertion. The patient chronically uses home oxygen 3 L via nasal cannula at all times. His home health care nurse suggested he come into the emergency room. While he was in the emergency room his workup included a chest x-ray that showed chronic emphysema changes without any acute pulmonary process. The patient did note to be short of breath and was placed on BiPAP with an FiO2 of 40%. His lab workup revealed a hemoglobin of 7.7 which is a decrease from 15.5 on January 11. Patient received 2 units of packed red blood cells in the emergency room and was found to be occult positive patient also was continuing his discharge medications of prednisone as well as antibiotics from previous admission. Upon examination the patient's resting up in bed on 4 L of supplemental oxygen via nasal cannula , he is noted to have severe shortness of breath with exertion or extensive conversation. Patient has had a congested cough however difficulty with bringing up secretions. Of note the patient states that he did have a dark black bowel movement 5 days ago, and he has not had one since. Currently the patient is hemodynamically stable, current hemoglobin is 8.3. Patient is tolerating his clear liquid diet. Patient is also being seen by GI and possibly will undergo a scope in the next 48 hours, once respiratory status improved. 01/21/17 this patient is seen and examined today on rounds. The patient is currently in the ICU. Apparently overnight the patient had some increase in abdominal pain and a hemoglobin that went down to 7.9. GI was updated and ordered a chest x-ray which showed no acute process. Patient did receive 1 unit of packed red blood cells and is now at a hemoglobin of 9.1. Patient did have another black-colored stool this morning. We have consulted with GI and determined to go ahead with the patient's EGD. Patient continues to be short of breath with exertion or extensive conversation, however has improved slightly compared to yesterday's.. Patient continues to complain of a mild cough however it is nonproductive at this time. 01/22/17- The patient has been downgraded from the ICU. He is currenlty being examined on the med/surg unit. Continues on 3LPM of supplemental oxygen. Status post EGD evaluation yesterday with findings of 2 superficial ulcerations in the distal esophagus long segment of Hill's status post biopsies. long segment of Hill's esophagus. Moderate size hiatal hernia. Hgb today 8.1, patient will have one unit of PRBCs. Patient remains short of breath. Abdominal pain improved. Patient had a formed black stool this morning. Patient is being set up for discharge to a rehab facility, once stable. 01/23/17- patient is being seen and examined today on the medical surgical unit. Patient did receive 1 unit of packed red blood cells yesterday and his repeat CBC this morning shows a hemoglobin of 7.4. He has received a total of 4 infusions of packed red blood cells, this admission. Shortness of breath has remained persistent with minimal exertion and extensive conversation. 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 Patient did complain of some diarrhea overnight currently he is being worked up for possible C. diff awaiting those results. 01/24/17, patient seen and evaluated exam and in selective care remained short of breath no evidence of active bleeding is seen, of note that patient has been transferred to selective because of CV of persistent heart hypoxia and shortness of breath in addition to that a computed tomography scan of the chest was done which is reviewed no pulmonary embolism is seen patient does have bullous lung disease and CVA are C emphysema but however no pulmonary embolism is seen compression fracture has been noted. Reports for details Objective - Vital Signs Vital signs: Vital Signs Temp 96.2 F L 01/24/17 08:00 Pulse 118 H 01/24/17 11:47 Resp 29 H 01/24/17 08:00 BP 93/77 01/24/17 08:00 Pulse Ox 98 01/24/17 04:00 Intake & Output 01/23/17 01/24/17 01/24/17 18:59 06:59 18:59 Intake Total 20 1580 240 Balance 20 1580 240 Weight 51.3 kg 57.1 kg Intake: IV 20 240 Sodium Chloride 0.9% 1, 20 240 000 ml @ 100 mls/hr IV . Q10H [facility] Rx#:[id number] Intake, IV Titration 100 Amount Piperacillin-Tazobactam 3 100 .375 gm In Dextrose/Water 1 50ml.bag @ 12.5 mls/hr IVPB Q8HR [facility] Rx#: [id number] Oral 240 Blood Product 1240 Rc As-1 Unit 310 [id number] Rc As-1 Unit 310 [id number] Other: Voiding Method Urinal # Voids 1 1 - Exam GENERAL EXAM: Alert, pale, remains uncomfortable when mild to moderate apparent distress. HEAD: Normocephalic. EYES: Normal reaction of pupils, equal size. NOSE: Clear with pink turbinates. THROAT: No erythema or exudates. NECK: No masses, no JVD. CHEST: No chest wall deformity. LUNGS: Poor air entry bilaterally with fine expiratory rhonchi scattered. Bases diminished CVS: S1 and S2 normal with no audible mumurs, regular rhythm. ABDOMEN: No hepatosplenomegaly, normal bowel sounds, no guarding or rigidity. EXTREMITIES: No edema noted, pedal pulses palpable. SKIN: No rashes CENTRAL NERVOUS SYSTEM: No focal deficits, tone is normal in all 4 extremities. - Labs CBC & Chem 7: 01/24/17 08:12 01/24/17 06:11 Labs: Abnormal Lab Results - Last 24 Hours (Table) 01/23/17 01/23/17 01/23/17 Range/Units 11:42 11:42 12:04 WBC 23.7 H (3.8-10.6) k/uL RBC 2.28 L (4.30-5.90) m/uL Hgb 7.4 L (13.0-17.5) gm/dL Hct 22.2 L (39.0-53.0) % RDW 19.5 H (11.5-15.5) % Neutrophils # 22.0 H (1.3-7.7) k/uL Neutrophils # (Manual) (1.3-7.7) k/uL Lymphocytes # 0.5 L (1.0-4.8) k/uL Monocytes # (Manual) (0-1.0) k/uL Nucleated RBCs (0-0) /100 WBC Chloride (98-107) mmol/L Carbon Dioxide (22-30) mmol/L BUN 36 H (9-20) mg/dL Creatinine 0.57 L (0.66-1.25) mg/dL Glucose 140 H (74-99) mg/dL POC Glucose (mg/dL) 168 H (75-99) mg/dL Calcium 7.5 L (8.4-10.2) mg/dL Alkaline Phosphatase 31 L (38-126) U/L Total Protein 3.5 L (6.3-8.2) g/dL Albumin 2.0 L (3.5-5.0) g/dL Crossmatch 01/23/17 01/23/17 01/24/17 Range/Units 16:38 16:48 06:11 WBC 41.5 H* (3.8-10.6) k/uL RBC 3.17 L (4.30-5.90) m/uL Hgb 10.0 L D (13.0-17.5) gm/dL Hct 31.6 L (39.0-53.0) % RDW 20.5 H (11.5-15.5) % Neutrophils # (1.3-7.7) k/uL Neutrophils # (Manual) (1.3-7.7) k/uL Lymphocytes # (1.0-4.8) k/uL Monocytes # (Manual) (0-1.0) k/uL Nucleated RBCs (0-0) /100 WBC Chloride (98-107) mmol/L Carbon Dioxide (22-30) mmol/L BUN (9-20) mg/dL Creatinine (0.66-1.25) mg/dL Glucose (74-99) mg/dL POC Glucose (mg/dL) 243 H (75-99) mg/dL Calcium (8.4-10.2) mg/dL Alkaline Phosphatase (38-126) U/L Total Protein (6.3-8.2) g/dL Albumin (3.5-5.0) g/dL Crossmatch See Detail 01/24/17 01/24/17 01/24/17 Range/Units 06:11 06:14 08:12 WBC 47.8 H* (3.8-10.6) k/uL RBC 3.49 L (4.30-5.90) m/uL Hgb 11.1 L (13.0-17.5) gm/dL Hct 32.9 L (39.0-53.0) % RDW 20.3 H (11.5-15.5) % Neutrophils # (1.3-7.7) k/uL Neutrophils # (Manual) 39.9 H (1.3-7.7) k/uL Lymphocytes # (1.0-4.8) k/uL Monocytes # (Manual) 3.3 H (0-1.0) k/uL Nucleated RBCs 4 H (0-0) /100 WBC Chloride 108 H (98-107) mmol/L Carbon Dioxide 21 L (22-30) mmol/L BUN 55 H (9-20) mg/dL Creatinine (0.66-1.25) mg/dL Glucose 168 H (74-99) mg/dL POC Glucose (mg/dL) 177 H (75-99) mg/dL Calcium 7.4 L (8.4-10.2) mg/dL Alkaline Phosphatase (38-126) U/L Total Protein (6.3-8.2) g/dL Albumin (3.5-5.0) g/dL Crossmatch 01/24/17 Range/Units 11:20 WBC (3.8-10.6) k/uL RBC (4.30-5.90) m/uL Hgb (13.0-17.5) gm/dL Hct (39.0-53.0) % RDW (11.5-15.5) % Neutrophils # (1.3-7.7) k/uL Neutrophils # (Manual) (1.3-7.7) k/uL Lymphocytes # (1.0-4.8) k/uL Monocytes # (Manual) (0-1.0) k/uL Nucleated RBCs (0-0) /100 WBC Chloride (98-107) mmol/L Carbon Dioxide (22-30) mmol/L BUN (9-20) mg/dL Creatinine (0.66-1.25) mg/dL Glucose (74-99) mg/dL POC Glucose (mg/dL) 231 H (75-99) mg/dL Calcium (8.4-10.2) mg/dL Alkaline Phosphatase (38-126) U/L Total Protein (6.3-8.2) g/dL Albumin (3.5-5.0) g/dL Crossmatch Assessment and Plan Plan: Assessment End-stage COPD with acute exacerbation Acute on chronic hypoxic respiratory failure GI hemorrhage Acute blood loss anemia Leukocytosis related to prolonged prednisone use Hypertension Hyperlipidemia BPH Plan IV steroid dose has been escalated, Patient could be discharged to a rehab facility from a pulmonary standpoint sometime next week once relative more stable. This patient has end-stage COPD and persistent shortness of breath is chronic. Medications have been reviewed and will be continued as ordered. Into new to monitor for any bleeding as well as hemoglobin. Continue with pulmonary hygiene, coughing and deep breathing exercises, and supportive care. Supplemental oxygen and/or BiPAP to maintain oxygen saturations of 92% or better. Continue nebulizer treatments. Initiate and encourage incentive spirometer. GI and DVT prophylaxis. Repeat labs in the morning. We will continue to monitor labs/results and adjust treatment as necessary. Further recommendations pending. Time with Patient: Greater than 30
--- NOTE | 2017-01-24 12:13 | PN ---
INTERVAL HISTORY: The patient experienced worsening and shortness of breath yesterday where CTA chest was done and showed no evidence of pulmonary embolism , but was positive for emphysema and multiple findings for compression deformities on multiple levels with worsening compared to prior study. Patient still short of breath requiring BiPAP all night, was weaned off the BiPAP to a nasal cannula this morning to each breakfast, but felt short of breath and was placed again on BiPAP. PHYSICAL EXAMINATION: GENERAL: In his stated age in mild to moderate distress. Speaks in short sentences and unable to sit up in bed and feels very weak and tired, but alert and oriented and following commands. LUNGS: Decreased air entry bilaterally. HEART: Normal S1, S2. ABDOMEN: Soft, no tenderness. Positive bowel sounds in all 4 quadrants. LOWER EXTREMITIES: No edema. PSYCH: As above. SKIN: No rash. IMAGING AND LABS: CBC revealed white blood count at 41.5 this morning. Stat repeat showed worsening to 47.8. Hemoglobin 10 to 11. Platelets within normal limits. Chemistry showed normal findings except for elevated BUN at 55 with normal creatinine. Calcium is 7.4. BNP is 530. ASSESSMENT AND PLAN: 1. Acute respiratory failure with hypoxia requiring BiPAP. Patient will be continued on current setting of BiPAP where he feels more comfortable. Patient is still on high dose of steroids at 40 Solu-Medrol every 6 hours intravenously. We will continue with that. Consider weaning off upon improvement and will continue following up with pulmonary recommendation. 2. Blood loss anemia secondary to ulceration and distal esophagus and segment of Hill's esophagus. Patient currently is hemodynamically stable. Hemoglobin is at baseline and vital signs are stable. Will continue monitoring. 3. Leukocytosis. Patient had big jump from 23 to 48 in his white blood count this morning and I would like to have Hematology evaluate the patient. Patient on current dose of steroids that might be the culprit for his white blood count , but I would like to have second opinion and further evaluation. 4. End-stage chronic obstructive pulmonary disease. Patient may benefit from intermediate project manager care facility evaluation as the patient is less likely to be discharged home or detention. 5. Hypertension. Will continue with current regimen. 6. Hyperlipidemia. Will continue statin. Prognosis is guarded. MTDD
[2017-01-24] MEDS: ESOMEPRAZOLE 40 MG in SODIUM CHLORIDE 0.9% 50 ML IVPB SCH (12:40)
[2017-01-24 16:28] LABS: Glucose,Whole Blood 170 mg/dL (75-99)
[2017-01-24 20:33] LABS: Glucose,Whole Blood 157 mg/dL (75-99)
[2017-01-24] MEDS: TAMSULOSIN 0.4 MG CAP.ER.24H PO SCH (20:37)
[2017-01-24] MEDS: MELATONIN 3 MG TABLET PO SCH (20:37)
[2017-01-24] MEDS: PRAVASTATIN SODIUM 40 MG TAB PO SCH (20:37)
[2017-01-24] MEDS: MONTELUKAST 10 MG TAB PO SCH (20:37)
[2017-01-25] MEDS: SODIUM CHLORIDE 0.9% 1,000 ML IV SCH ×3 (02:38→21:07)
[2017-01-25] MEDS: IPRATROPIUM-ALBUTEROL 3 ML NEB INHALATION PRN (04:05)
[2017-01-25 05:50] LABS: Glucose,Whole Blood 189 mg/dL (75-99)
[2017-01-25] MEDS: INSULIN LISPRO (humaLOG) 300 UNIT/3 ML VIAL SQ SCH ×4 (06:13→21:08)
[2017-01-25] MEDS: methylPREDNISolone SOD SUCCI 40 MG/ML 1 ML VIAL IV SCH ×3 (06:13→23:09)
[2017-01-25 06:31] LABS: Anion Gap 9 mmol/L; Blood Urea Nitrogen 72 mg/dL (9-20); Calcium 7.8 mg/dL (8.4-10.2); Carbon Dioxide 24 mmol/L (22-30); Chloride 105 mmol/L (98-107); Glucose 161 mg/dL (74-99); Non-African American GFR(MDRD) >60 (>60 ml/min/1.73 sqM); Potassium 4.2 mmol/L (3.5-5.1); Sodium 138 mmol/L (137-145)
[2017-01-25] MEDS ORDERED: SODIUM CHLORIDE 0.9% 500 ML IV ONE (07:03)
[2017-01-25 07:13] LABS: Anisocytosis Moderate; CH 31.1; CHCM 32.1; HCT 26.5 % (39.0-53.0); HDW 3.43; HGB 8.7 gm/dL (13.0-17.5); Hypochromasia Slight; MCH 32.3 pg (25.0-35.0); MCHC 32.9 g/dL (31.0-37.0); MCV 98.3 fL (80.0-100.0); Macrocytosis Moderate; Mean Platelet Volume 7.6; Poikilocytosis Slight; RDW 22.1 % (11.5-15.5); WBC (Perox) 42.79
[2017-01-25] MEDS ORDERED: RX INFO: IV CONTRAST WAS GIVEN 1 EACH MISC MISCELLANE PRN ×2 (07:20→07:29)
[2017-01-25] MEDS: metroNIDAZOLE 500 MG TAB PO SCH ×3 (07:58→21:09)
[2017-01-25] MEDS: FLUCONAZOLE 100 MG TAB PO SCH (07:58)
[2017-01-25] MEDS: LOSARTAN 25 MG TAB PO SCH (07:58)
[2017-01-25] MEDS: CHOLECALCIFEROL 400 UNIT TAB PO SCH (07:58)
[2017-01-25] MEDS: guaiFENesin 600 MG TABLET.ER PO SCH ×2 (07:58→21:07)
[2017-01-25] MEDS: PIPERACILLIN-TAZOBACTAM 3.375 GM in DEXTROSE/WATER 1 50ML.BAG IVPB SCH ×3 (08:00→23:14)
[2017-01-25 08:19] LABS: Add Differential Manual Differential
[2017-01-25 08:22] LABS: Metamyelocytes % 1.5 %; Nucleated Red Blood Cells 5 /100 WBC (0-0); Polychromasia Present; Total Cells Counted 200; Toxic Granulation Present; WBC 41.5 k/uL (3.8-10.6)
[2017-01-25 08:42] LABS: Glucose,Whole Blood 134 mg/dL (75-99)
[2017-01-25] MEDS ORDERED: NOREPINEPHRIN 4 MG-0.9% NS PMX 4 MG/250 ML ML IV ONE (09:02)
--- NOTE | 2017-01-25 09:17 | XR ---
EXAMINATION TYPE: XR chest 1V DATE OF EXAM: 01/25/2017 COMPARISON: Prior chest x-ray 01/22/2017 HISTORY: Respiratory distress, pneumonia TECHNIQUE: Single frontal view of the chest is obtained. FINDINGS: Patient is rotated. There are overlying cardiac leads. Prominent lung volumes compatible w ith underlying emphysema. The heart is small. No pneumothorax or pleural effusion. IMPRESSION: No acute process.
[2017-01-25] MEDS ORDERED: SODIUM CHLORIDE 0.9% 1,000 ML IV ONE (09:27)
[2017-01-25] MEDS ORDERED: NOREPINEPHRIN 4 MG-0.9% NS PMX 4 MG/250 ML ML IV SCH (09:30)
[2017-01-25] MEDS: IPRATROPIUM-ALBUTEROL 3 ML NEB INHALATION SCH ×4 (09:40→19:53)
[2017-01-25] MEDS: BUDESONIDE 1 MG/2 ML NEBU INHALATION SCH ×2 (09:40→19:53)
[2017-01-25 09:49] LABS: ABG Base Excess 0.7 mmol/L; ABG HCO3 24 mmol/L (21-25); ABG PCO2 34 mmHg (35-45); ABG PH 7.47 (7.35-7.45); ABG PO2 89 mmHg (83-108); ABG TCO2 25 mmol/L (19-24)
[2017-01-25] MEDS: ESOMEPRAZOLE 40 MG in SODIUM CHLORIDE 0.9% 50 ML IVPB SCH (10:02)
--- NOTE | 2017-01-25 10:09 | P.PN ---
Subjective Principal diagnosis: 01/20/17- This is a 71-year-old pleasant male being seen examined and evaluated today in the intensive care unit. This patient is well-known to us services. This patient has had multiple admissions due to COPD exacerbations, respiratory failure and recurrent pneumonia. He was recently discharged on 01/07/2017 for COPD exacerbation. He was visited by home health care nurses and they noted him to be weak and pale with severe shortness of breath on exertion. The patient chronically uses home oxygen 3 L via nasal cannula at all times. His home health care nurse suggested he come into the emergency room. While he was in the emergency room his workup included a chest x-ray that showed chronic emphysema changes without any acute pulmonary process. The patient did note to be short of breath and was placed on BiPAP with an FiO2 of 40%. His lab workup revealed a hemoglobin of 7.7 which is a decrease from 15.5 on January 11. Patient received 2 units of packed red blood cells in the emergency room and was found to be occult positive patient also was continuing his discharge medications of prednisone as well as antibiotics from previous admission. Upon examination the patient's resting up in bed on 4 L of supplemental oxygen via nasal cannula , he is noted to have severe shortness of breath with exertion or extensive conversation. Patient has had a congested cough however difficulty with bringing up secretions. Of note the patient states that he did have a dark black bowel movement 5 days ago, and he has not had one since. Currently the patient is hemodynamically stable, current hemoglobin is 8.3. Patient is tolerating his clear liquid diet. Patient is also being seen by GI and possibly will undergo a scope in the next 48 hours, once respiratory status improved. 01/21/17 this patient is seen and examined today on rounds. The patient is currently in the ICU. Apparently overnight the patient had some increase in abdominal pain and a hemoglobin that went down to 7.9. GI was updated and ordered a chest x-ray which showed no acute process. Patient did receive 1 unit of packed red blood cells and is now at a hemoglobin of 9.1. Patient did have another black-colored stool this morning. We have consulted with GI and determined to go ahead with the patient's EGD. Patient continues to be short of breath with exertion or extensive conversation, however has improved slightly compared to yesterday's.. Patient continues to complain of a mild cough however it is nonproductive at this time. 01/22/17- The patient has been downgraded from the ICU. He is currenlty being examined on the med/surg unit. Continues on 3LPM of supplemental oxygen. Status post EGD evaluation yesterday with findings of 2 superficial ulcerations in the distal esophagus long segment of Hill's status post biopsies. long segment of Hill's esophagus. Moderate size hiatal hernia. Hgb today 8.1, patient will have one unit of PRBCs. Patient remains short of breath. Abdominal pain improved. Patient had a formed black stool this morning. Patient is being set up for discharge to a rehab facility, once stable. 01/23/17- patient is being seen and examined today on the medical surgical unit. Patient did receive 1 unit of packed red blood cells yesterday and his repeat CBC this morning shows a hemoglobin of 7.4. He has received a total of 4 infusions of packed red blood cells, this admission. Shortness of breath has remained persistent with minimal exertion and extensive conversation. 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 Patient did complain of some diarrhea overnight currently he is being worked up for possible C. diff awaiting those results. 01/24/17, patient seen and evaluated exam and in selective care remained short of breath no evidence of active bleeding is seen, of note that patient has been transferred to selective because of CV of persistent heart hypoxia and shortness of breath in addition to that a computed tomography scan of the chest was done which is reviewed no pulmonary embolism is seen patient does have bullous lung disease and CVA are C emphysema but however no pulmonary embolism is seen compression fracture has been noted. Reports for details 01/25/17, patient seen and evaluated exam and on the selective care and subsequently in the ICU critical care time spent 40 minutes, patient noted to have a drop in blood pressure slightly more somnolent and lethargic than yesterday, a new bruise in the anterior abdominal wall on the right side has been noted, patient appears to be slightly more distended, lactic acid also found to be over 4, patient is getting fluid resuscitation but due to poor peripheral IV and drop in blood pressure likely require vasopressors and fluid resuscitation, patient is being transferred to the ICU where a central line will be placed, care plan discussed with the primary service as well as the patient's at length, overall prognosis poor Objective - Vital Signs Vital signs: Vital Signs Temp 97.5 F L 01/25/17 08:00 Pulse 124 H 01/25/17 08:00 Resp 33 H 01/25/17 08:00 BP 81/55 01/25/17 08:00 Pulse Ox 86 L 01/25/17 08:00 Intake & Output 01/24/17 01/25/17 01/25/17 18:59 06:59 18:59 Intake Total 600 50 Output Total 350 Balance 250 50 Weight 64 kg Intake: Intake, IV Titration 50 Amount Piperacillin-Tazobactam 3 50 .375 gm In Dextrose/Water 1 50ml.bag @ 12.5 mls/hr IVPB Q8HR [facility] Rx#: [id number] Oral 600 Output: Urine 350 Other: Voiding Method Urinal Urinal Urinal # Voids 1 1 # Bowel Movements 1 - Exam GENERAL EXAM: Somnolent and lethargic but readily arousable pale, remains uncomfortable when mild to moderate apparent distress. On BiPAP with 40% oxygen 15 and 5 spontaneous diet and spontaneous tidal volume around 600-700 HEAD: Normocephalic. EYES: Normal reaction of pupils, equal size. NOSE: Clear with pink turbinates. THROAT: No erythema or exudates. NECK: No masses, no JVD. CHEST: No chest wall deformity. LUNGS: Poor air entry bilaterally with fine expiratory rhonchi scattered. Bases diminished CVS: S1 and S2 normal with no audible mumurs, regular rhythm. ABDOMEN: Slightly more distended a new bruise on the right upper quadrant has been noted, bowel sounds are present hypoactive however No hepatosplenomegaly, normal bowel sounds, no guarding or rigidity. EXTREMITIES: No edema noted, pedal pulses palpable. SKIN: No rashes CENTRAL NERVOUS SYSTEM: No focal deficits, tone is normal in all 4 extremities. - Labs CBC & Chem 7: 01/25/17 05:46 01/25/17 05:46 Labs: Abnormal Lab Results - Last 24 Hours (Table) 01/24/17 01/24/17 01/24/17 Range/Units 11:20 16:26 20:31 WBC (3.8-10.6) k/uL RBC (4.30-5.90) m/uL Hgb (13.0-17.5) gm/dL Hct (39.0-53.0) % RDW (11.5-15.5) % Neutrophils # (Manual) (1.3-7.7) k/uL Lymphocytes # (Manual) (1.0-4.8) k/uL Nucleated RBCs (0-0) /100 WBC ABG pH (7.35-7.45) ABG pCO2 (35-45) mmHg ABG Total CO2 (19-24) mmol/L ABG O2 Saturation (94-97) % BUN (9-20) mg/dL Glucose (74-99) mg/dL POC Glucose (mg/dL) 231 H 170 H 157 H (75-99) mg/dL Plasma Lactic Acid Radu (0.7-2.0) mmol/L Calcium (8.4-10.2) mg/dL 01/25/17 01/25/17 01/25/17 Range/Units 05:46 05:46 05:46 WBC 41.5 H* (3.8-10.6) k/uL RBC 2.70 L (4.30-5.90) m/uL Hgb 8.7 L D (13.0-17.5) gm/dL Hct 26.5 L (39.0-53.0) % RDW 22.1 H (11.5-15.5) % Neutrophils # (Manual) 39.6 H (1.3-7.7) k/uL Lymphocytes # (Manual) 0.6 L (1.0-4.8) k/uL Nucleated RBCs 5 H (0-0) /100 WBC ABG pH (7.35-7.45) ABG pCO2 (35-45) mmHg ABG Total CO2 (19-24) mmol/L ABG O2 Saturation (94-97) % BUN 72 H (9-20) mg/dL Glucose 161 H (74-99) mg/dL POC Glucose (mg/dL) (75-99) mg/dL Plasma Lactic Acid Radu 4.8 H* (0.7-2.0) mmol/L Calcium 7.8 L (8.4-10.2) mg/dL 01/25/17 01/25/17 01/25/17 Range/Units 05:49 08:39 09:30 WBC (3.8-10.6) k/uL RBC (4.30-5.90) m/uL Hgb (13.0-17.5) gm/dL Hct (39.0-53.0) % RDW (11.5-15.5) % Neutrophils # (Manual) (1.3-7.7) k/uL Lymphocytes # (Manual) (1.0-4.8) k/uL Nucleated RBCs (0-0) /100 WBC ABG pH (7.35-7.45) ABG pCO2 (35-45) mmHg ABG Total CO2 (19-24) mmol/L ABG O2 Saturation (94-97) % BUN (9-20) mg/dL Glucose (74-99) mg/dL POC Glucose (mg/dL) 189 H 134 H (75-99) mg/dL Plasma Lactic Acid Radu 2.2 H* (0.7-2.0) mmol/L Calcium (8.4-10.2) mg/dL 01/25/17 Range/Units 09:36 WBC (3.8-10.6) k/uL RBC (4.30-5.90) m/uL Hgb (13.0-17.5) gm/dL Hct (39.0-53.0) % RDW (11.5-15.5) % Neutrophils # (Manual) (1.3-7.7) k/uL Lymphocytes # (Manual) (1.0-4.8) k/uL Nucleated RBCs (0-0) /100 WBC ABG pH 7.47 H (7.35-7.45) ABG pCO2 34 L (35-45) mmHg ABG Total CO2 25 H (19-24) mmol/L ABG O2 Saturation 98.0 H (94-97) % BUN (9-20) mg/dL Glucose (74-99) mg/dL POC Glucose (mg/dL) (75-99) mg/dL Plasma Lactic Acid Radu (0.7-2.0) mmol/L Calcium (8.4-10.2) mg/dL Microbiology - Last 24 Hours (Table) 01/23/17 16:38 Blood Culture - Preliminary Blood No Growth after 24 hours Assessment and Plan Plan: Assessment Distended abdomen with and elevated lactic acid and metabolic acidosis suspect intra-abdominal process once patient is stabilized we will do a computed tomography scan of the abdominal and pelvis Hypertension and severe sepsis End-stage COPD with acute exacerbation Acute on chronic hypoxic respiratory failure GI hemorrhage Acute blood loss anemia Leukocytosis related to prolonged prednisone use Hypertension Hyperlipidemia BPH Plan IV steroid dose has been tapered, as dictated above plans for fluid resuscitation and vasopressors intimidation often and pelvic antibiotics surgical consult in case if computed tomography scan of the abdomen is abnormal This patient has end-stage COPD and persistent shortness of breath is chronic. Medications have been reviewed and will be continued as ordered. Into new to monitor for any bleeding as well as hemoglobin. Continue with pulmonary hygiene , coughing and deep breathing exercises, and supportive care. Supplemental oxygen and/or BiPAP to maintain oxygen saturations of 92% or better. Continue nebulizer treatments. Initiate and encourage incentive spirometer. GI and DVT prophylaxis. Repeat labs in the morning. We will continue to monitor labs/ results and adjust treatment as necessary. Further recommendations pending. Critical care time spent 40 minutes Time with Patient: Greater than 30
--- NOTE | 2017-01-25 10:12 | P.PCN ---
Date of Procedure: 01/25/17 Preoperative Diagnosis: Severe sepsis, hypertension, metabolic acidosis, severe COPD, GI bleed Postoperative Diagnosis: As above Procedure(s) Performed: Central line placement/triple-lumen catheter Implants: Surgeon: Tevin Koenig Indications for Procedure: Operative Findings: Description of Procedure: Informed consent obtained from the patient , procedure explained to her at length risk alternative and complication also explained Patient prepared and draped in a usual fashion using aseptic technique triple-lumen catheter inserted into right femoral vein without any difficulty patient tolerate procedure well no complications noted security #3 silk
[2017-01-25 10:30] LABS: Appearance,Urine Clear (Clear); Bilirubin,Urine Negative (Negative); Glucose,Urine (UA) 2+ (Negative); Ketones,Urine Negative (Negative); Leukocyte Esterase,Urine Negative (Negative); Nitrite,Urine Negative (Negative); Protein,Urine Trace (Negative); Specific Gravity,Urine 1.024 (1.001-1.035); UA Billing (MACRO vs. MICRO) CHEM; Urobilinogen,Urine <2.0 mg/dL (<2.0)
[2017-01-25 10:49] LABS: Magnesium 2.5 mg/dL (1.6-2.3); Phosphorous 4.2 mg/dL (2.5-4.5)
--- NOTE | 2017-01-25 11:43 | PN ---
The patient continues to be lethargic during the night and requiring BIPAP without interruption as he gets extremely short of breath when taken off the BIPAP. This morning blood work showed lactate level elevated at 4 and I was called when I ordered STAT ABG, chest x-ray and 500 mL bolus and transfer the patient to the ICU. PHYSICAL EXAMINATION: Vital signs: Blood pressure remained to be borderline 100/ 60s and 90s/50s. Heart rate is elevated today above 120 and up to 128. Respiratory rate is between 30 and 35. Saturation is in the high 80s, low 90s on BIPAP with FIO2 40%. GENERAL: Lethargic, still answering questions, following commands. Lungs diminished sounds bilaterally. Heart normal S1, S2. Tachycardic. Abdomen soft. No tenderness. Positive bowel sounds in all four quadrants. Using accessory muscles. Skin: No rash. Imaging and labs: ABG showed pH 7.47. PCO2 low at 34. PO2 89. Total CO2 25 and O2 saturation 98. Lactic acid level with ABG sample was found to be improved to 2.2 after the 500 mL bolus. Glucose 134. UA showed 2+ glucose, normal otherwise. Blood culture are pending negative. Chest x-ray was done immediately and showed no acute process. ASSESSMENT AND PLAN: Acute on chronic respiratory failure with hypoxia. The patient continued to be on IV steroids. I discussed care with Dr. Koenig from pulmonary and critical care. IV steroids was decreased yesterday. Would continue with the current dose intravenously and will continue with IV antibiotics. Dr. Koenig would like to order CT scan of the abdomen to rule out any intraabdominal process given the quick decline and patients condition. No change in his mental status at this point. We will continue IV fluids and monitor fluid status closely. Central line was placed by Dr. Koenig in the right groin. Family was contacted and they are aware with poor prognosis given his advanced lung disease. MTDD
--- NOTE | 2017-01-25 11:51 | P.GSCN ---
History of Present Illness Consult date: 01/25/17 Reason for Consult: Abdominal distention History of present illness: The patient is a 71-year-old man who was admitted to the hospital with respiratory issues. He had been very short of breath and weak. On arrival to the emergency department he was noted to be markedly anemic. He did receive a EGD by Dr. Herrera showing some superficial ulcerations in the esophagus with Hill's change. He had been transferred to the floor. He returned to the ICU due to hypotension. I'm asked to see him because of abdominal distention and bruising on the abdominal wall. He is not been on Coumadin or heparin. No falls. Denies any abdominal pain himself. He is about 6 weeks and inguinal herniorrhaphy by myself. Review of Systems All systems: negative Past Medical History Past Medical History: COPD, Hyperlipidemia, Hypertension, Pneumonia, Prostate Disorder Additional Past Medical History / Comment(s): HOME O2 3 LITERS N/C AT NIGHT AND NEEDED. History of Any Multi-Drug Resistant Organisms: None Reported Past Surgical History: Hernia Repair (12/10/2016) Additional Past Surgical History / Comment(s): Colonoscopy - clear 2015 Past Anesthesia/Blood Transfusion Reactions: No Reported Reaction Past Psychological History: Anxiety Additional Psychological History / Comment(s): PT LIVES WITH HIS BROOKE IN A SINGLE L[place]EL [place] THAT HAS [address] STE[address]. NO HOME CARE SERVICE. HAS NEBULIZER AND HOME 02 . NO SERVICE IN BACKGROUND. WORKED IN A [employer]. Smoking Status: Former smoker Past Alcohol Use History: None Reported Additional Past Alcohol Use History / Comment(s): STARTED SMOKING IN 1. SMOKED 1-2 PPD FOR 20 YEARS THEN SWITHCED TO SMOKING A PIPE(OUNCE OF TOBACCO PER DAY-SMOKED PIPE FOR 35 YEARS QUIT 2011 Past Drug Use History: None Reported - Past Family History Mother Family Medical History: Myocardial Infarction (OK), Supraventricular Tachycardia (SVT) Additional Family Medical History / Comment(s): Lived to 87 Father Family Medical History: Cancer Additional Family Medical History / Comment(s): Lung CA Brother(s) Additional Family Medical History / Comment(s): Patient has 1 brother that at age 57 from lung cancer. He has one half brother that has thyroid problems and hepatitis C. Sister(s) Additional Family Medical History / Comment(s): Patient has 2 full sisters and one half-sister with no major medical problems. Patient has 1 son with no major medical problems. Patient has one daughter that is being treated for bone infection. Medications and Allergies Home Medications Medication Instructions Recorded Confirmed Type Albuterol Inhaler [Ventolin Hfa 2 puff INHALATION RT-QID PRN 09/23/16 01/19/17 History Inhaler] Budesonide [Pulmicort] 0.5 mg INHALATION RT-BID 09/23/16 01/19/17 History Cholecalciferol [Vitamin D3] 400 unit PO DAILY 09/23/16 01/19/17 History Ipratropium-Albuterol Nebulize 3 ml INHALATION RT-QID 09/23/16 01/19/17 History [Duoneb 0.5 mg-3 mg/3 ml Soln] Losartan [Cozaar] 25 mg PO DAILY 09/23/16 01/19/17 History Pravastatin Sodium [Pravachol] 40 mg PO HS 09/23/16 01/19/17 History Tamsulosin HCl [Flomax] 0.4 mg PO HS 09/23/16 01/19/17 History predniSONE See Taper PO DIRECTED 01/19/17 01/19/17 History Allergies Allergy/AdvReac Type Severity Reaction Status Date / Time No Known Allergies Allergy Verified 01/19/17 22:42 Surgical - Exam Osteopathic Statement: *. No significant issues noted on an osteopathic structural exam other than those noted in the History and Physical/Consult. Vital Signs Pulse Resp BP Pulse Ox 71 28 H 92/56 86 L 01/19/17 12:41 01/19/17 12:41 01/19/17 12:41 01/19/17 12:41 - General He appears dyspneic with a BiPAP mask in place. chronically ill - Eyes normal ocular movement - Neck trachea midline - Respiratory other (Diminished bilaterally) - Cardiovascular Rhythm: other (Tachycardic) - Abdomen Ecchymosis along the right side of the abdomen starting about the level of the umbilicus. This does not appear to be a daniel-Mcgee sign. No marina Sign Abdomen: soft, no non tender, bowel sounds, surgical scars (Well-healed inguinal scar) Results - Labs 01/25/17 05:46 01/25/17 05:46 Abnormal Lab Results - Last 24 Hours (Table) 01/24/17 01/24/17 01/25/17 Range/Units 16:26 20:31 05:46 WBC 41.5 H* (3.8-10.6) k/uL RBC 2.70 L (4.30-5.90) m/uL Hgb 8.7 L D (13.0-17.5) gm/dL Hct 26.5 L (39.0-53.0) % RDW 22.1 H (11.5-15.5) % Neutrophils # (Manual) 39.6 H (1.3-7.7) k/uL Lymphocytes # (Manual) 0.6 L (1.0-4.8) k/uL Nucleated RBCs 5 H (0-0) /100 WBC ABG pH (7.35-7.45) ABG pCO2 (35-45) mmHg ABG Total CO2 (19-24) mmol/L ABG O2 Saturation (94-97) % BUN (9-20) mg/dL Glucose (74-99) mg/dL POC Glucose (mg/dL) 170 H 157 H (75-99) mg/dL Plasma Lactic Acid Radu (0.7-2.0) mmol/L Calcium (8.4-10.2) mg/dL Magnesium (1.6-2.3) mg/dL Urine Protein (Negative) Urine Glucose (UA) (Negative) 01/25/17 01/25/17 01/25/17 Range/Units 05:46 05:46 05:46 WBC (3.8-10.6) k/uL RBC (4.30-5.90) m/uL Hgb (13.0-17.5) gm/dL Hct (39.0-53.0) % RDW (11.5-15.5) % Neutrophils # (Manual) (1.3-7.7) k/uL Lymphocytes # (Manual) (1.0-4.8) k/uL Nucleated RBCs (0-0) /100 WBC ABG pH (7.35-7.45) ABG pCO2 (35-45) mmHg ABG Total CO2 (19-24) mmol/L ABG O2 Saturation (94-97) % BUN 72 H (9-20) mg/dL Glucose 161 H (74-99) mg/dL POC Glucose (mg/dL) (75-99) mg/dL Plasma Lactic Acid Radu 4.8 H* (0.7-2.0) mmol/L Calcium 7.8 L (8.4-10.2) mg/dL Magnesium 2.5 H (1.6-2.3) mg/dL Urine Protein (Negative) Urine Glucose (UA) (Negative) 01/25/17 01/25/17 01/25/17 Range/Units 05:49 08:39 09:30 WBC (3.8-10.6) k/uL RBC (4.30-5.90) m/uL Hgb (13.0-17.5) gm/dL Hct (39.0-53.0) % RDW (11.5-15.5) % Neutrophils # (Manual) (1.3-7.7) k/uL Lymphocytes # (Manual) (1.0-4.8) k/uL Nucleated RBCs (0-0) /100 WBC ABG pH (7.35-7.45) ABG pCO2 (35-45) mmHg ABG Total CO2 (19-24) mmol/L ABG O2 Saturation (94-97) % BUN (9-20) mg/dL Glucose (74-99) mg/dL POC Glucose (mg/dL) 189 H 134 H (75-99) mg/dL Plasma Lactic Acid Radu 2.2 H* (0.7-2.0) mmol/L Calcium (8.4-10.2) mg/dL Magnesium (1.6-2.3) mg/dL Urine Protein (Negative) Urine Glucose (UA) (Negative) 01/25/17 01/25/17 Range/Units 09:36 10:05 WBC (3.8-10.6) k/uL RBC (4.30-5.90) m/uL Hgb (13.0-17.5) gm/dL Hct (39.0-53.0) % RDW (11.5-15.5) % Neutrophils # (Manual) (1.3-7.7) k/uL Lymphocytes # (Manual) (1.0-4.8) k/uL Nucleated RBCs (0-0) /100 WBC ABG pH 7.47 H (7.35-7.45) ABG pCO2 34 L (35-45) mmHg ABG Total CO2 25 H (19-24) mmol/L ABG O2 Saturation 98.0 H (94-97) % BUN (9-20) mg/dL Glucose (74-99) mg/dL POC Glucose (mg/dL) (75-99) mg/dL Plasma Lactic Acid Radu (0.7-2.0) mmol/L Calcium (8.4-10.2) mg/dL Magnesium (1.6-2.3) mg/dL Urine Protein Trace H (Negative) Urine Glucose (UA) 2+ H (Negative) Microbiology - Last 24 Hours (Table) 01/23/17 16:38 Blood Culture - Preliminary Blood No Growth after 24 hours Diabetes panel 01/25/17 Range/Units 05:46 Sodium 138 (137-145) mmol/L Potassium 4.2 (3.5-5.1) mmol/L Chloride 105 (98-107) mmol/L Carbon Dioxide 24 (22-30) mmol/L BUN 72 H (9-20) mg/dL Creatinine 0.90 (0.66-1.25) mg/dL Glucose 161 H (74-99) mg/dL Calcium 7.8 L (8.4-10.2) mg/dL Calcium panel 01/25/17 01/25/17 Range/Units 05:46 05:46 Calcium 7.8 L (8.4-10.2) mg/dL Phosphorus 4.2 (2.5-4.5) mg/dL Pituitary panel 01/25/17 Range/Units 05:46 Sodium 138 (137-145) mmol/L Potassium 4.2 (3.5-5.1) mmol/L Chloride 105 (98-107) mmol/L Carbon Dioxide 24 (22-30) mmol/L BUN 72 H (9-20) mg/dL Creatinine 0.90 (0.66-1.25) mg/dL Glucose 161 H (74-99) mg/dL Calcium 7.8 L (8.4-10.2) mg/dL Adrenal panel 01/25/17 Range/Units 05:46 Sodium 138 (137-145) mmol/L Potassium 4.2 (3.5-5.1) mmol/L Chloride 105 (98-107) mmol/L Carbon Dioxide 24 (22-30) mmol/L BUN 72 H (9-20) mg/dL Creatinine 0.90 (0.66-1.25) mg/dL Glucose 161 H (74-99) mg/dL Calcium 7.8 L (8.4-10.2) mg/dL Assessment and Plan (1) Acute blood loss anemia Status: Acute (2) Acute respiratory failure Status: Acute (3) GI hemorrhage Status: Acute Plan: I'm not sure that the ecchymosis on his abdominal wall is due to intra- abdominal bleeding. A computed tomography scan has been ordered. It's been about a week since any coag studies were ordered salt repeat those. Consider supportive care. I'll follow with you.
[2017-01-25] MEDS: IOHEXOL 350 MG/ML 25 ML BOTTLE (ORAL USE) PO PRN ×2 (12:19→13:43)
[2017-01-25 12:21] LABS: Glucose,Whole Blood 105 mg/dL (75-99)
[2017-01-25 12:48] LABS: INR 1.5 (<1.2); Partial Thromboplastin Time 27.1 sec (22.0-30.0); Prothrombin Time 14.2 sec (9.0-12.0)
--- NOTE | 2017-01-25 14:33 | P.PN ---
Progress Note - Text Consult dictated Impression: Leukocytosis (Leukemoid reaction) Reactive in nature 2nd to Steroids and ? infection, primary Hematologic process not suspected Recommendations: - Monitor Only - No additional specific Hematologic work up D/W patient, & daughter.
[2017-01-25] MEDS: NOREPINEPHRIN 16 MG-0.9%NS PMX 16 MG/250 ML ML IV SCH ×2 (15:15→23:38)
--- NOTE | 2017-01-25 16:02 | CT ---
EXAMINATION TYPE: CT abdomen pelvis wo/w con DATE OF EXAM: 01/25/2017 COMPARISON: CT chest 01/23/2017 HISTORY: 71-year-old male GI hemorrhage TECHNIQUE: Contiguous axial scanning of the abdomen and pelvis following administration of 100 ml Omn ipaque 300 IV contrast. Delayed images through the kidneys and coronal/sagittal reconstructions perf ormed. CT DLP: 723.8 mGycm Automated exposure control for dose reduction was used. FINDINGS: Heart is normal size without pericardial effusion. Emphysematous change in the lower lungs without pl eural effusion. Small amount of focal fat along the anterior falciform ligament. No biliary ductal dilatation. Portal venous system appears patent. Gallbladder, adrenal glands, kidneys, and pancreas appear within normal limits. Wedge-shaped area of hypodensity along the upper pole of the spleen. Small fatty umbilical hernia. No dilated small bowel, free fluid, or free air. No mesenteric or retroperitoneal lymphadenopathy se en. While the terminal ileum and distal small bowel loops are collapsed, there is no proximal bowel dilat ation or significant air-fluid levels to suggest bowel obstruction or transition point. Moderate to large stool in the ascending colon and cecum. Prominent fecal material within the rectum distending up to 6.2 cm. Moderate to severe atherosclerotic changes within the abdominal aorta and iliac arteries. Suspect sev ere narrowing at the proximal right common iliac artery. A right femoral peripheral line is present. Mild circumferential bladder wall thickening could be from chronic bladder wall hypertrophy or cystit is. There is nondependent intraluminal air in the bladder likely from Mayo catheter placement. Prost ate gland is enlarged measuring 4.8 cm wide. There is diffuse anasarca changes with a body wall edema and edematous intra-abdominal fat. Bones: There is right-sided L5 pars defect with a trace grade 1 L5-S1 anterolisthesis. No osseous pro cess. IMPRESSION: 1. MODERATE TO SEVERE ATHEROSCLEROTIC CALCIFICATIONS WITHIN THE ABDOMINAL AORTA AND ILIAC ARTERIES. 2. WEDGE-SHAPED AREA OF HYPODENSITY IN THE UPPER POLE OF THE SPLEEN MAY REPRESENT A SMALL SPLENIC INF ARCT. 3. DIFFUSE ANASARCA TYPE CHANGES. 4. MODERATE TO LARGE STOOL BURDEN WITHIN THE RIGHT HEMICOLON AND STOOL DISTENDING THE RECTUM UP TO 6. 2 CM WIDE. NO PERICOLONIC INFLAMMATORY CHANGE.
[2017-01-25 16:56] LABS: Glucose,Whole Blood 142 mg/dL (75-99)
--- NOTE | 2017-01-25 17:34 | CONS ---
DATE OF SERVICE: 01/25/2017 REASON FOR CONSULTATION: Leukocytosis. HISTORY OF ILLNESS: Mr. Morley is a gentleman with known history of advanced COPD. He had multiple recent hospitalizations for dyspnea thought to represent exacerbation of COPD. He has had multiple courses of oral and IV steroids. He is admitted yet with another episode of dyspnea. He is transferred to the intensive care unit with progressive hypoxemia and dyspnea. We were asked to evaluate the patient due to progressive leukocytosis. Reviewing the patient's laboratory studies in the hospital data bank revealed persistent leukocytosis over the last four months. His WBC was 26.1 on 09/23, 31.5 on 01/19 and 47.8 on . The patient is currently receiving Solu-Medrol at the dose of 40 mg IV three times daily. He is not currently receiving antibiotics and he remains afebrile. The patient has a normal chest x-ray today and had a negative CT scan of the chest for pulmonary embolism on 01/23/17. The patient denies any known primary hematologic disorder. PAST MEDICAL HISTORY: 1. Advanced COPD. 2. Multiple recent hospitalizations for shortness of breath. 3. Developing severe anemia with unknown site of blood loss. 4. Hypertension. 5. Benign prostatic hypertrophy. PAST SURGICAL HISTORY: 1. Herniorrhaphy. 2. Colonoscopy. CURRENT MEDICATIONS: Reviewed with the patient as listed in electronic medical record. SOCIAL HISTORY: The patient has prior history of heavy smoking, none in the past year. Denies any excessive use of alcohol. FAMILY HISTORY: Noncontributory. PHYSICAL EXAMINATION: The patient appeared alert and oriented. Skin is warm and dry. Hair distribution within normal for age and gender. Vital signs are stable and listed in the ( ). No pathologic cervical, supraclavicular, infraclavicular or axillary lymphadenopathy. Trachea was in midline. Chest examination revealed decreased air exchange bilaterally consistent with COPD. Heart sounds were normal and distant. The abdomen was soft. The liver and spleen were not clinically palpable. There were no masses, tenderness or inguinal lymphadenopathy. Extremities appeared to be grossly unremarkable. Range of motion was within normal, no deformity seen. Neurologic examination showed no focal motor or sensory deficit. Cranial nerves 2-12 were unremarkable. IMPRESSION: 1. Leukocytosis with neutrophilia, this is likely a reactive process or what is known as leukemoid reaction. Primary hematologic process is not suspected. Etiology includes steroid use and potential infectious etiology in addition to recent suspected blood loss. Reactive leukocytosis is rather common in patient with suspected blood loss. 2. Possible intra-abdominal blood loss. CT scan of abdomen and pelvis ordered. 3. Advanced chronic obstructive pulmonary disease. RECOMMENDATION: 1. Discussed suspected reactive process with the patient, daughter and . 2. No specific hematology workup required at the present time. 3. Would expect leukocytosis to gradually improve with clinical improvement. 4. Agree with CT scan of abdomen and pelvis. Will follow the patient along with you in the hospital. Further recommendations to follow at a later time if needed. Thank you for asking us to participate in the care of Mr. Morley. BREANA
[2017-01-25 19:17] LABS: Anisocytosis Moderate; CH 31.2; CHCM 32.1; HCT 25.6 % (39.0-53.0); HDW 3.58; HGB 8.2 gm/dL (13.0-17.5); Hypochromasia Slight; MCH 31.9 pg (25.0-35.0); MCHC 32.2 g/dL (31.0-37.0); Macrocytosis Moderate; Mean Platelet Volume 7.4; Poikilocytosis Slight; RBC 2.58 m/uL (4.30-5.90); RDW 23.6 % (11.5-15.5)
[2017-01-25 19:19] LABS: WBC 48.8 k/uL (3.8-10.6)
[2017-01-25 20:36] LABS: Glucose,Whole Blood 165 mg/dL (75-99)
[2017-01-25] MEDS: MELATONIN 3 MG TABLET PO SCH (21:08)
[2017-01-25] MEDS: MONTELUKAST 10 MG TAB PO SCH (21:08)
[2017-01-25] MEDS: PRAVASTATIN SODIUM 40 MG TAB PO SCH (21:09)
[2017-01-25] MEDS: TAMSULOSIN 0.4 MG CAP.ER.24H PO SCH (21:09)
[2017-01-25] MEDS: SODIUM CHLORIDE 0.9% 99 ML with VASOPRESSIN 20 UNIT IV SCH ×2 (23:08)
[2017-01-26 06:00] LABS: Anisocytosis Marked; CH 31.8; CHCM 32.4; HCT 21.6 % (39.0-53.0); HDW 3.61; Hypochromasia Slight; MCH 31.2 pg (25.0-35.0); MCHC 31.2 g/dL (31.0-37.0); MCV 99.7 fL (80.0-100.0); Macrocytosis Moderate; Mean Platelet Volume 8.2; Poikilocytosis Slight; RBC 2.17 m/uL (4.30-5.90); WBC (Perox) 27.74
[2017-01-26 06:04] LABS: WBC 28.9 k/uL (3.8-10.6)
[2017-01-26] MEDS: SODIUM CHLORIDE 0.9% 99 ML with VASOPRESSIN 20 UNIT IV SCH ×4 (06:04→16:42)
[2017-01-26 06:07] LABS: INR 1.5 (<1.2); Prothrombin Time 14.8 sec (9.0-12.0)
[2017-01-26 06:08] LABS: HGB 6.7 gm/dL (13.0-17.5)
[2017-01-26 06:19] LABS: ALT 59 U/L (21-72); AST 46 U/L (17-59); Alkaline Phosphatase 29 U/L (38-126); Anion Gap 3 mmol/L; Blood Urea Nitrogen 54 mg/dL (9-20); Calcium 6.8 mg/dL (8.4-10.2); Carbon Dioxide 27 mmol/L (22-30); Chloride 110 mmol/L (98-107); Glucose 147 mg/dL (74-99); Magnesium 2.3 mg/dL (1.6-2.3); Non-African American GFR(MDRD) >60 (>60 ml/min/1.73 sqM); Phosphorous 3.5 mg/dL (2.5-4.5); Potassium 4.2 mmol/L (3.5-5.1); Sodium 140 mmol/L (137-145); Total Bilirubin 0.2 mg/dL (0.2-1.3); Total Protein 3.1 g/dL (6.3-8.2)
[2017-01-26 07:16] LABS: Glucose,Whole Blood 159 mg/dL (75-99)
[2017-01-26] MEDS: INSULIN LISPRO (humaLOG) 300 UNIT/3 ML VIAL SQ SCH ×2 (07:16→11:20)
[2017-01-26] MEDS: IPRATROPIUM-ALBUTEROL 3 ML NEB INHALATION SCH ×3 (07:22→15:50)
[2017-01-26] MEDS: BUDESONIDE 1 MG/2 ML NEBU INHALATION SCH (07:22)
[2017-01-26 07:47] LABS: Add Differential Manual Differential
[2017-01-26 07:50] LABS: Manual Review Performed; Metamyelocytes % 0.5 %; Nucleated Red Blood Cells 0 /100 WBC (0-0); Total Cells Counted 200
[2017-01-26 07:51] LABS: Polychromasia Present
[2017-01-26] MEDS: PIPERACILLIN-TAZOBACTAM 3.375 GM in DEXTROSE/WATER 1 50ML.BAG IVPB SCH ×2 (07:56→16:43)
[2017-01-26] MEDS: methylPREDNISolone SOD SUCCI 40 MG/ML 1 ML VIAL IV SCH ×2 (07:56→16:42)
[2017-01-26] MEDS: guaiFENesin 600 MG TABLET.ER PO SCH (08:15)
[2017-01-26] MEDS: FLUCONAZOLE 100 MG TAB PO SCH (08:15)
[2017-01-26] MEDS: metroNIDAZOLE 500 MG TAB PO SCH ×2 (08:15→16:43)
[2017-01-26] MEDS: ESOMEPRAZOLE 40 MG in SODIUM CHLORIDE 0.9% 50 ML IVPB SCH (08:15)
[2017-01-26] MEDS: LOSARTAN 25 MG TAB PO SCH (08:32)
[2017-01-26] MEDS: SODIUM CHLORIDE 0.9% 1,000 ML IV SCH (08:32)
--- NOTE | 2017-01-26 09:12 | XR ---
EXAMINATION TYPE: XR chest 1V DATE OF EXAM: 01/25/2017 chest x-ray COMPARISON: Prior chest x-ray 01/25/2017 HISTORY: Shortness of breath TECHNIQUE: frontal view of the chest is obtained 2 images. FINDINGS: Exam is stable. IMPRESSION: Emphysema
[2017-01-26 11:31] LABS: Glucose,Whole Blood 232 mg/dL (75-99)
[2017-01-26] MEDS ORDERED: SENNOSIDES-DOCUSATE SODIUM 1 EACH TAB PO STA (11:54)
--- NOTE | 2017-01-26 11:58 | P.PN ---
Subjective 01/20/17- This is a 71-year-old pleasant male being seen examined and evaluated today in the intensive care unit. This patient is well-known to us services. This patient has had multiple admissions due to COPD exacerbations, respiratory failure and recurrent pneumonia. He was recently discharged on 01/07/2017 for COPD exacerbation. He was visited by home health care nurses and they noted him to be weak and pale with severe shortness of breath on exertion. The patient chronically uses home oxygen 3 L via nasal cannula at all times. His home health care nurse suggested he come into the emergency room. While he was in the emergency room his workup included a chest x-ray that showed chronic emphysema changes without any acute pulmonary process. The patient did note to be short of breath and was placed on BiPAP with an FiO2 of 40%. His lab workup revealed a hemoglobin of 7.7 which is a decrease from 15.5 on January 11. Patient received 2 units of packed red blood cells in the emergency room and was found to be occult positive patient also was continuing his discharge medications of prednisone as well as antibiotics from previous admission. Upon examination the patient's resting up in bed on 4 L of supplemental oxygen via nasal cannula , he is noted to have severe shortness of breath with exertion or extensive conversation. Patient has had a congested cough however difficulty with bringing up secretions. Of note the patient states that he did have a dark black bowel movement 5 days ago, and he has not had one since. Currently the patient is hemodynamically stable, current hemoglobin is 8.3. Patient is tolerating his clear liquid diet. Patient is also being seen by GI and possibly will undergo a scope in the next 48 hours, once respiratory status improved. 01/21/17 this patient is seen and examined today on rounds. The patient is currently in the ICU. Apparently overnight the patient had some increase in abdominal pain and a hemoglobin that went down to 7.9. GI was updated and ordered a chest x-ray which showed no acute process. Patient did receive 1 unit of packed red blood cells and is now at a hemoglobin of 9.1. Patient did have another black-colored stool this morning. We have consulted with GI and determined to go ahead with the patient's EGD. Patient continues to be short of breath with exertion or extensive conversation, however has improved slightly compared to yesterday's.. Patient continues to complain of a mild cough however it is nonproductive at this time. 01/22/17- The patient has been downgraded from the ICU. He is currenlty being examined on the med/surg unit. Continues on 3LPM of supplemental oxygen. Status post EGD evaluation yesterday with findings of 2 superficial ulcerations in the distal esophagus long segment of Hill's status post biopsies. long segment of Hill's esophagus. Moderate size hiatal hernia. Hgb today 8.1, patient will have one unit of PRBCs. Patient remains short of breath. Abdominal pain improved. Patient had a formed black stool this morning. Patient is being set up for discharge to a rehab facility, once stable. 01/23/17- patient is being seen and examined today on the medical surgical unit. Patient did receive 1 unit of packed red blood cells yesterday and his repeat CBC this morning shows a hemoglobin of 7.4. He has received a total of 4 infusions of packed red blood cells, this admission. Shortness of breath has remained persistent with minimal exertion and extensive conversation. 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 Patient did complain of some diarrhea overnight currently he is being worked up for possible C. diff awaiting those results. 01/24/17, patient seen and evaluated exam and in selective care remained short of breath no evidence of active bleeding is seen, of note that patient has been transferred to selective because of CV of persistent heart hypoxia and shortness of breath in addition to that a computed tomography scan of the chest was done which is reviewed no pulmonary embolism is seen patient does have bullous lung disease and CVA are C emphysema but however no pulmonary embolism is seen compression fracture has been noted. Reports for details 01/25/17, patient seen and evaluated exam and on the selective care and subsequently in the ICU critical care time spent 40 minutes, patient noted to have a drop in blood pressure slightly more somnolent and lethargic than yesterday, a new bruise in the anterior abdominal wall on the right side has been noted, patient appears to be slightly more distended, lactic acid also found to be over 4, patient is getting fluid resuscitation but due to poor peripheral IV and drop in blood pressure likely require vasopressors and fluid resuscitation, patient is being transferred to the ICU where a central line will be placed, care plan discussed with the primary service as well as the patient's at length, overall prognosis poor 01/26/17 patient is being seen examined and evaluated today on rounds. Patient is currently in the ICU and on BiPAP. He continues to be on vasopressors in the form of Levophed at 6 mics and vasopressin at 0.04. Currently we are weaning down the levo. Patient's labs have been reviewed and today shows a white blood cell count of 28.9 and his hemoglobin is noted to be 6.7 INR is 1.5 currently the patient has getting to packed red blood cells transfusions x2, for and drop in hemoglobin. Patient does have end-stage COPD and has an overall prognosis that is poor. Surgical continues to follow patient as well as hematology. We appreciate any and all recommendations. Patient continues to be short of breath at all times, currently he is afebrile. His x-ray has been reviewed and shows no acute process. Objective - Vital Signs Vital signs: Vital Signs Temp 98.1 F 01/26/17 08:50 Pulse 98 01/26/17 11:23 Resp 29 H 01/26/17 11:00 BP 97/57 01/26/17 11:00 Pulse Ox 100 01/26/17 11:19 Intake & Output 01/25/17 01/26/17 01/26/17 18:59 06:59 18:59 Intake Total 2918.375 9158.548 5546.86 Output Total 1285 680 350 Balance 1633.375 804.300 897.86 Weight 69.7 kg Intake: IV 1105.0 1125.0 600 Esomeprazole 40 mg In 50 50 Sodium Chloride 0.9% 50 ml @ 100 mls/hr IVPB DAILY [facility] Rx#:[id number] Piperacillin-Tazobactam 3 75.0 75.0 50 .375 gm In Dextrose/Water 1 50ml.bag @ 12.5 mls/hr IVPB Q8HR [facility] Rx#: [id number] Sodium Chloride 0.9% 1, 980 1050 500 000 ml @ 100 mls/hr IV . Q10H [facility] Rx#:[id number] Intake, IV Titration 1113.375 359.300 37.86 Amount Norepinephrin 16 mg-0.9% 359.300 37.86 Ns Pmx 16 mg In 250 ml @ Titrate IV .Q0M [facility] Rx#: [id number] Norepinephrin 4 mg-0.9% 113.375 Ns Pmx 4 mg In 250 ml @ Titrate IV .Q0M [facility] Rx#: [id number] Sodium Chloride 0.9% 1, 1000 000 ml @ 999 mls/hr IV . Q1H1M ONE Rx#:[id number] Oral 700 Blood Product 610 Rc Irr As1 Unit 310 [id number] Rc Irr Cpda1 Unit 0 [id number] Output: Urine 1285 680 350 Other: Voiding Method Indwelling Catheter Indwelling Catheter Indwelling Catheter - Exam GENERAL EXAM: Somnolent and lethargic but readily arousable pale, remains uncomfortable when mild to moderate apparent distress. On BiPAP with 40% oxygen 12 and 6 HEAD: Normocephalic. EYES: Normal reaction of pupils, equal size. NOSE: Clear with pink turbinates. THROAT: No erythema or exudates. NECK: No masses, no JVD. CHEST: No chest wall deformity. LUNGS: Poor air entry bilaterally with fine expiratory rhonchi scattered. Bases diminished CVS: S1 and S2 normal with no audible mumurs, regular rhythm. ABDOMEN: Nondistended, a bruise on the right upper quadrant has been noted, bowel sounds are present hypoactive however No hepatosplenomegaly, normal bowel sounds, no guarding or rigidity. EXTREMITIES: No edema noted, pedal pulses palpable. SKIN: No rashes CENTRAL NERVOUS SYSTEM: No focal deficits, tone is normal in all 4 extremities. - Labs CBC & Chem 7: 01/26/17 05:50 01/26/17 05:50 Labs: Abnormal Lab Results - Last 24 Hours (Table) 01/23/17 01/25/17 01/25/17 Range/Units 16:38 12:19 12:30 WBC (3.8-10.6) k/uL RBC (4.30-5.90) m/uL Hgb (13.0-17.5) gm/dL Hct (39.0-53.0) % RDW (11.5-15.5) % Neutrophils # (Manual) (1.3-7.7) k/uL Lymphocytes # (Manual) (1.0-4.8) k/uL PT 14.2 H (9.0-12.0) sec INR 1.5 H (<1.2) Chloride (98-107) mmol/L BUN (9-20) mg/dL Glucose (74-99) mg/dL POC Glucose (mg/dL) 105 H (75-99) mg/dL Calcium (8.4-10.2) mg/dL Alkaline Phosphatase (38-126) U/L Total Protein (6.3-8.2) g/dL Albumin (3.5-5.0) g/dL Crossmatch See Detail 01/25/17 01/25/17 01/25/17 Range/Units 16:53 18:40 20:35 WBC 48.8 H* (3.8-10.6) k/uL RBC 2.58 L (4.30-5.90) m/uL Hgb 8.2 L (13.0-17.5) gm/dL Hct 25.6 L (39.0-53.0) % RDW 23.6 H (11.5-15.5) % Neutrophils # (Manual) (1.3-7.7) k/uL Lymphocytes # (Manual) (1.0-4.8) k/uL PT (9.0-12.0) sec INR (<1.2) Chloride (98-107) mmol/L BUN (9-20) mg/dL Glucose (74-99) mg/dL POC Glucose (mg/dL) 142 H 165 H (75-99) mg/dL Calcium (8.4-10.2) mg/dL Alkaline Phosphatase (38-126) U/L Total Protein (6.3-8.2) g/dL Albumin (3.5-5.0) g/dL Crossmatch 01/26/17 01/26/17 01/26/17 Range/Units 05:50 05:50 05:50 WBC 28.9 H* (3.8-10.6) k/uL RBC 2.17 L (4.30-5.90) m/uL Hgb 6.7 L* D (13.0-17.5) gm/dL Hct 21.6 L (39.0-53.0) % RDW 24.0 H (11.5-15.5) % Neutrophils # (Manual) 27.9 H (1.3-7.7) k/uL Lymphocytes # (Manual) 0.3 L (1.0-4.8) k/uL PT 14.8 H (9.0-12.0) sec INR 1.5 H (<1.2) Chloride 110 H (98-107) mmol/L BUN 54 H (9-20) mg/dL Glucose 147 H (74-99) mg/dL POC Glucose (mg/dL) (75-99) mg/dL Calcium 6.8 L (8.4-10.2) mg/dL Alkaline Phosphatase 29 L (38-126) U/L Total Protein 3.1 L (6.3-8.2) g/dL Albumin 1.7 L (3.5-5.0) g/dL Crossmatch 01/26/17 01/26/17 Range/Units 07:15 11:19 WBC (3.8-10.6) k/uL RBC (4.30-5.90) m/uL Hgb (13.0-17.5) gm/dL Hct (39.0-53.0) % RDW (11.5-15.5) % Neutrophils # (Manual) (1.3-7.7) k/uL Lymphocytes # (Manual) (1.0-4.8) k/uL PT (9.0-12.0) sec INR (<1.2) Chloride (98-107) mmol/L BUN (9-20) mg/dL Glucose (74-99) mg/dL POC Glucose (mg/dL) 159 H 232 H (75-99) mg/dL Calcium (8.4-10.2) mg/dL Alkaline Phosphatase (38-126) U/L Total Protein (6.3-8.2) g/dL Albumin (3.5-5.0) g/dL Crossmatch Microbiology - Last 24 Hours (Table) 01/23/17 16:38 Blood Culture - Preliminary Blood No Growth after 48 hours 01/25/17 10:05 Urine Culture - Preliminary Urine,Catheterized Assessment and Plan Plan: Assessment Distended abdomen with and elevated lactic acid and metabolic acidosis suspect intra-abdominal process once patient is stabilized we will do a computed tomography scan of the abdominal and pelvis Hypertension and severe sepsis End-stage COPD with acute exacerbation Acute on chronic hypoxic respiratory failure GI hemorrhage Acute blood loss anemia Leukocytosis related to prolonged prednisone use Hypertension Hyperlipidemia BPH Plan Patient will receive 2 units of packed red blood cells. Continue to try to wean off Levophed maintain a systolic blood pressure of 90. Continue with surgical consults as well as hematology consult. This patient has end-stage COPD and persistent shortness of breath is chronic. Medications have been reviewed and will be continued as ordered. Continue new to monitor for any bleeding as well as hemoglobin. Continue with pulmonary hygiene, coughing and deep breathing exercises, and supportive care. Supplemental oxygen and/or BiPAP to maintain oxygen saturations of 92% or better. Continue nebulizer treatments. Initiate and encourage incentive spirometer. GI and DVT prophylaxis. Repeat labs in the morning. We will continue to monitor labs/results and adjust treatment as necessary. Further recommendations pending.
[2017-01-26] MEDS: CHOLECALCIFEROL 400 UNIT TAB PO SCH (12:04)
--- NOTE | 2017-01-26 13:21 | P.PN ---
Subjective This is a 71-year-old male patient of Dr. Ronn Aaron and Dr. Koenig with past medical history of COPD, hypertension, BPH, recurrent pneumonia thoracic aneurysm who was in the hospital apparently multiple admissions back in August 2016 and again 12/31/2016, 01/07/2017 with episode of pneumonia and COPD exacerbation with respiratory failure. He was discharged 01/07/2017 secondary to COPD exacerbation, and was given oral prednisone on discharge as well as oral antibiotic. Patient will by visiting nurses and was noted to be weak and pale, he has this woman exertion, patient was not actively wheezing then however he was noted to have decreased difficulty of breathing and diminished air sounds, he is chronically hypoxemic using 3 L of O2 nasal cannula 24 7, along with nebulized treatments at home. Those admissions he was negative for pulmonary emboli echocardiogram done at that time shows mild mitral and tricuspid regurgitation ejection fraction of 60-65% no pulmonary hypertension. in the emergency room he had a chest x-ray that shows chronic findings similar to his changes without acute pulmonary process no pleural effusion no pneumothorax he was saturating on 99% BiPAP 40%, and hemoglobin on admission was 7.7 from a previous off 15.8 January 11 which is a drop off 8 g in 8 days. He was transfused 2 units of packed red blood cell in the emergency room his Hemoccult positive and has epigastric tenderness. Patient took the oral prednisone along with 3doses Motrin the day prior to admission were made Dr. 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 Iron studies ordered and Ferrlecit 1 dose to be given today. White count has improved from 31-15.6. Patient has been evaluated by Dr. Carballo and started on a clear liquid diet. Dr. Koenig is on for critical care management. He is currently on Solu-Medrol 40 mg every 6 hours. 01/21: Hemoglobin is at 9.1. White count is staying at 22.1. She remains in intensive care unit but most likely will be transferred out after he has his EGD scheduled for later today. Patient is currently nothing by mouth except for ice chips. Patient does complain of loose stools and left lower quadrant pain with concern for C. difficile colitis. According to his nurse, he has had only smears of stool. If patient has diarrhea, stool for C. difficile toxin to be checked. Patient started on Flagyl. 01/22: EGD was done showing 2 superficial ulcerations in the distal esophagus and the segment of Hill's esophagus status post biopsy, moderate size hiatal hernia, long segment of Hill's esophagus. Dr. Jeanne Herrera has recommended Protonix 40 mg twice daily. Biopsy reports are pending. Diet is to be advanced as tolerated. He is on Solu-Medrol 40 mg every 6 hours which will remain the same. Chest x-ray shows COPD. Patient complains of weakness. He continues to have a cough that is nonproductive. Zosyn added. Stools are black but solid. Transfusion of 1 unit packed RBCs ordered. Patient is planning for discharge to [facility] for subacute rehab once stabilized. 01/23: The patient was seen and evaluated today. The patient denies any nausea or vomiting. He is tolerating food and fluids, denies any abdominal pain nausea vomiting, stools continue to be dark but are formed. Patient did receive 1 unit of packed red blood cells last night, CBC is still pending. He continues to have cough and wheeze with some shortness of breath. He remains on supplemental oxygen at 3 L nasal cannula. 01/24: The patient experienced worsening and shortness of breath yesterday were CTA chest was done and showed no evidence of pulmonary embolism, but was positive for emphysema and multiple findings for compression deformities on multiple levels with worsening decreased compared to prior study. Patient still short of breath requiring BiPAP all night, was weaned off BiPAP to nasal cannula this morning to eat breakfast, but felt of breath and was placed again on BiPAP. 01/25: Patient continues to be lethargic during the night requiring BiPAP without interruption as he gets extremely short of breath when taken off BiPAP. This morning blood work showed lactate level elevated to 4 and I was called when I ordered STAT ABG, chest x-ray 500 mL bolus to transfer the patient to ICU. 01/26: The patient was seen and evaluated today. Patient is a become hypotensive last night, triple-lumen central line was placed into the right femoral vein and the patient was started on levophed and vasopressin. Hemoglobin level continues to drop, last hemoglobin noted to be 6.7, 2 units of packed red blood cells were ordered. CT of the abdomen pelvis was ordered it did reveal a hypodensity in the upper pole of the spleen that may represent a small splenic infarct, moderate to large stool burden within the right hemicolon and stool distending to the rectum up to 6.2 cm wide, and anasarca. Repeat chest x-ray showed emphysema. Blood and urine cultures still pending. Surgery, infectious disease, hematology on consult. Objective - Vital Signs Vital signs: Vital Signs Temp 98.3 F 01/26/17 12:00 Pulse 117 H 01/26/17 12:00 Resp 40 H 01/26/17 12:00 BP 81/54 01/26/17 12:00 Pulse Ox 100 01/26/17 12:00 Intake & Output 01/25/17 01/26/17 01/26/17 18:59 06:59 18:59 Intake Total 2918.375 6380.643 0212.86 Output Total 1285 680 410 Balance 1633.375 325.323 1689.86 Weight 69.7 kg Intake: IV 1105.0 1125.0 700 Esomeprazole 40 mg In 50 50 Sodium Chloride 0.9% 50 ml @ 100 mls/hr IVPB DAILY [facility] Rx#:[id number] Piperacillin-Tazobactam 3 75.0 75.0 50 .375 gm In Dextrose/Water 1 50ml.bag @ 12.5 mls/hr IVPB Q8HR [facility] Rx#: [id number] Sodium Chloride 0.9% 1, 980 1050 600 000 ml @ 100 mls/hr IV . Q10H [facility] Rx#:[id number] Intake, IV Titration 1113.375 359.300 37.86 Amount Norepinephrin 16 mg-0.9% 359.300 37.86 Ns Pmx 16 mg In 250 ml @ Titrate IV .Q0M [facility] Rx#: [id number] Norepinephrin 4 mg-0.9% 113.375 Ns Pmx 4 mg In 250 ml @ Titrate IV .Q0M [facility] Rx#: [id number] Sodium Chloride 0.9% 1, 1000 000 ml @ 999 mls/hr IV . Q1H1M ONE Rx#:[id number] Oral 700 320 Blood Product 610 Rc Irr As1 Unit 310 [id number] Rc Irr Cpda1 Unit 0 [id number] Output: Urine 1285 680 410 Other: Voiding Method Indwelling Catheter Indwelling Catheter Indwelling Catheter - Exam - Exam General appearance: cooperative, mild distress, thin - EENT Eyes: anicteric sclerae, EOMI, PERRLA, dentition normal, normal appearance ENT: hearing grossly normal, NA/AT, normal oropharynx - Neck Neck: no lymphadenopathy, normal ROM, no other, no rigidity, no stridor, no thyromegaly - Respiratory Respiratory: bilateral: CTA, negative: diminished, dullness, rales, rhonchi, wheezing - Cardiovascular Rhythm: regular Heart sounds: normal: S1, S2 Abnormal Heart Sounds: no systolic murmur, no diastolic murmur, no rub, no S3 Gallop, no S4 Gallop, no click, no other - Gastrointestinal General gastrointestinal: normal bowel sounds, soft - Integumentary Integumentary: decreased turgor, normal - Neurologic Neurologic: CNII-XII intact - Musculoskeletal Musculoskeletal: gait normal - Psychiatric Psychiatric: A&O x's 3, appropriate affect - Labs CBC & Chem 7: 01/26/17 05:50 01/26/17 05:50 Labs: Abnormal Lab Results - Last 24 Hours (Table) 01/23/17 01/25/17 01/25/17 Range/Units 16:38 12:30 16:53 WBC (3.8-10.6) k/uL RBC (4.30-5.90) m/uL Hgb (13.0-17.5) gm/dL Hct (39.0-53.0) % RDW (11.5-15.5) % Neutrophils # (Manual) (1.3-7.7) k/uL Lymphocytes # (Manual) (1.0-4.8) k/uL PT 14.2 H (9.0-12.0) sec INR 1.5 H (<1.2) Chloride (98-107) mmol/L BUN (9-20) mg/dL Glucose (74-99) mg/dL POC Glucose (mg/dL) 142 H (75-99) mg/dL Calcium (8.4-10.2) mg/dL Alkaline Phosphatase (38-126) U/L Total Protein (6.3-8.2) g/dL Albumin (3.5-5.0) g/dL Crossmatch See Detail 01/25/17 01/25/17 01/26/17 Range/Units 18:40 20:35 05:50 WBC 48.8 H* 28.9 H* (3.8-10.6) k/uL RBC 2.58 L 2.17 L (4.30-5.90) m/uL Hgb 8.2 L 6.7 L* D (13.0-17.5) gm/dL Hct 25.6 L 21.6 L (39.0-53.0) % RDW 23.6 H 24.0 H (11.5-15.5) % Neutrophils # (Manual) 27.9 H (1.3-7.7) k/uL Lymphocytes # (Manual) 0.3 L (1.0-4.8) k/uL PT (9.0-12.0) sec INR (<1.2) Chloride (98-107) mmol/L BUN (9-20) mg/dL Glucose (74-99) mg/dL POC Glucose (mg/dL) 165 H (75-99) mg/dL Calcium (8.4-10.2) mg/dL Alkaline Phosphatase (38-126) U/L Total Protein (6.3-8.2) g/dL Albumin (3.5-5.0) g/dL Crossmatch 01/26/17 01/26/17 01/26/17 Range/Units 05:50 05:50 07:15 WBC (3.8-10.6) k/uL RBC (4.30-5.90) m/uL Hgb (13.0-17.5) gm/dL Hct (39.0-53.0) % RDW (11.5-15.5) % Neutrophils # (Manual) (1.3-7.7) k/uL Lymphocytes # (Manual) (1.0-4.8) k/uL PT 14.8 H (9.0-12.0) sec INR 1.5 H (<1.2) Chloride 110 H (98-107) mmol/L BUN 54 H (9-20) mg/dL Glucose 147 H (74-99) mg/dL POC Glucose (mg/dL) 159 H (75-99) mg/dL Calcium 6.8 L (8.4-10.2) mg/dL Alkaline Phosphatase 29 L (38-126) U/L Total Protein 3.1 L (6.3-8.2) g/dL Albumin 1.7 L (3.5-5.0) g/dL Crossmatch 01/26/17 Range/Units 11:19 WBC (3.8-10.6) k/uL RBC (4.30-5.90) m/uL Hgb (13.0-17.5) gm/dL Hct (39.0-53.0) % RDW (11.5-15.5) % Neutrophils # (Manual) (1.3-7.7) k/uL Lymphocytes # (Manual) (1.0-4.8) k/uL PT (9.0-12.0) sec INR (<1.2) Chloride (98-107) mmol/L BUN (9-20) mg/dL Glucose (74-99) mg/dL POC Glucose (mg/dL) 232 H (75-99) mg/dL Calcium (8.4-10.2) mg/dL Alkaline Phosphatase (38-126) U/L Total Protein (6.3-8.2) g/dL Albumin (3.5-5.0) g/dL Crossmatch Microbiology - Last 24 Hours (Table) 01/23/17 16:38 Blood Culture - Preliminary Blood No Growth after 48 hours 01/25/17 10:05 Urine Culture - Preliminary Urine,Catheterized Assessment and Plan Plan: 1. Acute respiratory failure with hypoxia requiring BiPAP. Patient will continue on current settings of BiPAP, continue to receive Solu-Medrol 40 mg every 6 hours. Continue to wean off upon improvement will continue follow-up with pulmonary recommendations. 2. Hypotension and sepsis. Continue with vasopressin and Levophed, we'll continue to wean down levophed continue Zosyn and Flagyl, infectious disease on consult. 2. Blood loss anemia secondary to ulceration and distal esophagus and segment of Hill's esophagus. Patient had a drop in hemoglobin, currently hemoglobin is 6.7, 2 units of packed red blood cells will be transfused, will continue to monitor CBC closely. 3. Leukocytosis. Leukocytosis possibly from high-dose steroids, WBC did come down from 48.8-28.9, hematology and infectious disease on consult, continue Zosyn and Flagyl, we'll continue to monitor. 4. End-stage chronic obstructive pulmonary disease. Patient continues on BiPAP , will continue to wean off BiPAP as patient condition improves. 5. Hypertension, medications held due to hypotension 6. Hyperlipidemia we'll continue statin. 7. Benign prostatic hypertrophy. Continue Flomax or 0.4 mg at bedtime. 8. Vitamin D deficiency. Continue supplement. 8. Gastric intestinal prophylaxis. Nexium 9. DVT prophylaxis. Mechanical prophylaxis only, contraindicated to use pharmacological prophylaxis secondary to acute GI bleed The above impression and plan of care have been discussed and directed by signing physician. Cheyenne Chappell nurse practitioner acting as scribe for signing physician.
[2017-01-26 13:54] VITALS: TEMP 99.7
[2017-01-26] MEDS ORDERED: MORPHINE SULFATE 4 MG/ML SYRINGE IVP ONE (16:13)
[2017-01-26] MEDS ORDERED: MORPHINE SULFATE (100 MG/2 ML) 100 MG in SODIUM CHLORIDE 0.9% 100 ML IV SCH (16:15)
[2017-01-26 18:56] VITALS: BP 96/64; PULSE 0; RESP 0
--- NOTE | 2017-01-26 23:04 | PN ---
DATE OF DICTATION: 01/26/2017 This patient is a 71-year-old pleasant white male with a history of advanced COPD. He was admitted to the hospital with exacerbation of COPD as well as epigastric pain and black tarry stools. He was seen on consultation at the time of admission to the hospital, underwent an upper endoscopy by me on 01/21 which revealed Hill's esophagus with ulcerations in the segment of Hill's esophagus which were thought to be the source of bleeding. Since then he has been on Protonix 40 mg twice daily and doing well. We were re-consulted on him because of abdominal distention and abdominal pain that he had yesterday. He was evaluated by Dr. Garduno and he had a CT of the abdomen and pelvis done yesterday that showed abdominal distention with moderate to large amount of stool in the ascending colon as well as in the cecum, diffuse anasarca, moderate to severe atherosclerotic calcifications within the abdominal aorta and iliac arteries. He also had significant leukocytosis with hypotension and was transferred to the intensive care unit yesterday. This morning he says that his abdominal pain is much better. Abdominal distention is improving. He denies any nausea or vomiting. He had no bowel movement for the last 3 days. On physical examination he is on nasal BiPAP. Vital signs are stable. Blood pressure is 96/54, pulse rate 91, temperature 98.7, respiration 25. HEENT EXAMINATION: Unremarkable. Conjunctivae pink. Sclerae anicteric. Oral cavity with no lesions. NECK: No JVD. CHEST: Decreased breath sounds bilaterally. HEART: Regular rate and rhythm. Abdomen is slightly distended but it was very soft. It was non-tender. There was some bruising ( ) anterior abdominal wall. EXTREMITIES: No pedal edema. SKIN: No rashes. NEURO: He is alert and oriented x3. No focal deficits. LABS FROM YESTERDAY: WBC count was 48,000 and today it is 28,900. INR 1.5. Basic metabolic panel shows a BUN of 54, creatinine 0.7. Albumin is 1.7. Hemoglobin is down to 6.7. Platelets are 170. IMPRESSION: 1. Abdominal distention, probably related to colonic distention secondary to retained stool. 2. Leukocytosis, for which Dr. Moore has evaluated the patient and is following closely; most likely reactive in etiology. 3. Anemia with drop in hemoglobin to 6.7 grams/dL. He is receiving 2 units of blood today. Clinically no evidence of active ongoing bleeding. He just had an upper endoscopy done by me 4 days ago ( ) long segment Hill's esophagus with 2 ulcerations in the segment of Hill's esophagus but not active bleeding. RECOMMENDATIONS: 1. Continue with Protonix 40 mg q.12 hours. 2. Will give him a Fleet enema and continue with stool softeners. 3. No plans for any endoscopic intervention at the present time. 4. Will repeat labs in the morning and will follow him closely during his hospital stay. BREANA
--- NOTE | 2017-01-27 13:03 | P.DS ---
Providers Date of admission: 01/19/17 14:32 Attending physician: Monika Torrez Consults: 01/19/17 14:32 Consult Physician Urgent Consulting Provider: Tevin Koenig Consult Reason/Comments: Critical care Do you want consulting provider notified?: Yes 01/23/17 15:58 Consult Physician Routine Consulting Provider: Evelio Schilling Consult Reason/Comments: leukocytosis previous achromobacter, enterbacter pneumonia Do you want consulting provider notified?: Yes 01/24/17 10:50 Consult Physician Stat Consulting Provider: Cecilio Lainez Consult Reason/Comments: elevated WBC Do you want consulting provider notified?: Yes 01/25/17 09:28 Consult Physician Stat Consulting Provider: Charlotte Garduno Consult Reason/Comments: abdominal distention Do you want consulting provider notified?: Yes 01/25/17 09:29 Consult Physician Stat Consulting Provider: Rachael Herrera Consult Reason/Comments: GI bleed Do you want consulting provider notified?: Yes Primary care physician: Ronn Aaron - Discharge Diagnosis(es) (1) Sepsis Status: Acute Hospital Course: This is a 71-year-old male patient of Dr. Ronn Aaron and Dr. Koenig with past medical history of COPD, hypertension, BPH, recurrent pneumonia thoracic aneurysm who was in the hospital apparently multiple admissions back in August 2016 and again 12/31/2016, 01/07/2017 with episode of pneumonia and COPD exacerbation with respiratory failure. He was discharged 01/07/2017 secondary to COPD exacerbation, and was given oral prednisone on discharge as well as oral antibiotic. Patient will by visiting nurses and was noted to be weak and pale, he has this woman exertion, patient was not actively wheezing then however he was noted to have decreased difficulty of breathing and diminished air sounds, he is chronically hypoxemic using 3 L of O2 nasal cannula 24 7, along with nebulized treatments at home. Those admissions he was negative for pulmonary emboli echocardiogram done at that time shows mild mitral and tricuspid regurgitation ejection fraction of 60-65% no pulmonary hypertension. in the emergency room he had a chest x-ray that shows chronic findings similar to his changes without acute pulmonary process no pleural effusion no pneumothorax he was saturating on 99% BiPAP 40%, and hemoglobin on admission was 7.7 from a previous off 15.8 January 11 which is a drop off 8 g in 8 days. He was transfused 2 units of packed red blood cell in the emergency room his Hemoccult positive and has epigastric tenderness. Patient took the oral prednisone along with 3doses Motrin the day prior to admission were made Dr. 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 Iron studies ordered and Ferrlecit 1 dose to be given today. White count has improved from 31-15.6. Patient has been evaluated by Dr. Carballo and started on a clear liquid diet. Dr. Koenig is on for critical care management. He is currently on Solu-Medrol 40 mg every 6 hours. 01/21: Hemoglobin is at 9.1. White count is staying at 22.1. She remains in intensive care unit but most likely will be transferred out after he has his EGD scheduled for later today. Patient is currently nothing by mouth except for ice chips. Patient does complain of loose stools and left lower quadrant pain with concern for C. difficile colitis. According to his nurse, he has had only smears of stool. If patient has diarrhea, stool for C. difficile toxin to be checked. Patient started on Flagyl. 01/22: EGD was done showing 2 superficial ulcerations in the distal esophagus and the segment of Hill's esophagus status post biopsy, moderate size hiatal hernia, long segment of Hill's esophagus. Dr. Jeanne Herrera has recommended Protonix 40 mg twice daily. Biopsy reports are pending. Diet is to be advanced as tolerated. He is on Solu-Medrol 40 mg every 6 hours which will remain the same. Chest x-ray shows COPD. Patient complains of weakness. He continues to have a cough that is nonproductive. Zosyn added. Stools are black but solid. Transfusion of 1 unit packed RBCs ordered. Patient is planning for discharge to [facility] for subacute rehab once stabilized. 01/23: The patient was seen and evaluated today. The patient denies any nausea or vomiting. He is tolerating food and fluids, denies any abdominal pain nausea vomiting, stools continue to be dark but are formed. Patient did receive 1 unit of packed red blood cells last night, CBC is still pending. He continues to have cough and wheeze with some shortness of breath. He remains on supplemental oxygen at 3 L nasal cannula. 01/24: The patient experienced worsening and shortness of breath yesterday were CTA chest was done and showed no evidence of pulmonary embolism, but was positive for emphysema and multiple findings for compression deformities on multiple levels with worsening decreased compared to prior study. Patient still short of breath requiring BiPAP all night, was weaned off BiPAP to nasal cannula this morning to eat breakfast, but felt of breath and was placed again on BiPAP. 01/25: Patient continues to be lethargic during the night requiring BiPAP without interruption as he gets extremely short of breath when taken off BiPAP. This morning blood work showed lactate level elevated to 4 and I was called when I ordered STAT ABG, chest x-ray 500 mL bolus to transfer the patient to ICU. 01/26: The patient was seen and evaluated today. Patient is a become hypotensive last night, triple-lumen central line was placed into the right femoral vein and the patient was started on levophed and vasopressin. Hemoglobin level continues to drop, last hemoglobin noted to be 6.7, 2 units of packed red blood cells were ordered. CT of the abdomen pelvis was ordered it did reveal a hypodensity in the upper pole of the spleen that may represent a small splenic infarct, moderate to large stool burden within the right hemicolon and stool distending to the rectum up to 6.2 cm wide, and anasarca. Repeat chest x-ray showed emphysema. Blood and urine cultures still pending. Surgery, infectious disease, hematology on consult. Pt made comfort care and later today. DISCHARGE DIAGNOSES: 1. Acute respiratory failure with hypoxia requiring BiPAP. 2. Hypotension and sepsis. 2. Blood loss anemia secondary to ulceration and distal esophagus and segment of Hill's esophagus. 3. Leukocytosis. 4. End-stage chronic obstructive pulmonary disease. 5. Hypertension 6. Hyperlipidemia 7. Benign prostatic hypertrophy. 8. Vitamin D deficiency. The above impression and plan of care have been discussed and directed by signing physician. Cheyenne Chappell nurse practitioner acting as scribe for signing physician. Patient Condition at Discharge: Critical Plan - Discharge Summary New Discharge Prescriptions: New Pantoprazole [Protonix] 40 mg PO DAILY #30 tablet. No Action Ipratropium-Albuterol Nebulize [Duoneb 0.5 mg-3 mg/3 ml Soln] 3 ml INHALATION RT-QID Budesonide [Pulmicort] 0.5 mg INHALATION RT-BID Cholecalciferol [Vitamin D3] 400 unit PO DAILY Albuterol Inhaler [Ventolin Hfa Inhaler] 2 puff INHALATION RT-QID PRN PRN Reason: Shortness Of Breath Tamsulosin HCl [Flomax] 0.4 mg PO HS Pravastatin Sodium [Pravachol] 40 mg PO HS Losartan [Cozaar] 25 mg PO DAILY ALPRAZolam [Xanax] 0.25 mg PO BID PRN #30 tab PRN Reason: Anxiety guaiFENesin [Mucinex] 1,200 mg PO Q12HR tab Montelukast [Singulair] 10 mg PO HS #30 tab predniSONE See Taper PO DIRECTED Discharge Medication List Albuterol Inhaler [Ventolin Hfa Inhaler] 2 puff INHALATION RT-QID PRN 09/23/16 [ History] Budesonide [Pulmicort] 0.5 mg INHALATION RT-BID 09/23/16 [History] Cholecalciferol [Vitamin D3] 400 unit PO DAILY 09/23/16 [History] Ipratropium-Albuterol Nebulize [Duoneb 0.5 mg-3 mg/3 ml Soln] 3 ml INHALATION RT -QID 09/23/16 [History] Losartan [Cozaar] 25 mg PO DAILY 09/23/16 [History] Pravastatin Sodium [Pravachol] 40 mg PO HS 09/23/16 [History] Tamsulosin HCl [Flomax] 0.4 mg PO HS 09/23/16 [History] ALPRAZolam [Xanax] 0.25 mg PO BID PRN #30 tab 01/01/17 [Rx] Montelukast [Singulair] 10 mg PO HS #30 tab 01/12/17 [Rx] guaiFENesin [Mucinex] 1,200 mg PO Q12HR tab 01/12/17 [Rx] predniSONE See Taper PO DIRECTED 01/19/17 [History] Pantoprazole [Protonix] 40 mg PO DAILY #30 tablet. 01/22/17 [Rx] Follow up Appointment(s)/Referral(s): Rachael Herrera MD [STAFF PHYSICIAN] - 10 Days Tevin Koenig MD [STAFF PHYSICIAN] - 1 Week Ronn Aaron MD [Primary Care Provider] - 1-2 days Discharge Disposition: - Preliminary Cause of Preliminary Cause of : COPD, respiratory failure, hypotension
== END 2017-01-26 17:34 | disposition expired | DRG 380 ==
LOC: EC 12:39 → 6ICU 14:32 → 4MS4W 01-21 17:25 → 6SEL 01-23 18:07 → 6ICU 01-25 08:32
PROVIDERS: ADMIT Family Medicine; ATTEND Family Medicine
PROC: 0DB58ZX Excision of Esophagus, Via Natural or Artificial Opening Endoscopic, Diagnostic (ICD-10-PCS; principal; 2017-01-19)
PROC: 30233N1 Transfusion of Nonautologous Red Blood Cells into Peripheral Vein, Percutaneous Approach (ICD-10-PCS; 2017-01-19)
PROC: 06HM33Z Insertion of Infusion Device into Right Femoral Vein, Percutaneous Approach (ICD-10-PCS; 2017-01-25)
DX: K22.11 Ulcer of esophagus with bleeding (principal); A41.9 Sepsis, unspecified organism; J96.21 Acute and chronic respiratory failure with hypoxia; R65.20 Severe sepsis without septic shock; E87.2 Acidosis; B37.81 Candidal esophagitis; D62 Acute posthemorrhagic anemia; Z99.81 Dependence on supplemental oxygen; J44.9 Chronic obstructive pulmonary disease, unspecified; D72.823 Leukemoid reaction; E55.9 Vitamin D deficiency, unspecified; E78.5 Hyperlipidemia, unspecified; I10 Essential (primary) hypertension; K21.9 Gastro-esophageal reflux disease without esophagitis; K22.70 Barrett's esophagus without dysplasia; K44.9 Diaphragmatic hernia without obstruction or gangrene; N40.0 Benign prostatic hyperplasia without lower urinary tract symptoms; Z51.5 Encounter for palliative care; Z79.52 Long term (current) use of systemic steroids; Z79.899 Other long term (current) drug therapy; Z80.1 Family history of malignant neoplasm of trachea, bronchus and lung; Z82.49 Family history of ischemic heart disease and other diseases of the circulatory system; Z87.01 Personal history of pneumonia (recurrent); Z87.891 Personal history of nicotine dependence
CPT/HCPCS: 36415; 36600; 43239; 71010; 71275; 74020; 74178; 80048; 80053; 81001; 81003; 82272; 82550; 82553; 82728; 82805; 83036; 83540; 83550; 83605; 83735; 83880; 84100; 84484; 85025; 85027; 85610; 85730; 86850; 86900; 86901; 86920; 87040; 87086; 88305; 88312; 93005; 94640; 94660; 94760; 96361; 96365; 96375; 99291